=== PATIENT | female | born 1975 | race Caucasian/White ===

== ENCOUNTER 2023-07-05 09:33 | Outpatient (OUT) | payer BC, SELFPAY ==
--- NOTE | 2023-07-05 09:44 | MM_ITS ---
Patient Name: MOSES BACK MR#: [id number] : 1975 Exam Date: 07/05/2023 Ordering Doctor: DR Vikash Mena . RADIOLOGY REPORT PROCEDURE: MM TOMOSYNTHESIS SCREENING BI COMPARISON: MG MAMM SCREEN [place] W CAD, 05/10/2021. MG MAMM DIAGNOSTIC 3D [place] CAD, 06/24/2022. INDICATIONS: screening Calculator Name NCI Breast Cancer Risk Assessment Tool 5 Year Breast Cancer Risk 1.10% Lifetime Breast Cancer Risk 11.10% Personal Breast Cancer No Personal Ovarian Cancer No Treatments None Family Cancers Grandmother-maternal with breast cancer at age 63; Father with lung cancer at age 63; Father with prostate cancer at age 49; Grandfather-paternal with prostate cancer at age 55. LOCATION: [facility] BREAST COMPOSITION: The breasts are almost entirely fatty. FINDINGS: DIAGNOSTIC CATEGORY 2--BENIGN FINDING. NO CHANGE FROM COMPARISON. Scattered benign-appearing calcifications are present. Scattered benign-appearing lymph nodes are present. RIGHT BREAST: No significant suspicious finding. LEFT BREAST: No significant suspicious finding. RECOMMENDATIONS: ROUTINE MAMMOGRAM AND CLINICAL EVALUATION IN 12 MONTHS. PLEASE NOTE: A NORMAL MAMMOGRAM DOES NOT EXCLUDE THE POSSIBILITY OF BREAST CANCER. A CLINICALLY SUSPICIOUS PALPABLE LUMP SHOULD BE BIOPSIED. Dictated by: Angel Mcdermott MD on 07/05/2023 at 12:16 Approved by: Angel Mcdermott MD on 07/05/2023 at 12:18
== END 2023-07-05 09:34 | disposition home or self-care (01) ==
LOC: MAMMO 09:33
PROVIDERS: Visit Provider Obstetrics & Gynecology
DX: Z01.419 Encounter for gynecological examination (general) (routine) without abnormal findings (principal); Z12.31 Encounter for screening mammogram for malignant neoplasm of breast; Z80.3 Family history of malignant neoplasm of breast; Z80.1 Family history of malignant neoplasm of trachea, bronchus and lung; Z80.42 Family history of malignant neoplasm of prostate
CPT/HCPCS: 77063; 77067; 87624; G0145

== ENCOUNTER 2023-07-05 20:20 | Outpatient (REF) | payer BC, SELFPAY ==
[2023-07-10 13:08] LABS: Age Gdln ACOG Testing Note (.); HPV Aptima Negative (Negative); IGP, Aptima HPV, rfx 16/18,45 Note (.)
== END 2023-07-05 20:21 | disposition home or self-care (01) ==
LOC: LAB 20:20
PROVIDERS: Visit Provider Physician Assistant
DX: Z01.419 Encounter for gynecological examination (general) (routine) without abnormal findings (principal)
CPT/HCPCS: 87624; G0145

== ENCOUNTER 2024-03-29 08:59 | Outpatient (OUT) | payer BC, SELFPAY ==
--- NOTE | 2024-03-29 09:04 | ECG_ITS ---
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
== END 2024-03-29 09:00 | disposition home or self-care (01) ==
LOC: PST 08:59
PROVIDERS: Visit Provider Obstetrics & Gynecology
DX: R10.2 Pelvic and perineal pain (principal); Z90.710 Acquired absence of both cervix and uterus
CPT/HCPCS: 93005

== ENCOUNTER 2024-03-29 10:01 | Outpatient (OUT) | payer BC, SELFPAY ==
[2024-03-29 11:27] LABS: Lactate Dehydrogenase 134 U/L (81-234)
[2024-03-30 08:14] LABS: AFP, Serum, Tumor Marker 2.8 ng/mL (0.0-6.4); CEA <0.6 ng/mL (0.0-4.7); Cancer Antigen (CA) 125 4.8 U/mL (0.0-38.1); HCG Tumor Marker <1 mIU/mL (.)
== END 2024-03-29 10:02 | disposition home or self-care (01) ==
LOC: LAB 10:03
PROVIDERS: PCP Student in an Organized Health Care Education/Training Program; Visit Provider Obstetrics & Gynecology
DX: R10.2 Pelvic and perineal pain (principal); Z90.710 Acquired absence of both cervix and uterus; N83.299 Other ovarian cyst, unspecified side
CPT/HCPCS: 36415; 82105; 82378; 83615; 84702; 86304; 93005

== ENCOUNTER 2024-04-12 07:22 | Day surgery (SDC) | payer BC, SELFPAY ==
[2024-03-29 09:18] VITALS: BP 124/79; PULSE 87; TEMP 36.3; O2SAT 100; BMI 32.4
[2024-04-12] VITALS (10 sets, daily range): BP systolic 109–124; BP diastolic 71–80; PULSE 63–88; TEMP 36.1–36.4; O2SAT 100; BMI 40.7
--- OUTSIDE RECORDS SUMMARY | 2024-04-12 07:25 | XMS_ITS | CCD ---
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 Unavailable [phone] Michell Campbell Unavailable DO Gabriel Anderson Primary Care Provider [phone] DO Gabriel Anderson Attending Provider [phone] TRINA ., DR HERRMANN Admitting Unavailable TRINA ., DR HERRMANN Attending Unavailable TRINA ., DR HERRMANN Consulting Unavailable TRINA ., DR HERRMANN Admitting Unavailable TRINA ., DR HERRMANN Attending Unavailable REQUEST, DR NONE LISTED Primary Care Unavaila ble TRINA ., DR HERRMANN Admitting Unavailable TRINA ., DR HERRMANN Attending Unavailable REQUEST, NONE LISTED Primary Care Unavaila ble TRINA ., DR HERRMANN Consulting Unavailable AGUBOSIM, MILO Consulting Unavailable MARIA G CROWLEY Consulting Unavailable TRINA ., DR HERRMANN Admitting Unavailable TRINA ., DR HERRMANN Attending Unavailable TRINA ., DR HERRMANN Consulting Unavailable REQUEST, DR NONE LISTED Primary Care Unavaila ble TRINA ., DR HERRMANN Admitting Unavailable TRINA ., DR HERRMANN Attending Unavailable REQUEST, DR NONE LISTED Primary Care Unavaila ble TRINA ., DR HERRMANN Consulting Unavailable Randall Mcfarlane Consulting Unavailable TRINA ., DR HERRMANN Admitting Unavailable TRINA ., DR HERRMANN Attending Unavailable REQUEST, DR NONE LISTED Primary Care Unavaila ble TRINA ., DR HERRMANN Consulting Unavailable AGUBOSIM, MILO Consulting Unavailable ALEJANDRINA BLEVINS Consulting Unavailable DENITA VILLALOBOS Consulting Unavailable TRINA ., DR HERRMANN Admitting Unavailable TRINA ., DR HERRMANN Attending Unavailable REQUEST, DR NONE LISTED Primary Care Unavaila ble TRINA ., DR HERRMANN Consulting Unavailable TRINA ., DR HERRMANN Admitting Unavailable TRINA ., DR HERRMANN Attending Unavailable REQUEST, DR NONE LISTED Primary Care Unavaila mayito Anderson, DO Juarez Primary Care Provider [phone] Justin, DO Juarez Attending Provider [phone] Justin, Gabriel Attending Unavailable Justin, Gabriel Primary Care Unavailable Branmilocki, Gabriel Admitting Unavailable BRANMILOCKI, GABRIEL A Attending Unavailable JUSTIN, GABRIEL A Primary Care Unavailable BRANHUNG, GABRIEL A Admitting Unavailable BRANMILOCKI, GABRIEL A Primary Care Unavailable Johnathan French Admitting Unavailable Johnathan French Attending Unavailable Chris Hernandez MD Primary Care Provider Vikash MENA Referring Unavailable Av HERNANDEZ Attending Unavailable CHRIS HERNANDEZ Primary Care Physician [phone] KATIA DAVIDSON Attending Unavailable VIKASH MENA Attending Unavailable VIKASH MENA Attending Unavailable Allergies Allergy Classification Reported Allergen(s) Allergy Type Date of Onset Reaction(s) Facility (20 sources) dairy allergy Propensity to adverse reactions 4 [facility] (20 sources) Acetaminophen / oxyCODONE; Translations: [acetaminophen-ox ycodone] Drug Allergy [facility] [place] (1 source) Lactose Drug Allergy [facility] (8 sources) Acetaminophen Drug Allergy 4 [facility] (8 sources) oxyCODONE Drug Allergy 4 [facility] (1 source) Acetaminophen / oxyCODONE; Translations: [Percocet] Drug Allergy [facility] Rep[facility] (5 sources) Acetaminophen / oxyCODONE Drug Allergy 3 GI intolerance [facility] (1 source) Acetaminophen / oxyCODONE; Translations: [acetaminophen-ox ycodone] Drug Allergy [facility] Repository Medications Current Medications Medication Drug Class(es) Dates Sig (Normalized) Sig (Original) naproxen 500 mg oral tablet (6 sources) Nonsteroidal Anti-inflammatory Drug Start: 11-01-2022 take 1 tablet by mouth every twelve hours at mealtime as needed Naproxen 500 MG 1 tablet with food or milk as needed Orally every 12 hrs for 30 days Oct, Active 24 hr phentermine 15 mg / topiramate 92 mg extended release oral capsule (20 sources) Sympathomimetic Amine Anorectic Start: 08-22-2023 End: 03-25-2024 take 1 capsule by mouth once daily Phentermine-Topi ramate 15-92 mg capsule, ER multiphase 24 hr Active 1 CAP PO Daily March 25, 2024 11:46am Start: 01-22-2021 take 1 capsule by mo ut every twenty-four hours Qsymia 15-92 MG 1 capsule Orally Once a day for 30 day(s) Jan, Active Start: 01-22-2021 take 1 capsule by mo uth every twenty-four hours Start: 01-22-2021 take 1 capsule by mo uth every twenty-four hours Start: 01-22-2021 take 1 capsule by mo uth every twenty-four hours Qsymia 11.25-69 MG 1 capsule Orally Once a day for 14 days Jan, Active Start: 08-18-2020 Phentermine-To piramate (Qsymia) 15-92 MG capsule sustained-release 24 hr 08/18/2020 Active Start: 05-20-2020 End: 08-22-2023 take 1 capsule by mouth once daily Phentermine-Topiramate (Qsymia) 7.5-46 mg capsule, ER multiphase 24 hr Discontinued 1 CAP PO Daily May 15, 2023 1:54pm June 14, 2023 10:17am Vitamin D 37627 U (17 sources) take 1 tablet by mamta th once daily Vitamin D 63294 U 1 tablet Orally daily Active {24 (ethinyl estradiol 0.02 MG / norethindrone acetate 1 MG Chewable Tablet) / 4 (ferrous fumarate 75 MG Oral Tablet) } Pack [Nora 24 Fe Chewable 28 Day] (17 sources) take 1 tablet by mamta th every twenty-four hours Nora 24 Fe 1-20 MG-MCG(24) 1 tablet Orally Once a day Active take 1 tablet by mouth every twe y-four hours Completed/Discontinued Medications Medication Drug Class(es) Dates Sig (Normalized) Sig (Original) cholecalciferol 0.125 mg oral tablet (5 sources) Vitamin D Start: 05-20-2020 End: 08-22-2023 take 1 tablet by mouth once daily Cholecalciferol (Vitamin D3) (Vitamin D3) 125 mcg (5,000 unit) Tablet Discontinued 125 MCG PO Daily May 20, 2020 12:00am August 22, 2023 7:06am Norethindrone-E.Estra diol-Iron (5 sources) Estrogen Start: 05-20-2020 End: 08-22-2023 take 1 tablet by mouth once daily Norethindrone-E.Estr adiol-Iron (Lo Loestrin Fe) 1 mg-10 mcg (24)/10 mcg (2) Tablet Discontinued 1 TAB PO Daily May 20, 2020 12:00am August 22, 2023 7:06am Start: 05-20-2020 End: 08-22-2023 take 1 tablet by mouth once daily Norethindrone-E.Estradiol-Iron (Lo Loest rin Fe) 1 mg-10 mcg (24)/10 mcg (2) Tablet Discontinued 1 TAB PO Daily May 20, 2020 1:00am August 22, 2023 8:06am Start: 05-20-2020 take 1 tablet by mamta th once daily Norethindrone-E.Estradiol-Iron (Lo Loest rin Fe) 1 mg-10 mcg (24)/10 mcg (2) Tablet Active 1 TAB PO Daily May 20, 2020 1:00am methylPREDNISolone acetate 40 mg/ml injectable suspension (4 sources) Corticosteroid Start: 01-20-2023 DEPO-Medrol Jan, 1 mL pantoprazole 40 mg delayed release oral tablet (5 sources) Proton Pump Inhibitor Start: 05-20-2020 End: 08-22-2023 take 1 tablet by mouth once daily Pantoprazole 40 mg Tablet,Delayed Release (Dr/Ec) Discontinued 40 MG PO Daily May 20, 2020 12:00am August 22, 2023 7:06am traZODone hydrochloride 100 mg oral tablet (20 sources) Serotonin Reuptake Inhibitor Start: 08-22-2023 End: 03-25-2024 take 1 tablet by mouth once daily at bedtime as needed Trazodone 100 mg tablet Discontinued 100 MG PO Daily at bedtime as needed for insomnia 90 August 22, 2023 7:29am November 21, 2023 8:01am Start: 05-10-2021 take 1 tablet by mamta th every twenty-four hours traZODone HCl 50 MG 1 tablet at bedtime as needed Orally Once a day for 30 day(s) Apr, Active take 1 tablet by mamta th every twenty-four hours traZODone HCl 100 MG 1 tablet at bedtime as needed Orally Once a day for 30 day(s) Not-Taking Problems Active Problems Problem Classification Problem Date Documented Date Episodic/Chronic Abdominal pain (6 sources) Pelvic and perineal pain; Translations: [Pain in female pelvis] Onset: 09-15-2021 02-14-2024 Episodic Anxiety disorders (1 source) Anxiety 02-26-2024 Chronic Diabetes mellitus without complication (1 source) Impaired fasting glucose Episodic Disorders of lipid metabolism (20 sources) Hypercholesterolemia; Translations: [Pure hypercholesterolemia, unspecified] Chronic Headache; including migraine (1 source) Migraine 02-26-2024 Chronic Immunizations and screening for infectious disease (1 source) Contact with and (suspected) exposure to other viral communicable diseases Episodic Menstrual disorders (5 sources) Excessive and frequent menstruation with regular cycle; Translations: [Dysmenorrhea, unspecified] Onset: 09-10-2021 Chronic Nonmalignant breast conditions (4 sources) Unspecified lump in the left breast, upper outer quadrant; Translations: [UNS LUMP IN LT BREAST UPR OUTR QUAD] Onset: 06-24-2022 Episodic Nutritional deficiencies (20 sources) Vitamin D deficiency; Translations: [Vitamin D deficiency, unspecified] Onset: 01-22-2021 Resolved: 11-24-2021 Chronic Other connective tissue disease (3 sources) Trochanteric bursitis, right hip Episodic Other female genital disorders (1 source) Camila; Translations: [MITTELSCHMERZ] Onset: 09-15-2021 Chronic Other female genital disorders (1 source) Unspecified dyspareunia; Translations: [UNSPECIFIED DYSPAREUNIA] Onset: 09-15-2021 Chronic Other nervous system disorders (1 source) Chronic pain; Translations: [Other chronic pain] Onset: 03-26-2024 Chronic Other nutritional; endocrine; and metabolic disorders (20 sources) Obesity; Translations: [Other obesity due to excess calories] Chronic Other nutritional; endocrine; and metabolic disorders (20 sources) Other obesity due to excess calories; Translations: [Obesity, unspecified] Onset: 01-22-2021 Resolved: 11-24-2021 Chronic Other nutritional; endocrine; and metabolic disorders (3 sources) Body mass index (BMI) 36.0-36.9, adult Onset: 01-22-2021 Resolved: 07-19-2021 Chronic Other nutritional; endocrine; and metabolic disorders (1 source) Obesity, unspecified Onset: 01-22-2021 Resolved: 01-22-2021 Chronic Other nutritional; endocrine; and metabolic disorders (7 sources) Obese class II; Translations: [Body mass index (BMI) 36.0-36.9, adult] Chronic Other nutritional; endocrine; and metabolic disorders (14 sources) Body mass index 30+ - obesity; Translations: [Body mass index (BMI) 35.0-35.9, adult] 03-26-2024 Chronic Other nutritional; endocrine; and metabolic disorders (4 sources) Body mass index (BMI) 35.0-35.9, adult Onset: 04-02-2021 Resolved: 09-29-2021 Chronic Other nutritional; endocrine; and metabolic disorders (2 sources) Body mass index (BMI) 34.0-34.9, adult Onset: 10-27-2021 Resolved: 11-24-2021 Chronic Other nutritional; endocrine; and metabolic disorders (2 sources) Body mass index (BMI) 33.0-33.9, adult Chronic Other nutritional; endocrine; and metabolic disorders (10 sources) Obese class I; Translations: [Body mass index (BMI) 33.0-33.9, adult] Chronic Other nutritional; endocrine; and metabolic disorders (1 source) Body mass index (BMI) 32.0-32.9, adult Chronic Other nutritional; endocrine; and metabolic disorders (2 sources) Body mass index (BMI) 31.0-31.9, adult Chronic Other nutritional; endocrine; and metabolic disorders (5 sources) Hypocalcemia; Translations: [Hypocalcemia] 08-21-2023 Chronic Other nutritional; endocrine; and metabolic disorders (1 source) Body mass index (BMI) 30.0-30.9, adult Chronic Other nutritional; endocrine; and metabolic disorders (5 sources) Hypocalcemia; Translations: [Hypocalcemia] Onset: 12-11-2023 Chronic Other nutritional; endocrine; and metabolic disorders (5 sources) Obesity caused by energy imbalance; Translations: [Other obesity due to excess calories] 08-21-2023 Chronic Other screening for suspected conditions (not mental disorders or infectious disease) (17 sources) Encounter for screening for other metabolic disorders; Translations: [Encounter for screening for cardiovascular disorders] Onset: 11-24-2021 Resolved: 11-24-2021 Episodic Residual codes; unclassified (20 sources) Insomnia; Translations: [Insomnia, unspecified] 08-22-2023 Episodic Residual codes; unclassified (6 sources) Insomnia, unspecified; Translations: [Insomnia, unspecified] Onset: 05-10-2021 Resolved: 07-19-2021 Episodic Unclassified (1 source) CONTACT W/AND (SUSP) EXPOS COVID-19; Translations: [CONTACT W/AND (SUSP) EXPOS COVID-19] Onset: 09-10-2021 Unclassified (1 source) Patient encounter status 03-26-2024 Past or Other Problems Problem Classification Problem Date Documented Da te Episodic/Chronic Benign neoplasm of uterus (1 source) Leiomyoma of uterus, unspecified; Translations: [LEIOMYOMA OF UTERUS UNSPECIFIED] Onset: 2 Episodic Contraceptive and procreative management (4 sources) Encounter for sterilization; Translations: [ENCOUNTER FOR STERILIZATION] Onset: 2 Episodic Esophageal disorders (20 sources) Gastroesophageal reflux disease; Translations: [Gastro-esophageal reflux disease without esophagitis] Onset: 1 Resolved: 4 Chronic Inflammatory diseases of female pelvic organs (1 source) Inflammatory disease of cervix uteri; Translations: [INFLAMMATORY DISEASE CERVIX UTERI] Onset: 2 Episodic Other female genital disorders (1 source) Other specified conditions associated with female genital organs and menstrual cycle; Translations: [OTH SPEC COND FE GEN ORG MENST CYCL] Onset: 2 Episodic Other gastrointestinal disorders (1 source) Other constipation; Translations: [OTHER CONSTIPATION] Onset: 2 Episodic Viral infection (1 source) COVID-19 Results Test Name Value Interpretation Reference Range Facility ALL LDHon 03-29-2024 LDH [Catalytic activity/Vol] 134 U/L 81 - 234 U/L [facility] Ambulatory Visit Summaryon 0 03-26-2024 Ambulatory Visit Summary Ambulatory Visit Summary MOSES ABRAHAM :1975 Visit Date:03/26/2024 Ambulatory Visit Instructions Your Care Team Attending Physician - MACKENZIE MORGAN, Av Guardado Primary Care Physician - DEMETRIO MORGAN, CHRIS Referring Physician - Vikash MENA DO This Is Your Medications List Contact prescribing physician if questions or concerns phentermine-topiramat e (Qsymia 15 mg-92 mg oral capsule, extended release) Procedures Performed Bilateral complete salpingectomy, VH - Vaginal hysterectomy. Discharge Vitals Heart Rate (Peripheral) 72 Respiratory Rate 16 Blood Pressure 118/78 Height 154.9 cm Height 61 in Weight 78 kg Weight 171.96 lb BMI 32.51 Medications What How Much When Instructions Unchanged phentermine-topiramat e (Qsymia 15 mg-92 mg oral capsule, extended release) 1 Capsules By Mouth Once a day (in the morning) Contact prescribing physician if questions or concerns Allergies acetaminophen-oxycodo ne (vomiting) Problems Ongoing - Any problem that you are currently receiving treatment for. Anxiety BMI 32.0-32.9,adult Hypercholesterolemia Insomnia Migraines Obesity due to excess calories Historical - Any problem that you are no longer receiving treatment for. Gastroesophageal reflux disease Patient Survey You may receive a survey via text or e-mail asking about your office visit. Please share your experience with us by completing your survey. We appreciate your feedback and thank you for choosing us for your care. Normal [facility] US PELVISon 03-25-2024 US PELVIS EXAM: Pelvic Ultrasound, Transabdominal. REASON FOR EXAM: Pelvic pain, endometriosis, right lower quadrant pain. COMPARISON: None TECHNIQUE: Grayscale and color Doppler ultrasound of the pelvis performed . Transabdominal images were obtained. FINDINGS: The bladder is normal in configuration. Uterus/Endometrium: Status post hysterectomy. Ovaries: Normal in size with normal vascularity by Doppler US. Ovaries appear symmetric in size with several follicles in the bilateral ovaries. The largest follicle is in the right ovary and measures up to 3.1 cm. Peritoneum: No free fluid visualized. Measurements: Right Ovary: 4.7 x 2.9 x 3.4 cm Volume 24.4 mL Left Ovary: 4.4 x 1.9 x 2.4 cm Volume: 16.2 mL IMPRESSION: 1. Prior hysterectomy. 2. Incidental ovarian follicles. The largest follicle in the right ovary is minimally complex, 3.1 cm in diameter. *This report is generated using voice recognition reporting (StyleSeek). On occasion [employer] erroneously drops words from the report or replaces the spoken word with similar sounding words. Please call with any questions/concerns regarding this report.* Dictated and transcribed 03/25/2024/tm This report has been electronically signed and approved by the interpreting radiologist. Normal Not Available Comment on above: Order Comment: US PE LVIS-TRANSVAG IF INDICATED No LMP recorded. Patient has had a hysterectomy. RECURRENT VAGINITIS (HTRX)on 02-15-2024 ATOPOBIUM VAGINAE 0 [facility] ATOPOBIUM VAGINAE Not detected [facility] BVAB 2,3 (BACTERIAL VAGINOSIS ASSOCIATED BACTERIA 2, 3); MOBILUNCUS SPP 0 [facility] BVAB 2,3 (BACTERIAL VAGINOSIS ASSOCIATED BACTERIA 2, 3); MOBILUNCUS SPP Not detected [facility] KIKO ALBICANS, PARAPSILOSIS, TROPICALIS 0 [facility] KIKO ALBICANS, PARAPSILOSIS, TROPICALIS Not detected [facility] KIKO GLABRATA 0 [facility] KIKO GLABRATA Not detected [facility] KIKO KRUSEI 0 [facility] KIKO KRUSEI Not detected [facility] CHLAMYDIA TRACHOMATIS 0 [facility] CHLAMYDIA TRACHOMATIS Not detected [facility] GARDNERELLA VAGINALIS 0 [facility] GARDNERELLA VAGINALIS Not detected [facility] MEGASPHAERA (TYPES 1, 2) 0 [facility] MEGASPHAERA (TYPES 1, 2) Not detected [facility] MYCOPLASMA GENITALIUM 0 [facility] MYCOPLASMA GENITALIUM Not detected [facility] NEISSERIA GONORRHOEAE 0 [facility] NEISSERIA GONORRHOEAE Not detected [facility] TRICHOMONAS VAGINALIS 0 [facility] TRICHOMONAS VAGINALIS Not detected [facility] Urinalysis macro (dipstick) panel (U)on 02-14-2024 Bilirubin, UA Negative Negative - 4(70) +++ mg/dL [facility] Blood, UA Negative Negative - 50 Hollis/mcL [facility] Clarity, UA Clear [facility] Color, UA Yellow [facility] Glucose, UA Negative Negative - 1999(110) ++++ mg/dL [facility] Interpretation and review of laboratory results Normal [facility] Ketones, UA Negative Negative - 160(16) ++++ mg/dL [facility] Leukocytes, UA Negative Negative - 500+++ Pallavi/mcL [facility] Nitrite, UA Negative Negative - Positive [facility] pH, UA 6 5 - 9 [facility] Protein, UA Negative Negative - 1999(20) ++++ mg/dL [facility] Spec Grav, UA 1.015 1 - 1.03 [facility] Urobilinogen, UA 0.2 0.2 - 12 mg/dL [facility] ED Clinical Summaryon 2023 ED Clinical Summary [facility] Emergency Department [address] [place] [address] ED Clinical Summary PERSON INFORMATION Name: MOSES ABRAHAM Age: 48 Years Sex: FEMALE : 1975 MRN: Acct#: Visit Reason: Neck pain; Facial injury; Syncope/Near syncope; SYNCOPAL EPISODE, FALL, FACIAL INJURY Arrival: 12/29/2023 05:38:37 Discharge: 12/29/2023 06:23:00 LOS: 000 00:45 Check In: 12/29/2023 05:38:37 Checkout:12/29/2023 06:23:00 Address: [address] [place] [address] PCP: GABIREL ANDERSON PROVIDER INFORMATION Provider Role Assigned Unassigned Johnathan French MD ED Provider 12/29/2023 05:39:34 Bianka Peña RN ED Nurse 12/29/2023 05:56:05 VITALS INFORMATION Vital Sign Triage Latest Temperature Tympanic Temperature Temporal Artery Pulse Rate 80 bpm 80 bpm O2 Sat 100 % 100 % Respiratory Rate 16 br/min 16 br/min Blood Pressure /71 mmHg /71 mmHg MEDICAL INFORMATION Medications Given: Medication Dose Route tetanus/diphth/pertus s (Tdap) adult/adol 0.5 mL Intramuscular bacitracin topical 500 unit(s) Topical Allergy Information: Percocet PHYSICIAN DOCUMENTATION DISCHARGE INFORMATION: Discharge Disposition: Home Discharge Location: Home PATIENT EDUCATION INFORMATION Instructions: Facial Laceration, Tzaf-im-Eram Follow-Up: With: Address: When: GABRIEL ANDERSON [address] [place] [address] Within 3 to 5 days DIAGNOSIS: 1:Laceration of lower lip Patient Understands: Yes - Patient/family/caregi chris verbalizes understanding of instructions given Comment: Normal [facility] ED Patient Summaryon 024 ED Patient Summary [facility] - Emergency Department [address] [place] [id number] PATIENT DISCHARGE INSTRUCTIONS Patient Information Name: MOSES ABRAHAM Age: 48 Years Date of : 1975 Reason For Visit: Neck pain; Facial injury; Syncope/Near syncope; SYNCOPAL EPISODE, FALL, FACIAL INJURY Arrival Time: 12/29/2023 05:38:37 Primary Care Physician: GABRIEL ANDERSON Attending Physician: Johnathan French MD Comment: Visit Diagnosis: Diagnoses This Visit Facial injury ([id number]) Laceration of lower lip (S01.511A) Neck pain ([id number]) Syncope/Near syncope ([id number]) The Pharmacy at [facility] is open Monday through Monday from 9A to 6P and Monday and Monday from 9A to 5P Prescription Information: If you have been given a prescription for narcotics, seek immediate medical attention if you have any difficulty breathing or any sudden status changes such as confusion and sleepiness. If you or anyone you know is experiencing suicidal thoughts, mental health, alcohol and/or drug addiction problems; contact the [facility] 10/10 Crisis Hotline -Text 6OAMM fd 008406. If you received any narcotics, sedation, or any other medication that causes drowsiness for the next 24 hours, unless otherwise directed: ? Do not drive a car. ? Do not operate machinery such as power tools, lawn mowers, drills, sewing machines, or stoves ? Avoid alcoholic beverages and drugs for allergies, nerves, or sleep ? Do not make important personal or business decisions or sign any legal documents With: Address: When: GABRIEL ANDERSON [facility] [place] [id number] Within 3 to 5 days Medication Information: The exam and treatment you received today in the [facility] Emergency Department were for an urgent problem and are not intended as complete care. It is important for you to follow up with a doctor, nurse practitioner, or physician?s assistant director of security for ongoing care. If your symptoms become worse or you do not improve as expected and you are unable to reach your usual health care provider, you should return to the Emergency Department, we are available 24 hours a day. For those patients who have received Radiology results, the interpretation of your X-ray as given to you by our Emergency Department physician is only a preliminary report. The Radiologist will review your films and if there is a change in the diagnosis you will be notified by phone. Please make sure you have provided a working phone number so we can reach you if necessary. In the event that you had a lab culture while you were a patient in the Emergency Department, you will be notified by phone if there is a need to change your antibiotic. Please make sure you have provided a working phone number so we can reach you if necessary. [facility] Emergency Department has provided you with a complete list of medications post discharge. Please inform your team primary care physician/provider of your visit and for further instruction on these medications. Any specific questions regarding your chronic medications and dosages should be discussed with your primary care physician(s) and/or pharmacist. Additional medications on your home medication list not specifically addressed. Please contact the ordering physician if you have questions about these medications. ethinyl estradiol-norethindro ne (Lo Loestrin Fe 1 mg-10 mcg oral tablet) 1 tab(s) Oral (given by mouth) every day. phentermine-topiramat e (Qsymia 7.5 mg-46 mg oral capsule, extended release) 1 cap(s) Oral (given by mouth) once a day (in the morning). Visit Information Allergies: Substance Reaction Symptoms Type Comments Percocet Drug Vital Signs: Vitals and Measurements this Visit (last charted value for your 12/29/2023 visit) Vital Signs This Visit Temperature Oral: 36.5 DegC Peripheral Pulse Rate: 80 bpm Respiratory Rate: 16 br/min Systolic Blood Pressure: 118 mmHg Diastolic Blood Pressure: 71 mmHg SpO2: 100 % Oxygen Therapy: Room air Measurements This Visit Height/Length Measured: 154.94 cm Weight Measured: 74.84 kg Weight Dosin.840 kg Body Mass Index: 31.18 kg/m2 Problems List: Problem Onset Comments Anxiety Depression Excessive thirst Fatigue Headache Insomnia Obesity Patient Education Facial Laceration Keep the wound clean and dry. Suture removal in 5 days. Return to the emergency department for any worsening symptoms. A facial laceration is a cut on the face. You may need to see a doctor for treatment. Treatment may help the wound heal and prevent scars. What are the causes? ? A car crash. ? An injury when playing sports. ? An attack by a person or animal. ? A fall. What are the signs or symptoms? ? A cut on the face. ? Bleeding. ? Pain. ? Swelling. ? Bruises (more content not included)... Normal [facility] Alanine aminotransferase [En zymatic activity/volume] in Serum or PlasmaOrdered By: Gabriel Anderson on 12-11-2023 ALT [Catalytic activity/Vol] 10 U/L Normal 7-52 [facility] Comment on above: Performed By: #### C MP, TSH3 wRFLX, [id number], CBC, LIPID #### [facility] [address] [place] [address] [place] Albumin [Mass/volume] in Ser um or Plasma by Bromocresol green (BCG) dye binding methoOrdered By: Gabriel Anderson on 12-11-2023 Albumin BCG dye [Mass/Vol] 4.1 g/dL 3.5-5.7 [facility] Alkaline phosphatase [Enzyma tic activity/volume] in Serum or PlasmaOrdered By: Gbariel Anderson on 12-11-2023 ALP [Catalytic activity/Vol] 71 U/L Normal 34-104 [facility] Comment on above: Performed By: #### C MP, TSH3 wRFLX, [id number], CBC, LIPID #### [facility] [address] [place] [id number] [place] Aspartate aminotransferase [ Enzymatic activity/volume] in Serum or PlasmaOrdered By: Garbiel Anderson on 12-11-2023 AST [Catalytic activity/Vol] 11 U/L Low 13-39 [facility] Comment on above: Performed By: #### C MP, TSH3 wRFLX, [id number], CBC, LIPID #### [address] Automated basophil %Ordered By: Gabriel Anderson on 12-11-2023 Basophils/100 WBC (Bld) 0.4 % Normal . [facility] Comment on above: Performed By: #### C MP, TSH3 wRFLX, [id number], CBC, LIPID #### [address] Automated basophil countOrde red By: Gabriel Anderson on 12-11-2023 Basophils (Bld) [#/Vol] 0.0 10*3/uL Normal 0.0-0.2 [facility] Comment on above: Result Comment: PERF ORMED BY: [place] [address] PATHOLOGIST GAMEPLAY ENGINEER SOL REILLY M.D. Performed By: #### C MP, TSH3 wRFLX, [id number], CBC, LIPID #### [address] Automated blood monocyte cou ntOrdered By: Gabriel Anderson on 12-11-2023 Monocytes (Bld) [#/Vol] 0.4 10*3/uL Normal 0.0-0.8 [facility] Comment on above: Performed By: #### C MP, TSH3 wRFLX, [id number], CBC, LIPID #### [address] Automated eosinophil %Ordere d By: Gabriel Anderson on 12-11-2023 Eosinophils/100 WBC (Bld) 1.5 % Normal . [facility] Comment on above: Performed By: #### C MP, TSH3 wRFLX, [id number], CBC, LIPID #### [address] Automated eosinophil countOr dered By: Gabriel Anderson on 12-11-2023 Eosinophils (Bld) [#/Vol] 0.1 10*3/uL Normal 0.0-0.45 [facility] Comment on above: Performed By: #### C MP, TSH3 wRFLX, [id number], CBC, LIPID #### [facility] [address] Automated monocyte %Ordered By: Gabriel Anderson on 12-11-2023 Monocytes/100 WBC (Bld) 5.8 % Normal . [facility] Comment on above: Performed By: #### C MP, TSH3 wRFLX, [id number], CBC, LIPID #### [facility] [address] Automated neutrophil %Ordere d By: Gabriel Anderson on 12-11-2023 Neutrophils/100 WBC (Bld) 67.5 % Normal . [facility] Comment on above: Performed By: #### C MP, TSH3 wRFLX, [id number], CBC, LIPID #### [facility] [address] Bilirubin.total [Mass/volume ] in Serum or PlasmaOrdered By: Gabriel Anderson on 12-11-2023 Bilirubin [Mass/Vol] 0.4 mg/dL Normal 0.3-1.0 [facility] Comment on above: Performed By: #### C MP, TSH3 wRFLX, [id number], CBC, LIPID #### [facility] [address] Calcium [Mass/volume] in Ser um or PlasmaOrdered By: Gabriel Anderson on 12-11-2023 Calcium [Mass/Vol] 8.7 mg/dL Normal 8.6-10.3 [facility] Comment on above: Performed By: #### C MP, TSH3 wRFLX, [id number], CBC, LIPID #### [facility] [address] Carbon dioxide, total [Moles /volume] in Serum or PlasmaOrdered By: Gabriel Anderson on 12-11-2023 CO2 [Moles/Vol] 25.6 mmol/L Normal 21.0-31.0 [facility] Comment on above: Performed By: #### C MP, TSH3 wRFLX, [id number], CBC, LIPID #### [facility] [address] [place] [address] [place] Chloride [Moles/volume] in S torrey or PlasmaOrdered By: Gabriel Anderson on 12-11-2023 Chloride [Moles/Vol] 108 mmol/L High 98-107 [facility] Comment on above: Performed By: #### C MP, TSH3 wRFLX, [id number], CBC, LIPID #### [facility] [address] [place] [id number] [facility] Cholesterol [Mass/volume] in Serum or PlasmaOrdered By: Gabriel Anderson on 12-11-2023 Cholesterol [Mass/Vol] 189 mg/dL Normal 140-200 [facility] Comment on above: Chol less than 200 m g/dl low riskChol 201-239 mg/dl borderline riskChol 240 mg/dl and greater high risk Result Comment: Chol less than 200 mg/dl low risk Chol 201-239 mg/dl borderline risk Chol 240 mg/dl and greater high risk Performed By: #### C MP, TSH3 wRFLX, [id number], CBC, LIPID #### [facility] [address] [place] [id number] [facility] Cholesterol in LDL Calc [Mas s/Vol]Ordered By: Gabriel Anderson on 12-11-2023 Cholesterol in LDL [Mass/Vol] 97 mg/dL 0-100 [facility] Comment on above: LDL ATP III CLASSIFI CATIONLDL less than 100 mg/dL OptimalLDL 100-129 mg/dL Near or above optimalLDL 130-159 mg/dL Borderline highLDL 160-189 mg/dL HighLDL greater than 189 mg/dL Very high Cholesterol in VLDL Calc [Ma ss/Vol]Ordered By: Gabriel Anderson on 12-11-2023 Cholesterol in VLDL [Mass/Vol] 22 mg/dL [facility] Complete Blood Count Auto Di ffon 12-11-2023 Mean Corpuscular HGB Conc 34.1 g/dL Normal 32.0-35.0 [facility] Comment on above: Performed By: #### C MP, TSH3 wRFLX, [id number], CBC, LIPID #### [address] NRBC% 0.3 /100{WBC} Normal 0-0.5 [facility] Comment on above: Performed By: #### C MP, TSH3 wRFLX, [id number], CBC, LIPID #### [address] Comprehensive Metabolic Pane sariah 12-11-2023 Albumin [Mass/Vol] 4.1 g/dL Normal 3.5-5.7 [facility] Comment on above: Performed By: #### C MP, TSH3 wRFLX, [id number], CBC, LIPID #### [address] GFR/1.73 sq M.predicted MDRD (S/P/Bld) [Vol rate/Area] mL/min/{1.73_m2} Normal [facility] Comment on above: Performed By: #### C MP, TSH3 wRFLX, [id number], CBC, LIPID #### [address] Creatinine [Mass/volume] in Serum or PlasmaOrdered By: Gabriel Anderson on 12-11-2023 Creatinine [Mass/Vol] 0.85 mg/dL Normal 0.60-1.20 [facility] Comment on above: Performed By: #### C MP, TSH3 wRFLX, [id number], CBC, LIPID #### [address] Erythrocyte distribution wid th [Ratio] by Automated countOrdered By: Gabriel Anderson on 12-11-2023 Erythrocyte distribution width (RBC) [Ratio] 14.1 % Normal 11.9-15.3 [facility] Comment on above: Performed By: #### C MP, TSH3 wRFLX, [id number], CBC, LIPID #### [facility] [address] Erythrocytes [#/volume] in B lood by Automated countOrdered By: Gabriel Anderson on 12-11-2023 RBC (Bld) [#/Vol] 4.45 10*6/uL Normal 3.60-5.00 [facility] Comment on above: Performed By: #### C MP, TSH3 wRFLX, [id number], CBC, LIPID #### [facility] [address] [place] [address] [place] Glucose [Mass/volume] in Ser um or PlasmaOrdered By: Gabriel Anderson on 12-11-2023 Glucose [Mass/Vol] 74 mg/dL Normal 70-100 [facility] Comment on above: ADA recommended refe rence rangeRandom Glucose Reference Range is dependent on time and content of last meal. Glucose of more than 200 mg/dL in a nonstressed, ambulatory subject supports the diagnosis of Diabetes Mellitus. Result Comment: [place] om Glucose Reference Range is dependent on time and content of last meal. Glucose of more than 200 mg/dL in a nonstressed, ambulatory subject supports the diagnosis of Diabetes Mellitus. ADA recommended reference range Performed By: #### C MP, TSH3 wRFLX, [id number], CBC, LIPID #### [facility] [address] Hematocrit [Volume Fraction] of Blood by Automated countOrdered By: Gabriel Anderson on 12-11-2023 Hematocrit (Bld) [Volume fraction] 40.1 % Normal 34.0-46.4 [facility] Comment on above: Performed By: #### C MP, TSH3 wRFLX, [id number], CBC, LIPID #### [facility] [address] [place] [address] [place] Hemoglobin [Mass/volume] in BloodOrdered By: Gabriel Anderson on 12-11-2023 Hemoglobin (Bld) [Mass/Vol] 13.7 g/dL Normal 11.8-15.4 [facility] Comment on above: Performed By: #### C MP, TSH3 wRFLX, [id number], CBC, LIPID #### [facility] [address] Leukocytes [#/volume] correc tarsha for nucleated erythrocytes in Blood by Automated counOrdered By: Gabriel Anderson on 12-11-2023 WBC corrected for nucl RBC Auto (Bld) [#/Vol] 7.1 10*3/uL 3.8-11.6 [facility] Leukocytes [#/volume] in Blo od by Automated countOrdered By: Gabriel Anderson on 12-11-2023 WBC (Bld) [#/Vol] 7.1 10*3/uL Normal 3.8-11.6 [facility] Comment on above: Performed By: #### C MP, TSH3 wRFLX, [id number], CBC, LIPID #### [facility] [address] [place] [id number] [facility] Lipid Panelon 12-11-2023 LDL Cholesterol,Calculated 97 mg/dL Normal 0-100 [facility] Comment on above: Result Comment: LDL ATP III CLASSIFICATION LDL less than 100 mg/dL Optimal LDL 100-129 mg/dL Near or above optimal LDL 130-159 mg/dL Borderline high LDL 160-189 mg/dL High LDL greater than 189 mg/dL Very high Performed By: #### C MP, TSH3 wRFLX, [id number], CBC, LIPID #### [facility] [address] Triglyceride w/Reflex 112 mg/dL Normal 0-149 [facility] Comment on above: Result Comment: TRIG ATP III CLASSIFICATION TRIG less than 150 mg/dL Normal TRIG 150-199 mg/dL Borderline high TRIG 200-500 mg/dL High TRIG greater than 500 mg/dL Very high Standard traceable to the Center for Disease Conrtrol and Prevention (CDC) test method. Performed By: #### C MP, TSH3 wRFLX, [id number], CBC, LIPID #### [facility] [address] [place] [address] [facility] VLDL CHOLESTEROL 22 mg/dL Normal [facility] Comment on above: Performed By: #### C MP, TSH3 wRFLX, [id number], CBC, LIPID #### [address] Lymphocytes [#/volume] in Bl ood by Automated countOrdered By: Gabriel Anderson on 12-11-2023 Lymphocytes (Bld) [#/Vol] 1.8 10*3/uL Normal 1.00-4.8 [facility] Comment on above: Performed By: #### C MP, TSH3 wRFLX, [id number], CBC, LIPID #### [address] Lymphocytes/100 leukocytes i n Blood by Automated countOrdered By: Gabriel Anderson on 12-11-2023 Lymphocytes/100 WBC (Bld) 24.8 % Normal . [facility] Comment on above: Performed By: #### C MP, TSH3 wRFLX, [id number], CBC, LIPID #### [address] MCH [Entitic mass] by Automa tarsha countOrdered By: Gabriel Anderson on 12-11-2023 MCH (RBC) [Entitic mass] 30.7 pg Normal 24.7-34.3 [facility] Comment on above: Performed By: #### C MP, TSH3 wRFLX, [id number], CBC, LIPID #### [address] MCHC Auto (RBC) [Mass/Vol]Or dered By: Gabriel Anderson on 12-11-2023 MCHC (RBC) [Mass/Vol] 34.1 g/dL 32.0-35.0 [facility] MCV [Entitic volume] by Auto mated countOrdered By: Gabriel Anderson on 12-11-2023 MCV (RBC) [Entitic vol] 90.1 fL Normal 80-[address] [facility] Comment on above: Performed By: #### C MP, TSH3 wRFLX, [id number], CBC, LIPID #### [address] Neutrophils [#/volume] in Bl ood by Automated countOrdered By: Gabriel Anderson on 12-11-2023 Neutrophils (Bld) [#/Vol] 4.8 10*3/uL Normal 1.8-7.7 [facility] Comment on above: Performed By: #### C MP, TSH3 wRFLX, [id number], CBC, LIPID #### [facility] [address] No Panel InformationOrdered By: Gabriel Anderson on 12-11-2023 Estimated GFR (CKD-EPI) > 60.0 mL/Min [facility] Creatinine Clearance (Chem N/A [facility] Nucleated erythrocytes [Pres ence] in Blood by Automated countOrdered By: Gabriel Anderson on 12-11-2023 Nucleated RBC Auto Ql (Bld) 0.3 /100{WBC} 0-0.5 [facility] Platelet mean volume [Entiti c volume] in Blood by Automated countOrdered By: Gabriel Anderson on 12-11-2023 Platelet mean volume (Bld) [Entitic vol] 9.1 fL Normal 6.3-10.7 [facility] Comment on above: Performed By: #### C MP, TSH3 wRFLX, [id number], CBC, LIPID #### [facility] [address] [place] [address] [place] Platelets [#/volume] in Bloo d by Automated countOrdered By: Gabriel Anderson on 12-11-2023 Platelets (Bld) [#/Vol] 194 10*3/uL Normal 150-450 [facility] Comment on above: Performed By: #### C MP, TSH3 wRFLX, [id number], CBC, LIPID #### [facility] [address] [place] [address] [place] Potassium [Moles/volume] in Serum or PlasmaOrdered By: Gabriel Anderson on 12-11-2023 Potassium [Moles/Vol] 4.1 mmol/L Normal 3.5-5.1 [facility] Comment on above: Performed By: #### C MP, TSH3 wRFLX, [id number], CBC, LIPID #### [facility] [address] Protein [Mass/volume] in Ser um or PlasmaOrdered By: Gabriel Anderson on 12-11-2023 Protein [Mass/Vol] 6.1 g/dL Low 6.4-8.9 [facility] Comment on above: Performed By: #### C MP, TSH3 wRFLX, [id number], CBC, LIPID #### [facility] [address] Serum globulin measurement b y calculation (mass/volume)Ordered By: Gabriel Anderson on 12-11-2023 Globulin (S) [Mass/Vol] 2.0 g/dL Normal [facility] Comment on above: Performed By: #### C MP, TSH3 wRFLX, [id number], CBC, LIPID #### [facility] [address] [place] [address] Serum or plasma albumin/glob ulin mass ratioOrdered By: Gabriel Anderson on 12-11-2023 Albumin/Globulin [Mass ratio] 2.1 {ratio} Normal [facility] Comment on above: Performed By: #### C MP, TSH3 wRFLX, [id number], CBC, LIPID #### [address] Serum or plasma anion gap de terminationOrdered By: Gabriel Anderson on 12-11-2023 Anion gap [Moles/Vol] 9.5 mmol/L Normal 6.0-15.0 [facility] Comment on above: Performed By: #### C MP, TSH3 wRFLX, [id number], CBC, LIPID #### [facility] [address] [place] [address] Serum or plasma high density lipoprotein (HDL) cholesterol measurementOrdered By: Gabriel Anderson on 12-11-2023 Cholesterol in HDL [Mass/Vol] 70 mg/dL Normal 23- [facility] Comment on above: HDL CHOL ATP-III CLA SSIFICATION Cardiovascular RiskHDL > or equal to 60 mg/dL LOWHDL < 40 mg/dL HIGH Result Comment: HDL CHOL ATP-III CLASSIFICATION Cardiovascular Risk HDL > or equal to 60 mg/dL LOW HDL < 40 mg/dL HIGH Performed By: #### C MP, TSH3 wRFLX, [id number], CBC, LIPID #### [facility] [address] Serum or plasma total choles terol/high density lipoprotein (HDL) cholesterol mass ratOrdered By: Gabriel Anderson on 12-11-2023 Cholesterol.total/Dulce sterol in HDL [Mass ratio] 2.7 {ratio} Normal <5.0 [facility] Comment on above: Performed By: #### C MP, TSH3 wRFLX, [id number], CBC, LIPID #### [address] Sodium [Moles/volume] in Ser um or PlasmaOrdered By: Gabriel Anderson on 12-11-2023 Sodium [Moles/Vol] 139 mmol/L Normal 136-145 [facility] Comment on above: Performed By: #### C MP, TSH3 wRFLX, [id number], CBC, LIPID #### [facility] [address] [place] [address] Thyroid Stim Hormone w/Rflxo n 12-11-2023 Thyroid Stim Hormone w/Rflx 3.12 u[iU]/mL Normal 0.45-5.33 [facility] Comment on above: Performed By: #### C MP, TSH3 wRFLX, [id number], CBC, LIPID #### [facility] [address] [place] [address] [place] Thyrotropin [Units/volume] i n Serum or PlasmaOrdered By: Gabriel Anderson on 12-11-2023 TSH Qn 3.12 m[IU]/L 0.45-5.33 [facility] Triglyceride [Mass/volume] i n Serum or PlasmaOrdered By: Gabriel Anderson on 12-11-2023 Triglyceride [Mass/Vol] 112 mg/dL 0-[address] [facility] Comment on above: TRIG ATP III CLASSIF ICATIONTRIG less than 150 mg/dL NormalTRIG 150-199 mg/dL Borderline highTRIG 200-500 mg/dL High TRIG greater than 500 mg/dL Very highStandard traceable to the Center for Disease Conrtrol and Prevention (CDC) test method. Urea nitrogen [Mass/volume] in Serum or PlasmaOrdered By: Gabriel Anderson on 12-11-2023 Urea nitrogen [Mass/Vol] 12 mg/dL Normal 7-25 [facility] Comment on above: Performed By: #### C MP, TSH3 wRFLX, [id number], CBC, LIPID #### [facility] [address] [place] [id number] [facility] Vitamin D 25 Hydroxy Totalon 12-11-2023 Vitamin D 25 Hydroxy Total 26.7 ng/mL Low 30-100 [facility] Comment on above: Result Comment: RAGHU MIN D STATUS 25(OH)VITAMIN D RANGE (ng/mL) Deficient <20 Insufficient 20 to <30 Sufficient 30 to 100 Reference: Paulette Tsang, Doug RAO, et al. Evaluation,treatment, and prevention of vitamin D deficiency; an Endocrine Society clinical practice guideline. JCEM. 2010; 96(7):1911-. PERFORMED BY: [place] [address] PATHOLOGIST GAMEPLAY ENGINEER SOL REILLY M.D. Performed By: #### C MP, TSH3 wRFLX, [id number], CBC, LIPID #### [facility] [address] [place], [place] [id number] [facility] Vitamin D+Metabolites [Mass/ volume] in Serum or PlasmaOrdered By: Gabriel Anderson on 12-11-2023 Vitamin D+Metabolites [Mass/Vol] 26.7 ng/mL Low 30-100 [facility] Comment on above: VITAMIN D STATUS 25( [place])VITAMIN D RANGE (ng/mL) Deficient <20 Insufficient 20 to <30Sufficient 30 to 100Reference: Paulette Tsang, Doug RAO, et al. Evaluation,treatment, and prevention of vitamin D deficiency; an Endocrine Society clinical practice guideline. JCEM. 2010; 96(7):1911-30. Cytology Cervical or vaginal smear or scraping studyon 07-05-2023 [facility] Coding Summaryon 01-24-2023 Coding Summary HTMLBase 64 NvfdyafeKDe0kTq+PGhlY WQ+NO0UBORmQ57geLIvfS 1jN9PWJJoJLpawDYZZDOn LDxZkyyAsXY2bdJOxSLCi IC8+UY7iOFMaQgrpjXPzc 2J5lKE6D00jul5oLMcqkI G3VOJyFxBhermbv3xikSy 6IDcuNmluOyBt OBSakJ54GPT0aV79Uq86f UTnhKHry0zzaAk9KcFoGP GsNYY5mSqdIEkye9ZjMOZ aO00zmVCkt7C2 MGAbjNjfxDXnAzLfeOB2l Q2nRFhzregcm0rjpomwYs s4to44cRVqo2E1vWR5W3M sztG1AUUxwGMb CniklBOEnW3rpkrrs5vgf xlzNmRuLIRiTUi7ACx4XY ZjpCrlNrYxMM01JIN3GKY glnEuV5MbEDDu sGvgCeA7r7R5Ns6XI3TUT ageV3EYWLQQLYsbnCP+PC 60cv67N6LwIbblVxu5JFC gPHI2tXU7sW4r DEBvSImaq2U9oCU5W5Hbk jXxcu7gs2qvTSCvMSviG5 8udPQyj0E4MZWbtGQ4AGJ crShqMiHzfT56 Oyc+TZXbbNcez0FzNnjvi 9mml9hqtQd6MyvbCSThhb EqiPlxVSM9g3YwAt5sXOY ojVY7sSV3yT1w WtEgUfA8VCyyY821UdXxj ZPeLmtfM91gX9NpuEZ+PH YsPdp9GELjzEvuRK9bI8R hZGRpbmctbGVm zEcjEK3bEBSnejmpJMPwq E6dTXIgW2q7AzLhAzC1TG snW1EwINZossmcXg67xT3 kPyCoDhP6BJxn O0DmleR9DTZrnJMqPRqlI ZI1N34hq2J3XMUrEVAgHV L6wQB8fC9lmIcqztageSW mdDsgdmVydGlj GShvXWfjE780FUFzsPpxP kNvZGluZyBEYXRlOiAgMT EvMDcvMjAyMzwvdGQ+PHR lDRL1zUjqYLHp rUCwGOtoEp0twKlmnVnwS G4iQPOfdpsxMJAlmA9qNO MxtFTghIugOW5yWOMapdn pq214WjHkIZP1 DWInwGRkB5XgaL1zSoHcL LMsFYApY0KxgPKiANdfB0 32MVguCeZ5JUBqmjUiM8P sLWFsaWduOiB0 b6Z9He5Bj8EsqjtcD9Til JOzAlSpEwrvBCx6W7QqZy wvdHI+YQ56KZYhAY25IYm 0YQQ0bKznSOrg LROkI6BqwI3gVsJdFWUtM GRkOyc+PHRhYmxlIHdpZH RoPScxMDAlJyBzdHlsZT0 yAq8wYDMgSTTp vBfbdFBgXhAno4ewHPCcY KabDI1erHehG5IklCB4OK Iot8k8Co90M22mU4AsvFF +DPEiaKM4nSX0 pG2tTiAdMcD8JSpqN367T rYwiQQuLkfil2dth8hmtS v1XyJ8KBIabrGlyHovODO 0p4GjUf02K34m IHdpZHRoPSIxNSUiIHZhb Ocbct3loU2hOi9+PGNvbC Z0kZI2tD4iExAbJyT2WMa vJ791FyHwpQHd Qxnkl2krv6agdSg6CrChW HErvjVzxOdeJMS5g1ZrDa 96D6VktAyja2CcTba0ld2 3dMQqt7G1wXH0 M0VvFHXtxjkabZOywLjdS J2aBWCnosagORCtjD4hBN DeU2k8XoTuKjY0SXblL9S zgiA6YIGaeFPj ZNUavYRWmY3hxkpdh0pka denOdMzTBVtLFw8XAy1DC BwtHypKpSdIPK0OmN4DXH 5jWDffX1gbCyh ldoosK0kBiy+ORC9jSNnd ALLAB9iQoajtZB+PHRkIH W7dHebBCzaTREedI7kBLX hD1t1DfZmWoU9 GUkpC1NumyM0UZZyqJGdS QEptGOCfL0eomric2bdao xrSnEtRYTaWUb5ZWp6COV saWduOiBsZWZ0 LeG0SRM9hGPmwN9qbTyop gjzgI1lRmr+QmlydGggRG V3JCp7W8KfTdj9MABzmXv jPA3qaBLuOYvy Tk1cmNwosUtqXZ8hLYNgr uykw915BhFaz1uwUYOpkR DhHByvHDM7V18wi7N8EGN zPAWkKRZ8sUD0 aS9iiZsovbyohDWpkPdld xKvcRrfTGmxSPiaK293HG MnhEbeByWgSPo8R4HiPky 2NBWaeHboTR9h tBTuNObpEs7hyZxwpMrlM W6uIJZenackv582QeHwh7 oqMBCysBZnLNpqCZL3A38 bh2M1VQGlXUUc ZBH0oER6yM3jjUjsvdsch GVmdDsgdmVydGljYWwtYW klE145PJJtuGdpYmTeqRb 8J0GaNfn0XLKq nVoaTB4ueXCuPVvoKn2je UsuzUsiYD1rMSHeeeeqe0 57VeTdu4poHBUhhZTgHWv wNXR1K77ha0C1 UWTuLAZcXVM0dKY8pZ0ni GlnbjogbGVmdDsgdmVydG rkLMbhCMxgH741GEJxtAf nPlBhdGllbnQg IOeoKMj1X5FuKsoqhDR+P P17PNQrEN05sLMmsKXtu4 adlOu5BmTxCZDwZJU9oKc zECahr6RxUHWv W87smIZzf3O3JFKcrRazn CIvWlYnuTL0gN0oGXurda nux9fdxqhwMlnet9wkjs4 4fP88T85uSEbf ZHRoPSIzMCUiIHZhbGlnb v1pcC1iWa0+JHSzqUA3lZ Q4qE5rGKHqYbY1KQmbX48 9InRvcCIvPjxj t7lfk4gsmQd4TrV4VRExe tYezBifXJD7e6RvCx26L3 9sIHdpZHRoPSIyMCUiIHZ evJlzuw8llJ2y Ii8+MSCasKN9kTM3xZ3nI cGoKeD3WUfqG036DpWyyS XoQvdpM45kR1RvaLX+PHR aOrb8IRZoxSuu PI3cpNThBOlrWk5tYGA8M lOpOpUoVYdqV5EtMZUrjl htfpxhqQA9FODrCKZlsX4 1Ne5vlUucEBGw oKMWnO0pfzror8vuxetlG jIvTGJnCVr6BSf3DXZbxA tzRnUzIGI4UaG9DXM7oNN ysL9mcYalxmmm fL9zB9PwWZHfgdwxJy09v W0vSmGqGtR2QZudBpt+S0 VOTkVEWSwgSkFNSUUgREF VVIBYODT7R2Vc Ftx2VNUoiEltNT5vxVXhV YbpSa0kkKjthEksGN5vDA YaubocWGNibZ3wTTJwtEA ujRjuIT5hZDIn zxemd070YvTtMRN9EZEdw PJoE3UwwU2aXcQcQFErFR CpG3HrbQBxMZfrR411CQd zBqO4ZEKyfaCs O3MjDLUuxHrkUzH7b1O1V b7iOk2tWf3tAFp3YK34LM 78lIZpw6B6tHM2D1AfBKU pbmctcmlnaHQ6 LYQvOKUrnW90xQBbLRdaG j8gl4Q5i017PBNhPTBxlM 78Em2xsErtHLQhpPIMgF9 kokjiv8ztctav DmOwOMRfVTb5UBc5QREqc IwpTwLwHZC2KmF8QNP0eV ZoxM6orHcsnedaqJ8rUfe +NDggWWVhcnM8 P3InZqe2ZTEntZloVD6ro UMkNYmyWb9rfPuqeYqmQZ 5rIBApjqfrDJSsaG3yOGJ qzYAhsTkkKS5a PWPkborxg691OsYhGIZ7C BSkwYSwK5MfpE1wCzAuQK EzJGMvD3ZsaSXkWGxrA82 7CShsIlT8NZAs haTaN6FmIEQjzRijCxF5d 6Y7Bj4YXR3IGEM3X1LbGj h0BKHmbPfhZS3nfPGsYNi tAr0iyMlloIwt MZ2wDXGcfyqvFZXvlC7dK HMhwOMqwKgyIZ9tESCsqh sic397FbTpFRX2SANgyIH cC7BagN1aQkKa PQNcFUHpL6WbqTXcYMdvY 310TYciGfX3KGRoktEhI0 LpYIHhcCiyUtT7v1I7Fm4 PUDwvdGQ+PC90 qd69O2DgWgjwVzg6PAYkU HD8cMY1nB1vKDZsZSznl6 D3vCV7X4FiqmYxzk7ew5g eLRJaOIudJ46s gHXlr0B7RRIamWP9LCNpq AelOuVxrZ03Mfe+PGNvbG msg6NbMpmwh2xnh7fstXc 9IjMwJSIgdmFs zBcwUDE1v1ChZw49R81aY HdpZHRoPSIzMCUiIHZhbG alar4veC1gAm4+PGNvbCB 0tLM8tO9eQxPg CfK0HNpeJ392AxZqmEJvY lxqv0bdt9akxOj1XnOrXQ KyyoQsiXkuGZH9n2AgSm7 9P8RrtTzpg8Ix Oce5iu15cHLcs9W9uIQ1F 3BhZGRpbmctbGVmdDogMC 9fKYFnbszjQVRdsH1lEZG gV4y8TpCaUuE3 ZFtgA1WhjnG9SQDeoZVmY SQdmYQXfY0yjhofz7wxrz taTyKhFEQoVZu3MTv7HEZ saWduOiBsZWZ0 ZiP4ERL1zGKvxJ7veBchh vusjE2aHma+FDq6s2ntdF GcSU0eyRJ7MX94RO66cUC vq1P2rXM7F4Ys OSTkriedvjagzCI0AQHyF SIzaN15Sq8ymCkaMk4eWG RfUVP9CCJviAFvD7BzwJ6 yOiAjMDAwMDAw W5OqqUFkGAaaV838CJktE eA0PDMnosGuS8GhFMBydU huSrO4n1J4Ic4KAV74HC2 1RT87cRCzv6K3 mVN5D6WeBNDmpqatrfkav LA1WPEbOOFteL40Zn4byA arEz1oYDSaMVQ1IQPkxUI sZ6IpkF1wYtOo IIWgTVLrB4KecSHqXLniO 796JJqtJiA1PJOjlfPoH9 CeCZCtiTfnTlM0m6L8Ia1 KRv58AG79TW11 jFYdn0U1uAK1A8PbUUCrr jbcdeqjvPJ5XJBlZLGkeU 58Om2zmAsuYz8eSRRkNBJ 6ZHMaeUHiI4Tl hR5bKmQaOAZoAKDcD9Pyh ISgBNxlB879TGsuOeB6WX YxyzXiC6FgTZYdzTrrByI 3v0E0Sa7DWMhl snb2K6KmJlnfgVW+PC90Y OAbEI50uOOknNDtx1hcuA c5MyGbOJIdYGY9fQzpGSr rd1GdRJRkP99s bGF (more content not included)... [facility] .Auto Diff 1on 01-19-2023 Auto Mohave % 5 % Normal 12 [facility] Comment on above: Performed By: #### 1 2465366, 2623979650, 995863120, 4702119228, 2723440, 2290007275, 5242912 #### [facility] (DEFAULT) [address] [place] [address] 02792 Baso Abs# 0.1 x10 Normal 0.0-0.2 [facility] Comment on above: Performed By: #### 1 8624349, 3257611505, 314505899, 9138284001, 2467107, 1806360449, 0667861 #### [facility] (DEFAULT) [address] [place] [address] 44488 Basophils/100 WBC (Bld) 0.7 % Normal 0.2-2.0 [facility] Comment on above: Performed By: #### 1 6382908, 5428527565, 847248854, 7302117074, 8637650, 0745729838, 7410254 #### [facility] (DEFAULT) [address] [place] [address] 58555 Eos Abs# 0.1 x10 Normal 0.0-0.4 [facility] Comment on above: Performed By: #### 1 4718137, 0136252211, 715479826, 6893284804, 0166750, 5960897558, 3020749 #### [facility] (DEFAULT) [address] [place] [address] 82382 Eosinophils/100 WBC (Bld) 1.1 % Normal 0.9-4.0 [facility] Comment on above: Performed By: #### 1 4550291, 4377875048, 154388926, 8928684968, 0038513, 8602552265, 5757551 #### [facility] (DEFAULT) [address] [place] [address] Lymph Abs# 1.6 x10 Normal 1.3-2.9 [facility] Comment on above: Performed By: #### 1 5688698, 6921262563, 861023589, 9267150528, 8321483, 7936546892, 0233064 #### [facility] (DEFAULT) [address] [place] [address] Lymphocytes/100 WBC (Bld) 20 % Normal 14-48 [facility] Comment on above: Performed By: #### 1 3631666, 3519823600, 173663085, 4548051365, 2630353, 7510245861, 8545675 #### [facility] (DEFAULT) [address] [place] [address] Mohave Abs# 0.4 x10 Normal 0.0-0.8 [facility] Comment on above: Performed By: #### 1 2821945, 2248641305, 436901486, 6080601677, 6263721, 2525335817, 5149757 #### [facility] (DEFAULT) [address] [place] [address] Neut Abs# 6.0 x10 Normal 1.5-9.2 [facility] Comment on above: Performed By: #### 1 9471397, 9793653229, 813081500, 5536669606, 1440569, 4915648756, 9034498 #### [facility] (DEFAULT) [address] [place] [address] Neutrophils/100 WBC (Bld) 74 % Normal 44-88 [facility] Comment on above: Performed By: #### 1 6961124, 2620750626, 671210518, 5355968289, 7129880, 7311928450, 0900143 #### [facility] (DEFAULT) [address] [place] [address] CBC w/ Auto Diffon 3 Erythrocyte distribution width (RBC) [Ratio] 14.1 % Normal 11.5-15.0 [facility] Comment on above: Performed By: #### 1 3626039, 6923951229, 012827025, 4072084562, 7243405, 2558134454, 4003564 #### [facility] (DEFAULT) [address] [place] [address] Hematocrit (Bld) [Volume fraction] 41.1 % High 33.7-40.4 [facility] Comment on above: Performed By: #### 1 5239409, 8224663866, 032598866, 1522409656, 1539505, 2875032660, 5741279 #### [facility] (DEFAULT) [address] [place] [address] Hemoglobin (Bld) [Mass/Vol] 13.6 g/dL Normal 11.3-15.9 [facility] Comment on above: Performed By: #### 1 6639664, 2670891322, 824095064, 5069253097, 0849286, 6168489023, 7006168 #### [facility] (DEFAULT) [address] [place] [address] Man Diff? Auto Invalid Interpretation Code [facility] Comment on above: Performed By: #### 1 1320320, 6183086484, 833110667, 8663829496, 7323466, 4335981586, 6466112 #### [facility] (DEFAULT) [address] [place] [address] MCH (RBC) [Entitic mass] 30 pg Normal 24-34 [facility] Comment on above: Performed By: #### 1 3360585, 3180918368, 826099845, 0976456790, 5274716, 5795222952, 5232838 #### [facility] (DEFAULT) [address] [place] [address] MCHC (RBC) [Mass/Vol] 33 g/dL Normal 26-37 [facility] Comment on above: Performed By: #### 1 1179369, 1300768866, 785437850, 4292567309, 6586890, 2346408965, 3864724 #### [facility] (DEFAULT) [address] [place] [address] 53604 MCV (RBC) [Entitic vol] 90 fL Normal 81-100 [facility] Comment on above: Performed By: #### 1 4966078, 9249263166, 882116044, 9607750511, 4780224, 8604944408, 0585398 #### [facility] (DEFAULT) [address] [place] [address] Platelet 210 x10 Normal 138-427 [facility] Comment on above: Performed By: #### 1 4765763, 2832182147, 667290270, 3952103104, 0946864, 5352480874, 7388341 #### [facility] (DEFAULT) [address] [place] [address] Platelet mean volume (Bld) [Entitic vol] 8.5 fL Normal 6.3-10.2 [facility] Comment on above: Performed By: #### 1 8058146, 1993518248, 787180602, 4674551195, 9924990, 2366398649, 0346022 #### [facility] (DEFAULT) [address] [place] [address] RBC 4.54 x10 Normal 3.70-5.30 [facility] Comment on above: Performed By: #### 1 9172736, 0688646421, 656547693, 1563068453, 8174840, 0968291808, 8145051 #### [facility] (DEFAULT) [address] [place] [address] WBC 8.1 x10 Normal 3.5-10.5 [facility] Comment on above: Performed By: #### 1 4789813, 2390269618, 426491431, 9013029152, 3968793, 3099126309, 0025801 #### [facility] (DEFAULT) [address] [place] [address] CMP Standardon 01-19-2023 eGFR Non AA >60 Invalid Interpretation Code [facility] Comment on above: Performed By: #### 1 8154781, 2305380982, 701067753, 3762103893, 3112844, 8479140879, 0019169 #### [facility] (DEFAULT) [address] [place] [address] eGFR AA >60 Invalid Interpretation Code [facility] Comment on above: Performed By: #### 1 3982439, 0954173355, 685093119, 7403458977, 3373694, 4028254467, 8873017 #### [facility] (DEFAULT) [address] [place] [address] Albumin [Mass/Vol] 4.1 g/dL Normal 3.5-5.0 [facility] Comment on above: Performed By: #### 1 7759558, 6929574172, 050259712, 8498702080, 8490278, 4787832871, 6148804 #### [facility] (DEFAULT) [address] [place] [address] Albumin/Globulin [Mass ratio] 1.5 {ratio} Normal 1.4-2.6 [facility] Comment on above: Performed By: #### 1 9718319, 3530258825, 889445668, 3183646000, 8989216, 9936690138, 4195520 #### [facility] (DEFAULT) [address] [place] [address] Alk Phos 72 IU/L Normal 32-91 [facility] Comment on above: Performed By: #### 1 3055693, 5509558342, 647517100, 2284476735, 5048963, 2769873223, 3337352 #### [facility] (DEFAULT) [address] [place] [address] ALT [Catalytic activity/Vol] 16.0 U/L Normal 14.0-54.0 [facility] Comment on above: Performed By: #### 1 1141747, 1977240860, 405763087, 0337296527, 4717569, 1587041742, 1946832 #### [facility] (DEFAULT) [address] [place] [address] 54786 Anion gap [Moles/Vol] 8.9 mmol/L Normal 5.0-19.0 [facility] Comment on above: Performed By: #### 1 5807848, 0175757852, 748545069, 5784847334, 7465778, 7079686287, 6296867 #### [facility] (DEFAULT) [address] [place] [address] 84433 AST [Catalytic activity/Vol] 14 U/L Low 15-41 [facility] Comment on above: Performed By: #### 1 9039517, 7159200503, 566274940, 6490568085, 6498705, 6628134971, 8493282 #### [facility] (DEFAULT) [address] [place] [address] 53551 Bili Total 0.4 mg/dL Normal 0.3-1.2 [facility] Comment on above: Performed By: #### 1 0920526, 6429386591, 559889909, 1836704453, 0685941, 9967467611, 1688653 #### [facility] (DEFAULT) [address] [place] [address] 67523 Calcium [Mass/Vol] 8.5 mg/dL Low 8.9-10.3 [facility] Comment on above: Performed By: #### 1 5155013, 4101184620, 667971274, 8373264396, 6730661, 8802911241, 0859961 #### [facility] (DEFAULT) [address] [place] [address] 61802 Chloride [Moles/Vol] 108 mmol/L Normal 101-111 [facility] Comment on above: Performed By: #### 1 3057836, 0854968633, 107595017, 3500574145, 0712725, 5753212828, 3822789 #### [facility] (DEFAULT) [address] [place] [address] 13720 CO2 [Moles/Vol] 24 mmol/L Normal 21-32 [facility] Comment on above: Performed By: #### 1 2078788, 7799619091, 487067408, 5896092602, 9282467, 0809043760, 1663533 #### [facility] (DEFAULT) [address] [place] [address] 71473 Creatinine [Mass/Vol] 0.81 mg/dL Normal 0.60-1.30 [facility] Comment on above: Performed By: #### 1 8272360, 6881513234, 745715201, 8737273179, 3055390, 5532773919, 5766341 #### [facility] (DEFAULT) [address] [place] [address] 84552 Globulin (S) [Mass/Vol] 2.6 g/dL Normal 1.5-4.3 [facility] Comment on above: Performed By: #### 1 5124787, 4266504988, 484162615, 5404888900, 1899424, 5006577721, 3010955 #### [facility] (DEFAULT) [address] [place] [address] 80109 Glucose [Mass/Vol] 82.0 mg/dL Normal 74.0-118.0 [facility] Comment on above: Performed By: #### 1 4279779, 3798648874, 826566434, 7852717398, 8524560, 3686066482, 6040780 #### [facility] (DEFAULT) [address] [place] [address] 44919 Osmolality 274 mOsm/L Invalid Interpretation Code [facility] Comment on above: Performed By: #### 1 8515107, 3846234327, 333449460, 4698196131, 8011244, 4763067298, 0259630 #### [facility] (DEFAULT) [address] [place] [address] 57837 Potassium [Moles/Vol] 3.9 mmol/L Normal 3.6-5.1 [facility] Comment on above: Performed By: #### 1 6237356, 2454075921, 538904480, 0691875395, 1019542, 4947309885, 5158217 #### [facility] (DEFAULT) [address] [place] [address] 47284 Protein [Mass/Vol] 6.7 g/dL Normal 6.5-8.1 [facility] Comment on above: Performed By: #### 1 2383816, 3843982614, 837771421, 9189427760, 2861107, 2022274807, 8503088 #### [facility] (DEFAULT) [address] [place] [address] Sodium [Moles/Vol] 137.0 mmol/L Normal 136.0-144.0 [facility] Comment on above: Performed By: #### 1 4204744, 8222044928, 474848407, 2004366889, 6935574, 8634406517, 3955475 #### [facility] (DEFAULT) [address] [place] [address] 06033 Urea nitrogen [Mass/Vol] 15 mg/dL Normal 8-26 [facility] Comment on above: Performed By: #### 1 6381396, 9763215902, 205961424, 0303989974, 7711730, 9053010637, 6512090 #### [facility] (DEFAULT) [address] [place], [place] [address] Urea nitrogen/Creatinine [Mass ratio] 18.5 mg/mg High 4.6-16.2 [facility] Comment on above: Performed By: #### 1 4131015, 6570847456, 553492776, 9291940954, 9422695, 7645302398, 4066817 #### [facility] (DEFAULT) [address] [place] [address] 76791 HgbA1c Standardon 01-19-2023 .Hb 14.3 Invalid Interpretation Code [facility] Comment on above: Performed By: #### 1 9413980, 8698034211, 194118218, 6900593290, 6336334, 4139747508, 0927190 #### [facility] (DEFAULT) [address] [place] [address] 93913 .Hgb A1c 0.46 g/dL Invalid Interpretation Code [facility] Comment on above: Performed By: #### 1 3241009, 5272682705, 116009214, 9673102210, 4945134, 6051015778, 8484148 #### [facility] (DEFAULT) [address] [place] [address] 18560 Glucose [Mass/Vol] 97 mg/dL Invalid Interpretation Code [facility] Comment on above: Performed By: #### 1 4037318, 9126670998, 189721403, 6772614523, 2639888, 4482868293, 4659913 #### [facility] (DEFAULT) [address] [place] [address] 88317 HbA1c (Bld) [Mass fraction] 5.0 % Normal 4.6-6.2 [facility] Comment on above: Performed By: #### 1 9868101, 4092543457, 133593687, 2680383679, 4495813, 7438249060, 9491523 #### [facility] (DEFAULT) [address] [place] [address] 21285 Lipid Panel Standardon 01-19 Cholesterol [Mass/Vol] 200.0 mg/dL Normal 66.0-200.0 [facility] Comment on above: Performed By: #### 1 0993588, 7669311851, 606559000, 6775927160, 4077456, 9878332395, 4732985 #### [facility] (DEFAULT) [address] [place] [address] 38163 Cholesterol in HDL [Mass/Vol] 74 mg/dL High 40-71 [facility] Comment on above: Performed By: #### 1 7194204, 6225520470, 349438455, 1276630477, 1706824, 6826604821, 1785039 #### [facility] (DEFAULT) [address] [place] [address] 55040 Cholesterol in LDL [Mass/Vol] 106 mg/dL High 1-100 [facility] Comment on above: Performed By: #### 1 9545225, 6740254103, 254431235, 4123921054, 4422235, 1932350029, 8886705 #### [facility] (DEFAULT) [address] [place] [address] 57915 Cholesterol.total/Dulce sterol in HDL [Mass ratio] 2.7 {ratio} Normal 0.0-4.5 [facility] Comment on above: Performed By: #### 1 7498303, 6068832278, 290931674, 6090280095, 5270098, 9398957661, 1165336 #### [facility] (DEFAULT) [address] [place] [address] 96003 Triglyceride [Mass/Vol] 99.0 mg/dL Normal 0.0-150.0 [facility] Comment on above: Performed By: #### 1 9896563, 1833827108, 954007744, 3839414590, 0109934, 8206180578, 4922917 #### [facility] (DEFAULT) [address] [place] [address] 29304 VLDL. 20 mg/dL Normal 5-40 [facility] Comment on above: Performed By: #### 1 7276266, 2348278501, 880820176, 2067187674, 5540422, 1525255557, 2055260 #### [facility] (DEFAULT) [address] [place] [address] 72643 Provider Orderson 01-19-2023 Provider Orders [id number] Normal [facility] TSH w/ Reflex to FT4on 01-19 TSH Qn 2.55 m[IU]/L Normal 0.45-5.33 [facility] Comment on above: Performed By: #### 1 7234072, 3310169867, 374248040, 2554332368, 5525693, 8039617855, 8510103 #### [facility] (DEFAULT) [address] [place] [address] 84183 Vit D25 OHon 01-19-2023 Vitamin D 25 OH 36 ng/mL Invalid Interpretation Code [facility] Comment on above: Performed By: #### 1 6459623, 4078357003, 713227207, 3651484069, 6231348, 4429941149, 4441192 #### [facility] (DEFAULT) [address] [place] [address] PAP ACOG PANEL 2: 30 to 65on 06-28-2022 . . Normal [facility] Comment on above: Result Comment: Perf ormed at: WB Performed By: #### 4 233230 #### [facility] [address] [address] [address] Jewels Zhou Age Gdln ACOG Testing 30-65 Normal [facility] Comment on above: Performed By: #### 4 470081 #### [facility] [address] [address] [address] Jewels Zhou DIAGNOSIS: Comment [facility] Comment on above: Result Comment: NEGA TIVE FOR INTRAEPITHELIAL LESION OR MALIGNANCY. CELLULAR CHANGES ASSOCIATED WITH INFLAMMATION ARE PRESENT. Performed at: WB Performed By: #### 4 201089 #### [facility] [address] [place] [address] Dr. Jewels Zhou HPV Aptima Negative Normal Negative [facility] Comment on above: Result Comment: This nucleic acid amplification test detects fourteen high-risk HPV types (16,18,31,33,35,39,45,51,52,56,58,59,66,68) without differentiation. Performed at: =G Performed By: #### 4 377293 #### [facility] [address] [place] [address] Dr. Jewels Zhou HPV Genotype Reflex Comment Normal [facility] Comment on above: Result Comment: Crit eria not met, HPV Genotype not performed. Performed at: WB Performed By: #### 4 926412 #### [facility] [address] [place] [address] Dr. Jewels Zhou Methodology: Comment [facility] Comment on above: Result Comment: This liquid based ThinPrep(R) pap test was screened with the use of an image guided system. Performed at: WB Performed By: #### 4 064595 #### [facility] [address] [place] [address] Dr. Jewels Zhou Note: Comment Normal [facility] Comment on above: Result Comment: The Pap smear is a screening test designed to aid in the detection of premalignant and malignant conditions of the uterine cervix. It is not a diagnostic procedure and should not be used as the sole means of detecting cervical cancer. Both false-positive and false-negative reports do occur. . Performed at: WB Performed By: #### 4 802584 #### [facility] [address] [address] [address] Jewels Zhou Performed by: Comment Normal [facility] Comment on above: Result Comment: Joshua Guerrero, File Machine Operator (ASCP) Performed at: WB Performed By: #### 4 266052 #### [facility] [address] [address] [address] Jewels Zhou Specimen adequacy: Comment Normal [facility] Comment on above: Result Comment: Sati sfactory for evaluation. Endocervical and/or squamous metaplastic cells (endocervical component) are present. Performed at: WB Performed By: #### 4 188330 #### [facility] [address] [address] [address] Jewels Zhou MG MAMM DIAGNOSTIC 3D MAYNOR CA Don 06-24-2022 MG MAMM DIAGNOSTIC 3D MAYNOR CAD Patient: MOSES ABRAHAM Exam Date: 06/24/2022 : 1975 Gender:F Ordering : DR VIKASH MENA . Admission #: [id number] Family : Order #: [id number] CLICK HERE TO VIEW EXAM RADIOLOGY REPORT PROCEDURE: MAMMOGRAM DIAGNOSTIC 3D BILATERAL CAD, 06/24/2022, 13:42 ULTRASOUND BREAST LEFT LIMITED, 06/24/2022, 14:39 COMPARISON: MG MAMM SCREEN MAYNOR W CAD, 05/10/2021. INDICATIONS: Lump in upper outer quadrant of left breast Calculator Name NCI Breast Cancer Risk Assessment Tool 5 Year Breast Cancer Risk 1.10% Lifetime Breast Cancer Risk 11.30% Personal Breast Cancer No Personal Ovarian Cancer No Treatments None Family Cancers Grandmother-maternal with breast cancer at age 63; Father with lung cancer at age 63; Father with prostate cancer at age 49; Grandfather-paternal with prostate cancer at age 55. LOCATION: [facility] BREAST COMPOSITION: Almost entirely fatty. FINDINGS: DIAGNOSTIC CATEGORY 2--BENIGN FINDING: RIGHT BREAST: No significant suspicious finding. Stable small lymph node within the lower-inner quadrant. No significant change has occurred. LEFT BREAST: Skin surface marker localizes the palpable lump to the anterior upper-outer quadrant. No underlying mammographic abnormality. Ultrasound evaluation demonstrates normal appearing fibroglandular tissue. RECOMMENDATIONS: ROUTINE MAMMOGRAM AND CLINICAL EVALUATION IN 12 MONTHS. PLEASE NOTE: A NORMAL MAMMOGRAM DOES NOT EXCLUDE THE POSSIBILITY OF BREAST CANCER. A CLINICALLY SUSPICIOUS PALPABLE LUMP SHOULD BE BIOPSIED. Dictated by: Randall Mcfarlane M.D. on 06/24/2022 at 14:50 Approved by: Randall Mcfarlane M.D. on 06/24/2022 at 14:52 Normal [facility] US BREAST LEFT LIMITEDon US BREAST LEFT LIMITED Patient: MOSES ABRAHAM Exam Date: 06/24/2022 : 1975 Gender:F Ordering : DR VIKASH MENA . Admission #: [id number] Family : Order #: [id number] CLICK HERE TO VIEW EXAM RADIOLOGY REPORT PROCEDURE: MAMMOGRAM DIAGNOSTIC 3D BILATERAL CAD, 06/24/2022, 13:42 ULTRASOUND BREAST LEFT LIMITED, 06/24/2022, 14:39 COMPARISON: MG MAMM SCREEN MAYNOR W CAD, 05/10/2021. INDICATIONS: Lump in upper outer quadrant of left breast Calculator Name NCI Breast Cancer Risk Assessment Tool 5 Year Breast Cancer Risk 1.10% Lifetime Breast Cancer Risk 11.30% Personal Breast Cancer No Personal Ovarian Cancer No Treatments None Family Cancers Grandmother-maternal with breast cancer at age 63; Father with lung cancer at age 63; Father with prostate cancer at age 49; Grandfather-paternal with prostate cancer at age 55. LOCATION: [facility] BREAST COMPOSITION: Almost entirely fatty. FINDINGS: DIAGNOSTIC CATEGORY 2--BENIGN FINDING: RIGHT BREAST: No significant suspicious finding. Stable small lymph node within the lower-inner quadrant. No significant change has occurred. LEFT BREAST: Skin surface marker localizes the palpable lump to the anterior upper-outer quadrant. No underlying mammographic abnormality. Ultrasound evaluation demonstrates normal appearing fibroglandular tissue. RECOMMENDATIONS: ROUTINE MAMMOGRAM AND CLINICAL EVALUATION IN 12 MONTHS. PLEASE NOTE: A NORMAL MAMMOGRAM DOES NOT EXCLUDE THE POSSIBILITY OF BREAST CANCER. A CLINICALLY SUSPICIOUS PALPABLE LUMP SHOULD BE BIOPSIED. Dictated by: Randall Mcfarlane M.D. on 06/24/2022 at 14:50 Approved by: Randall Mcfarlane M.D. on 06/24/2022 at 14:52 Normal [facility] Basophils Auto (Bld) [#/Vol] Ordered By: Gabriel Anderson on 12-21-2021 Basophils (Bld) [#/Vol] 0.0 10*3/uL 0.0-0.2 [facility] Basophils/100 WBC Auto (Bld) Ordered By: Gabriel Anderson on 12-21-2021 Basophils/100 WBC (Bld) 0.6 % . F [facility] Blood hemoglobin measurement (mass/volume)Ordered By: Gabriel Anderson on 12-21-2021 Hemoglobin (Bld) [Mass/Vol] 13.8 g/dL 11.8-15.4 [facility] Blood leukocytes automated c ount (number/volume)Ordered By: Gabriel Anderson on 12-21-2021 WBC (Bld) [#/Vol] 5.0 10*3/uL 4.5-11.0 [facility] Body fluid albumin measureme nt (mass/volume)Ordered By: Gabriel Anderson on 12-21-2021 Albumin (Body fld) [Mass/Vol] 4.0 g/dL 3.2-5.5 [facility] COVID Quick Testingon 2021 Result Positive [employer] Other Cholesterol [Mass/volume] in Serum or PlasmaOrdered By: Gabriel Anderson on 12-21-2021 Cholesterol [Mass/Vol] 197 mg/dL 140-200 [facility] Comment on above: Chol less than 200 m g/dl low riskChol 201-239 mg/dl borderline riskChol 240 mg/dl and greater high risk Cholesterol in LDL Calc [Mas s/Vol]Ordered By: Gabriel Anderson on 12-21-2021 Cholesterol in LDL [Mass/Vol] 111 mg/dL 0-100 [facility] Comment on above: LDL ATP III CLASSIFI CATIONLDL less than 100 mg/dL OptimalLDL 100-129 mg/dL Near or above optimalLDL 130-159 mg/dL Borderline highLDL 160-189 mg/dL HighLDL greater than 189 mg/dL Very high Cholesterol in VLDL Calc [Ma ss/Vol]Ordered By: Gabriel Anderson on 12-21-2021 Cholesterol in VLDL [Mass/Vol] 17 mg/dL [facility] Creatinine and Glomerular fi ltration rate.predicted panel (S/P/Bld)Ordered By: Gabriel Anderson on 12-21-2021 Creatinine [Mass/Vol] 0.98 mg/dL 0.44-1.03 [facility] Eosinophils Auto (Bld) [#/Vo l]Ordered By: Gabriel Anderson on 12-21-2021 Eosinophils (Bld) [#/Vol] 0.0 10*3/uL 0.0-0.45 [facility] Eosinophils/100 WBC Auto (Bl d)Ordered By: Gabriel Anderson on 12-21-2021 Eosinophils/100 WBC (Bld) 0.1 % . [facility] Erythrocyte distribution wid th Auto (RBC) [Ratio]Ordered By: Gabriel Anderson on 12-21-2021 Erythrocyte distribution width (RBC) [Ratio] 13.9 % 11.9-15.3 [facility] Estimated glomerular filtrat ion rate (GFR) non- AmericanOrdered By: Gabriel Anderson on 12-21-2021 GFR/1.73 sq M.predicted among non-blacks MDRD (S/P/Bld) [Vol rate/Area] > 60 mL/Min [facility] Globulin Calc (S) [Mass/Vol] Ordered By: Gabriel Anderson on 12-21-2021 Globulin (S) [Mass/Vol] 2.3 g/dL [facility] Hematocrit Auto (Bld) [Volum e fraction]Ordered By: Gabriel Anderson on 12-21-2021 Hematocrit (Bld) [Volume fraction] 41.2 % 34.0-46.4 [facility] - Hematology and Cell countsOrdered By: Gabriel Anderson on 12-21-2021 Nucleated RBC/100 WBC (Bld) [Ratio] 0.1 % 0-0.5 [facility] Lymphocytes Auto (Bld) [#/Vo l]Ordered By: Gabriel Andersno on 12-21-2021 Lymphocytes (Bld) [#/Vol] 0.6 10*3/uL 1.00-4.8 [facility] Lymphocytes/100 WBC Auto (Bl d)Ordered By: Gabriel Anderson on 12-21-2021 Lymphocytes/100 WBC (Bld) 11.7 % . [facility] MCH Auto (RBC) [Entitic mass ]Ordered By: Gabriel Anderson on 12-21-2021 MCH (RBC) [Entitic mass] 29.5 pg 24.7-34.3 [facility] MCHC Auto (RBC) [Mass/Vol]Or dered By: Gabriel Anderson on 12-21-2021 MCHC (RBC) [Mass/Vol] 33.5 g/dL 32.0-35.0 [facility] MCV Auto (RBC) [Entitic vol] Ordered By: Gabriel Anderson on 12-21-2021 MCV (RBC) [Entitic vol] 88.1 fL 80-[address] [facility] Monocytes Auto (Bld) [#/Vol] Ordered By: Gabriel Anderson on 12-21-2021 Monocytes (Bld) [#/Vol] 0.7 10*3/uL 0.0-0.8 [facility] Monocytes/100 WBC Auto (Bld) Ordered By: Gabriel Anderson on 12-21-2021 Monocytes/100 WBC (Bld) 13.7 % . [facility] Neutrophils Auto (Bld) [#/Vo l]Ordered By: Gabriel Anderson on 12-21-2021 Neutrophils (Bld) [#/Vol] 3.7 10*3/uL 1.8-7.7 [facility] Neutrophils/100 WBC Auto (Bl d)Ordered By: Gabriel Anderson on 12-21-2021 Neutrophils/100 WBC (Bld) 73.9 % . [facility] No Panel InformationOrdered By: Gabriel Anderson on 12-21-2021 25-Hydroxy Vitamin D Total 46.0 ng/mL 30-100 [facility] Comment on above: VITAMIN D STATUS 25( [place])VITAMIN D RANGE (ng/mL) Deficient <20 Insufficient 20 to <30Sufficient 30 to 100Reference: Shabana MF,Paulette NC, Doug RAO, et al. Evaluation,treatment, and prevention of vitamin D deficiency; an Endocrine Society clinical practice guideline. JCEM. 2010; 96(7):1911-30. Estimated GFR () > 60 mL/Min [facility] Comment on above: GFR estimated refere nce range: According to KDOQI guidelines, <60 ml/min/1.73m2 is sufficient to diagnose a patient with chronic kidney disease. Pharmacy Creatinine Clearance (Chem N/A [facility] Platelet mean volume Auto (B ld) [Entitic vol]Ordered By: Gabriel Anderson on 12-21-2021 Platelet mean volume (Bld) [Entitic vol] 9.4 fL 6.3-10.7 [facility] Platelets Auto (Bld) [#/Vol] Ordered By: Gabriel Anderson on 12-21-2021 Platelets (Bld) [#/Vol] 167 10*3/uL 150-450 [facility] Protein [Mass/volume] in Ser um or PlasmaOrdered By: Gabriel Anderson on 12-21-2021 Protein [Mass/Vol] 6.3 g/dL 6.1-7.9 [facility] RBC Auto (Bld) [#/Vol]Ordere d By: Gabriel Anderson on 12-21-2021 RBC (Bld) [#/Vol] 4.68 10*6/uL 3.60-5.00 [facility] Serum or plasma alanine diana otransferase measurement without P-5'-P (enzymatic activiOrdered By: Gabriel Anderson on 12-21-2021 ALT No additional P-5'-P [Catalytic activity/Vol] 14 U/L 10-60 [facility] Serum or plasma albumin/glob ulin mass ratioOrdered By: Gabriel Anderson on 12-21-2021 Albumin/Globulin [Mass ratio] 1.7 {ratio} [facility] Serum or plasma alkaline rolanda sphatase measurement (enzymatic activity/volume)Ordered By: Gabriel Anderosn on 12-21-2021 ALP [Catalytic activity/Vol] 80 U/L 32-92 [facility] Serum or plasma anion gap de terminationOrdered By: Gabriel Anderson on 12-21-2021 Anion gap [Moles/Vol] 14.3 mmol/L 6.0-15.0 [facility] Serum or plasma aspartate am inotransferase measurement (enzymatic activity/volume)Ordered By: Gabriel Anderson on 12-21-2021 AST [Catalytic activity/Vol] 15 U/L 10-42 [facility] Serum or plasma calcium sharron urement (mass/volume)Ordered By: Gabriel Anderson on 12-21-2021 Calcium [Mass/Vol] 8.9 mg/dL 8.2-10.2 [facility] Serum or plasma chloride kim surement (moles/volume)Ordered By: Gabriel Anderson on 12-21-2021 Chloride [Moles/Vol] 105 mmol/L 95-114 [facility] Serum or plasma glucose sharron urement (mass/volume)Ordered By: Gabriel Anderson on 12-21-2021 Glucose [Mass/Vol] 96 mg/dL 70-100 [facility] Comment on above: ADA recommended refe rence rangeRandom Glucose Reference Range is dependent on time and content of last meal. Glucose of more than 200 mg/dL in a nonstressed, ambulatory subject supports the diagnosis of Diabetes Mellitus. Serum or plasma high density lipoprotein (HDL) cholesterol measurementOrdered By: Gabriel Anderson on 12-21-2021 Cholesterol in HDL [Mass/Vol] 68 mg/dL 35-85 [facility] Comment on above: HDL CHOL ATP-III CLA SSIFICATION Cardiovascular RiskHDL > or equal to 60 mg/dL LOWHDL < 40 mg/dL HIGH Serum or plasma potassium me asurement (moles/volume)Ordered By: Gabriel Anderson on 12-21-2021 Potassium [Moles/Vol] 3.8 mmol/L 3.5-5.1 [facility] Serum or plasma sodium measu rement (moles/volume)Ordered By: Gabriel Anderson on 12-21-2021 Sodium [Moles/Vol] 136 mmol/L 136-146 [facility] Serum or plasma total biliru bin measurement (mass/volume)Ordered By: Gabriel Anderson on 12-21-2021 Bilirubin [Mass/Vol] 0.5 mg/dL 0.3-1.2 [facility] Serum or plasma total carbon dioxide measurement (moles/volume)Ordered By: Gabriel Anderson on 12-21-2021 CO2 [Moles/Vol] 20.5 mmol/L 22.0-30.0 [facility] Serum or plasma total choles terol/high density lipoprotein (HDL) cholesterol mass ratOrdered By: Gabriel Anderson on 12-21-2021 Cholesterol.total/Dulce sterol in HDL [Mass ratio] 2.9 {ratio} <5.0 [facility] Serum or plasma urea nitroge n measurement (mass/volume)Ordered By: Gabriel Anderson on 12-21-2021 Urea nitrogen [Mass/Vol] 7 mg/dL 9- [facility] TSH DL <= 0.005 mIU/L QnOrde red By: Gabriel Anderson on 12-21-2021 TSH Qn 1.37 m[IU]/L 0.45-5.33 [facility] Triglyceride [Mass/volume] i n Serum or PlasmaOrdered By: Gabriel Anderson on 12-21-2021 Triglyceride [Mass/Vol] 88 mg/dL 35-[address] [facility] Comment on above: TRIG ATP III CLASSIF ICATIONTRIG less than 150 mg/dL NormalTRIG 150-199 mg/dL Borderline highTRIG 200-500 mg/dL High TRIG greater than 500 mg/dL Very highStandard traceable to the Center for Disease Conrtrol and Prevention (CDC) test method. CT Chest w/o Contraston CT Chest w/o Contrast CLINICAL HISTORY: Follow-up lung nodules. COMPARISON: 07/19/2021 TECHNIQUE: Multiple contiguous axial images of the chest were obtained without enhancement. Multiplanar reformatted images were acquired at the CT console. MIP images were acquired. All CT scans at this facility use dose modulation, iterative reconstruction, and/or weight based dosing when appropriate to reduce radiation dose to as low as reasonably achievable. FINDINGS: Right lun. 2 mm Calcified granuloma right upper lobe, axial image 31, unchanged. 2. 8 mm right middle lobe nodule, axial image 57, unchanged. 3. 7.5 mm nodule posterior medial left lower lobe, image 75, unchanged. Left lun. In the left upper lobe anteriorly 5.5 mm nodule, axial image 22, unchanged. 2. In the left upper lobe anteriorly 3 mm nodule, axial image 18, unchanged. No evidence of aortic aneurysm. There is no mediastinal or hilar lymphadenopathy. No pericardial or pleural effusions. The heart is not enlarged. No acute infiltrates. Major tracheal and bronchial branches appear patent. The visualized portions of the upper abdomen are unremarkable. No pneumoperitoneum.Bone s are intact. IMPRESSION: Stable lung nodules. Largest nodule measures 8 mm. Recommend follow-up according to Fleischner guidelines. Recommend follow-up CT scan in 18-24 months Report reported and signed by Tri Guerrero on 11/23/2021 1103 Normal [facility] Tobacco [employer] Hand BUNon 09-11-2021 Urea nitrogen [Mass/Vol] 7.0 mg/dL Normal 7.0-18.0 [facility] Comment on above: Performed By: #### B YANN ACOSTA #### [facility] [address] [place] [address] Dr. Jewels Zhou CBC AUTO DIFFon 09-11-2021 BASO # 0.0 103/ul Normal 0.0-0.1 [facility] Comment on above: Performed By: #### C BC #### [facility] [address] [place] [address] Dr. Jewels Zhou Basophils/100 WBC (Bld) 0.2 % Normal 0.2-2.0 [facility] Comment on above: Performed By: #### C BC #### [facility] [address] [place] [address] Dr. Jewels Zhou EO # 0.0 103/ul Normal 0.0-0.7 [facility] Comment on above: Performed By: #### C BC #### [facility] [address] [place] [address] Dr. Jewels Zhou Eosinophils/100 WBC (Bld) 0.4 % Critically low 0.9-7.0 [facility] Comment on above: Performed By: #### C BC #### [facility] [address] [place] [address] Dr. Jewels Zhou Erythrocyte distribution width (RBC) [Ratio] 13.8 % Normal 11.0-15.0 [facility] Comment on above: Performed By: #### C BC #### [facility] [address] [place] [address] Dr. Jewels Zhou Hematocrit (Bld) [Volume fraction] 35.0 % Critically low 36.0-48.0 [facility] Comment on above: Performed By: #### C BC #### [facility] [address] [place] [address] Dr. Jewels Zhou Hemoglobin (Bld) [Mass/Vol] 11.7 g/dL Critically low 12.0-16.0 [facility] Comment on above: Performed By: #### C BC #### [facility] [address] [place] [address] Dr. Jewels Zhou IG # 0.03 10e3/ul Normal 0.00-0.03 [facility] Comment on above: Performed By: #### C BC #### [facility] [address] [place] [address] Dr. Jewels Zhou IG % 0.3 % Normal 0.0-0.5 [facility] Comment on above: Performed By: #### C BC #### [facility] [address] [place] [address] Dr. Jewels Zhou LYMPH # 2.0 103/ul Normal 1.2-3.8 [facility] Comment on above: Performed By: #### C BC #### [facility] [address] [place] [address] Dr. Jewels Zhou Lymphocytes/100 WBC (Bld) 17.4 % Critically low 20.5-60.0 [facility] Comment on above: Performed By: #### C BC #### [facility] [address] [place] [address] Dr. Jewels Zhou MANUAL DIFF REQ NO Normal [facility] Comment on above: Performed By: #### C BC #### [facility] [address] [place] [address] Dr. Jewels Zhou MCH (RBC) [Entitic mass] 30.1 pg Normal 26.7-34.0 [facility] Comment on above: Performed By: #### C BC #### [facility] [address] [place] [address] Dr. Jewels Zhou MCHC (RBC) [Mass/Vol] 33.4 g/dL Normal 29.9-35.2 [facility] Comment on above: Performed By: #### C BC #### [facility] [address] [place] [address] Dr. Jewels Zhou MCV (RBC) [Entitic vol] 90.0 fL Normal 81.0-99.0 [facility] Comment on above: Performed By: #### C BC #### [facility] [address] [place] [address] Dr. Jewels Zhou MONO # 0.9 103/ul Critically high 0.3-0.8 [facility] Comment on above: Performed By: #### C BC #### [facility] [address] [place] [address] Dr. Jewels Zhou Monocytes/100 WBC (Bld) 7.7 % Normal 1.7-12.0 [facility] Comment on above: Performed By: #### C BC #### [facility] [address] [place] [address] Dr. Jewels Zhou NEUT # 8.3 103/ul Critically high 1.4-6.5 [facility] Comment on above: Performed By: #### C BC #### [facility] [address] [place] [address] Dr. Jewels Zhou Neutrophils/100 WBC (Bld) 74.0 % Normal 43.0-75.0 [facility] Comment on above: Performed By: #### C BC #### [facility] [address] [place] [address] Dr. Jewels Zhou Platelet mean volume (Bld) [Entitic vol] 10.8 fL Normal 9.5-13.5 [facility] Comment on above: Performed By: #### C BC #### [facility] [address] [place] [address] Dr. Jewels Zhou PLT 218 103/ul Normal 150-450 [facility] Comment on above: Performed By: #### C BC #### [facility] [address] [place] [address] Dr. Jewels Zhou RBC 3.89 106/ul Critically low 4.20-5.40 [facility] Comment on above: Performed By: #### C BC #### [facility] [address] [place] [address] Dr. Jewels Zhou WBC 11.2 103/ul Critically high 4.0-11.0 [facility] Comment on above: Performed By: #### C BC #### [facility] [address] [place] [address] Dr. Jewels Zhou CREATININEon 09-11-2021 Creatinine [Mass/Vol] 0.82 mg/dL Normal 0.55-1.02 [facility] Comment on above: Performed By: #### B DAVE CREA #### [facility] [address] [place] [address] Dr. Jewels Zhou EGFR-AF CITIZEN [place] >60 Normal >=60 [facility] Comment on above: Performed By: #### B DAVE CREA #### [facility] [address] [place] [address] Dr. Jewels Zhou EGFR-NON AF CITIZEN OF [place] >60 Normal >=60 [facility] Comment on above: Performed By: #### B DAVE, CREA #### [facility] [address] [place] [address] Dr. Jewels Zhou CBC AUTO DIFFon 09-10-2021 BASO # 0.0 103/ul Normal 0.0-0.1 [facility] Comment on above: Performed By: #### C BC ####[facility] [address] [place] [address]Dr. Jewels Zhou Basophils/100 WBC (Bld) 0.6 % Normal 0.2-2.0 [facility] Comment on above: Performed By: #### C BC ####[facility] [address] [place] [address]Dr. Jewels Zhou EO # 0.1 103/ul Normal 0.0-0.7 [facility] Comment on above: Performed By: #### C BC ####[facility] [address] [place], [place] [address]Dr. Jewels Zhou Eosinophils/100 WBC (Bld) 1.8 % Normal 0.9-7.0 [facility] Comment on above: Performed By: #### C BC ####[facility] [address] [place], [place] [address]Dr. Jewels Zhou Erythrocyte distribution width (RBC) [Ratio] 13.9 % Normal 11.0-15.0 [facility] Comment on above: Performed By: #### C BC ####[facility] [address] [place], [place] [address]Dr. Jewels Zhou Hematocrit (Bld) [Volume fraction] 42.0 % Normal 36.0-48.0 [facility] Comment on above: Performed By: #### C BC ####[facility] [address] [place], [place] [address]Dr. Jewels Zhou Hemoglobin (Bld) [Mass/Vol] 13.8 g/dL Normal 12.0-16.0 [facility] Comment on above: Performed By: #### C BC ####[facility] [address] [place], [place] [address]Dr. Jewels Zhou IG # 0.01 10e3/ul Normal 0.00-0.03 [facility] Comment on above: Performed By: #### C BC ####[facility] [address] [place], [place] [address]Dr. Jewels Zhou IG % 0.1 % Normal 0.0-0.5 [facility] Comment on above: Performed By: #### C BC ####[facility] [address] [place], [place] [address]Dr. Jewels Zhou LYMPH # 2.1 103/ul Normal 1.2-3.8 [facility] Comment on above: Performed By: #### C BC ####[facility] [address] [place] [address]Dr. Cyndijennie Zhou Lymphocytes/100 WBC (Bld) 31.1 % Normal 20.5-60.0 [facility] Comment on above: Performed By: #### C BC ####[facility] [address] [place] [address]Dr. Jewels Zhou MANUAL DIFF REQ NO Normal [facility] Comment on above: Performed By: #### C BC ####[facility] [address] [place] [address]Dr. Cyndijennie Zhou MCH (RBC) [Entitic mass] 29.6 pg Normal 26.7-34.0 [facility] Comment on above: Performed By: #### C BC ####[facility] [address] [place], [place] [address]Dr. Cyndijennie Zhou MCHC (RBC) [Mass/Vol] 32.9 g/dL Normal 29.9-35.2 [facility] Comment on above: Performed By: #### C BC ####[facility] [address] [place], [place] [address]Dr. Jewels Zhou MCV (RBC) [Entitic vol] 89.9 fL Normal 81.0-99.0 [facility] Comment on above: Performed By: #### C BC ####[facility] [address] [place] [address]Dr. Jewels Zhou MONO # 0.5 103/ul Normal 0.3-0.8 [facility] Comment on above: Performed By: #### C BC ####[facility] [address] [place], [place] [address]Dr. Jewels Zhou Monocytes/100 WBC (Bld) 7.7 % Normal 1.7-12.0 [facility] Comment on above: Performed By: #### C BC ####[facility] [address] [place], [place] [address]Dr. Jewels Zhou NEUT # 3.9 103/ul Normal 1.4-6.5 [facility] Comment on above: Performed By: #### C BC ####[facility] [address] [place] [address]Dr. Jewels Zhou Neutrophils/100 WBC (Bld) 58.7 % Normal 43.0-75.0 [facility] Comment on above: Performed By: #### C BC ####[facility] [address] [place] [address]Dr. Jewels Zhou Platelet mean volume (Bld) [Entitic vol] 10.3 fL Normal 9.5-13.5 [facility] Comment on above: Performed By: #### C BC ####[facility] [address] [place] [address]Dr. Jewels Zhou PLT 234 103/ul Normal 150-450 [facility] Comment on above: Performed By: #### C BC ####[facility] [address] [place] [address]Dr. Jewels Zhou RBC 4.67 106/ul Normal 4.20-5.40 [facility] Comment on above: Performed By: #### C BC ####[facility] [address] [place] [address]Dr. Jewels Zhou WBC 6.7 103/ul Normal 4.0-11.0 [facility] Comment on above: Performed By: #### C BC ####[facility] [address] [place] [address]Dr. Jewels Zhou PREG QUANT HCGon 09-10-2021 HCG QUANT <1 Normal [facility] Comment on above: Performed By: #### P REGQNT ####[facility] [address] [place] [address]Dr. Jewels Zhou HCG RANGE SEE BELOW Normal [facility] Comment on above: Result Comment: 5-50 0-1 WEEK 40-300 1-2 WEEKS 100-1,000 2-3 WEEKS 500-6,000 3-4 WEEKS 5,000-200,000 1-2 MONTHS 10,000-100,000 2-3 MONTHS 3,000-50,000 2ND TRIMESTER 1,000-50,000 3RD TRIMESTER Performed By: #### P REGQNT ####[facility] [address] [place], [place] [address]WkDr. Jewels Zhou Covid-19 PCR ([facility])on 08-19 SARS-CoV-2 (COVID-19) RNA ALIX+probe Ql (Unsp spec) Not detected Normal NOT DETECTED [facility] Comment on above: Result Comment: This test is not yet approved or cleared by the [place] FDA. When there are no FDA-approved or cleared tests available, and other criteria are met, FDA can make tests available under an emergency access mechanism called an Emergency Use Authorization (EUA). The EUA for this test is supported by the Vice President Fixed Income of Health and Human Service's (HHS's) declaration that circumstances exist to justify the emergency use of in vitro diagnostics for the detection and/or diagnosis of the virus that causes COVID-19. This EUA will remain in effect (meaning this test can be used) for the duration of the COVID-19 declaration justifying emergency of IVDs, unless it is terminated or revoked by FDA (after which the test may no longer be used). When diagnostic testing is negative, the possibility of a false negative should be considered in the context of a patient's recent exposures and the presence of clinical signs and symptoms consistent with SARS-CoV-2. Performed By: #### C VDTBH #### [facility] [address] [place], [place] [address] Dr. Jewels Zhou TYPE AND SCREENon 09-07-2021 TYPE AND SCREEN Negative Normal [facility] Comment on above: Performed By: #### T NS ####[facility] [address] [place], [place] [address]Q[address]. Jew[address] Zhou CT Chest w/o Contraston 050 CT Chest w/o Contrast HISTORY: 7 mm righ t lower lobe pulmonary nodule seen on CT abdomen and pelvis performed on 05/26/2021. COMPARISON: CT abdomen and pelvis 05/26/2021 TECHNIQUE: Multiple axial images of the chest were obtained without enhancement. Multiplanar reformats were acquired at the CT console. All CT scans at this facility use dose modulation, iterative reconstruction, and/or weight based dosing when appropriate to reduce radiation dose to as low as reasonably achievable. FINDINGS: Visualized thyroid gland is within normal limits. No axillary or mediastinal lymphadenopathy. No hilar lymphadenopathy identified on this unenhanced CT of the chest. No thoracic aortic aneurysm. Heart size is within normal limits. No significant pericardial effusion. Esophagus is within normal limits. Solid 7 mm right lower lobe nodule is stable. There is a solid 8 mm right middle lobe nodule as seen on axial image 62 of 107. Solid 5 mm left upper lobe nodule as seen on axial image 30 of 107. Solid 3 mm left upper lobe nodule is seen on axial image 25 of 107. No consolidation, pleural effusion, or focal consolidation. Airways are patent. No bronchiectasis. Bones of the thorax are intact. There is free air under the diaphragm including along the anterior and inferior margin of the liver and along the anterior margin of the right kidney. IMPRESSION: Upper abdominal pneumoperitoneum is identified. Further evaluation via an emergency department is recommended unless this patient has had recent surgery. These findings were discussed with Dr. Hernandez by Dr. Hammonds at approximately 10:25 AM on 07/20/2021. Bilateral lung nodules as detailed measuring up to 8 mm. Follow-up CT of the chest without contrast in 3???6 months is recommended. Report reported and signed by Corona Hammonds on 07/20/2021 1030 Normal [facility] [employer] CBC AUTO DIFFon 07-16-2021 BASO # 0.0 103/ul Normal 0.0-0.1 [facility] Comment on above: Performed By: #### C BC #### [facility] [address] [place] [address] Dr. Jewels Zhou Basophils/100 WBC (Bld) 0.4 % Normal 0.2-2.0 [facility] Comment on above: Performed By: #### C BC #### [facility] [address] [place] [address] Dr. Jewels Zhou EO # 0.1 103/ul Normal 0.0-0.7 [facility] Comment on above: Performed By: #### C BC #### [facility] [address] [place] [address] Dr. Jewels Zhou Eosinophils/100 WBC (Bld) 1.6 % Normal 0.9-7.0 [facility] Comment on above: Performed By: #### C BC #### [facility] [address] [place] [address] Dr. Jewels Zhou Erythrocyte distribution width (RBC) [Ratio] 13.7 % Normal 11.0-15.0 [facility] Comment on above: Performed By: #### C BC #### [facility] [address] [place] [address] Dr. Jewels Zhou Hematocrit (Bld) [Volume fraction] 41.8 % Normal 36.0-48.0 [facility] Comment on above: Performed By: #### C BC #### [facility] [address] [place] [address] Dr. Jewels Zhou Hemoglobin (Bld) [Mass/Vol] 13.8 g/dL Normal 12.0-16.0 [facility] Comment on above: Performed By: #### C BC #### [facility] [address] [place] [address] Dr. Jweels Zhou IG # 0.01 10e3/ul Normal 0.00-0.03 [facility] Comment on above: Performed By: #### C BC #### [facility] [address] [place] [address] Dr. Jewels Zhou IG % 0.1 % Normal 0.0-0.5 [facility] Comment on above: Performed By: #### C BC #### [facility] [address] [place] [address] Dr. Jewels Zhou LYMPH # 2.1 103/ul Normal 1.2-3.8 [facility] Comment on above: Performed By: #### C BC #### [facility] [address] [place] [address] Dr. Jewels Zhou Lymphocytes/100 WBC (Bld) 30.5 % Normal 20.5-60.0 [facility] Comment on above: Performed By: #### C BC #### [facility] [address] [place] [address] Dr. Jewels Zhou MANUAL DIFF REQ NO Normal [facility] Comment on above: Performed By: #### C BC #### [facility] [address] [place] [address] Dr. Jewels Zhou MCH (RBC) [Entitic mass] 29.8 pg Normal 26.7-34.0 [facility] Comment on above: Performed By: #### C BC #### [facility] [address] [place] [address] Dr. Jewels Zhou MCHC (RBC) [Mass/Vol] 33.0 g/dL Normal 29.9-35.2 [facility] Comment on above: Performed By: #### C BC #### [facility] [address] [place] [address] Dr. Jewels Zhou MCV (RBC) [Entitic vol] 90.3 fL Normal 81.0-99.0 [facility] Comment on above: Performed By: #### C BC #### [facility] [address] [place] [address] Dr. Jewels Zhou MONO # 0.5 103/ul Normal 0.3-0.8 [facility] Comment on above: Performed By: #### C BC #### [facility] [address] [place] [address] Dr. Jewels Zhou Monocytes/100 WBC (Bld) 6.7 % Normal 1.7-12.0 [facility] Comment on above: Performed By: #### C BC #### [facility] [address] [place] [address] Dr. Jewels Zhou NEUT # 4.2 103/ul Normal 1.4-6.5 [facility] Comment on above: Performed By: #### C BC #### [facility] [address] [place] [address] Dr. Jewels Zhou Neutrophils/100 WBC (Bld) 60.7 % Normal 43.0-75.0 [facility] Comment on above: Performed By: #### C BC #### [facility] [address] [place] [address] Dr. Jewels Zhou Platelet mean volume (Bld) [Entitic vol] 10.2 fL Normal 9.5-13.5 [facility] Comment on above: Performed By: #### C BC #### [facility] [address] [place] [address] Dr. Jewels Zhou PLT 207 103/ul Normal 150-450 [facility] Comment on above: Performed By: #### C BC #### [facility] [address] [address] [address] Jewels Zhou RBC 4.63 106/ul Normal 4.20-5.40 [facility] Comment on above: Performed By: #### C BC #### [facility] [address] [place] [address] Dr. Jewels Zhou WBC 7.0 103/ul Normal 4.0-11.0 [facility] Comment on above: Performed By: #### C BC #### [facility] [address] [place] [address] Dr. Jewels Zhou PREG QUANT HCGon 07-16-2021 HCG QUANT <1 Normal [facility] Comment on above: Performed By: #### P REGQNT #### [facility] [address] [place] [address] Dr. Jewels Zhou HCG RANGE SEE BELOW Normal [facility] Comment on above: Result Comment: 5-50 0-1 WEEK 40-300 1-2 WEEKS 100-1,000 2-3 WEEKS 500-6,000 3-4 WEEKS 5,000-200,000 1-2 MONTHS 10,000-100,000 2-3 MONTHS 3,000-50,000 2ND TRIMESTER 1,000-50,000 3RD TRIMESTER Performed By: #### P REGQNT #### [facility] [address] [place] [address] Dr. Jewels Zhou [facility] SARS-CoV-2 (COVID-19) RNA ALIX+probe Ql (Unsp spec) Not detected Normal NOT DETECTED [facility] Comment on above: Result Comment: This test is not yet approved or cleared by the [place] FDA. When there are no FDA-approved or cleared tests available, and other criteria are met, FDA can make tests available under an emergency access mechanism called an Emergency Use Authorization (EUA). The EUA for this test is supported by the [place] of Health and Human Service's (HHS's) declaration that circumstances exist to justify the emergency use of in vitro diagnostics for the detection and/or diagnosis of the virus that causes COVID-19. This EUA will remain in effect (meaning this test can be used) for the duration of the COVID-19 declaration justifying emergency of IVDs, unless it is terminated or revoked by FDA (after which the test may no longer be used). When diagnostic testing is negative, the possibility of a false negative should be considered in the context of a patient's recent exposures and the presence of clinical signs and symptoms consistent with SARS-CoV-2. Performed By: #### C [facility] #### [facility] [address] [place] [address] Dr. Jewels Zhou XR Hip Complete Right*on XR Hip Complete Right* Refer to [facility] hospital lumbar spine radiographs dictation. Report reported and signed by Fernando Goyal on 06/04/2021 1203 Normal [facility] XR Spine Lumbar Complete w/F javy AND [place] 06-03-2021 XR Spine Lumbar Complete w/Flex AND Ext CLINICAL HISTORY: Right groin pain rating the lower back for one month. Right leg weakness and tingling. No recent injury. COMPARISON: CT 05/26/2021. RESULT: Lumbar spine: Counting Reference: L4-L5 is the level of the iliac crest. 5 lumbar type vertebral bodies Alignment anatomic. No significant change in alignment from flexion to extension. No acute fracture. Vertebral body heights maintained. Disc space narrowing at T12-L1 with anterior endplate osteophytes. Other disc spaces appear maintained with tiny endplate osteophytes. Facet degenerative changes lower lumbar spine. Sacrum appears intact. Pelvis/right hip: Bony pelvis is intact without acute fracture. No acute hip fracture. Hip joint spaces appear maintained. SI joints and pubic symphysis maintained. Soft tissues unremarkable. No other significant abnormality. IMPRESSION: No acute osseous findings in the lumbar spine, bony pelvis, or right hip. Degenerative changes lumbar spine. Report reported and signed by Fernando Goyal on 06/04/2021 1203 Normal [facility] [employer] US Pelvic Complete w/Transva ginalon 05-27-2021 US Pelvic Complete w/Transvaginal History: Right lower quadrant pain. Right hip pain. History of endometrial polyp removed one year ago. Technique: Sonography of the pelvis was performed by transvaginal and transabdominal technique. Images were obtained and stored in a permanent archive. Comparison: Ultrasound 07/28/2020. RESULT: Uterus: Orientation: Anteverted Size: 8.4 x 4.2 x 3.3 cm Myometrium: Homogeneous echotexture Endometrial echocomplex: 0.8 cm; Cervix: Nabothian cysts, otherwise unremarkable. Right ovary: Normal sonographic appearance Size: 2.2 x 2.0 x 0.8 cm Complex cyst: None Solid mass: None Doppler evaluation: Arterial and venous flow with normal spectral waveforms. Left ovary: Normal sonographic appearance Size: 2.4 x 2.0 x 1.1 cm Complex cyst: None Solid mass: None Doppler evaluation: Arterial and venous flow with normal spectral waveforms. Free fluid: Absent IMPRESSION: Unremarkable pelvic ultrasound. Report reported and signed by Fernando Goyal on 05/28/2021 1430 Normal [facility] CT Abdomen/Pelvis w/o Contra ston 05-26-2021 CT Abdomen/Pelvis w/o Contrast HISTORY: Right flank pain for 2???3 weeks. COMPARISON: None available TECHNIQUE: Multiple contiguous axial images were obtained of the abdomen and pelvis without contrast. Multiplanar reformats were obtained. All CT scans at this facility use dose modulation, iterative reconstruction, and/or weight based dosing when appropriate to reduce radiation dose to as low as reasonably achievable. FINDINGS: 7 mm medial right lower lobe nodule. Evaluation of the abdominal and pelvic viscera is suboptimal without intravenous contrast. The liver, gallbladder, spleen, stomach, pancreas, and adrenal glands appear within normal limits given the limitations of a noncontrast study. The unenhanced kidneys appear within normal limits. No urinary tract calculi or hydronephrosis.No evidence of contour deforming renal mass identified on this unenhanced examination. Urinary bladder is well-distended. The uterus is present. No retroperitoneal or mesenteric lymphadenopathy. Abdominal aorta is non-aneurysmal. No small bowel obstruction. No overt colonic mass or pericolonic inflammation. The appendix is within normal limits. No free air or free fluid. No acute osseous abnormality. IMPRESSION: No obstructing urinary tract calculi or hydronephrosis. 7 mm right lower lobe pulmonary nodule. Follow-up CT of the chest without contrast in 3 months is recommended. Report reported and signed by Corona Hammonds on 05/26/2021 1206 Normal [facility] Specialist Vital Signs Date Time Vital Sign Value Performing Clinician Facility 03-26-2024 13:39-0500 Blood Pressure Location [facility] [place] 03-26-2024 13:39-0500 Diastolic blood pressure 78 mm[Hg] [employer] [facility] 03-26-2024 13:39-0500 Heart rate 72 /min [facility] 03-26-2024 13:39-0500 Respiratory rate 16 /min [facility] 03-26-2024 13:39-0500 Systolic blood pressure 118 mm[Hg] [facility] 03-25-2024 11:20-0500 Body height 154.94 cm [facility] 03-25-2024 11:20-0500 Body mass index (BMI) [Ratio] 31.5 kg/m2 [facility] 03-25-2024 11:20-0500 Body weight 75.74 kg [facility] 03-25-2024 11:20-0500 Diastolic blood pressure 87 mm[Hg] [facility] 03-25-2024 11:20-0500 Heart rate 96 /min [facility] 03-25-2024 11:20-0500 Respiratory rate 18 /min [facility] 03-25-2024 11:20-0500 SaO2% (BldA) [Mass fraction] 99 % [facility] 03-25-2024 11:20-0500 Systolic blood pressure 128 mm[Hg] [facility] 03-25-2024 08:42-0500 Body mass index (BMI) [Ratio] 32.12 kg/m2 Vikash Trina DO Work Phone: [facility] 03-25-2024 08:42-0500 Body weight 77.11 kg Vikash Trina DO Work Phone: [facility] 03-25-2024 08:42-0500 Diastolic blood pressure 74 mm[Hg] Vikash Trina DO Work Phone: [facility] 03-25-2024 08:42-0500 Systolic blood pressure 122 mm[Hg] Vikash Trina DO Work Phone: [facility] 02-14-2024 14:14-0500 Body mass index (BMI) [Ratio] 31.55 kg/m2 Vikash Trina DO Work Phone: [facility] 02-14-2024 14:14-0500 Body weight 75.75 kg Vikash Trina DO Work Phone: [facility] 02-14-2024 14:14-0500 Diastolic blood pressure 72 mm[Hg] Vikash Trina DO Work Phone: [facility] 02-14-2024 14:14-0500 Systolic blood pressure 120 mm[Hg] Vikash Trina DO Work Phone: [facility] 11-21-2023 08:59-0400 Body height 154.94 cm [facility] 11-21-2023 08:59-0400 Body mass index (BMI) [Ratio] 30.6 kg/m2 [facility] 11-21-2023 08:59-0400 Body weight 73.48 kg [facility] 11-21-2023 08:59-0400 Diastolic blood pressure 71 mm[Hg] [facility] 11-21-2023 08:59-0400 Heart rate 86 /min [facility] 11-21-2023 08:59-0400 Respiratory rate 16 /min [facility] 11-21-2023 08:59-0400 SaO2% (BldA) [Mass fraction] 100 % [facility] 11-21-2023 08:59-0400 Systolic blood pressure 110 mm[Hg] [facility] 08-22-2023 08:05-0400 Body height 154.94 cm [facility] 08-22-2023 08:05-0400 Body mass index (BMI) [Ratio] 30.9 kg/m2 [facility] 08-22-2023 08:05-0400 Body weight 74.38 kg [facility] 08-22-2023 08:05-0400 Diastolic blood pressure 75 mm[Hg] [facility] 08-22-2023 08:05-0400 Heart rate 80 /min [facility] 08-22-2023 08:05-0400 Respiratory rate 16 /min [facility] 08-22-2023 08:05-0400 SaO2% (BldA) [Mass fraction] 99 % [facility] 08-22-2023 08:05-0400 Systolic blood pressure 109 mm[Hg] [facility] 03-28-2023 08:30-0500 Body height 154.94 cm Gabriel Anderson Other [facility] [employer] Other 03-28-2023 08:30-0500 Body mass index (BMI) [Ratio] 30.8 kg/m2 Gabriel Anderson Other [facility] [employer] Other 03-28-2023 08:30-0500 Body weight 73.94 kg Gabriel Boyermarthajoy Other [employer] Other 03-28-2023 08:30-0500 Diastolic blood pressure 78 mm[Hg] Gabriel Anderson Other [employer] [facility] [employer] Other 03-28-2023 08:30-0500 Respiratory rate 18 /min Gabriel Anderson Other [employer] [facility] [employer] Other 03-28-2023 08:30-0500 SaO2% (BldA) [Mass fraction] 99 % Gabriel Anderson Other [employer] Other 03-28-2023 08:30-0500 Systolic blood pressure 118 mm[Hg] Gabriel Anderson Other [employer] Other 01-20-2023 11:30-0400 Body height 154.94 cm Gabriel Anderson Other [employer] Other 01-20-2023 11:30-0400 Body mass index (BMI) [Ratio] 32.87 kg/m2 Gabriel Anderson Other [employer] Other 01-20-2023 11:30-0400 Body weight 78.93 kg Gabriel Anderson Other [employer] Other 01-20-2023 11:30-0400 Diastolic blood pressure 76 mm[Hg] Gabriel Anderson Other [employer] Other 01-20-2023 11:30-0400 Respiratory rate 20 /min Gabriel Anderson Other [employer] Other 01-20-2023 11:30-0400 SaO2% (BldA) [Mass fraction] 100 % Gabriel Anderson Other [employer] Other 01-20-2023 11:30-0400 Systolic blood pressure 114 mm[Hg] Gabriel Anderson Other [employer] Other 01-10-2023 08:00-0400 Body height 154.94 cm Gabriel Anderson Other [employer] Other 01-10-2023 08:00-0400 Body mass index (BMI) [Ratio] 31.74 kg/m2 Gabriel Anderson Other [employer] Other 01-10-2023 08:00-0400 Body weight 76.2 kg Gabriel Anderson Other [employer] Other 01-10-2023 08:00-0400 Diastolic blood pressure 65 mm[Hg] Gabriel Anderson Other [employer] Other 01-10-2023 08:00-0400 Respiratory rate 16 /min Gabriel Anderson Other [employer] Other 01-10-2023 08:00-0400 SaO2% (BldA) [Mass fraction] 100 % Gabriel Anderson Other [employer] Other 01-10-2023 08:00-0400 Systolic blood pressure 110 mm[Hg] Gabriel Anderson Other [employer] Other 11-01-2022 08:30-0400 Body height 154.94 cm Gabriel Anderson Other [employer] Other 11-01-2022 08:30-0400 Body mass index (BMI) [Ratio] 31.36 kg/m2 Gabriel Anderson Other [employer] Other 11-01-2022 08:30-0400 Body weight 75.3 kg Gabriel Anderson Other [employer] Other 11-01-2022 08:30-0400 Diastolic blood pressure 75 mm[Hg] Gabriel Anderson Other [employer] Other 11-01-2022 08:30-0400 Respiratory rate 18 /min Gabriel Anderson Other [employer] Other 11-01-2022 08:30-0400 SaO2% (BldA) [Mass fraction] 100 % Gabriel Anderson Other [employer] Other 11-01-2022 08:30-0400 Systolic blood pressure 119 mm[Hg] Gabriel Anderson Other [employer] Other 09-02-2022 08:00-0400 Body height 154.94 cm Gabriel Anderson Other [employer] Other 09-02-2022 08:00-0400 Body mass index (BMI) [Ratio] 32.68 kg/m2 Gabriel Anderson Other [employer] Other 09-02-2022 08:00-0400 Body weight 78.47 kg Gabriel Anderson Other [employer] Other 09-02-2022 08:00-0400 Diastolic blood pressure 84 mm[Hg] Gabriel Anderson Other [employer] Other 09-02-2022 08:00-0400 Respiratory rate 18 /min Gabriel Anderson Other [employer] Other 09-02-2022 08:00-0400 SaO2% (BldA) [Mass fraction] 99 % Gabriel Anderson Other [employer] Other 09-02-2022 08:00-0400 Systolic blood pressure 127 mm[Hg] Gabriel Anderson Other [employer] Other 03-02-2022 16:30-0500 Body height 154.94 cm Gabriel Anderson Other [employer] Other 03-02-2022 16:30-0500 Body mass index (BMI) [Ratio] 33.44 kg/m2 Gabriel Anderson Other [employer] Other 03-02-2022 16:30-0500 Body weight 80.29 kg Gabriel Anderson Other [employer] Other 03-02-2022 16:30-0500 Diastolic blood pressure 71 mm[Hg] Gabriel Anderson Other [employer] Other 03-02-2022 16:30-0500 SaO2% (BldA) [Mass fraction] 99 % Gabriel Anderson Other [employer] Other 03-02-2022 16:30-0500 Systolic blood pressure 120 mm[Hg] Gabriel Anderson Other [employer] Other 01-28-2022 12:30-0500 Body height 154.94 cm Gabriel Anderson Other [employer] Other 01-28-2022 12:30-0500 Body mass index (BMI) [Ratio] 33.63 kg/m2 Gabriel Anderson Other [employer] Other 01-28-2022 12:30-0500 Body weight 80.74 kg Gabriel Anderson Other [employer] Other 01-28-2022 12:30-0500 Diastolic blood pressure 68 mm[Hg] Gabriel Anderson Other [employer] Other 01-28-2022 12:30-0500 Respiratory rate 16 /min Gabriel Anderson Other [employer] Other 01-28-2022 12:30-0500 SaO2% (BldA) [Mass fraction] 100 % Gabriel Anderson Other [employer] Other 01-28-2022 12:30-0500 Systolic blood pressure 116 mm[Hg] Gabriel Anderson Other [employer] Other 12-21-2021 11:00-0400 Body height 154.94 cm Michell Maxmond Other [employer] Other 12-21-2021 11:00-0400 Body mass index (BMI) [Ratio] 34.01 kg/m2 Michell Shannan Other [employer] Other 12-21-2021 11:00-0400 Body temperature 98.6 [degF] Michell Shannan Other [employer] Other 12-21-2021 11:00-0400 Body weight 81.65 kg Michell Shannan Other [employer] Other 12-21-2021 11:00-0400 Respiratory rate 18 /min Michell Shannan Other [employer] Other 12-21-2021 11:00-0400 SaO2% (BldA) [Mass fraction] 98 % Michell Campbell Other [employer] Other 11-24-2021 14:30-0400 Body height 154.94 cm Gabriel Anderson Other [employer] Other 11-24-2021 14:30-0400 Body mass index (BMI) [Ratio] 34.38 kg/m2 Gabriel Anderson Other [employer] Other 11-24-2021 14:30-0400 Body weight 82.56 kg Gabriel Anderson Other [employer] Other 11-24-2021 14:30-0400 Diastolic blood pressure 78 mm[Hg] Gabriel Anderson Other [employer] Other 11-24-2021 14:30-0400 Respiratory rate 18 /min Gabriel Anderson Other [employer] Other 11-24-2021 14:30-0400 SaO2% (BldA) [Mass fraction] 99 % Gabriel Anderson Other [employer] Other 11-24-2021 14:30-0400 Systolic blood pressure 124 mm[Hg] Gabriel Boyermarthajoy Other [employer] Other 10-27-2021 17:00-0400 Body height 154.94 cm Gabriel Boyerbart Other [employer] Other 10-27-2021 17:00-0400 Body mass index (BMI) [Ratio] 34.57 kg/m2 Gabriel Anderson Other [employer] Other 10-27-2021 17:00-0400 Body weight 83.01 kg Gabriel Anderson Other [employer] Other 10-27-2021 17:00-0400 Diastolic blood pressure 65 mm[Hg] Gabriel Anderson Other [employer] Other 10-27-2021 17:00-0400 Respiratory rate 16 /min Gabriel Anderson Other [employer] Other 10-27-2021 17:00-0400 SaO2% (BldA) [Mass fraction] 100 % Gabriel Anderson Other [employer] Other 10-27-2021 17:00-0400 Systolic blood pressure 108 mm[Hg] Gabriel Anderson Other [employer] Other 09-29-2021 16:00-0400 Body height 154.94 cm Gabriel Anderson Other [employer] Other 09-29-2021 16:00-0400 Body mass index (BMI) [Ratio] 35.71 kg/m2 Gabriel Anderson Other [employer] Other 09-29-2021 16:00-0400 Body weight 85.73 kg Gabriel Anderson Other [employer] Other 09-29-2021 16:00-0400 Diastolic blood pressure 73 mm[Hg] Gabriel Anderson Other [employer] Other 09-29-2021 16:00-0400 Respiratory rate 18 /min Gabriel Anderson Other [employer] Other 09-29-2021 16:00-0400 SaO2% (BldA) [Mass fraction] 100 % Gabriel Anderson Other [employer] Other 09-29-2021 16:00-0400 Systolic blood pressure 111 mm[Hg] Gabriel Anderson Other [employer] Other 07-19-2021 17:00-0400 Body height 154.94 cm Gabriel Anderson Other [employer] Other 07-19-2021 17:00-0400 Body mass index (BMI) [Ratio] 36.27 kg/m2 Gabriel Anderson Other [employer] Other 07-19-2021 17:00-0400 Body weight 87.09 kg Gabriel Anderson Other [employer] Other 07-19-2021 17:00-0400 Diastolic blood pressure 78 mm[Hg] Gabriel Anderson Other [employer] Other 07-19-2021 17:00-0400 Respiratory rate 16 /min Gabriel Anderson Other [employer] Other 07-19-2021 17:00-0400 SaO2% (BldA) [Mass fraction] 100 % Gabriel Anderson Other [employer] Other 07-19-2021 17:00-0400 Systolic blood pressure 122 mm[Hg] Gabriel Anderson Other [employer] Other 06-14-2021 14:45-0400 Body height 154.94 cm Gabriel Anderson Other [employer] Other 06-14-2021 14:45-0400 Body mass index (BMI) [Ratio] 36.09 kg/m2 Gabriel Anderson Other [employer] Other 06-14-2021 14:45-0400 Body temperature 98 [degF] Gabriel Anderson Other [employer] Other 06-14-2021 14:45-0400 Body weight 86.64 kg Gabriel Anderson Other [employer] Other 06-14-2021 14:45-0400 Diastolic blood pressure 79 mm[Hg] Gabriel Anderson Other [employer] Other 06-14-2021 14:45-0400 Respiratory rate 18 /min Gabriel Anderson Other [employer] Other 06-14-2021 14:45-0400 SaO2% (BldA) [Mass fraction] 100 % Gabriel Anderson Other [employer] Other 06-14-2021 14:45-0400 Systolic blood pressure 122 mm[Hg] Gabriel Anderson Other [employer] Other 05-10-2021 10:00-0500 Body height 154.94 cm Gabriel Anderson Other [employer] Other 05-10-2021 10:00-0500 Body mass index (BMI) [Ratio] 35.71 kg/m2 Gabriel Anderson Other [employer] Other 05-10-2021 10:00-0500 Body weight 85.73 kg Gabriel Anderson Other [employer] Other 05-10-2021 10:00-0500 Diastolic blood pressure 84 mm[Hg] Gabriel Anderson Other [employer] Other 05-10-2021 10:00-0500 Respiratory rate 18 /min Gabriel Anderson Other [employer] Other 05-10-2021 10:00-0500 SaO2% (BldA) [Mass fraction] 100 % Gabriel Anderson Other [employer] Other 05-10-2021 10:00-0500 Systolic blood pressure 122 mm[Hg] Gabriel Anderson Other [facility] Other 04-02-2021 09:00-0500 Body height 154.94 cm Gabriel Anderson Other [employer] Other 04-02-2021 09:00-0500 Body mass index (BMI) [Ratio] 35.71 kg/m2 Gabriel Anderson Other [employer] Other 04-02-2021 09:00-0500 Body weight 85.73 kg Gabriel Anderson Other [employer] Other 04-02-2021 09:00-0500 Diastolic blood pressure 79 mm[Hg] Gabriel Anderson Other [employer] Other 04-02-2021 09:00-0500 Respiratory rate 16 /min Gabriel Anderson Other [employer] Other 04-02-2021 09:00-0500 SaO2% (BldA) [Mass fraction] 100 % Gabriel Anderson Other [employer] Other 04-02-2021 09:00-0500 Systolic blood pressure 119 mm[Hg] Gabriel Anderson Other [employer] Other 03-02-2021 09:00-0500 Body height 154.94 cm Gabriel Anderson Other [employer] Other 03-02-2021 09:00-0500 Body mass index (BMI) [Ratio] 36.09 kg/m2 Gabriel Anderson Other [employer] Other 03-02-2021 09:00-0500 Body weight 86.64 kg Gabriel Anderson Other [employer] Other 03-02-2021 09:00-0500 Diastolic blood pressure 85 mm[Hg] Gabriel Anderson Other [employer] Other 03-02-2021 09:00-0500 Respiratory rate 18 /min Gabriel Anderson Other [employer] Other 03-02-2021 09:00-0500 SaO2% (BldA) [Mass fraction] 99 % Gabriel Anderson Other [employer] Other 03-02-2021 09:00-0500 Systolic blood pressure 120 mm[Hg] Gabriel Anderson Other [facility] Other 01-22-2021 11:00-0400 Body height 154.94 cm Gabriel Anderson Other [employer] Other 01-22-2021 11:00-0400 Body mass index (BMI) [Ratio] 36.27 kg/m2 Gabriel Anderson Other [employer] Other 01-22-2021 11:00-0400 Body temperature 98.7 [degF] Gabriel Anderson Other [employer] Other 01-22-2021 11:00-0400 Body weight 87.09 kg Gabriel Anderson Other [employer] Other 01-22-2021 11:00-0400 Diastolic blood pressure 78 mm[Hg] Gabriel Anderson Other [employer] Other 01-22-2021 11:00-0400 Respiratory rate 18 /min Gabriel Anderson Other [employer] Other 01-22-2021 11:00-0400 SaO2% (BldA) [Mass fraction] 100 % Gabriel Anderson Other [employer] Other 01-22-2021 11:00-0400 Systolic blood pressure 121 mm[Hg] Gabriel Anderson Other [employer] Other Encounters Encounter Date Encounter Type Care Provider Facility Start: 03-29-2024 End: 03-29-2024 Clinisync Result Encounter Vikash Trina DO Work Phone: [facility] Unsolicited Start: 03-29-2024 End: 03-29-2024 Clinisync Result Encounter Vikash Trina DO Work Phone: [facility] Unsolicited Start: 03-26-2024 End: 03-26-2024 ambulatory Vikash R TRINA Facility:[facility] Start: 03-26-2024 End: 03-26-2024 Patient encounter procedure Av Geo HERNANDEZ [facility] [place] Start: 03-25-2024 End: 03-25-2024 ambulatory [facility] Work Phone: Start: 03-25-2024 End: 03-25-2024 Patient encounter procedure [facility] Work Phone: Start: 03-25-2024 End: 03-25-2024 Office outpatient visit 15 minutes Vikash Trina DO Work Phone: [facility] Comment on above: Pre-op evaluation; Pelvic pain in female; H/O: hysterectomy Start: 03-25-2024 End: 03-25-2024 Preprocedural examination done Vikash Trina DO Work Phone: [facility] Start: 03-25-2024 End: 03-25-2024 ambulatory VIKASH TRINA Not Available Start: 03-21-2024 ambulatory Vikash TRINA Facility:[facility] Start: 02-22-2024 ambulatory Vikash TRINA Facility:[facility] Start: 02-14-2024 End: 02-15-2024 External Result Encounter Vikash Trina DO Work Phone: [facility] Unsolicited Start: 02-14-2024 End: 02-15-2024 External Result Encounter Vikash Trina DO Work Phone: [facility] Unsolicited Start: 02-14-2024 End: 02-14-2024 Office outpatient visit 15 minutes Vikash Mena DO Work Phone: [facility] Comment on above: Pelvic pain in femal e; H/O: hysterectomy Start: 02-14-2024 End: 02-14-2024 ambulatory VIKASH MENA Not Available Start: 01-01-2024 Non-patient / Non-visit [facility] Work Phone: Start: 12-29-2023 End: 12-29-2023 Emergency department patient visit GABRIEL Rosalva JUSTIN Facility:[facility] Start: 12-11-2023 End: 12-11-2023 Patient encounter procedure DO Gabriel Anderson Work Phone: [facility] [place] Work Phone: Start: 12-11-2023 End: 12-11-2023 ambulatory DO Gabriel Anderson Work Phone: [facility] Work Phone: Start: 11-21-2023 End: 11-21-2023 ambulatory [facility] Work Phone: Start: 11-21-2023 End: 11-21-2023 Patient encounter procedure [facility] Work Phone: Start: 08-22-2023 End: 08-22-2023 ambulatory [facility] Work Phone: Start: 08-22-2023 End: 08-22-2023 Encounter for general adult medical examination without abnormal findings [facility] Start: 08-22-2023 End: 08-22-2023 Patient encounter procedure [facility] Work Phone: Start: 07-05-2023 End: 07-05-2023 ambulatory KATIA DAVIDSON Not Available Start: 03-28-2023 End: 03-28-2023 ambulatory Gabriel Anderson Other [facility] Other Start: 03-28-2023 Office outpatient vi sit 25 minutes Gabriel Anderson [facility] Start: 03-14-2023 End: 03-14-2023 ambulatory Gabriel Anderson Other [employer] Other Start: 03-14-2023 Telephone encounter Gabriel Ramesh i [facility] Start: 02-13-2023 End: 02-13-2023 ambulatory Gabriel Anderson Other [facility] Other Start: 02-13-2023 Telephone encounter Gabriel Ramesh i [facility] Start: 01-20-2023 (Procedure) Short Gabriel Anderson [facility] Start: 01-20-2023 End: 01-20-2023 ambulatory Gabriel Anderson Other [facility] Other Start: 01-19-2023 End: 01-19-2023 ambulatory GABRIEL Blackwell AZARUHNG Facility:[facility] Start: 01-10-2023 End: 01-10-2023 ambulatory Gabriel Anderson Other [employer] Other Start: 01-10-2023 Office outpatient vi sit 25 minutes Gabriel Anderson [facility] Start: 01-10-2023 Telephone encounter Gabriel Ramesh i [facility] Start: 01-03-2023 End: 01-03-2023 ambulatory Gabriel Anderson Other [facility] Other Start: 01-03-2023 Encounter by chiki lo Gabriel Anderson [facility] Start: 12-19-2022 End: 12-19-2022 ambulatory Gabriel Anderson Other [employer] Other Start: 12-19-2022 Telephone encounter Gabriel Ramesh i [facility] Start: 12-12-2022 End: 12-12-2022 ambulatory Gabriel Anderson Other [facility] Other Start: 12-12-2022 Telephone encounter Gabriel Ramesh i [facility] Start: 11-04-2022 End: 11-04-2022 ambulatory Gabriel Anderson Other [facility] Other Start: 11-04-2022 Encounter by chiki lo Gabriel Anderson [facility] Start: 11-01-2022 End: 11-01-2022 ambulatory Gabriel Anderson Other [facility] Other Start: 11-01-2022 Office outpatient vi sit 25 minutes Gabriel Anderson [facility] Start: 10-05-2022 End: 10-05-2022 ambulatory Gabriel Anderson Other [employer] Other Start: 10-05-2022 Telephone encounter Gabriel Ramesh i [facility] Start: 09-02-2022 End: 09-02-2022 ambulatory Gabriel Anderson Other [facility] Other Start: 09-02-2022 Office outpatient vi sit 15 minutes Gabriel Anderson [facility] Start: 06-30-2022 End: 06-30-2022 ambulatory Gabriel Anderson Other [employer] Other Start: 06-30-2022 Telephone encounter Gabriel Ramesh i [facility] Start: 06-24-2022 End: 06-25-[address] VIKASH MENA . Facility: Start: 06-21-2022 End: 06-21-[address] VIKASH MENA . Facility: Start: 05-26-2022 End: 05-26-2022 ambulatory Gabriel Callawayhung Other [employer] Other Start: 05-26-2022 Telephone encounter Gabriel Callawaytay joy [facility] Start: 03-30-2022 End: 03-30-2022 ambulatory Gabriel Callawayhung Other [facility] Other Start: 03-30-2022 Telephone encounter Gabriel Boyermartha joy [facility] Start: 03-02-2022 End: 03-02-2022 ambulatory Gabriel Justin Other [facility] Other Start: 03-02-2022 Office outpatient vi sit 15 minutes Gabriel Anderson [facility] Start: 01-28-2022 End: 01-28-2022 ambulatory Gabriel Callawaytayjoy Other [facility] Other Start: 01-28-2022 Office outpatient vi sit 25 minutes Gabrielbillie Anderson [facility] Start: 12-21-2021 Office outpatient vi sit 15 minutes Michell Campbell [facility] Start: 12-21-2021 End: 12-21-2021 ambulatory DO Gabriel Boyermarthajoy Work Phone: [employer] Other Start: 12-21-2021 End: 12-21-2021 Patient encounter procedure DO Gabriel Callawayhung Work Phone: [facility] [place] Start: 11-24-2021 End: 11-24-2021 ambulatory Gabriel Anderson Other [employer] Other Start: 11-24-2021 Office outpatient vi sit 25 minutes Gabriel Rameshi [facility] Start: 11-24-2021 Telephone encounter Gabriel Boyermartha joy [facility] Start: 10-27-2021 End: 10-27-2021 ambulatory Gabriel Boyerbart Other [employer] Other Start: 10-27-2021 Office outpatient vi sit 15 minutes Gabriel Justin [facility] Start: 09-29-2021 End: 09-29-2021 ambulatory Gabriel Justin Other [employer] Other Start: 09-29-2021 Office outpatient vi sit 15 minutes Gabriel Justin [facility] Start: 09-10-2021 Encounter for preprocedural laboratory examination DR VIKASH MENA . [facility] Start: 09-10-2021 End: 09-11-[address] VIKASH MENA . Facility:[facility] Start: 09-07-2021 End: 09-08-[address] VIKASH MENA . Facility:[facility] Start: 09-07-2021 End: 09-08-2021 Encounter for preprocedural laboratory examination DR VIKASH MENA . Facility:[facility] Start: 09-03-2021 Encounter for other preprocedural examination DR VIKASH MENA . [facility] Start: 09-02-2021 End: 09-03-[address] VIKASH MENA . Facility:[facility] Start: 09-02-2021 End: 09-03-2021 Encounter for other preprocedural examination DR VIKASH MENA . Facility:[facility] Start: 07-22-2021 End: 07-22-2021 ambulatory Gabriel Justin Other [facility] Other Start: 07-22-2021 Encounter by chiki Anderson [facility] Start: 07-19-2021 End: 07-19-2021 ambulatory Gabriel Justin Other [facility] Other Start: 07-19-2021 Office outpatient vi sit 15 minutes Gabriel Anderson [facility] Start: 07-16-2021 End: 07-16-[address] VIKASH MENA . Facility:[facility] Start: 07-13-2021 End: 07-14-[address] VIKASH MENA . Facility:[facility] Start: 07-05-2021 End: 07-06-[address] VIKASH MENA . Facility:[facility] Start: 06-14-2021 End: 06-14-2021 ambulatory Gabriel Anderson Other [facility] Other Start: 06-14-2021 Office outpatient vi sit 25 minutes Gabriel Anderson [facility] Start: 05-13-2021 End: 05-13-2021 ambulatory Gabriel Anderson Other [facility] Other Start: 05-13-2021 Encounter by chiki Anderson [facility] Start: 05-10-2021 End: 05-10-2021 ambulatory Gabriel Anderson Other [employer] Other Start: 05-10-2021 Office outpatient vi sit 25 minutes Gabriel Anderson [facility] Start: 04-09-2021 End: 04-09-2021 ambulatory Gabriel Anderson Other [employer] Other Start: 04-09-2021 Telephone encounter Gabriel Ramesh i [facility] Start: 04-02-2021 End: 04-02-2021 ambulatory Gabriel Anderson Other [employer] Other Start: 04-02-2021 Office outpatient vi sit 15 minutes Gabriel Anderson [facility] Start: 03-16-2021 End: 03-16-2021 ambulatory Gabriel Anderson Other [employer] Other Start: 03-16-2021 Telephone encounter Gabriel Ramesh i [facility] Start: 03-02-2021 End: 03-02-2021 ambulatory Gabriel Anderson Other [employer] Other Start: 03-02-2021 Office outpatient vi sit 15 minutes Gabriel Anderson [facility] Start: 01-22-2021 End: 01-22-2021 ambulatory Gabriel Anderson Other [employer] Other Start: 01-22-2021 Office outpatient vi sit 25 minutes Gabriel Anderson [facility] Start: 01-22-2021 Telephone encounter Gabriel Ramesh i [facility] Start: 01-11-2021 End: 01-11-2021 ambulatory Wilber Singh Jr. Other [employer] Other Start: 01-11-2021 Telephone encounter Wilber harris [facility] Procedures Date Procedure Procedure Detail Performing Clinician Start: 03-29-2024 ALL L[facility] Vikash Oates o DO Work Phone: Start: 02-14-2024 RECURRENT VAGINITIS (HTRX) Vikash Mena DO Work Phone: Start: 02-14-2024 Urnls dip stick/tabl et rgnt non-auto w/o micrscp Vikash Oateso DO Work Phone: Start: 07-05-2023 Mammography Vikash Oates o DO Work Phone: Start: 07-05-2023 Microscopic observat ion [Identifier] in Cervix by Cyto stain Vikash Mena DO Work Phone: Start: 07-05-2023 Cytp cerv/vag auto t hin layer prep mnl screen Vikash Mena DO Work Phone: Bilateral complete salpingectomy Av HERNANDEZ H/O: hysterectomy H/O: hysterectomy Vikash Mena DO Work Phone: H/O: hysterectomy H/O: hysterectomy Vikash Mena DO Work Phone: Vaginal hysterectomy Av HERNANDEZ Plan of Treatment Date Care Activity Detail Author Start: 07-04-2028 Screening for malign ant neoplasm of cervix [facility] Start: 07-08-2024 End: 07-08-2024 Patient encounter procedure 07/08/2024 10:00 AM EDT Office Visit [facility] [address] [place] [id number] Katia Davidson PA [address] [place] [address] [facility] Start: 07-04-2024 Screening for malign ant neoplasm of breast Mammogram [facility] Start: 03-25-2024 End: 03-25-2024 Patient encounter procedure 03/25/2024 8:50 AM EST Consult [facility] [address] [place] [id number] Vikash Mena, DO [address], [place] [id number] [facility] Start: 03-25-2024 End: 03-25-2024 Professional / ancillary services management 03/25/2024 8:00 AM EST Ancillary Procedure [facility] [address] [facility] [place] [phone] [facility] Start: 02-14-2024 End: 02-13-2025 SURESWAB(R) ADVANCED VAGINITIS PLUS, TMA SURESWAB(R) ADVANCED VAGINITIS PLUS, TMA Pathology and Cytology Routine Pelvic pain in female Expected: 02/14/2024 (Approximate), Expires: 02/13/2025 [facility] Work Phone: Comment on above: Expected: 02/14/2024 (Approximate), Expires: 02/13/2025 Start: 02-14-2024 End: 02-13-2025 US for US PELVIS-TRANSVAG IF INDICATED Imaging Routine Pelvic pain in female Expected: 02/14/2024 (Approximate), Expires: 02/13/2025 [facility] Comment on above: Expected: 02/14/2024 (Approximate), Expires: 02/13/2025 Start: 11-19-2023 Influenza vaccination Influenza Vacc ine (#1) [facility] Start: 1975 Screening for malign ant neoplasm of colon [facility] CHLAMYDIA TRACHOMATI S (GENITO/STI) CHLAMYDIA TRACHOMATIS (GENITO/STI) Lab Routine Pelvic pain in female Ordered: 02/14/2024 [facility] Comment on above: Ordered: 02/14/2024 Comprehensive metabo lic 2000 panel - Serum or Plasma [facility] Neisseria gonorrhoea e DNA [Presence] in Unspecified specimen by ALIX with probe detection Neisseria gonorrhea DNA probe, direct Lab Routine Pelvic pain in female Ordered: 02/14/2024 [facility] Comment on above: Ordered: 02/14/2024 [facility] Immunizations Immunization Date Immunization Notes Care Provider Fa seanty 07-08-2020 SARS-CoV-2 (COVID-19) mRNA BNT-162b2 vax Av HERNANDEZ [facility] [place] 07-07-2020 Pfizer Purple Cap SARS-CoV-2 Vaccination Vikash Mena DO Work Phone: [facility] 06-17-2020 SARS-CoV-2 (COVID-19) mRNA BNT-162b2 vax [facility] NEGATED: Highlighted row has not occurred!03-02-2022 influenza, seasonal, injectable Patient Objection Gabriel Anderson Other [employer] Other NEGATED: Highlighted row has not occurred!11-11-2022 influenza, seasonal, injectable Patient Objection Gabriel Anderson Other [employer] Other Payers Date Payer Category Payer [facility] er [id number] 1974 Unknown [id number] 2.16.840.1.455254.3.579.2. 593 1974 Unknown [id number] 2.16.840.1.721327.3.579.2. 593 1974 Unknown [id number] 2.16.840.1.694483.3.579.2. 593 1974 Unknown [id number] 2.16.840.1.218201.3.579.2. 593 1974 Unknown [id number] 2.16.840.1.474607.3.579.2. 593 1974 Unknown [id number] 2.16.840.1.561587.3.579.2. 593 1974 Unknown [id number] 2.16.840.1.704527.3.579.2. 593 1974 Unknown [id number] 2.16.840.1.445408.3.579.2. 593 1974 Unknown [id number] 2.16.840.1.257645.3.579.2. 718 1974 Unknown [id number] 2.16.840.1.900865.3.579.2. 718 1974 Unknown [id number] 2.16.840.1.829712.3.579.2. 727 1974 Unknown [id number] 2.16.840.1.537221.3.579.2. 9 1974 Unknown [id number] 2.16.840.1.368558.3.579.2. 9 1974 Unknown [id number] 2.16.840.1.322278.3.579.2. 9 1974 Unknown [id number] 2.16.840.1.091359.3.579.2. 9 1959 [facility] [id number] 2.16.840.1.537752.19 1959 Unknown [id number] [id number] Private Health Insurance [facility] [id number] Self-pay Self Pay [id number] Social History Date Type Detail Facility Sex Assigned At [employer] Other Start: 07-05-2023 End: 03-25-2024 [facility]igned At [facility] Start: 1975 Sex Assigned At Female F [facility] Start: 07-27-2016 End: 10-25-2022 Tobacco smoking status WIIS Never smoked tobacco (finding) [facility] Start: 10-25-2022 Tobacco use and exposure Smokeless tobacco non-user [facility] Start: 02-14-2024 End: 03-25-2024 Alcoholic beverage intake Ex-drinker (finding) [facility] Start: 02-14-2024 End: 03-25-2024 Alcoholic beverage intake [facility] Start: 10-24-2022 Alcohol Comment Caffeine intak e: 1-2 cups per day ice tea [facility] Start: 1975 Sex assigned at Not on file [facility] Tobacco smoking status Never [facility] [place] Start: 03-25-2024 Sex Female (finding) [facility] Functional Status Date Assessment Result Facility 03-26-2024 [facility] [place] Clinical Notes 01-22-2021 to 03-26-2024 Emily Sanon - 03/25/2024 8:50 AM Gisel JASKARAN Li - 02/14/2024 1:50 PM EST Note Date & Type Note Facility 03-26-2024 Note General Surgery Offi ce/Clinic Note Chief Complaint consultation for colonoscopy HPI Staff 48 year old female presents on consultation from Dr. Mena for RLQ pain with bowel movements. Reports several year history of stated complaint. Denies bowel changes or rectal pain. Denies nausea or vomiting. No unexplained weight loss. Never had colonoscopy in the past. No known family history of colon cancer. 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 Review of Systems PHQ Score Initial Depression Screen Score: 0 SCORE ROS - Provider Constitutional: no fever, no sweats, no weight loss. Eyes: no glasses, no blurred vision, no visual loss. ENMT: no dentures, no hoarseness, no swallowing difficulties, no hearing loss, no ear infection(s), no nose bleeds. Cardiovascular: normal blood pressure, no chest pain, regular heartbeat, no heart murmur. Respiratory: no shortness of breath, no cough, no asthma, no wheezing. Gastrointestinal: no nausea, no vomiting, no diarrhea, no constipation, no blood in stool, no change in bowel habits, yes abdominal pain, no hepatitis. Genitourinary: no kidney stones, no urine infection, no dysuria. Musculoskeletal: no pain, no weakness. Skin: no changing moles, no rash, no skin lumps. Neurologic: no seizures, no epilepsy, no headache. Psychiatric: no emotional or psychiatric problem. Heme/Lymph: no bleeding problems, no anemia, no blood clots, no transfusions. Allergy/Immunologic: no swollen lymph nodes/glands, no IV drug abuse. Other: Additional ROS info: Except as noted in the above Review of Systems and in the History of Present Illness, all other systems have been reviewed and are negative or noncontributory. Physical Exam Vitals & Measurements HR: 72(Peripheral) RR: 16 BP: 118/78 HT: 61 in HT: 154.9 cm WT: 78 kg WT: 171.96 lb BMI: 32.51 HEENT: normal conjunctiva, sclera clear, no scleral icterus, EOM intact, PERRLA, oral mucosa moist without lesions. Neck: trachea midline, no mass, symmetric, no thyromegaly or nodules, no adenopathy Respiratory: lungs CTA, respirations non labored. Cardiovascular: regular rate and rhythm, no murmur, no pedal edema or varicosities. Gastrointestinal: obese, soft, non distended, mild tenderness,RLQ, to deep palpation, no peritoneal signs; no masses, no palpable hernias, diastasis recti no, no hepatosplenomegaly; normal bs Lymphatic: no cervical adenopathy, no supraclavicular adenopathy. Musculoskeletal: normal gait, digits and nails without infection, nodes, cyanosis, clubbing. Skin: no rashes, no lesions, no ulcers, no subcutaneous nodules, induration. Psychiatric/Neuro: oriented to time, place, person, judgement normal, affect appropriate for age, insight intact, no focal deficits. Tests: , review of old records completed , Discussed surgical options, risks, and possible complications with patient. Assessment/Plan 1. Screening for malignant neoplasm of colon (Z12.11: Encounter for screening for malignant neoplasm of colon) plan colonoscopy under anesthesia, informed consent obtained. 2. Abdominal pain, chronic, right lower quadrant (R10.31: Right lower quadrant pain) see # 1 Other chronic pain (G89.29: Other chronic pain) Follow-up No qualifying data available Problem List/Past Medical History Ongoing Abdominal pain, chronic, right lower quadrant Anxiety BMI 32.0-32.9,adult Hypercholesterolemia Insomnia Migraines Obesity due to excess calories Screening for malignant neoplasm of colon Historical Gastroesophageal reflux disease Procedure/Surgical History Bilateral complete salpingectomy, [facility]H - Vaginal hysterectomy. Medications Qsymia 15 mg-92 mg oral capsule, extended release, 1 cap(s), Oral, qAM Allergies acetaminophen-oxycodone (vomiting) Social History Alcohol Current. Beer. 1-2 times per month., 03/21/2024 Substance Abuse Never., 03/21/2024 Tobacco Never (less than 100 in lifetime) Tobacco Use:. Never Smokeless Tobacco Use:., 03/26/2024 Family History Diabetes mellitus type 2: Father. Hypertension: Father. Primary malignant neoplasm of lung: Father. Primary malignant neoplasm of prostate: Father. Immunizations Vaccine Date Status SARS-CoV-2 (COVID-19) mRNA BNT-162b2 vax 07/08/2020 Recorded SARS-CoV-2 (COVID-19) mRNA BNT-162b2 vax 06/17/2020 Recorded [facility] Comment on above: Result Comment: Elec tronically Signed By: MACKENZIE MORGAN, Av Hansen\Date and Time Signed: 03/26/24 15:56 EST 03-25-2024 History of Present illness Narrative Reason for Appointment: Patient ID: Moses Abraham is a 48 y.o. female who presents for Pre-op Visit (Pt present today for pre operative visit. PT to be scheduled for a Dx Lap procedure.) Patient presents today for Pre Op appointment. Patient is scheduled to undergo Diagnostic Laparoscopy, possible KIMBERLEE, possible FOE, possible BSO on 04/12/[address] Mena at [facility]. MEDICATIONS Current Outpatient Medications Medication Instructions Phentermine-Topiramate (Qsymia) 15-92 MG capsule sustained-release 24 hr ALLERGIES Allergies Allergen Reactions Acetaminophen Other Reaction(s): vomiting Oxycodone Other Reaction(s): vomiting Oxycodone-Acetaminophen GI intolerance PROBLEMS Active Ambulatory Problems Diagnosis Date Noted No Active Ambulatory Problems Resolved Ambulatory Problems Diagnosis Date Noted No Resolved Ambulatory Problems Past Medical History: Diagnosis Date Anxiety Bursitis Chronic diarrhea H/O vaginal hysterectomy Menometrorrhagia Migraine headache (CMS/HCC) [place] Obesity (BMI 30-39.9) Other constipation Pain of ovary Postop check Thyroid disease (CMS/HCC) HISTORY PAST MEDICAL HISTORY SOCIAL HISTORY Past Medical History: Diagnosis Date Anxiety Bursitis Chronic diarrhea H/O vaginal hysterectomy Menometrorrhagia Migraine headache (CMS/HCC) [place] Obesity (BMI 30-39.9) Other constipation Pain of ovary Postop check Thyroid disease (CMS/HCC) Social History Tobacco Use Smoking status: Never Smokeless tobacco: Never Substance Use Topics Alcohol use: Not Currently Alcohol/week: 2.0 standard drinks of alcohol Types: 2 Cans of beer per week Comment: Caffeine intake: 1-2 cups per day ice tea Drug use: Never FAMILY HISTORY Family History Problem Relation Name Age of Onset Arthritis Mother Miroslava Martinez Cancer Father Miguelito Martinez Lung, prostate and skin Diabetes Father Miguelito Martinez Hypertension Father Miguelito Martinez Cancer Paternal Grandmother Diabetes Paternal Grandfather Cancer Paternal Grandfather Depression Son in counseling SURGICAL HISTORY Past Surgical History: Procedure Laterality Date HYSTERECTOMY 08/2021 OTHER SURGICAL HISTORY 11/12/2016 mammogram [place] REMOVAL OF FALLOPIAN TUBE Bilateral Bilateral salpingectomy REMOVE DRAINS/TUBES 06/2021 REVIEW OF SYSTEMS Review of Systems: Review of Systems Constitutional: Negative. HENT: Negative. Eyes: Negative. Respiratory: Negative. Cardiovascular: Negative. Gastrointestinal: Negative. Genitourinary: Positive for pelvic pain. Musculoskeletal: Negative. Skin: Negative. Neurological: Negative. All other systems reviewed and are negative. Hematological: Negative. Endocrine: Negative. Allergic/Immunologic: Negative. OBJECTIVE Objective: Physical Exam Constitutional: Appearance: Normal appearance. She is well-developed. Cardiovascular: Rate and Rhythm: Normal rate and regular rhythm. Pulmonary: Effort: Pulmonary effort is normal. Breath sounds: Normal breath sounds. Abdominal: General: Bowel sounds are normal. There is no distension. Palpations: Abdomen is soft. Tenderness: There is no abdominal tenderness. There is no guarding or rebound. Musculoskeletal: General: No swelling. Normal range of motion. Right lower leg: No edema. Left lower leg: No edema. Neurological: Mental Status: She is alert and oriented to person, place, and time. Skin: General: Skin is warm and dry. Psychiatric: Mood and Affect: Mood normal. Behavior: Behavior normal. Vitals and nursing note reviewed. Exam conducted with a irrigation pump installer present. Vitals: Estimated body mass index is 32.12 kg/m as calculated from the following: Height as of 23: 5' 1 . Weight as of this encounter: 170 lb. BP: 122/74 No LMP recorded. Patient has had a hysterectomy. ASSESSMENT & PLAN ICD-10-CM 1. Pre-op evaluation Z01.818 2. Pelvic pain in female R10.2 3. H/O: hysterectomy Z90.710 Pre Op: Patient is doing well but has complaints of pelvic pain. I have discussed conservative management vs. surgical management with the patient in detail and patient desires surgical management at this time. Patient will undergo Diagnostic Laparoscopy, possible KIMBERLEE, possible FOE, possible BSO on 04/12/2024. Surgical consents were signed, mmc was reviewed, and patient is to proceed to [facility] OR. Follow Up: Patient is to follow up between 1-2 weeks post operative to assess proper healing and recovery from procedure. Documented by Jenae Harrington LPN on behalf of: Vikash Mena DO documented in this encounter [facility] 02-14-2024 History of Present illness Narrative Reason for Appointment: Patient ID: Moses Abraham is a 48 y.o. female who presents for Pelvic Pain Patient presents today for Acute Visit. MEDICATIONS Current Outpatient Medications Medication Instructions Phentermine-Topiramate (Qsymia) 15-92 MG capsule sustained-release 24 hr traZODone (Desyrel) 100 MG tablet ALLERGIES Allergies Allergen Reactions Acetaminophen Other Reaction(s): vomiting Oxycodone Other Reaction(s): vomiting Oxycodone-Acetaminophen GI intolerance PROBLEMS Active Ambulatory Problems Diagnosis Date Noted No Active Ambulatory Problems Resolved Ambulatory Problems Diagnosis Date Noted No Resolved Ambulatory Problems Past Medical History: Diagnosis Date Anxiety Bursitis Chronic diarrhea H/O vaginal hysterectomy Menometrorrhagia Migraine headache (CMS/HCC) [place] Obesity (BMI 30-39.9) Other constipation Pain of ovary Postop check Thyroid disease (CMS/HCC) HISTORY PAST MEDICAL HISTORY SOCIAL HISTORY Past Medical History: Diagnosis Date Anxiety Bursitis Chronic diarrhea H/O vaginal hysterectomy Menometrorrhagia Migraine headache (CMS/HCC) [place] Obesity (BMI 30-39.9) Other constipation Pain of ovary Postop check Thyroid disease (CMS/HCC) Social History Tobacco Use Smoking status: Never Smokeless tobacco: Never Substance Use Topics Alcohol use: Not Currently Alcohol/week: 2.0 standard drinks of alcohol Types: 2 Cans of beer per week Comment: Caffeine intake: 1-2 cups per day ice tea Drug use: Never FAMILY HISTORY Family History Problem Relation Name Age of Onset Arthritis Mother Miroslava Martinez Cancer Father Miguelito Martinez Lung, prostate and skin Diabetes Father Miguelito Martinez Hypertension Father Miguelito Martinez Cancer Paternal Grandmother Diabetes Paternal Grandfather Cancer Paternal Grandfather Depression Son in counseling SURGICAL HISTORY Past Surgical History: Procedure Laterality Date HYSTERECTOMY 08/2021 OTHER SURGICAL HISTORY 11/12/2016 [place] REMOVAL OF FALLOPIAN TUBE Bilateral Bilateral salpingectomy REMOVE DRAINS/TUBES 06/2021 REVIEW OF SYSTEMS Review of Systems: Review of Systems Constitutional: Negative. HENT: Negative. Eyes: Negative. Respiratory: Negative. Cardiovascular: Negative. Gastrointestinal: Negative. Genitourinary: Positive for pelvic pain. Musculoskeletal: Negative. Skin: Negative. Neurological: Negative. All other systems reviewed and are negative. Hematological: Negative. Endocrine: Negative. Allergic/Immunologic: Negative. OBJECTIVE Objective: Physical Exam Constitutional: Appearance: Normal appearance. She is well-developed. Genitourinary: Vulva normal. Vaginal cuff intact. Cervix is absent. Uterus is absent. Cardiovascular: Rate and Rhythm: Normal rate and regular rhythm. Abdominal: General: Bowel sounds are normal. There is no distension. Palpations: Abdomen is soft. Tenderness: There is no abdominal tenderness. There is no guarding or rebound. Musculoskeletal: General: No swelling. Normal range of motion. Right lower leg: No edema. Left lower leg: No edema. Neurological: Mental Status: She is alert and oriented to person, place, and time. Skin: General: Skin is warm and dry. Psychiatric: Mood and Affect: Mood normal. Behavior: Behavior normal. Vitals and nursing note reviewed. Exam conducted with a irrigation pump installer present. Vitals: Estimated body mass index is 31.55 kg/m as calculated from the following: Height as of 23: 5' 1 . Weight as of this encounter: 167 lb. BP: 120/72 No LMP recorded. Patient has had a hysterectomy. ASSESSMENT & PLAN ICD-10-CM 1. Pelvic pain in female R10.2 POCT urinalysis dipstick manually resulted SURESWAB(R) ADVANCED VAGINITIS PLUS, TMA Neisseria gonorrhea DNA probe, direct CHLAMYDIA TRACHOMATIS (GENITO/STI) US PELVIS-TRANSVAG IF INDICATED SURESWAB(R) ADVANCED VAGINITIS PLUS, TMA 2. H/O: hysterectomy Z90.710 Pt has pelvic pain radiating to back - pt states painful having bowel movement as well. Pt given ultrasound and ua obtained. Cultures obtained as well. Discussed referral for colonoscopy. Also discussed doing dx lap with possible ovary removal and kimberlee and foe. Pt advised to take colace twice a day, metamucil every third day. Pt being referred to dr hernandez- for colonoscopy. Discussed possible referral to GI if dx lap colonoscopy and colace does not help with pain and bowel habits. Documented by Amy Li LPN on behalf of: Vikash Mena DO documented in this encounter [facility] 12-29-2023 Note Education Materials Dermatology Facial Laceration Keep the wound clean and dry. Suture removal in 5 days. Return to the emergency department for any worsening symptoms. A facial laceration is a cut on the face. You may need to see a doctor for treatment. Treatment may help the wound heal and prevent scars. What are the causes? ? A car crash. ? An injury when playing sports. ? An attack by a person or animal. ? A fall. What are the signs or symptoms? ? A cut on the face. ? Bleeding. ? Pain. ? Swelling. ? Bruises. How is this treated? ? Your wound will be cleaned. This will help prevent infection. ? Your wound may be closed. Your doctor will use stitches, skin glue, or skin tape strips to do this. ? You may also be given medicines, such as: ? Medicines for pain. ? Medicines to prevent or treat infection (antibiotics). This might be pills or an ointment. ? A tetanus shot. Follow these instructions at home: Follow your doctor's instructions. Ask your doctor if you have problems or questions. Caring for your wound depends on how it was closed. If you have a bandage: ? Wash your hands with soap and water for at least 20 seconds before and after you change your bandage. If you cannot use soap and water, use hand supervisor shuttle preparation. ? Change your bandage. If stitches were used: ? Keep the wound clean and dry. ? If you were given a bandage, change it at least one time a day, or as told by your doctor. Also change the bandage if it gets wet or dirty. ? Wash the wound with soap and water two times a day, or as told by your doctor. Rinse off the soap with water. Use a clean towel to pat the wound dry. ? After cleaning, put a thin layer of antibiotic ointment on the wound as told by your doctor. This helps prevent infection and keeps the bandage from sticking to the wound. ? You may shower after the first 24 hours. Do not soak the wound until the stitches are taken out. ? Go back to have your stitches taken out as told by your doctor. ? Do not wear makeup around the wound until your doctor says it is okay. If skin glue was used: ? You may only wet your wound in the shower or bath very briefly. ? After you shower or take a bath, use a clean towel to gently pat the wound dry. ? Do not soak or scrub the wound. ? Do not swim. ? Do not do anything that makes you sweat a lot until the skin glue has fallen off on its own. ? Do not put medicines, creams, ointment, or makeup on your wound while the skin glue is in place. This may loosen the glue before your wound is healed. ? Do not put tape over the skin glue if you have a bandage. This may pull off the skin glue. ? Do not spend a long time in the sun or use a tanning lamp while the skin glue is on the wound. ? Do not pick at the skin glue. The skin glue usually stays in place for 5?10 days. Then, it falls off the skin. If skin tape strips were used: ? Keep the wound clean and dry. ? Do not let the skin tape strips get wet. ? Take care to keep the wound and skin tape strips dry when you take a bath. If the wound gets wet, pat it dry with a clean towel right away. ? Skin tape strips fall off on their own over time. You may trim the strips as the wound heals. Do not take off skin tape strips that are still stuck to the wound. General instructions ? Check your wound area every day for signs of infection. Check for: ? More redness, swelling, or pain. ? Fluid or blood. ? Warmth. ? Pus or a bad smell. ? Take vhnw-vgw-dabxolf and prescription medicines only as told by your doctor. ? If you were prescribed an antibiotic medicine, use it as told by your doctor. Do not stop using it even if you start to feel better. ? After the cut has healed, put sunscreen on the area to prevent scars. It can take a year or two for redness and scars to fade. Contact a doctor if: ? You have a fever. ? You have any of these signs of infection in or around your wound: ? More redness, swelling, or pain. ? Fluid or blood. ? Warmth. ? Pus or a bad smell. Get help right away if: ? You have a red streak going away from your wound. Summary ? A cut on the face may need to be closed with stitches, skin glue, or skin tape strips. ? Follow your doctor's instructions for wound care. ? Check your wound area every day for signs of infection, such as more redness, swelling, or pain. This information is not intended to replace advice given to you by your health care provider. Make sure you discuss any questions you have with your health care provider. Document Revised: 06/03/2020 Document Reviewed: 06/03/2020 [employer] Patient Education ? 2023 [employer]. [facility] 03-28-2023 Evaluation note Encounter Date Diagnosis Assessment Notes Mar, Other obesity due to excess calories (ICD-10 - E66.09) Patient is doing well on the higher dose of Qsymia. She had gained weight when we backed off on the dose, but she's lost significant weight since we went back up. We did discuss the risk of seizure if she were to stop the Qsymia abruptly, so she will avoid doing so. Notify me immediately of any SEs. She is s/p hysterectomy. Mar, BMI 30.0-30.9,adult (ICD-10 - Z68.30) See above. Mar, Hypocalcemia (ICD-10 - E83.51) Patient has started supplementing Ca+ as recommended. Mar, Vitamin D deficiency (ICD-10 - E55.9) Labs reviewed. Controlled. Continue current care. [facility] Other 12-26-2023 Evaluation note* Encounter Date Diagnosis Assessment Notes Treatment Notes Treatment Clinical Notes Feb, Other obesity due to excess calories (ICD-10 - E66.09) [facility] Other 11-27-2023 Evaluation note* Encounter Date Diagnosis Assessment Notes Treatment Notes Treatment Clinical Notes Jan, Other obesity due to excess calories (ICD-10 - E66.09) [facility] Other 11-03-2023 Evaluation note* Encounter Date Diagnosis Assessment Notes Treatment Notes Treatment Clinical Notes Jan, Trochanteric bursitis of right hip (ICD-10 - M70.61) Patient has opted fo r steroid injection in the office today. She tolerates this well. Further recommendations pending her progress. [facility] Other 10-24-2023 Evaluation note* Encounter Date Diagnosis Assessment Notes Treatment Notes Treatment Clinical Notes Dec, Hypercholesterolemia (ICD-10 - E78.00) Dec, Impaired fasting glu cose (ICD-10 - R73.01) Dec, Vitamin D deficiency (ICD-10 - E55.9) Dec, Screening for metabo lic disorder (ICD-10 - Z13.228) Dec, Screening for cardiovascular condition (ICD-10 - Z13.6) [facility] Other 10-24-2023 Evaluation note* Encounter Date Diagnosis Assessment Notes Treatment Notes Treatment Clinical Notes Dec, Other obesity due to excess calories (ICD-10 - E66.09) Patient had been on the higher dose of Qsymia for quite some time with excellent results. She's gained weight since we backed off on the dose, so I will move her back to the high dose. We did discuss the risk of seizure if she were to stop the Qsymia abruptly, so she will avoid doing so. Notify me immediately of any SEs. She is s/p hysterectomy. Dec, BMI 31.0-31.9,adult (ICD-10 - Z68.31) See above. Dec, Trochanteric bursitis of right hip (ICD-10 - M70.61) Patient did not tolerate Naproxen (upset stomach). Continue to ice the area. I will track down her x-ray results -- assuming no significant findings on x-rays, will consider steroid injection for bursitis. [facility] Other 10-24-2023 Evaluation note* Encounter Date Diagnosis Assessment Notes Treatment Notes Treatment Clinical Notes Dec, Other obesity due to excess calories (ICD-10 - E66.09) [facility] Other 10-02-2023 Evaluation note* Encounter Date Diagnosis Assessment Notes Treatment Notes Treatment Clinical Notes Dec, Other obesity due to excess calories (ICD-10 - E66.09) [facility] Other 09-25-2023 Evaluation note* Encounter Date Diagnosis Assessment Notes Treatment Notes Treatment Clinical Notes Nov, Other obesity due to excess calories (ICD-10 - E66.09) [facility] Other 08-15-2023 Evaluation note* Encounter Date Diagnosis Assessment Notes Treatment Notes Treatment Clinical Notes Oct, Other obesity due to excess calories (ICD-10 - E66.09) Patient has been on the higher dose of Qsymia for quite some time with excellent results. She lost an additional 7 lbs over the past two months. She is interested in starting to wean off of Qsymia, so we will start that process now. We did discuss the risk of seizure if she were to stop the Qsymia abruptly, so she will avoid doing so. Notify me immediately of any SEs. Oct, BMI 31.0-31.9,adult (ICD-10 - Z68.31) See above. Oct, Trochanteric bursitis of right hip (ICD-10 - M70.61) Will trial her on Naproxen. Ice the area as well. If no improvement, will consider steroid injection. [facility] Other 06-16-2023 Evaluation note* Encounter Date Diagnosis Assessment Notes Treatment Notes Treatment Clinical Notes Aug, Other obesity due to excess calories (ICD-10 - E66.09) Patient had been on the lower maintenance dose of Qsymia with Dr. Singh for over a year without weight loss. She has now been on the higher dose for quite some time with reasonable results initially. She did stall for a period of time but has now lost an additional 3 lbs over the past month. Continue current care for now. We did discuss the risk of seizure if she were to stop the Qsymia abruptly, so she will avoid doing so. Notify me immediately of any SEs. Aug, BMI 32.0-32.9,adult (ICD-10 - Z68.32) [facility] Other 04-13-2023 Evaluation note* Encounter Date Diagnosis Assessment Notes Treatment Notes Treatment Clinical Notes Jun, Other obesity due to excess calories (ICD-10 - E66.09) [facility] Other 03-09-2023 Evaluation note* Encounter Date Diagnosis Assessment Notes Treatment Notes Treatment Clinical Notes May, Other obesity due to excess calories (ICD-10 - E66.09) [facility] Other 01-11-2023 Evaluation note* Encounter Date Diagnosis Assessment Notes Treatment Notes Treatment Clinical Notes Mar, Other obesity due to excess calories (ICD-10 - E66.09) [facility] Other 12-14-2022 Evaluation note* Encounter Date Diagnosis Assessment Notes Treatment Notes Treatment Clinical Notes Feb, Other obesity due to excess calories (ICD-10 - E66.09) Patient had been on the lower maintenance dose of Qsymia with Dr. Singh for over a year without weight loss. She has now been on the higher dose for quite some time with reasonable results. We did discuss the risk of seizure if she were to stop the medication abruptly, so she will avoid doing so. Notify me immediately of any SEs. Because she has slowly and consistenly been losing weight on the medication without difficulties, I've agreed to have her f/u in 2-3 months for her next visit but call for refills in between. Feb, BMI 33.0-33.9,adult (ICD-10 - Z68.33) See above. [facility] Other 11-11-2022 Evaluation note* Encounter Date Diagnosis Assessment Notes Treatment Notes Treatment Clinical Notes Jan, Other obesity due to excess calories (ICD-10 - E66.09) Patient had been on the lower maintenance dose of Qsymia with Dr. Singh for over a year without weight loss. She has now been on the higher dose for quite some time with reasonable results. We did discuss the risk of seizure if she were to stop the medication abruptly, so she will avoid doing so. Notify me immediately of any SEs. I will continue to see her every 4 weeks while she is on the Qsymia. Jan, Vitamin D deficiency (ICD-10 - E55.9) Labs reviewed. Controlled. Continue current care. Jan, BMI 33.0-33.9,adult (ICD-10 - Z68.33) See above. Jan, Hypercholesterolemia (ICD-10 - E78.00) Labs reviewed. Her lipids have improved with her weight loss and she is low ASCVD risk, so we will continue to monitor. [facility] Other 10-04-2022 Evaluation note* Encounter Date Diagnosis Assessment Notes Treatment Notes Treatment Clinical Notes Dec, Contact with and (suspected) exposure to other viral communicable diseases (ICD-10 - Z20.828) Dec, COVID-19 (ICD-10 - U07.1) Discharge Instructions for COVID-19 (Suspected or Confirmed ) material was printed Drink plenty fluids, get plenty of rest. Take Tylenol or Motrin for aches pains or fevers. You must quarantine for 5 days after the onset of your symptoms of COVID. Follow-up with your family physician if no improvement in 2 to 3 days. [facility] Other 09-07-2022 Evaluation note* Encounter Date Diagnosis Assessment Notes Treatment Notes Treatment Clinical Notes Nov, Other obesity due to excess calories (ICD-10 - E66.09) [facility] Other 09-07-2022 Evaluation note* Encounter Date Diagnosis Assessment Notes Treatment Notes Treatment Clinical Notes Nov, Other obesity due to excess calories (ICD-10 - E66.09) Patient had been on the lower maintenance dose of Qsymia with Dr. Singh for over a year without weight loss. She has now been on the higher dose for several months with reasonable results. We did discuss the risk of seizure if she were to stop the medication abruptly, so she will avoid doing so. Notify me immediately of any SEs. She is aware that I will see her every 4 weeks while she is on the Qsymia. Nov, BMI 34.0-34.9,adult (ICD-10 - Z68.34) See above. Nov, Screening for metabolic disorder (ICD-10 - Z13.228) Nov, Screening for cardiovascular condition (ICD-10 - Z13.6) Nov, Screening for deficiency anemia (ICD-10 - Z13.0) Nov, Vitamin D deficiency (ICD-10 - E55.9) [facility] Other 08-10-2022 Evaluation note* Encounter Date Diagnosis Assessment Notes Treatment Notes Treatment Clinical Notes Oct, Other obesity due to excess calories (ICD-10 - E66.09) Patient had been on the lower maintenance dose of Qsymia with Dr. Singh for over a year without weight loss. She has now been on the higher dose for several months with reasonable results. We did discuss the risk of seizure if she were to stop the medication abruptly, so she will avoid doing so. Notify me immediately of any SEs. She is aware that I will see her every 4 weeks while she is on the Qsymia. Oct, BMI 34.0-34.9,adult (ICD-10 - Z68.34) See above. [facility] Other 07-13-2022 Evaluation note* Encounter Date Diagnosis Assessment Notes Treatment Notes Treatment Clinical Notes Sep, Other obesity due to excess calories (ICD-10 - E66.09) Patient had been on the lower maintenance dose of Qsymia with Dr. Singh for over a year without weight loss. She has now been on the higher dose for several months with reasonable results, though she has not lost weight over the past 4 weeks. In her defense, she just underwent hysterectomy and has been unable to exercise, so I will hold on stopping the medication for now. We did discuss the risk of seizure if she were to stop the medication abruptly, so she will avoid doing so. Notify me immediately of any SEs. She is aware that I will see her every 4 weeks while she is on the Qsymia. 13 Sep, 2021 BMI 35.0-35.9,adult (ICD-10 - Z68.35) See above. [facility] Other 06-24-2022 NoteOP Note OPERATION DATE: 09/12/2021 PROCEDURE: Laparoscopic assisted vaginal hysterectomy via vNOTES with colpopexy and cystoscopy. PREOPERATIVE DIAGNOSIS: Menorrhagia, dysmenorrhea, dyspareunia and pelvic pain. POSTOPERATIVE DIAGNOSIS: Menorrhagia, dysmenorrhea, dyspareunia and pelvic pain. ANESTHESIA: General. SURGEON: Vikash Mena D.O. VAT SKIMMER: RICHY Dougherty URINE OUTPUT: Yellow and clear. BLOOD LOSS: 100 mL. SPECIMEN: Uterus. PROCEDURE: Patient was brought back to the operating room where she was given general anesthesia. She was placed in the dorsolithotomy position, after being prepped and draped in a sterile fashion. A Mahmood catheter was placed. A weighted speculum was placed posterior in the vagina. The cervix was grasped anteriorly and posteriorly with two single tooth tenaculums and placed on traction. A solution of Marcaine, lidocaine and epinephrine and saline was liberally infiltrated into the cervical vaginal junction. The knife was then used to circumscribe the cervical vaginal junction and the posterior cul-de-sac was sharply entered without difficulty. A long weighted duck tail speculum was placed and the peritoneum was tacked to the vaginal epithelium. We then turned our attention to the uterosacral ligaments which were bilaterally cross clamped, transected and suture ligated and then were held with hemostats. Attention was then turned to the anterior compartment, where the cervical vaginal junction was similarly divided, and the bladder was then sharply and bluntly dissected off the cervix and the lower uterine segment, and the anterior cul-de- sac was sharply entered. The vaginal epithelium was tacked to the peritoneum. Lateral attachments of the uterus were secured with Ai clamps and suture ligated. The retractors were then removed and were placed by the path inner ring anteriorly followed by posteriorly. Once the ring was seated, the gel cap was placed and the laparoscopic ports were placed through this cap and the gas was allowed to insufflate the pelvis. A GynLap was placed posteriorly to facilitate mobilization of the bowel, control bleeding. This was later retrieved. The LigaSure device was used to secure the lateral attachments of the uterus on the left side, including the cardinal ligaments and the uterine vasculature. Once the utero-ovarian ligament was reached, we turned our attention to the right side where the LigaSure device was used to fully detach the uterus from the pelvic side wall. The ureters were seen visually; before, during and after the pedicles were created. The ureters were bilaterally in normal locations, peristalsing. Please note that the right and left ovary were already removed and were not visualized. Please note that the LigaSure was used on the patient's left side to fully detach the uterus from the pelvic side wall. The uterus was removed from the field. The GynLap was also removed from the field. The inner ring and gel port caps were removed and the vaginal retractors were replaced. Lateral figure of eight sutures were placed bilaterally, where bleeding occurred, behind the ring, and no further sutures were needed. The colpopexy was then carried out, passing a stitch posteriorly to the vaginal wall, capturing the left uterosacral ligament, going across the peritoneum posteriorly to the right and exiting out the vaginal wall posteriorly. The vaginal cuff was closed in a single running locked stitch using 0 Monocryl, and the uterosacral ligaments were cut. Once the vaginal cuff was fully closed, the uterosacral colpopexy stitch was then tied down tightly, elevating the vaginal cuff to the uterosacral ligaments in a satisfactory manner. The Mahmood catheter was removed and the patient was awakened and taken to recovery in excellent condition. Sponge, lap and instruments counts correct x2. [facility] Signed and Approved by: DR VIKASH MENA . 09/14/2021 22:14:00[facility]06-24-2022 NoteDISCHARGE SUMMARY DISCHARGE DATE: 09/11/2021 PRIMARY DIAGNOSES: 1. Menorrhagia. 2. Dysmenorrhea. 3. Dyspareunia. 4. Pelvic pain. 5. History of endometriosis. PROCEDURE: Vaginal assisted NOTES hysterectomy. HOSPITAL COURSE: As expected. Please see chart for full details. LABORATORY DATA: Please see chart. COMPLICATIONS: None. DISCHARGE CONDITION: Stable. CONSULTATION: Anesthesia. DISCHARGE INSTRUCTIONS: 1.Diet: Regular. 2.Medications: a.Percocet 5/325 one to two p.o. every 4-6 hours p.r.n. pain. b.Motrin 800 one p.o. every 8 hours p.r.n. pain. 3.Followup in one week. Restrictions: Pelvic rest for 6 weeks. No heavy lifting. May drive when pain free and no longer on narcotics. [facility] Signed and Approved by: DR VIKASH MENA . 09/14/2021 02:07:00[facility]06-01-2022 History general Narrative - Reported* Type Description Date Medical History Pleurisy Surgical History hysterectomy 08/2021 [facility] Other 05-02-2022 Evaluation note* Encounter Date Diagnosis Assessment Notes Treatment Notes Treatment Clinical Notes July, Other obesity due to excess calories (ICD-10 - E66.09) Patient had been on the lower maintenance dose of Qsymia with Dr. Singh for over a year without weight loss. She has now been on the higher dose for several months with reasonable results to start with, but she has again stalled over the past few months for reasons mentioned in the HPI. We did discuss the risk of seizure if she were to stop the medication abruptly, so she will avoid doing so. Stop the medication and notify me immediately of any SEs. She recently had salpingectomy and oophrectomy (endometriosis) and her is s/p vasectomy. She is aware that I will see her every 4 weeks while she is on the Qsymia. July, BMI 36.0-36.9,adult (ICD-10 - Z68.36) See above. July, Insomnia (ICD-10 - G47.00) After discussing risks (including the slight risk of serotonin syndrome in combination with qsymia), benefits, possible SEs, and alternative treatment options, patient opts to continue with Trazodone. She will stop the medication and notify me immediately of any SEs. Recheck in 4 weeks. [facility] Other 04-29-2022 NoteThe [place], [place] NAME: MOSES ABRAHAM DATE OF : MEDICAL REC#: [id number] GUYLINE OPERATOR: [address] [facility] TRANSADMIT DATE: 07/16/2021 06:02:00 RADIOLOGY INTERVENTIONAL PHYSICIAN DATE: 07/16/2021 23:00 DICTATING PHYSICIAN: VIKASH MENA DICTATION DATE: 07/16/2021 08:00 OPERATIVE NOTE OPERATION DATE: 07/16/2021 PROCEDURE: Bilateral laparoscopic salpingectomy PREOPERATIVE DIAGNOSIS: Desire permanent sterilization, pelvic pain, painful defecation. POSTOPERATIVE DIAGNOSIS: Desire permanent sterilization, pelvic pain, painful defecation. ANESTHESIA: General. SURGEON: Vikash Mena D.O. VAT SKIMMER: RICHY Quintero URINE OUTPUT: Yellow and clear. BLOOD LOSS: 5 mL. FINDINGS: Normal appearing ovaries, uterus and tubes. Normal appearing appendix. Evidence of endometriosis on the posterior cul-de-sac, also involving the posterior portion of the uterine serosa. PROCEDURE: The patient was taken back to the Operating Room where she was given general anesthesia without difficulty. She was then prepped and draped in the normal sterile fashion after being placed in a dorsal lithotomy position. A wet sponge stick was placed into the patient's vagina. Attention was then turned to the patient's abdomen, where a scalpel was used to make a small infraumbilical incision. The S retractors were then used to dissect the underlying layers until the fascia could be seen. The fascia was then grasped with Jeffrey clamps and tented up. A knife was then used to make a small incision to the fascia. The muscle was identified, at that time two sutures of #0 Vicryl on a GI needle was then used and placed through the fascia. The peritoneum was then identified and entered bluntly. The 10-4 Norah was then placed into the patient's abdomen. This was confirmed with direct visualization of the bowel, using the laparoscope. The patient's abdomen was then insufflated using approximately 4 liters of CO2 gas. Survey of the patient's abdomen demonstrated ovaries were normal in appearance as well as both tubes. A second and third lateral ports, which was 7-8 and 5mm in size, was then placed laterally after incision was made in the skin under direct visualization. The patient's tube on the patient's right side was identified. Instead of using Filshie clips the LigaSure apparatus was used to come across the mesosalpingx and this was done on the contralateral side. The tubes was removed in its entirety. Please note the endometriosis in posterior culdesac was noted. The lateral ports was then moved under direct visualization with excellent hemostasis. All instruments were removed from the patient's abdomen. The fascia was closed using the #0 Vicryl on GI needle. The skin was closed using 4-0 Vicryl subcuticularly. All instruments were removed from the patient's vagina as well. The patient was taken out of the dorsal lithotomy position and placed in the supine position and taken to recovery in stable condition. Sponge, lap and needle counts were correct x2. Electronically Authenticated and Edited by: Vikash Mena DO on 07/25/2021 12:32 PM EDT [facility] Signed and Approved by: DR VIKASH MENA . 07/25/2021 12:32:00[facility]03-28-2022 Evaluation note* Encounter Date Diagnosis Assessment Notes Treatment Notes Treatment Clinical Notes May, Other obesity due to excess calories (ICD-10 - E66.09) Patient had been on the lower maintenance dose of Qsymia with Dr. Singh for over a year without weight loss. She has now been on the higher dose for several months with reasonable results to start with, but she has now gained a small amount of weight, though she has stalled a little over the past couple months for reasons mentioned in the HPI. We did discuss the risk of seizure if she were to stop the medication abruptly, so she will avoid doing so. Stop the medication and notify me immediately of any SEs. She does take an oral contraceptive and her is s/p vasectomy, but I've still recommended she do regular tests as a precaution. She is aware that I will see her every 4 weeks while she is on the Qsymia. May, BMI 35.0-35.9,adult (ICD-10 - Z68.35) See above. May, Insomnia (ICD-10 - G47.00) After discussing risks (including the slight risk of serotonin syndrome in combination with qsymia), benefits, possible SEs, and alternative treatment options, patient opts to try a higher dose of Trazodone. She will stop the medication and notify me immediately of any SEs. Recheck in 4 weeks. [facility] Other 02-24-2022 Evaluation note* Encounter Date Diagnosis Assessment Notes Treatment Notes Treatment Clinical Notes Apr, Other obesity due to excess calories (ICD-10 - E66.09) [facility] Other 02-21-2022 Evaluation note* Encounter Date Diagnosis Assessment Notes Treatment Notes Treatment Clinical Notes Apr, Other obesity due to excess calories (ICD-10 - E66.09) Patient had been on the lower maintenance dose of Qsymia with Dr. Singh for over a year without weight loss. She has now been on the higher dose for three months with reasonable results thus far, though she has stalled a little over the past month for reasons mentioned in the HPI. We did discuss the risk of seizure if she were to stop the medication abruptly, so she will avoid doing so. Stop the medication and notify me immediately of any SEs. She does take an oral contraceptive and her is s/p vasectomy, but I've still recommended she do regular tests as a precaution. She is aware that I will see her every 4 weeks while she is on the Qsymia. Apr, BMI 35.0-35.9,adult (ICD-10 - Z68.35) See above. Apr, Insomnia (ICD-10 - G47.00) After discussing risks (including the slight risk of serotonin syndrome in combination with qsymia), benefits, possible SEs, and alternative treatment options, patient opts to restart Trazodone. She will stop the medication and notify me immediately of any SEs. Recheck in 4 weeks. [facility] Other 01-21-2022 Evaluation note* Encounter Date Diagnosis Assessment Notes Treatment Notes Treatment Clinical Notes Mar, Other obesity due to excess calories (ICD-10 - E66.09) [facility] Other 01-14-2022 Evaluation note* Encounter Date Diagnosis Assessment Notes Treatment Notes Treatment Clinical Notes Mar, Other obesity due to excess calories (ICD-10 - E66.09) Patient had been on the lower maintenance dose of Qsymia with Dr. Singh for over a year without weight loss. She has now been on the higher dose for a couple months with reasonable results thus far. We did discuss the risk of seizure if she were to stop the medication abruptly, so she will avoid doing so. Stop the medication and notify me immediately of any SEs. She does take an oral contraceptive and her is s/p vasectomy, but I've still recommended she do regular tests as a precaution. She is aware that I will see her every 4 weeks while she is on the Qsymia. Mar, BMI 35.0-35.9,adult (ICD-10 - Z68.35) See above. [facility] Other 12-14-2021 Evaluation note* Encounter Date Diagnosis Assessment Notes Treatment Notes Treatment Clinical Notes Feb, Other obesity due to excess calories (ICD-10 - E66.09) Patient had been on the lower maintenance dose of Qsymia with Dr. Singh for over a year without weight loss. She would like to continue with the higher dose, which I feel is reasonable. We did discuss the risk of seizure if she were to stop the medication abruptly, so she will avoid doing so. Stop the medication and notify me immediately of any SEs. She does take an oral contraceptive and her is s/p vasectomy, but I've still recommended she do regular tests as a precaution. She is aware that I will see her every 4 weeks while she is on the Qsymia. Feb, Body mass index [BMI] 36.0-36.9, adult (ICD-10 - Z68.36) See above. [facility] Other 11-05-2021 Evaluation note* Encounter Date Diagnosis Assessment Notes Treatment Notes Treatment Clinical Notes Jan, Obesity (BMI 35.0-39.9 without comorbidity) (ICD-10 - E66.9) [facility] Other Evaluation + Plan note No data available for this section [facility] Evaluation noteNort [place] Other evaluation noteNo InformationNomissouri rehabilitation center [place] Other evaluation noteNomissouri rehabilitation center [place] Other Evaluation noteNo assessment information available [facility] Work Phone: evaluation noteNort [place] Other evaluation note* Diagnosis Onset Date Resolution Status Hypocalcemia acute Other obesity due to excess calories acute Vitamin D deficiency acute Encounter for wellness examination noneactive [facility] Work Phone: evaluation note* Diagnosis Onset Date Resolution Status Hypocalcemia acute Insomnia acute Other obesity due to excess calories acute Vitamin D deficiency acute Screening for colon cancer n oneactive Screening for breast cancer noneactive [facility] Work Phone: evaluation note* Diagnosis Pelvic pain in female Unspecified symptom associated with female genital organs H/O: hysterectomy Acquired absence of both cervix and uterus documented [facility] Diagnosis Pre-op evaluation Pelvic pain in female Unspecified symptom associated with female genital organs H/O: hysterectomy Acquired absence of both cervix and uterus documented in this encounter [facility] N[facility] - [facility]No[facility] [employer] Other History general Narrative - Reported* Type Description Date Medical History Pleurisy [place] Other History general Narrative - ReportedNomissouri rehabilitation center [place] Other History general Narrative - ReportedNomissouri rehabilitation center [place] Other Hospital Discharge instructions No data available for this section [facility] Progress note No data available for this section [facility] [place] Summary Purpose Family History No Family History Records Found Relationship Condition Age at Onset Recorded Date/T [place] father Malignant neoplasm Unknown Relationship Condition Age at Onset Recorded Date/T [place] father Malignant neoplasm Unknown family member Obesity Unknown father Unknown Diabetes mellitus Unknown Family history of lung cancer Unknown Malignant neoplasm Unknown grandparent Obesity Unknown Relationship Condition Age at Onset Recorded Date/T [place] father Malignant neoplasm Unknown aunt Obesity Unknown father Unknown Diabetes mellitus Unknown Family history of lung cancer Unknown Malignant neoplasm Unknown grandparent Obesity Unknown Advance Directives No Advanced Directives Records Found Advance Directive Response Recorded Date/ Time Advance Directives No August 06 0 3:05pm Advance Directive Response Recorded Date/ Time Advance Directives No August 06 0 2:05pm Chief Complaint and Reason for Visit Chief Complaint e66.09 z68.34 z13.22 8 z13.6 z13.0 Chief Complaint annual/3 month follo w up Reason for Visit Hypocalcemia Other obesity due to excess calories Vitamin D deficiency Encounter for wellness examination Chief Complaint 3 month follow up Reason for Visit Hypocalcemia Insomnia Other obesity due to excess calories Vitamin D deficiency Screening for colon cancer Screening for breast cancer Chief Complaint 3 month follow up E66.09;Z13.6 Reason for Visit Hypocalcemia Insomnia Other obesity due to excess calories Vitamin D deficiency Screening for colon cancer Screening for breast cancer Chief Complaint Admit Date Amb Documentation January 01, 2024 2 :08pm 3 month f/u March 25, 2024 11 :18am Additional Source Comments REASON FOR VISIT (unrecogniz ed section and content) Reason Comments Pre-op Visit Pt present today for pre operative visit. PT to be scheduled for a Dx Lap procedure. Reason Comments Pelvic Pain 3 month Follow up-qsymia, Wishes to continue. No issues or complaintsREFILL QSYMIAhip bursitis injection2 month f/u-qsymia, Complaints of low energy and fatigue since decreasing doseUpdate Demographics - Additional InfoUpdate Demographics - Personal Info2 month Follow up-Qsymia, Would like to discuss decreasing dose d/t hip pain1 month Follow up-weight checkAnnual, Qsymia f/u, Review of labs black poli , cough, chills, sore throat x 3 days1 month Follow up-qsymia, Due for refillNew Refill Request1 month Follow up-qsymia6 week follow up-qsymiaFCCC Pt does not wish our services 02/03/21 INFORMATION SOURCE (unrecogn ized section and content) DATE CREATED AUTHOR 11/23/2021 [facility] dical Specialist DATE CREATED AUTHOR AUTHOR'S ORGANIZ ATION 07/03/2022 [facility] DATE CREATED AUTHOR AUTHOR'S ORGANIZ ATION 12/13/2023 [facility] DATE CREATED AUTHOR AUTHOR'S ORGANIZ ATION 12/31/2023 [facility] DATE CREATED AUTHOR AUTHOR'S ORGANIZ ATION 03/28/2024 [facility] DATE CREATED AUTHOR AUTHOR'S ORGANIZ ATION 03/31/2024 [facility] dical Specialists EPIC Care Teams (unrecognized sec tion and content) Team Status: Active Member Role Status Dates Gabriel Anderson DO Primary Care Provider Active Team Status: Active Member Role Status Dates Gabriel Anderson DO Primary Care Provider Active Start: January 01, 2024 Isabel Woodruff LPN Attending Provider Active Star t: January 01, 2024 Team Status: Inactive Member Role Status Dates Gabriel Anderson DO Primary Care Prov ider, Attending Provider Active Start: March 25, 2024 End: March 25, 2024 Team Status: Inactive Member Role Status Dates Gabriel Anderson DO Primary Care Provider, Attendin g Provider Active Team Status: Inactive Member Role Status Dates Gabriel Anderson DO Primary Care Prov ider, Attending Provider Active Start: August 22, 2023 End: August 22, 2023 Team Status: Inactive Member Role Status Dates Gabriel Anderson DO Primary Care Prov ider, Attending Provider Active Start: November 21, 2023 End: November 21, 2023 Team Status: Inactive Member Role Status Dates Gabriel Anderson DO Primary Care Prov ider, Attending Provider Active Start: December 11, 2023 End: December 11, 2023 [employer] Relationship Specialty Start Date End Date Chris Hernandez MD [address] [place] [address] PCP - General Family Medicine 07/26/22 [employer] Relationship Specialty Start Date End Date Chris Hernandez MD [address] [place] [address] PCP - General Family Medicine 07/26/22 [employer] Relationship Specialty Start Date End Date Chris Hernandez MD [address] [place] [address] PCP - General Family Medicine 07/26/22 [employer] Conditioner Machine Relationship Specialty Start Date End Date Chris Hernandez MD [address] [place] [address] PCP - General Family Medicine 07/26/22 Goals (unrecognized section and content) Goals may be documented in a n alternate section FOR RECORDS PERTAINING TO PATIENTS WHO ARE OR HAVE BEEN ENROLLED IN A CHEMICAL DEPENDENCY/SUBSTANCEABUSE PROGRAM, SOME INFORMATION MAY BE OMITTED. This clinical summary was aggregated from multiple sources. Caution should be exercised in using it in the provision of clinical care. This summary normalizes information from multiple sources, and as a consequence, information in this document may materially change the coding, format and clinical context of patient data. In addition, data may be omitted in some cases. CLINICAL DECISIONS SHOULD BE BASED ON THE PRIMARY CLINICAL RECORDS. [facility] [employer] [facility]. provides no warranty or guarantee of the accuracy or completeness of information in this document.
[2024-04-12 07:37] LABS: Basophils Percent Auto 0.7 % (0.2-2.0); Eosinophils Absolute Auto 0.1 10^3/uL (0.0-0.7); Eosinophils Percent Auto 1.7 % (0.9-7.0); Hematocrit 39.3 % (36.0-48.0); Hemoglobin 13.1 g/dL (12.0-16.0); Immature Granulocytes Abs Auto 0.01 10^3/uL (0.00-0.03); Immature Granulocytes Pct Auto 0.2 % (0.0-0.5); Lymphocytes Absolute Auto 1.8 10^3/uL (1.2-3.8); Lymphocytes Percent Auto 30.6 % (20.5-60.0); Mean Corpuscular HGB Conc 33.3 g/dL (29.9-35.2); Mean Corpuscular Hemoglobin 30.3 pg (26.7-34.0); Mean Platelet Volume 10.2 fL (9.5-13.5); Monocytes Absolute Auto 0.4 10^3/uL (0.3-0.8); Neutrophils Absolute Auto 3.4 10^3/uL (1.4-6.5); Neutrophils Percent Auto 59.8 % (43.0-75.0); Platelet Count 198 10^3/uL (150-450); Red Blood Count 4.32 10^6/uL (4.20-5.40); Red Cell Distribution Width 13.5 % (11.0-15.0); White Blood Count 5.8 10^3/uL (4.0-11.0)
--- NOTE | 2024-04-12 07:45 | PC.NURSE ---
States she passed out in December; went to ER; testing revealed nothing
[2024-04-12] MEDS: LACTATED RINGER'S SOLUTION 1,000 ML 50 ML IV ×2 (07:55→10:32)
--- NOTE | 2024-04-12 11:02 | PM.ONB ---
Brief Operative Note Date of procedure: 04/12/24 Pre-op diagnosis general: pelvic pain, ho brca disease, pelvic adhesions Post-op diagnosis: same as pre-op Procedure: NAME OF PROCEDURE: [diagnostic laparoscopy with bilateral oopherectomy, lysis of pelvic adhesions] PROCEDURE: The patient was taken back to the Operating Room where she was placed in dorsal lithotomy position after given general anesthesia. The patient was prepped and draped in normal sterile fashion. A sponge stick was placed into the patient's vagina. Attention was turned to the patient's abdomen, where a small umbilical incision was made. The fascia was tented using Jeffrey clamps and the fascia was entered sharply. Confirmation of intraabdominal placement of the 10 mm port was confirmed under direct visualization using a laparoscope. The patient's abdomen was then insufflated using CO2 gas with approximately 4 liters. A second port was placed left laterally, this was done under direct visualization with a 5 mm port. Survey of the patient's abdomen demonstrated normal liver and gallbladder. Survey of the patient's pelvic anatomy demonstrated absent tubes and uterus, lt ovary with 3cm ovarian cyst, rt ovary normal in appearance, the ligasure and monopolar scissors was used to take down bowel adhesions from the vagainal cuff, the ligasure was used to remove both ovaries by transected and ligating the infundibular pelvic ligament, excellent hemostasis. No endometrial implants could be noted, no evidence of any pelvic disease was seen, normal appearing pelvic cavity. All instruments were removed from the patient's abdomen. The patient's abdomen was deinsufflated of CO2 gas. The patient tolerated the procedure well. Sponge stick was removed from the patient's vagina. The patient's infraumbilical fascia was closed using #0 Vicryl on a GI needle. The patient's skin was closed laterally and infraumbilically using 4-0 Vicryl. The patient tolerated the procedure well. Sponge, lap and needle counts were correct x 2. The patient was taken to Recovery Room in stable condition. Anesthesia: GIULIA Surgeon: Vikash Mena Recreation Instructor: Justina Payton Estimated blood loss (mL): 5 Pathology: other (both ovaries) Condition: stable Disposition: PACU Urinary Catheter Management Urinary Catheter Management Urethral: Cath placed during this visit: no
[2024-04-12] MEDS: ACETAMINOPHEN 500 MG TABLET 1000 MG PO (12:31)
--- NOTE | 2024-04-12 13:06 | PC.NURSE ---
1306- patient voids moderate amount of clear yellow urine without difficulty.
== END 2024-04-12 13:10 | disposition home or self-care (01) ==
PROVIDERS: Visit Provider Obstetrics & Gynecology
PROC: (CPT 840; principal; 2024-04-12 08:50)
DX: R10.2 Pelvic and perineal pain (principal); N73.6 Female pelvic peritoneal adhesions (postinfective); Z90.710 Acquired absence of both cervix and uterus; Z15.01 Genetic susceptibility to malignant neoplasm of breast; N83.202 Unspecified ovarian cyst, left side
CPT/HCPCS: 58661; 36415; 85025; 88305; J1100; J1885; J2250; J2405; J2704; J3010

== ENCOUNTER 2024-05-07 12:46 | Outpatient (OUT) | payer BC, SELFPAY ==
--- OUTSIDE RECORDS SUMMARY | 2024-05-07 13:06 | XMS_ITS | CCD ---
Author Organization [facility] Care Team Providers Care Principal Consultant Name Role Phone Justin Gabriel Unavailable Wilber Singh Jr. Unavailable Michell Campbell Unavailable DO Gabriel Anderson Primary Care Provider DO Gabriel Anderson Attending Provider [phone] ., [address] HERRMANN Admitting Unavailable TRINA [...] DR NONE LISTED Primary Care Unavaila ble DO Gabriel Anderson Primary Care Provider [phone] DO Gabriel Anderson Attending Provider GABRIEL ANDERSON Attending Unavailable JUSTIN, GABRIEL A Primary Care Unavailable BRANHUNG, GABRIEL A Admitting Unavailable BRANHUNG, GABRIEL A Primary Care Unavailable Johnathan French Admitting Unavailable Johnathan French Attending Unavailable Chris Hernandez MD Primary Care Provider [phone] Vikash MENA Referring Unavailable Av HERNANDEZ Attending Unavailable CHRIS HERNANDEZ Primary Care Physician Vikash Mena DO Attending Provider [phone] Vikash Mena Admitting Unavailable Vikash Mena Attending Unavailable Gabriel Anderson Admitting Unavailable Justin, Gabriel Primary Care Unavailable Justin, Gabriel Attending Unavailable KATIA DAVIDSON Attending Unavailable KATIA DAVIDSON Attending Unavailable VIKASH MENA Attending Unavailable VIKASH MENA Attending Unavailable Allergies Allergy Classification Reported Allergen(s) Allergy Type Date of Onset Reaction(s) Facility (20 sources) dairy allergy Propensity to adverse reactions 4 cough [facility] (20 sources) Acetaminophen / oxyCODONE; Translations: [acetaminophen-ox ycodone] Drug Allergy vomiting [facility] [place] (1 source) Lactose Drug Allergy [facility] Repository (13 sources) Acetaminophen Drug Allergy 4 vomiting [facility] (13 sources) oxyCODONE Drug Allergy 4 vomiting [facility] (1 source) Acetaminophen / oxyCODONE; Translations: [Percocet] Drug Allergy [facility] Repository (9 sources) Acetaminophen / oxyCODONE Drug Allergy 3 GI intolerance [facility] (1 source) Acetaminophen / oxyCODONE; Translations: [acetaminophen-ox ycodone] Drug Allergy [facility] Repository Medications Current Medications Medication Drug Class(es) Dates Sig (Normalized) Sig (Original) naproxen 500 mg oral tablet (6 sources) Nonsteroidal Anti-inflammatory Drug Start: 11-01-2022 take 1 tablet by mouth every twelve hours at mealtime as needed Naproxen 500 MG 1 tablet with food or milk as needed Orally every 12 hrs for 30 days Oct, Active Vitamin D 53938 U (17 sources) take 1 tablet by mouth once daily Vitamin D 69881 U 1 tablet Orally daily Active {24 (ethinyl estradiol 0.02 MG / norethindrone acetate 1 MG Chewable Tablet) / 4 (ferrous fumarate 75 MG Oral Tablet) } Pack [Nora 24 Fe Chewable Day] (17 sources) take 1 tablet by mamta th every twenty-four hours Nora 24 Fe 1-20 MG-MCG(24) 1 tablet Orally Once a day Active take 1 tablet by mouth every twe nty-four hours Completed/Discontinued Medications Medication Drug Class(es) Dates Sig (Normalized) Sig (Original) cholecalciferol 0.125 mg oral tablet (6 sources) Vitamin D Start: 05-20-2020 End: 08-22-2023 take 1 tablet by mouth once daily Cholecalciferol (Vitamin D3) (Vitamin D3) 125 mcg (5,000 unit) Tablet Discontinued 125 MCG PO Daily May 20, 2020 12:00am August 22, 2023 7:06am Norethindrone-E.Estra diol-Iron (6 sources) Estrogen Start: 05-20-2020 End: 08-22-2023 take [...] pantoprazole 40 mg delayed release oral tablet (6 sources) Proton Pump Inhibitor Start: 05-20-2020 End: 08-22-2023 take 1 tablet by mouth once daily Pantoprazole 40 mg Tablet,Delayed Release (Dr/Ec) Discontinued 40 MG PO Daily May 20, 2020 12:00am August 22, 2023 7:06am 24 hr phentermine 15 mg / topiramate 92 mg extended release oral capsule (20 sources) Sympathomimetic Amine Anorectic Start: 08-22-2023 End: 03-25-2024 take 1 capsule by mouth once daily Phentermine-Topi ramate 15-92 mg capsule, ER multiphase 24 hr Discontinued 1 CAP PO Daily November 21, 2023 8:19am December 19, 2023 7:46am Start: 01-22-2021 take 1 capsule by [facility] every twenty-four hours Qsymia 15-92 MG 1 capsule Orally Once a day for 30 day(s) Jan, Active Start: 01-22-2021 take 1 capsule by [facility] every twenty-four hours Start: 01-22-2021 take 1 capsule by [facility] every twenty-four hours Start: 01-22-2021 take 1 capsule by [facility] every twenty-four hours Qsymia 11.25-69 MG 1 capsule Orally Once a day for 14 days Jan, Active Start: 08-18-2020 Phentermine-To piramate (Qsymia) 15-92 MG capsule sustained-release 24 hr 08/18/2020 Active Start: 05-20-2020 End: 08-22-2023 take 1 capsule by mouth once daily Phentermine-Topiramate (Qsymia) 7.5-46 mg capsule, ER multiphase 24 hr Discontinued 1 CAP PO Daily May 15, 2023 1:54pm June 14, 2023 10:17am traZODone hydrochloride 100 mg oral tablet (20 [...] Problem Date Documented Date Episodic/Chronic Abdominal pain (7 sources) Pelvic and perineal pain; Translations: [Pain in female pelvis] Onset: 09-15-2021 02-14-2024 Episodic Anxiety disorders (1 source) Anxiety 02-26-2024 Chronic Diabetes mellitus without complication (1 source) Impaired fasting glucose Episodic Disorders of lipid metabolism (20 sources) Hypercholesterolemia; Translations: [Pure hypercholesterolemia, unspecified] Chronic Esophageal disorders (20 sources) Gastroesophageal reflux disease; Translations: [Gastro-esophageal reflux disease without esophagitis] Onset: 01-22-2021 Resolved: 02-26-2024 Chronic Headache; including migraine (1 source) Migraine 02-26-2024 Chronic Immunizations and screening for infectious disease (1 source) Contact with and (suspected) exposure to other viral communicable diseases Episodic Malaise and fatigue (1 source) Other fatigue; Translations: [Other malaise and fatigue] 03-25-2024 Episodic Menstrual disorders (5 sources) Excessive and frequent menstruation with regular cycle; Translations: [Dysmenorrhea, unspecified] Onset: 09-10-2021 Chronic Nonmalignant breast conditions (4 sources) Unspecified lump in the left breast, upper outer quadrant; Translations: [UNS LUMP IN LT BREAST UPR OUTR QUAD] Onset: 06-24-2022 Episodic Nutritional deficiencies (20 sources) Vitamin D deficiency; Translations: [Vitamin D deficiency, unspecified] Onset: 01-22-2021 Resolved: 11-24-2021 Chronic Other aftercare (2 sources) Surgical follow-up; Translations: [Encounter for follow-up examination after completed treatment for conditions other than malignant neoplasm] 04-22-2024 Episodic Other connective tissue disease (3 sources) Trochanteric bursitis, right hip Episodic Other female genital disorders (1 source) [place]; Translations: [MITTELSCHMERZ] Onset: 09-15-2021 Chronic Other female [...] Chronic Other nutritional; endocrine; and metabolic disorders (6 sources) Hypocalcemia; Translations: [Hypocalcemia] 08-21-2023 Chronic Other nutritional; endocrine; and metabolic disorders (1 source) Body mass index (BMI) 30.0-30.9, adult Chronic Other nutritional; endocrine; and metabolic disorders (5 sources) Hypocalcemia; Translations: [Hypocalcemia] Onset: 12-11-2023 Chronic Other nutritional; endocrine; and metabolic disorders (6 sources) Obesity caused by energy imbalance; Translations: [Other obesity due to excess calories] 08-21-2023 Chronic Residual codes; unclassified (20 sources) Insomnia; Translations: [...] unspecified; Translations: [LEIOMYOMA OF UTERUS UNSPECIFIED] Onset: 09-15-2021 Episodic Contraceptive and procreative management (4 sources) Encounter for sterilization; Translations: [ENCOUNTER FOR STERILIZATION] Onset: 07-16-2021 Episodic Inflammatory diseases of female pelvic organs (1 source) Inflammatory disease of cervix uteri; Translations: [INFLAMMATORY DISEASE CERVIX UTERI] Onset: 09-15-2021 Episodic Other female genital disorders (1 source) Other specified conditions associated with female genital organs and menstrual cycle; Translations: [OTH SPEC COND FE GEN ORG MENST CYCL] Onset: 09-15-2021 Episodic Other gastrointestinal disorders (1 source) Other constipation; Translations: [OTHER CONSTIPATION] Onset: 09-15-2021 Episodic Other screening for suspected conditions (not mental disorders or infectious disease) (19 sources) Encounter for screening for other metabolic disorders; Translations: [Encounter for screening for cardiovascular disorders] Onset: 11-24-2021 Resolved: 11-24-2021 Episodic Viral infection (1 source) COVID-19 Results Test Name Value Interpretation Reference Range Facility ALL CBC WITH AUTO DIFFon BASOPHILS ABSOLUTE AUTO 0 [facility] Basophils/100 WBC (Bld) 0.7 % 0.2 - 2.0 % [facility] Eosinophils/100 WBC (Bld) 1.7 % 0.9 - 7.0 % [facility] Erythrocyte distribution width (RBC) [Ratio] 13.5 % 11.0 - 15.0 % [facility] Hematocrit (Bld) [Volume fraction] 39.3 % 36.0 - 48.0 % [facility] Hemoglobin (Bld) [Mass/Vol] 13.1 g/dL 12.0 - 16.0 g/dL [facility] IMMATURE GRANULOCYTES ABS AUTO 0.01 [facility] Immature granulocytes/100 WBC (Bld) 0.2 % 0.0 - 0.5 % [facility] LYMPHOCYTES ABSOLUTE AUTO 1.8 [facility] Lymphocytes/100 WBC (Bld) 30.6 % 20.5 - 60.0 % [facility] MCH (RBC) [Entitic mass] 30.3 pg 26.7 - 34.0 pg [facility] MCHC (RBC) [Mass/Vol] 33.3 g/dL 29.9 - 35.2 g/dL [facility] MCV (RBC) [Entitic vol] 91 fL 81.0 - 99.0 fL [facility] MONOCYTES ABSOLUTE AUTO 0.4 [facility] Monocytes/100 WBC (Bld) 7 % 1.7 - 12.0 % [facility] NEUTROPHILS ABSOLUTE AUTO 3.4 [facility] Neutrophils/100 WBC (Bld) 59.8 % 43.0 - 75.0 % [facility] Platelet mean volume (Bld) [Entitic vol] 10.2 fL 9.5 - 13.5 fL [facility] TBH EO # 0.1 [facility] TB PLT 198 [facility] RBC 4.32 [facility] WBC 5.8 [facility] 04-12-2024 L - -------- Specimen: [id number] Received: 04/15/24 Status: PARKER Osorio Num: [id number] Spec Type: Surgical Subm Dr: Vikash Mena Tissues: A Ovary W/ or W/O Fallopian Tube, Non-Neoplastic (LT OVARY) B Ovary W/ or W/O Fallopian Tube, Non-Neoplastic (RT OVARY) Procedures: FILEMON/Leah, Roxanna/Moise L4/2 -------- Age/ Patient Sex Location Account Attending Physician -------- Moses Abraham 48/F LABELL [id number] Vikash Mena -------- SPEC NUM: [id number] RECD: 04/15/24 STATUS: PARKER OSORIO NUM: [id number] SUKHDEEP: 04/12/240 [facility] [address]: Vikash Mena ENTERED: 04/15/24-[address] [facility] [address]: Tracy,Lab SPEC TYPE: Surgical DEPT: ATILIO SHEA ENTERED BY: [id number] RECV BY: [id number] ORDERED: HE/4, Gross/Micro L4/2 ORDERED: HE/4, Gross/Micro L4/2 Pathological Diagnosis A. Left ovary, oophorectomy: Ovarian follicular cysts. B. Right ovary, oophorectomy: Ovarian follicular cysts. Clinical Information Diagnostic laparoscopic, lysis of adhesions, bilateral oophorectomy Gross Description Part A is received in formalin labeled with the patients name, date of , and left ovary is a 5.5 g, intact cystic ovary, 3 x 2.4 x 1.7 cm. The capsular surface is castro-pink to mcbride-purple, ranging from smooth and glistening to bosselated. Serial sections reveal peripheral, smooth lined cystic structures, 1.8 cm in greatest dimension, filled with a mcbride-pink, watery material. The remaining ovarian parenchyma is castro-pink to yellow with focal simple cysts. No papillations or excrescences are identified. Entry Level Rec[employer]iter sections are submitted in A1?A2. (2, ss, [id number] A) Part B is received in formalin labeled with the patients name, date of , and right ovary is a 2.5 g ovary, 2.2 x 2 x 1 cm. The capsular surface is castro-pink to yellow and bosselated. Serial sections reveal peripheral smooth lined cystic cavities, 0.6 cm in greatest dimension, filled with a mcbride-pink, watery material. The remaining ovarian -------- Specimen: [id number] Received: 04/15/24 Status: PARKER Osorio Num: [id number] Spec Type: Surgical Subm Dr: Vikash Mena Tissues: A Ovary W/ or W/O Fallopian Tube, Non-Neoplastic (LT OVARY) B Ovary W/ or W/O Fallopian Tube, Non-Neoplastic (RT OVARY) Procedures: HE/Leah, Gross/Micro L4/2 -------- Patient: Moses Abraham [id number] (Continued) -------- Specimen: [id number] Received: 04/15/24 (Continued) Gross Description (Continued) Signed (signature on file) Abbey Alvarez MD 04/16/24 1650 -------- Specimen: [id number] Received: 04/15/24 Status: PARKER Osorio Num: [id number] Spec Type: Surgical Subm Dr: Vikash Mena Tissues: A Ovary W/ or W/O Fallopian Tube, Non-Neoplastic (LT OVARY) B Ovary W/ or W/O Fallopian Tube, Non-Neoplastic (RT OVARY) Procedures: HE/4, Gross/Micro L4/2 -------- Patient: Moses Abraham [id number] (Continued) -------- Specimen: [id number] Received: 04/15/24 (Continued) Gross Description (Continued) parenchyma is castro-pink to yellow with focal simple cysts. No papillations or excrescences are identified. [employer] Level Rec[employer]iter sections are submitted in B1?B2. (2, , BS25- B) CPT Codes [id number] -------- -------- Specimen: [id number] Received: 04/15/24 Status: PARKER Osorio Num: [id number] Spec Type: Surgical Subm Dr: Vikash Mena Tissues: A Ovary W/ or W/O Fallopian Tube, Non-Neoplastic (LT OVARY) B Ovary W/ or W/O Fallopian Tube, Non-Neoplastic (RT OVARY) Procedures: HE/4, Gross/Micro L4/2 -------- Patient: Moses Abraham [id number] (Continued) -------- Signed (signature on file) Abbey Alvarez MD 04/16/24 1650 Normal [facility] ALL LDHon 03-29-2024 LDH [Catalytic activity/Vol] 134 U/L 81 - 234 U/L [facility] Healthcare Ambulatory Visit Summaryon 0 03-26-2024 Ambulatory Visit [...] for choosing us for your care. Normal [facility] US PELVISon 03-25-2024 US PELVIS EXAM: [...] report is generated using voice recognition reporting (4momse). On occasion PowerScribe erroneously drops words from the report or [...] RECURRENT VAGINITIS (HTRX)on 02-15-2024 ATOPOBIUM VAGINAE 0 [facility] ATOPOBIUM VAGINAE Not detected [facility] BVAB 2,3 (BACTERIAL VAGINOSIS ASSOCIATED BACTERIA 2, 3); MOBILUNCUS SPP 0 [facility] BVAB 2,3 (BACTERIAL VAGINOSIS ASSOCIATED BACTERIA 2, 3); MOBILUNCUS SPP Not detected [facility] KIKO ALBICANS, PARAPSILOSIS, TROPICALIS 0 [facility] KIKO ALBICANS, PARAPSILOSIS, TROPICALIS Not detected [facility] KIKO GLABRATA 0 [facility] KIKO GLABRATA Not [facility] KRUSEI 0 [facility] KIKO KRUSEI Not detected [facility] CHLAMYDIA TRACHOMATIS 0 [facility] CHLAMYDIA TRACHOMATIS Not detected N [facility] GARDNERELLA VAGINALIS 0 [facility] GARDNERELLA VAGINALIS Not detected N [facility] MEGASPHAERA (TYPES 1, 2) 0 [facility] MEGASPHAERA (TYPES 1, 2) Not detected [facility] MYCOPLASMA GENITALIUM 0 [facility] S [facility] MYCOPLASMA GENITALIUM Not detected N [facility] NEISSERIA GONORRHOEAE 0 [facility] NEISSERIA GONORRHOEAE Not detected N [facility] TRICHOMONAS VAGINALIS 0 NOM S [facility] TRICHOMONAS VAGINALIS Not detected N [facility] Healthcare Urinalysis macro (dipstick) panel (U)on 02-14-2024 Bilirubin, UA Negative Negative - 4(70) +++ mg/dL [facility] Blood, UA Negative Negative - 50 Hollis/mcL [facility] Clarity, UA Clear [facility] Color, UA Yellow [facility] Glucose, UA Negative Negative - 1999(110) ++++ mg/dL [facility] Interpretation and review of laboratory results Normal [facility] Ketones, UA Negative Negative - 160(16) ++++ mg/dL [facility] Leukocytes, UA Negative Negative - 500+++ Pallavi/mcL [facility] Nitrite, UA Negative Negative - Positive [facility] pH, UA 6 5 - 9 [facility] Protein, UA Negative Negative - 1999(20) ++++ mg/dL [facility] Spec Grav, UA 1.015 1 - 1.03 [facility] Urobilinogen, UA 0.2 0.2 - 12 mg/dL [facility] ED Clinical Summaryon 2023 ED Clinical Summary [facility] Emergency Department [address] [place] [id number] ED Clinical Summary PERSON INFORMATION Name: MOSES ABRAHAM Age: 48 Years Sex: FEMALE : 1975 MRN: Acct#: Visit Reason: Neck pain; Facial injury; Syncope/Near syncope; SYNCOPAL EPISODE, FALL, FACIAL INJURY Arrival: 12/29/2023 05:38:37 Discharge: 12/29/2023 06:23:00 LOS: 000 00:45 Check In: 12/29/2023 05:38:37 Checkout:12/29/2023 06:23:00 Address: [address] [place] [id number] PCP: GABRIEL ANDERSON PROVIDER INFORMATION Provider Role Assigned Unassigned Johnathan French MD ED Provider 12/29/2023 05:39:34 Bianak Peña MANIFOLD BUILDER Nurse 12/29/2023 05:56:05 VITALS INFORMATION Vital Sign [...] Home PATIENT EDUCATION INFORMATION Instructions: Facial Laceration, [id number] Follow-Up: With: Address: When: GABRIEL ANDERSON [address] [place] [id number] Within 3 to 5 days DIAGNOSIS: 1:Laceration of lower lip Patient Understands: Yes - Patient/family/caregi chris verbalizes understanding of instructions given Comment: Normal [facility] ED Patient Summaryon 024 ED Patient Summary [facility] - Emergency Department [address] [place] [id number] PATIENT DISCHARGE INSTRUCTIONS Patient Information Name: MOSES ABRAHAM Age: 48 Years Date of : 1975 Reason For Visit: Neck pain; Facial injury; Syncope/Near syncope; SYNCOPAL EPISODE, FALL, FACIAL INJURY Arrival Time: 12/29/2023 05:38:37 Primary Care Physician: GABRIEL ANDERSON Attending Physician: Johnathan French MD Comment: Visit Diagnosis: Diagnoses This Visit Facial injury ([id number]) Laceration of lower lip (S01.511A) Neck pain ([id number]) Syncope/Near syncope ([id number]) The Pharmacy at [facility] is open Monday through Monday from 9A [...] alcohol and/or drug addiction problems; contact the [facility] 10/10 Crisis Hotline -text 4hope to [phone]. If you received any narcotics, sedation, or [...] legal documents With: Address: When: GABRIEL ANDERSON [address] [place], [place] [id number] Within 3 to 5 days Medication Information: The exam and treatment you received today in the [facility] Emergency Department were for an urgent problem and are not intended as complete care. It is important for you to follow up with a doctor, nurse practitioner, or physician?s administrative library assistant for ongoing care. If your symptoms become [...] so we can reach you if necessary. [facility] Emergency Department has provided you with a complete list of medications post discharge. Please inform your glass cylinder flanger/provider of your visit and for further instruction [...] ? Bruises (more content not included)... Normal [facility] Alanine aminotransferase [En zymatic activity/volume] in Serum or PlasmaOrdered By: Gabriel Anderson on 12-11-2023 ALT [Catalytic activity/Vol] 10 U/L Normal 7-52 [facility] Comment on above: Performed By: #### C MP, TSH3 wRFLX, [id number], CBC, LIPID #### [facility] [address] [place] [address] [place] Albumin [Mass/volume] in Ser um or Plasma by Bromocresol green (BCG) dye binding methoOrdered By: Gabriel Anderson on 12-11-2023 Albumin BCG dye [Mass/Vol] 4.1 g/dL 3.5-5.7 [facility] Alkaline phosphatase [Enzyma tic activity/volume] in Serum or PlasmaOrdered By: Gabriel Anderson on 12-11-2023 ALP [Catalytic activity/Vol] 71 U/L Normal 34-104 [facility] Comment on above: Performed By: #### C MP, TSH3 wRFLX, [id number], CBC, LIPID #### [facility] [address] [place] [address] [place] Aspartate aminotransferase [ Enzymatic activity/volume] in Serum or PlasmaOrdered By: Gabriel Anderson on 12-11-2023 AST [Catalytic activity/Vol] 11 U/L Low 13-39 [facility] Comment on above: Performed By: #### C MP, TSH3 wRFLX, [id number], CBC, LIPID #### [facility] [address] [place] [address] [place] Automated basophil %Ordered By: Gabriel Anderson on 12-11-2023 Basophils/100 WBC (Bld) 0.4 % Normal . [facility] Comment on above: Performed By: #### C MP, TSH3 wRFLX, [id number], CBC, LIPID #### [facility] [address] [place] [address] [place] Automated basophil countOrde red By: Gabriel Anderson on 12-11-2023 Basophils (Bld) [#/Vol] 0.0 10*3/uL Normal 0.0-0.2 [facility] Comment on above: Result Comment: PERF ORMED BY: [place] [address] PATHOLOGIST CERTIFIED REHABILITATION COUNSELOR SOL REILLY M.D. Performed By: #### C MP, TSH3 wRFLX, [id number], CBC, LIPID #### [address] Automated blood monocyte cou ntOrdered By: Gabriel Anderson on 12-11-2023 Monocytes (Bld) [#/Vol] 0.4 10*3/uL Normal 0.0-0.8 [facility] Comment on above: Performed By: #### C MP, TSH3 wRFLX, [id number], CBC, LIPID #### [address] Automated eosinophil %Ordere d By: Gabriel Anderson on 12-11-2023 Eosinophils/100 WBC (Bld) 1.5 % Normal . [facility] Comment on above: Performed By: #### C MP, TSH3 wRFLX, [id number], CBC, LIPID #### [address] Automated eosinophil countOr dered By: Gabriel Anderson on 12-11-2023 Eosinophils (Bld) [#/Vol] 0.1 10*3/uL Normal 0.0-0.45 [facility] Comment on above: Performed By: #### C MP, TSH3 wRFLX, [id number], CBC, LIPID #### [address] Automated monocyte %Ordered By: Gabriel Anderson on 12-11-2023 Monocytes/100 WBC (Bld) 5.8 % Normal . [facility] Comment on above: Performed By: #### C MP, TSH3 wRFLX, [id number], CBC, LIPID #### [address] [place] [address] [place] Automated neutrophil %Ordere d By: Gabriel Justin on 12-11-2023 Neutrophils/100 WBC (Bld) 67.5 % Normal . [facility] Comment on above: Performed By: #### C MP, TSH3 wRFLX, [id number], CBC, LIPID #### [facility] [address] Bilirubin.total [Mass/volume ] in Serum or PlasmaOrdered By: Gabriel Anderson on 12-11-2023 Bilirubin [Mass/Vol] 0.4 mg/dL Normal 0.3-1.0 [facility] Comment on above: Performed By: #### C MP, TSH3 wRFLX, [id number], CBC, LIPID #### [facility] [address] Calcium [Mass/volume] in Ser um or PlasmaOrdered By: Gabriel Anderson on 12-11-2023 Calcium [Mass/Vol] 8.7 mg/dL Normal 8.6-10.3 [facility] Comment on above: Performed By: #### C MP, TSH3 wRFLX, [id number], CBC, LIPID #### [facility] [address] Carbon dioxide, total [Moles /volume] in Serum or PlasmaOrdered By: Gabriel Anderson on 12-11-2023 CO2 [Moles/Vol] 25.6 mmol/L Normal 21.0-31.0 [facility] Comment on above: Performed By: #### C MP, TSH3 wRFLX, [id number], CBC, LIPID #### [facility] [address] [place] [address] [place] Chloride [Moles/volume] in S torrey or PlasmaOrdered By: Gabriel Anderson on 12-11-2023 Chloride [Moles/Vol] 108 mmol/L High 98-107 [facility] Comment on above: Performed By: #### C MP, TSH3 wRFLX, [id number], CBC, LIPID #### [facility] [address] [place] [address] [facility] Cholesterol [Mass/volume] in Serum or PlasmaOrdered By: Gabriel Anderson on 12-11-2023 Cholesterol [Mass/Vol] 189 mg/dL Normal 140-200 [facility] Comment on above: Chol less than 200 m g/dl low riskChol 201-239 mg/dl borderline riskChol 240 mg/dl and greater high risk Result Comment: Chol less than 200 mg/dl low risk Chol 201-239 mg/dl borderline risk Chol 240 mg/dl and greater high risk Performed By: #### C MP, TSH3 wRFLX, [id number], CBC, LIPID #### [facility] [address] [place] [address] [facility] Cholesterol in LDL Calc [Mas s/Vol]Ordered By: Gabriel Anderson on 12-11-2023 Cholesterol in LDL [Mass/Vol] 97 mg/dL 0-100 [facility] Comment on above: LDL ATP III CLASSIFI CATIONLDL less than 100 mg/dL OptimalLDL 100-129 mg/dL Near or above optimalLDL 130-159 mg/dL Borderline highLDL 160-189 mg/dL HighLDL greater than 189 mg/dL Very high Cholesterol in VLDL Calc [Ma ss/Vol]Ordered By: Gabriel Anderson on 12-11-2023 Cholesterol in VLDL [Mass/Vol] 22 mg/dL [facility] Complete Blood Count Auto Di ffon 12-11-2023 Mean Corpuscular HGB Conc 34.1 g/dL Normal 32.0-35.0 [facility] Comment on above: Performed By: #### C MP, TSH3 wRFLX, [id number], CBC, LIPID #### [facility] [address] [place] [address] [facility] NRBC% 0.3 /100{WBC} Normal 0-0.5 [facility] Comment on above: Performed By: #### C MP, TSH3 wRFLX, [id number], CBC, LIPID #### [facility] [address] [place] [address] [place] Comprehensive Metabolic Pane sariah 12-11-2023 Albumin [Mass/Vol] 4.1 g/dL Normal 3.5-5.7 [facility] Comment on above: Performed By: #### C MP, TSH3 wRFLX, [id number], CBC, LIPID #### [address] GFR/1.73 sq M.predicted MDRD (S/P/Bld) [Vol rate/Area] mL/min/{1.73_m2} Normal [facility] Comment on above: Performed By: #### C MP, TSH3 wRFLX, [id number], CBC, LIPID #### [address] Creatinine [Mass/volume] in Serum or PlasmaOrdered By: Gabriel Anderson on 12-11-2023 Creatinine [Mass/Vol] 0.85 mg/dL Normal 0.60-1.20 [facility] Comment on above: Performed By: #### C MP, TSH3 wRFLX, [id number], CBC, LIPID #### [address] Erythrocyte distribution wid th [Ratio] by Automated countOrdered By: Gabriel Anderson on 12-11-2023 Erythrocyte distribution width (RBC) [Ratio] 14.1 % Normal 11.9-15.3 [facility] Comment on above: Performed By: #### C MP, TSH3 wRFLX, [id number], CBC, LIPID #### [place] [address] [place] Erythrocytes [#/volume] in B lood by Automated countOrdered By: Gabriel Anderson on 12-11-2023 RBC (Bld) [#/Vol] 4.45 10*6/uL Normal 3.60-5.00 [facility] Comment on above: Performed By: #### C MP, TSH3 wRFLX, [id number], CBC, LIPID #### [place] [address] [place] Glucose [Mass/volume] in Ser um or PlasmaOrdered By: Gabriel Anderson on 12-11-2023 Glucose [Mass/Vol] 74 mg/dL Normal 70-100 [facility] Comment on above: ADA recommended refe rence rangeRandom Glucose Reference Range is dependent on time and content of last meal. Glucose of more than 200 mg/dL in a nonstressed, ambulatory subject supports the diagnosis of Diabetes Mellitus. Result Comment: [place] om Glucose Reference Range is dependent on time and content of last meal. Glucose of more than 200 mg/dL in a nonstressed, ambulatory subject supports the diagnosis of Diabetes Mellitus. ADA recommended reference range Performed By: #### C MP, TSH3 wRFLX, [id number], CBC, LIPID #### [facility] [address] Hematocrit [Volume Fraction] of Blood by Automated countOrdered By: Gabriel Anderson on 12-11-2023 Hematocrit (Bld) [Volume fraction] 40.1 % Normal 34.0-46.4 [facility] Comment on above: Performed By: #### C MP, TSH3 wRFLX, [id number], CBC, LIPID #### [facility] [address] [place] [address] [place] Hemoglobin [Mass/volume] in BloodOrdered By: Gabriel Anderson on 12-11-2023 Hemoglobin (Bld) [Mass/Vol] 13.7 g/dL Normal 11.8-15.4 [facility] Comment on above: Performed By: #### C MP, TSH3 wRFLX, [id number], CBC, LIPID #### [facility] [address] [place] [address] [place] Leukocytes [#/volume] correc tarsha for nucleated erythrocytes in Blood by Automated counOrdered By: Gabriel Anderson on 12-11-2023 WBC corrected for nucl RBC Auto (Bld) [#/Vol] 7.1 10*3/uL 3.8-11.6 [facility] Leukocytes [#/volume] in Blo od by Automated countOrdered By: Gabriel Anderson on 12-11-2023 WBC (Bld) [#/Vol] 7.1 10*3/uL Normal 3.8-11.6 [facility] Comment on above: Performed By: #### C MP, TSH3 wRFLX, [id number], CBC, LIPID #### [facility] [address] Lipid Panelon 12-11-2023 LDL Cholesterol,Calculated 97 mg/dL Normal 0-100 [facility] Comment on above: Result Comment: LDL ATP III CLASSIFICATION LDL less than 100 mg/dL Optimal LDL 100-129 mg/dL Near or above optimal LDL 130-159 mg/dL Borderline high LDL 160-189 mg/dL High LDL greater than 189 mg/dL Very high Performed By: #### C MP, TSH3 wRFLX, [id number], CBC, LIPID #### [address] Triglyceride w/Reflex 112 mg/dL Normal 0-149 [facility] Comment on above: Result Comment: TRIG ATP III CLASSIFICATION TRIG less than 150 mg/dL Normal TRIG 150-199 mg/dL Borderline high TRIG 200-500 mg/dL High TRIG greater than 500 mg/dL Very high Standard traceable to the Center for Disease Conrtrol and Prevention (CDC) test method. Performed By: #### C MP, TSH3 wRFLX, [id number], CBC, LIPID #### [address] VLDL CHOLESTEROL 22 mg/dL Normal [facility] Comment on above: Performed By: #### C MP, TSH3 wRFLX, [id number], CBC, LIPID #### [address] Lymphocytes [#/volume] in Bl ood by Automated countOrdered By: Gabriel Anderson on 12-11-2023 Lymphocytes (Bld) [#/Vol] 1.8 10*3/uL Normal 1.00-4.8 [facility] Comment on above: Performed By: #### C MP, TSH3 wRFLX, [id number], CBC, LIPID #### [place] [id number] [facility] Lymphocytes/100 leukocytes i n Blood by Automated countOrdered By: Gabriel Anderson on 12-11-2023 Lymphocytes/100 WBC (Bld) 24.8 % Normal . [facility] Comment on above: Performed By: #### C MP, TSH3 wRFLX, [id number], CBC, LIPID #### [facility] [address] MCH [Entitic mass] by Automa tarsha countOrdered By: Gabriel Anderson on 12-11-2023 MCH (RBC) [Entitic mass] 30.7 pg Normal 24.7-34.3 [facility] Comment on above: Performed By: #### C MP, TSH3 wRFLX, [id number], CBC, LIPID #### [facility] [address] [place] [address] MCHC Auto (RBC) [Mass/Vol]Or dered By: Gabriel Anderson on 12-11-2023 MCHC (RBC) [Mass/Vol] 34.1 g/dL 32.0-35.0 [facility] MCV [Entitic volume] by Auto mated countOrdered By: Gabriel Anderson on 12-11-2023 MCV (RBC) [Entitic vol] 90.1 fL Normal 80-100 [facility] Comment on above: Performed By: #### C MP, TSH3 wRFLX, [id number], CBC, LIPID #### [address] Neutrophils [#/volume] in Bl ood by Automated countOrdered By: Gabriel Anderson on 12-11-2023 Neutrophils (Bld) [#/Vol] 4.8 10*3/uL Normal 1.8-7.7 [facility] Comment on above: Performed By: #### C MP, TSH3 wRFLX, [id number], CBC, LIPID #### [facility] [address] [place] [address] No Panel InformationOrdered By: Gabriel Anderson on 12-11-2023 Estimated GFR (CKD-EPI) > 60.0 mL/Min [facility] Creatinine Clearance (Chem N/A [facility] Nucleated erythrocytes [Pres ence] in Blood by Automated countOrdered By: Gabriel Anderson on 12-11-2023 Nucleated RBC Auto Ql (Bld) 0.3 /100{WBC} 0-0.5 [facility] Platelet mean volume [Entiti c volume] in Blood by Automated countOrdered By: Gabriel Anderson on 12-11-2023 Platelet mean volume (Bld) [Entitic vol] 9.1 fL Normal 6.3-10.7 [facility] Comment on above: Performed By: #### C MP, TSH3 wRFLX, [id number], CBC, LIPID #### [facility] [address] [place] [address] [place] Platelets [#/volume] in Bloo d by Automated countOrdered By: Gabriel Anderson on 12-11-2023 Platelets (Bld) [#/Vol] 194 10*3/uL Normal 150-450 [facility] Comment on above: Performed By: #### C MP, TSH3 wRFLX, [id number], CBC, LIPID #### [facility] [address] [place] [address] [place] Potassium [Moles/volume] in Serum or PlasmaOrdered By: Gabriel Anderson on 12-11-2023 Potassium [Moles/Vol] 4.1 mmol/L Normal 3.5-5.1 [facility] Comment on above: Performed By: #### C MP, TSH3 wRFLX, [id number], CBC, LIPID #### [facility] [address] [place] [address] [place] Protein [Mass/volume] in Ser um or PlasmaOrdered By: Gabriel Anderson on 12-11-2023 Protein [Mass/Vol] 6.1 g/dL Low 6.4-8.9 [facility] Comment on above: Performed By: #### C MP, TSH3 wRFLX, [id number], CBC, LIPID #### [facility] [address] [place] [address] [place] Serum globulin measurement b y calculation (mass/volume)Ordered By: Gabriel Anderson on 12-11-2023 Globulin (S) [Mass/Vol] 2.0 g/dL Normal [facility] Comment on above: Performed By: #### C MP, TSH3 wRFLX, [id number], CBC, LIPID #### [facility] [address] Serum or plasma albumin/glob ulin mass ratioOrdered By: Gabriel Anderson on 12-11-2023 Albumin/Globulin [Mass ratio] 2.1 {ratio} Normal [facility] Comment on above: Performed By: #### C MP, TSH3 wRFLX, [id number], CBC, LIPID #### [facility] [address] [place] [address] Serum or plasma anion gap de terminationOrdered By: Gabriel Anderson on 12-11-2023 Anion gap [Moles/Vol] 9.5 mmol/L Normal 6.0-15.0 [facility] Comment on above: Performed By: #### C MP, TSH3 wRFLX, [id number], CBC, LIPID #### [facility] [address] [place] [address] Serum or plasma high density lipoprotein (HDL) cholesterol measurementOrdered By: Gabriel Anderson on 12-11-2023 Cholesterol in HDL [Mass/Vol] 70 mg/dL Normal [facility] Comment on above: HDL CHOL ATP-III CLA SSIFICATION Cardiovascular RiskHDL > or equal to 60 mg/dL LOWHDL < 40 mg/dL HIGH Result Comment: HDL CHOL ATP-III CLASSIFICATION Cardiovascular Risk HDL > or equal to 60 mg/dL LOW HDL < 40 mg/dL HIGH Performed By: #### C MP, TSH3 wRFLX, [id number], CBC, LIPID #### [facility] [address] Serum or plasma total choles terol/high density lipoprotein (HDL) cholesterol mass ratOrdered By: Gabriel Anderson on 12-11-2023 Cholesterol.total/Dulce sterol in HDL [Mass ratio] 2.7 {ratio} Normal <5.0 [facility] Comment on above: Performed By: #### C MP, TSH3 wRFLX, [id number], CBC, LIPID #### [facility] [address] [place] [address] [place] Sodium [Moles/volume] in Ser um or PlasmaOrdered By: Gabriel Anderson on 12-11-2023 Sodium [Moles/Vol] 139 mmol/L Normal 136-145 [facility] Comment on above: Performed By: #### C MP, TSH3 wRFLX, [id number], CBC, LIPID #### [facility] [address] Thyroid Stim Hormone w/Rflxo n 12-11-2023 Thyroid Stim Hormone w/Rflx 3.12 u[iU]/mL Normal 0.45-5.33 [facility] Comment on above: Performed By: #### C MP, TSH3 wRFLX, [id number], CBC, LIPID #### [facility] [address] Thyrotropin [Units/volume] i n Serum or PlasmaOrdered By: Gabriel Anderson on 12-11-2023 TSH Qn 3.12 m[IU]/L 0.45-5.33 [facility] Triglyceride [Mass/volume] i n Serum or PlasmaOrdered By: Gabriel Anderson on 12-11-2023 Triglyceride [Mass/Vol] 112 mg/dL 0-149 [facility] Comment on above: TRIG ATP III CLASSIF ICATIONTRIG less than 150 mg/dL NormalTRIG 150-199 mg/dL Borderline highTRIG 200-500 mg/dL High TRIG greater than 500 mg/dL Very highStandard traceable to the Center for Disease Conrtrol and Prevention (CDC) test method. Urea nitrogen [Mass/volume] in Serum or PlasmaOrdered By: Gabriel Anderson on 12-11-2023 Urea nitrogen [Mass/Vol] 12 mg/dL Normal 7-25 [facility] Comment on above: Performed By: #### C MP, TSH3 wRFLX, [id number], CBC, LIPID #### [facility] [address] Vitamin D 25 Hydroxy Totalon 09-23-2024 Vitamin D 25 Hydroxy Total 26.7 ng/mL Low 30-100 [facility] Comment on above: Result Comment: RAGHU MIN D STATUS 25(OH)VITAMIN D RANGE (ng/mL) Deficient <20 Insufficient 20 to <30 Sufficient 30 to 100 Reference: Paulette Tsang, Doug RAO, et al. Evaluation,treatment, and prevention of vitamin D deficiency; an Endocrine Society clinical practice guideline. JCEM. 2010; 96(7):1911-30. PERFORMED BY: [facility] [address] [place] [address] PATHOLOGIST CERTIFIED REHABILITATION COUNSELOR SOL REILLY M.D. Performed By: #### C MP, TSH3 wRFLX, [id number], CBC, LIPID #### [facility] [address] Vitamin D+Metabolites [Mass/ volume] in Serum or PlasmaOrdered By: Gabriel Anderson on 12-11-2023 Vitamin D+Metabolites [Mass/Vol] 26.7 ng/mL Low 30-100 [facility] Comment on above: VITAMIN D STATUS 25( [place])VITAMIN D RANGE (ng/mL) Deficient <20 Insufficient 20 to <30Sufficient 30 to 100Reference: Paulette Tsang, Doug RAO, et al. Evaluation,treatment, and prevention of vitamin D deficiency; an Endocrine Society clinical practice guideline. JCEM. 2010; 96(7):1911-. Cytology Cervical or vaginal smear or scraping studyon 07-05-2023 [facility] Coding Summaryon 01-24-2023 Coding Summary HTMLBase 64 IpkdgxmwDVc0mHm+PGhlY WQ+DL2SCGNkZ99qdYUlzD 1tH4KNKBsVGgulJEVJWQq SBoDsljWtAA8roKGzGLZg IC8+LS7qWGHqPaxjkCLrj 4N1nUY4N30hus3zNMkwgX L6IGTuNaIfzanku4lyfFg 6IDcuNmluOyBt EXFqhY85QFP4kM32Di82y BMxkOZbf5rhcUk8UhSuIP NbWCK3pMiaWFxoh3UbYWG zL18mwGUbb2Z9 RNGcsSxzcDEnWmTwlZE8b Q2sYItuzaome1yqtjnqJa n0zb91mLCmm3T7eKR2R1I ysrC9FZEvkCNn WvvjnOALsX6plmqde8xjn ihzQtRoTEDvHGf7AMk8LH QsoJuxAgQgHS97DSB2UBY ophPlY6AdWVHm cZqzGyL5j8I2Zk6GE5PZB ldnW2YWREOVZOookZJ+PC 52xo39K8PuObbfXps5YFS mWCK1tME8jT4p FZVtBErqi9J3zFL8J3Jcc mFicx4hl1obYEMlOSunV5 1smPTlm6I2WMBjaAO1THR rxVxrMtZakY49 Oyc+JRNhzLcxe2PaOpwas 5yfk5rvzKd4GdejDKWbge ZloEiiAOI2a9HvFu7kOAC keJL4nZW7vI5n HuTuIoU8PJuuD615UpMqp YKjTwmtO12cI5BfiMC+PH LwAbr9QZPckMyrPD7rV0E hZGRpbmctbGVm cLgzCD7uDDTegiraMOKth G2vOGFxC5m3RyCwDnZ9WZ wsG4YpDDDbdtcePs05gG3 rYiGcKuG0QHzz L5OwffP7JTMdxADyLUwmS ID6U21na5S4VZNtAULlAK N9eUI7nM6agGaiphxsuAD mdDsgdmVydGlj NOorXXmlF981IBUmcKgiP kNvZGluZyBEYXRlOiAgMT EvMDcvMjAyMzwvdGQ+PHR bOIC7qRmzYZPg oFQxXPyuRv9rnQoevAogD R6iWYLmnowhVUFsrY6fBP IiwGJohYvgWR3wMTQyhyu lc203EjBoCYX0 KPWlyBPrP8MlcE9mSkYlL LMiYTWjC0LibMWoDBgpO9 12MDvvZnH0MQMtwdBeH2P sLWFsaWduOiB0 q4A7Pg9Dz8VypfodU0Xnn JTgCsOlYkpyISl9J7BoDy wvdHI+IM99PPJdFH25QCz 7XWM4nSssVUjw RWHyI1EdmD1eYwJlIIKiN GRkOyc+PHRhYmxlIHdpZH RoPScxMDAlJyBzdHlsZT0 nWn3bUHGsKHXc vNomzPUgTmUje3rqHLAjL AmgPH8ejVhlL9PjjPL8CR Gii5o8Ju46Q28fI6GicBP +BKFroBH3iTL6 nI5oLfBdBrX9BJdjW346E aYdmEPwOreak7rrt3ejuQ j4DfE3TZRxtoYphQslBAP 6n6PxHo99Y12j IHdpZHRoPSIxNSUiIHZhb Omrsq4xvG2eYl5+PGNvbC M6yQI2kF1dUgUbEiW8UVq mL209MkHdaONn Hvslu1lon5vxfIq0PwZaI WOyvkZyoCvxRTY1l2VvJq 55C8KgoYjfg9NoQvj8tt2 2kUKyp1N1sSA3 Y0IrBFSqcykgeOPqyQzoM E4kJKRjfymcIZExqY7eQZ LoB6w9YgQgQfR7WAuyS8M iejS2JUFhlDDb TBNipTQRkB1bajowp2nvh cuvVwEjMZOeQDe2NCd3LJ PsmIfjMbJjCGP3VzM7WDI 8zEStcQ8rkQcp tfcvdP7vWus+MKR6nDFcr HZZQK5rMofkaZA+PHRkIH Q3gUmzDFhqAEThvV5pHZF qY4u2WnGsMpY7 KKjoB4InydX7PVNhbOKiG CQplMRTqQ2patjfs1mlvy hvOdGvBMBzMQz0BJx7AQJ saWduOiBsZWZ0 YfE9COV5yRCdoW9wzZkrt njmzZ4xYnp+QmlydGggRG V3PJb8B4InUua6SIRdtCj wSH1ekDDfXAei Js1abIzwxTkrYQ8fGCKrr qnja754YuUyf3fdMQCszT FnVIrpGAE4M89va7H9GPP yAGNaZRA0aRS1 vI3vcVkxcodqfNTlgKtpt jTbqPioIYrnDXqrB410XJ DmqHelKxJjRRe5O9UjUkq 1ANVltLzyRI4a tMMhPTcxEo0uqUiqlPdoN H4wGPXwuzlok984HpCie5 tmBYOmhBGgKAetWNC4T77 jh5Z8TRJkUSZz SWQ6iGY7cB6taXbhibhio GVmdDsgdmVydGljYWwtYW btA431PSRgwLatVsNtuHk 4U5FkZou1MPOc zKoxDD6iiUSyVKvgXx0bo AvnfSuzQF0nVIPlcquzx4 86FvRxd0dmQCMsiYMcBAe vEFW5Z45al5E2 DEFxFXGlCUR2dNI9hU7qr GlnbjogbGVmdDsgdmVydG ngHAybHTbbN960DBYanFl nPlBhdGllbnQg UGpkPHi0N1KmZohbbES+P U16RTSlKE53qWFfpHSjp6 hbqGh1XlKsOJVaNYY5gPp zHVvvt6FuBFFx C54gyQCub7N0UDDszJbgl HLlRfGpiLE3vB1vVIexzb yvx7xkrbhuFdgmt9aoti8 8tC43J34kKJph ZHRoPSIzMCUiIHZhbGlnb x3gvP6gIu6+TCJgeEY3vD K3jR3wHWHgNuC3RImmR30 9InRvcCIvPjxj p2flf5oxoEk5BbM1KTTqz wBrcRckHQT4g0HiUn86I2 9sIHdpZHRoPSIyMCUiIHZ rtOsqat1ubJ6t Ii8+BECabBT1yQO9gD2sK rYiUxZ7THayF010RhYvgM HwSxlnN69bM0JiuOJ+PHR qRkt3UWXagGqj UW0rvOYjEOetMg2mRJY2B iNfBrKgHFdwY8MpRCErbb yszyfguEZ3YNKxEQGlcX5 8Sk7shVxaQXDy nAHSuC9bwzmxa7dcoktgY iDoKGYgRGw5ERx0AQGjjP pdDtOyQZF9MmO3IXG4tWV prS9lvMaykyak zC0xE8KzEANjobkoJe70e W3nYjRnWrV3ZWtmJgr+S0 VOTkVEWSwgSkFNSUUgREF VNRYSXRV9Q1Vc Zdo4TXRtfOglBN2psBSuY EplSc6tcCgqmNezAG1mOV QmfhzyBVFibI3uIQNllSA qbOsiBB2vBIZj bhcwy498EbMjHUJ6RVXrp PQvG2QmhO1rAtAkSPWlXL BxM0VhoKVgAFrdJ557JCm rVzR2TUYchjPr B8KkBMFllUnqSpH6w9U9M s7yEf4zCj2bWDf0BY15CF 37dCKfs6V3eQG1G4NtODQ pbmctcmlnaHQ6 RLJeICPvkK78oOBfAWewW d4ih2Y3y223KFKsHTYruR 65Sw6ijDgcFNNqxYGPsC4 arzjmr3gobuzt ErDpILWvXHe1QMl7RNRmi PufBvCtKZZ6JuR5REW5yN IakP5ofKybgxjicJ9qMih +NDggWWVhcnM8 R5NcCjd0JGWkuEwcWW2dh OKaCOqhGk0iuIankFeyZQ 0wZUMgoucsCGKmvY3sZOE niVWpnChaZH8m TZJgvxgnb427FfVjPUS9X ORsuMDsO8VjpG3tKeIkDK AkDJMyJ9ShlUWuJIwyT90 1ZIrsNfW3DJHg qnNfE1QhWXBtqFvyNqQ4r 6F6Vv2YPZ5EULP1Z5OpUv w5FUXytOqtWU9riXMpHFz pFs3ejBwoxAxi YB4jCIIfrilrJOOfsL4yO RPrpLVqnKpjMY8mWAWohf egf232NqFzEWE2NLRxhWY fI8MgnK2uCgLx JOFfUORpX3FzmQHsDEexM 686MBcyTvS6WNFvfeIgV6 VaXJVkjHrrJwS1a2W6We1 PUDwvdGQ+PC90 op93B7UhFetoCwg2FFDvN CX0gNF7iL0iGXGjKGbkj6 A2oBQ9K6HsusGdrd8mw3g mPQZjCUhfR78v wRPho9N8KEJaaVY7ABFcb IhvLkIcfL91Zdi+PGNvbG lyf1CaGinem8ibe4pyvSh 9IjMwJSIgdmFs aTmwOXU4p4VnVd88D07fZ HdpZHRoPSIzMCUiIHZhbG dvng6thZ1pWg5+PGNvbCB 2bQL8uE8pWiPr VzK1DHwxK296YcBzsSIkT dflw8ecf8npgZx0IcUvXE HsfmMuiKenAFX6g5BjVm8 6I1MskJrdc7Fa Vat5uw85aIJsv3Q3zVL7B 3BhZGRpbmctbGVmdDogMC 8rTNOzehbuEEUlyX6cKTN kQ8d7ObHwTcO4 PJumZ2YgyuX2NQDwfISdT CTbwOBAyZ4goxrxs1zeao hrEnBbAGUzDDs9JSc9EFB saWduOiBsZWZ0 RgQ3BRK4eVLzfX0ejQxpz girbX9tAeb+CKp6l1ywjZ XpTW9yeAS5ZG95XD84hTG oi8E1bEF6F7Gz JKZsxvitglbudZG6NLYpR NMsdV34Me7bbFhtTi6aMM PhKJH0CKPtuSDlA5DuxV8 yOiAjMDAwMDAw X8IfuHZkUFenD077QMtiQ lH0RBRlqyOtA7BzNWWymC ruVgC2u4Y7Nr9YVU31VE9 6YP56aROby3B7 hRB9K6LxINSywyaovyfgg JN4NDEnXQHfuY22Tv5riU jhOw9nDYPlKKS9GNPxqKL oD3TscU6yWqMi GTKrQPIiZ2ZhrBHcJGedC 185MKkxTjA4KFFrpbNjG3 JqTTWqoDgaSuT0y6K3Nf2 IDu44FP04VI91 gBCcf2Z3rZL5W8PcSZWez nqsltbblUZ7HTVlUGWlxZ 24Ht1rxIujXz8cSVXfNKD 8YWPoxFCqH7Ld tE6kGiQdNCQvXFIbZ0Jlt IQcWUxrS542GDgxOfR9VR JyisCvL2TdVCEgyMvtVrE 9l9R8Wk4DASyq pkp2X0OqOgbpjPE+PC90Y ONiSL24yODsrFJaz3jrqH q3JoRvFPApZHR4oOuuWYz sk7WrLXQaM55n bGF (more content not included)... Normal [facility] .Auto Diff 01-19-2023 Auto [place] % 5 % Normal 03-31 [facility] Comment on above: Performed By: #### 1 [id number], [id number] #### [facility] (DEFAULT) [address] [place] [address] Baso Abs# 0.1 x10 Normal 0.0-0.2 [facility] Comment on above: Performed By: #### 1 [id number], [id number], [id number], [id number], [id number] #### [facility] (DEFAULT) [address] [place] [address] 19323 Basophils/100 WBC (Bld) 0.7 % Normal 0.2-2.0 [facility] Comment on above: Performed By: #### 1 [id number], 2419902286, 403286342, 1411456384, 2863312, 6939212962, 8955734 #### [facility] (DEFAULT) [address] [place] [address] 83242 Eos Abs# 0.1 x10 Normal 0.0-0.4 [facility] Comment on above: Performed By: #### 1 [id number], 6048284178, 062991446, 4419672902, 3189619, 2060693703, 2844490 #### [facility] (DEFAULT) [address] [place] [address] 25381 Eosinophils/100 WBC (Bld) 1.1 % Normal 0.9-4.0 [facility] Comment on above: Performed By: #### 1 2497851, 7630179450, 365473704, 8910216160, 2118288, 0330459768, 5772850 #### [facility] (DEFAULT) [address] [place] [address] 49567 Lymph Abs# 1.6 x10 Normal 1.3-2.9 [facility] Comment on above: Performed By: #### 1 5239369, 1711619515, 243557632, 3539214077, 7055558, 5758062482, 3185805 #### [facility] (DEFAULT) [address] [place] [address] 24684 Lymphocytes/100 WBC (Bld) 20 % Normal 14-48 [facility] Comment on above: Performed By: #### 1 0718147, 4491739993, 803391228, 4881687549, 5693227, 5120049961, 3365608 #### [facility] (DEFAULT) [address] [place] [address] Baraga Abs# 0.4 x10 Normal 0.0-0.8 [facility] Comment on above: Performed By: #### 1 5243484, 9431033234, 522911526, 8236492819, 8606094, 1451335114, 4027839 #### [facility] (DEFAULT) [address] [place] [address] Neut Abs# 6.0 x10 Normal 1.5-9.2 [facility] Comment on above: Performed By: #### 1 4348354, 3859919343, 905946101, 0658814834, 6626209, 1956923098, 8309039 #### [facility] (DEFAULT) [address] [place] [address] Neutrophils/100 WBC (Bld) 74 % Normal 44-88 [facility] Comment on above: Performed By: #### 1 4672731, 5664119505, 637376079, 3163191076, 6156314, 5398846430, 3531217 #### [facility] (DEFAULT) [address] [place] [address] CBC w/ Auto Diffon 3 Erythrocyte distribution width (RBC) [Ratio] 14.1 % Normal 11.5-15.0 [facility] Comment on above: Performed By: #### 1 [id number], 1366423838, 507346299, 2298394533, 2106968, 6355204527, 4244660 #### [facility] (DEFAULT) [address] [place] [address] Hematocrit (Bld) [Volume fraction] 41.1 % High 33.7-40.4 [facility] Comment on above: Performed By: #### 1 5605554, 4140696759, 610224500, 5549016783, 6453819, 7155033849, 7154824 #### [facility] (DEFAULT) [address] [place] [address] 55547 Hemoglobin (Bld) [Mass/Vol] 13.6 g/dL Normal 11.3-15.9 [facility] Comment on above: Performed By: #### 1 4913644, 7859311590, 848297840, 1629398423, 6015737, 2932139008, 8045829 #### [facility] (DEFAULT) [address] [place] [address] Man Diff? Auto Invalid Interpretation Code [facility] Comment on above: Performed By: #### 1 5126863, 9743073003, 329850842, 6308907337, 1441240, 6085866795, 0334102 #### [facility] (DEFAULT) [address] [place] [address] 45027 MCH (RBC) [Entitic mass] 30 pg Normal 24-34 [facility] Comment on above: Performed By: #### 1 1614251, 8384674596, 681439039, 8032386408, 2909784, 6326181558, 1281028 #### [facility] (DEFAULT) [address] [place] [address] 17081 MCHC (RBC) [Mass/Vol] 33 g/dL Normal 26-37 [facility] Comment on above: Performed By: #### 1 3512083, 2091220415, 796798795, 2035008746, 8904834, 6183894476, 4100685 #### [facility] (DEFAULT) [address] [place] [address] 64305 MCV (RBC) [Entitic vol] 90 fL Normal 81-100 [facility] Comment on above: Performed By: #### 1 3723457, 5149847929, 261875976, 5076848869, 8585747, 9022786384, 6489439 #### [facility] (DEFAULT) [address] [place] [address] 64174 Platelet 210 x10 Normal 138-427 [facility] Comment on above: Performed By: #### 1 1939225, 2526310372, 303922311, 4815208884, 3684069, 4653003306, 4992279 #### [facility] (DEFAULT) [address] [place] [address] Platelet mean volume (Bld) [Entitic vol] 8.5 fL Normal 6.3-10.2 [facility] Comment on above: Performed By: #### 1 7033622, 1880955252, 140066238, 7146090861, 8985109, 5369671876, 1589603 #### [facility] (DEFAULT) [address] [place] [address] RBC 4.54 x10 Normal 3.70-5.30 [facility] Comment on above: Performed By: #### 1 [id number], [id number], 049439104, 3007648951, 5321011, 1894236303, 6044171 #### [facility] (DEFAULT) [address] [place] [address] WBC 8.1 x10 Normal 3.5-10.5 [facility] Comment on above: Performed By: #### 1 [id number], [id number], 491500346, 3047614895, 5550666, 9532039161, 2241408 #### [facility] (DEFAULT) [address] [place] [address] CMP Standardon 01-19-2023 eGFR Non AA >60 Invalid Interpretation Code [facility] Comment on above: Performed By: #### 1 [id number], [id number], 594621824, 0467719801, 5872932, 7367549390, 3865385 #### [facility] (DEFAULT) [address] [place] [address] eGFR AA >60 Invalid Interpretation Code [facility] Comment on above: Performed By: #### 1 1952157, [id number], 883968135, 1731792062, 9534230, 9194339537, 6883296 #### [facility] (DEFAULT) [address] [place] [address] Albumin [Mass/Vol] 4.1 g/dL Normal 3.5-5.0 [facility] Comment on above: Performed By: #### 1 2208989, 8964723966, 761326736, 6810918904, 9733455, 9402634709, 7938725 #### [facility] (DEFAULT) [address] [place] [address] Albumin/Globulin [Mass ratio] 1.5 {ratio} Normal 1.4-2.6 [facility] Comment on above: Performed By: #### 1 8286678, 9471347034, 732313400, 4947716151, 2243416, 4799854675, 3177606 #### [facility] (DEFAULT) [address] [place] [address] Alk Phos 72 IU/L Normal 32-91 [facility] Comment on above: Performed By: #### 1 0853305, 5059352322, 484897046, 4624579877, 0193173, 9779163778, 8818866 #### [facility] (DEFAULT) [address] [place] [address] ALT [Catalytic activity/Vol] 16.0 U/L Normal 14.0-54.0 [facility] Comment on above: Performed By: #### 1 6031501, 6735504879, 296794630, 7361060899, 0911390, 5182373683, 1475771 #### [facility] (DEFAULT) [address] [place] [address] Anion gap [Moles/Vol] 8.9 mmol/L Normal 5.0-19.0 [facility] Comment on above: Performed By: #### 1 3748514, [id number], 286915031, 9870831759, 2973710, 4295402917, 0020941 #### [facility] (DEFAULT) [address] [place] [address] 42446 AST [Catalytic activity/Vol] 14 U/L Low 15-41 [facility] Comment on above: Performed By: #### 1 2471500, 7118583868, 064847218, 9541722223, 9822231, 3952470847, 1120639 #### [facility] (DEFAULT) [address] [place] [address] 10156 Bili Total 0.4 mg/dL Normal 0.3-1.2 [facility] Comment on above: Performed By: #### 1 1395220, 5634898851, 905246407, 4684281982, 5200914, 2801920550, 5284489 #### [facility] (DEFAULT) [address] [place] [address] 81345 Calcium [Mass/Vol] 8.5 mg/dL Low 8.9-10.3 [facility] Comment on above: Performed By: #### 1 7423961, 3916217434, 570989411, 6619495387, 2834818, 9927279531, 8141579 #### [facility] (DEFAULT) [address] [place] [address] 82704 Chloride [Moles/Vol] 108 mmol/L Normal 101-111 [facility] Comment on above: Performed By: #### 1 5711931, 9646394017, 210787269, 4491982676, 2417744, 7987187179, 2497164 #### [facility] (DEFAULT) [address] [place] [address] 52378 CO2 [Moles/Vol] 24 mmol/L Normal 21-32 [facility] Comment on above: Performed By: #### 1 6425059, 3271355316, 662222868, 4143171057, 7923531, 0183197024, 3036296 #### [facility] (DEFAULT) [address] [place] [address] 38550 Creatinine [Mass/Vol] 0.81 mg/dL Normal 0.60-1.30 [facility] Comment on above: Performed By: #### 1 3860549, 6017484611, 306260378, 2498710457, 3724813, 7812271671, 6357382 #### [facility] (DEFAULT) [address] [place] [address] 55494 Globulin (S) [Mass/Vol] 2.6 g/dL Normal 1.5-4.3 [facility] Comment on above: Performed By: #### 1 8129614, 4483957712, 565499702, 9855473988, 8068269, 2861197765, 5042452 #### [facility] (DEFAULT) [address] [place] [address] 62217 Glucose [Mass/Vol] 82.0 mg/dL Normal 74.0-118.0 [facility] Comment on above: Performed By: #### 1 5384968, 4193089973, 401579270, 3697963365, 5560870, 5965818596, 8281493 #### [facility] (DEFAULT) [address] [place] [address] 54974 Osmolality 274 mOsm/L Invalid Interpretation Code [facility] Comment on above: Performed By: #### 1 6502064, 2766216889, 353689422, 8966300080, 6886311, 4057912093, 8349156 #### [facility] (DEFAULT) [address] [place] [address] 58158 Potassium [Moles/Vol] 3.9 mmol/L Normal 3.6-5.1 [facility] Comment on above: Performed By: #### 1 9739527, 0620940532, 488149588, 1923732582, 1813482, 7760165516, 9807096 #### [facility] (DEFAULT) [address] [place] [address] 25305 Protein [Mass/Vol] 6.7 g/dL Normal 6.5-8.1 [facility] Comment on above: Performed By: #### 1 7146727, 3546082449, 379273938, 8388435522, 4680148, 5591635791, 8986293 #### [facility] (DEFAULT) [address] [place] [address] 21013 Sodium [Moles/Vol] 137.0 mmol/L Normal 136.0-144.0 [facility] Comment on above: Performed By: #### 1 9387139, 1358311640, 315227736, 3617660522, 4357429, 2617329174, 6763741 #### [facility] (DEFAULT) [address] [place] [address] Urea nitrogen [Mass/Vol] 15 mg/dL Normal 8-26 [facility] Comment on above: Performed By: #### 1 4140041, 5565863234, 005523695, 2426302240, 5554288, 9230056497, 2460529 #### [facility] (DEFAULT) [address] [place] [address] Urea nitrogen/Creatinine [Mass ratio] 18.5 mg/mg High 4.6-16.2 [facility] Comment on above: Performed By: #### 1 4336776, 0507426253, 152309216, 0358393081, 2757621, 9328894689, 9490738 #### [facility] (DEFAULT) [address] [place] [address] HgbA1c Standardon 01-19-2023 .Hb 14.3 Invalid Interpretation Code [facility] Comment on above: Performed By: #### 1 4372054, 2024492860, 307047625, 4968081052, 3381953, 3066668155, 2600222 #### [facility] (DEFAULT) [address] [place] [address] .Hgb A1c 0.46 g/dL Invalid Interpretation Code [facility] Comment on above: Performed By: #### 1 6202769, 4185645719, 687971910, 5589904974, 9764358, 2352353949, 7207189 #### [facility] (DEFAULT) [address] [place] [address] Glucose [Mass/Vol] 97 mg/dL Invalid Interpretation Code [facility] Comment on above: Performed By: #### 1 8835390, 3392303470, 198062337, 3231510629, 3495196, 7690683271, 0039881 #### [facility] (DEFAULT) [address] [place] [address] HbA1c (Bld) [Mass fraction] 5.0 % Normal 4.6-6.2 [facility] Comment on above: Performed By: #### 1 8878361, 3573272787, 710717066, 0402570308, 8060872, 5982454977, 0809955 #### [facility] (DEFAULT) [address] [place] [address] 49646 Lipid Panel Standardon 01-19 Cholesterol [Mass/Vol] 200.0 mg/dL Normal 66.0-200.0 [facility] Comment on above: Performed By: #### 1 2625021, 1431304131, 963888583, 6254440151, 6825024, 1567899008, 4599662 #### [facility] (DEFAULT) [address] [place] [address] 45895 Cholesterol in HDL [Mass/Vol] 74 mg/dL High 40-71 [facility] Comment on above: Performed By: #### 1 2799276, 4449286145, 817204217, 5436252567, 7798858, 9188077331, 1793812 #### [facility] (DEFAULT) [address] [place] [address] 05667 Cholesterol in LDL [Mass/Vol] 106 mg/dL High 1-100 [facility] Comment on above: Performed By: #### 1 0085971, 6359576216, 575852764, 6257303327, 5729204, 0267084503, 8818588 #### [facility] (DEFAULT) [address] [place] [address] 65481 Cholesterol.total/Dulce sterol in HDL [Mass ratio] 2.7 {ratio} Normal 0.0-4.5 [facility] Comment on above: Performed By: #### 1 7858341, 2906897037, 673701377, 1269969812, 2221977, 9473335547, 0669875 #### [facility] (DEFAULT) [address] [place] [address] 70883 Triglyceride [Mass/Vol] 99.0 mg/dL Normal 0.0-150.0 [facility] Comment on above: Performed By: #### 1 9907629, 4351435868, 231306309, 6956833526, 2532085, 0815936263, 3401613 #### [facility] (DEFAULT) [address] [place] [address] 59717 VLDL. 20 mg/dL Normal 5-40 [facility] Comment on above: Performed By: #### 1 0229703, 0763906338, 162331195, 2143785058, 5302644, 8747034284, 8703099 #### [facility] (DEFAULT) [address] [place] [address] Provider Orderson 01-19-2023 Provider Orders [id number] Normal [facility] TSH w/ Reflex to FT4on 01-19 TSH Qn 2.55 m[IU]/L Normal 0.45-5.33 [facility] Comment on above: Performed By: #### 1 6867800, 8910822314, 221163500, 4823239405, 3456966, 3056860495, 6225394 #### [facility] (DEFAULT) [address] [place] [address] 67251 Vit D25 OHon 01-19-2023 Vitamin D 25 OH 36 ng/mL Invalid Interpretation Code [facility] Comment on above: Performed By: #### 1 1698630, [id number], 762591118, 5843723328, 6080971, 3395400425, 2721801 #### [facility] (DEFAULT) [address] [place] [address] 16069 PAP ACOG PANEL 2: 30 to 65on 06-28-2022 . . Normal [facility] Comment on above: Result Comment: Perf ormed at: WB Performed By: #### 4 304315 #### [facility] [address] [place] [address] Dr. Jewels Zhou Age Gdln ACOG Testing 30-65 Normal [facility] Comment on above: Performed By: #### 4 755398 #### [facility] [address] [place] [address] Dr. Jewels Zhou DIAGNOSIS: Comment [facility] Comment on above: Result Comment: NEGA TIVE FOR INTRAEPITHELIAL LESION OR MALIGNANCY. CELLULAR CHANGES ASSOCIATED WITH INFLAMMATION ARE PRESENT. Performed at: WB Performed By: #### 4 [id number] #### [facility] [address] [place] [address] Dr. Jewels Zhou HPV Aptima Negative Normal Negative [facility] Comment on above: Result Comment: This nucleic acid amplification test detects fourteen high-risk HPV types (16,18,31,33,35,39,45,51,52,56,58,59,66,68) without differentiation. Performed at: =G Performed By: #### 4 572554 #### [facility] [address] [place] [address] Dr. Jewels Zhou HPV Genotype Reflex Comment Normal [facility] Comment on above: Result Comment: Crit eria not met, HPV Genotype not performed. Performed at: WB Performed By: #### 4 068606 #### [facility] [address] [place] [address] Dr. Jewels Zhou Methodology: Comment Normal [facility] Comment on above: Result Comment: This liquid based ThinPrep(R) pap test was screened with the use of an image guided system. Performed at: WB Performed By: #### 4 [id number] #### [facility] [address] [place] [address] Dr. Jewels Zhou Note: Comment Normal [facility] Comment on above: Result Comment: The Pap smear is a screening test designed to aid in the detection of premalignant and malignant conditions of the uterine cervix. It is not a diagnostic procedure and should not be used as the sole means of detecting cervical cancer. Both false-positive and false-negative reports do occur. . Performed at: WB Performed By: #### 4 012203 #### [facility] [address] [place] [address] Dr. Jewels Zhou Performed by: Comment Normal [facility] Comment on above: Result Comment: Joshua Guerrero, Reordering Clerk (ASCP) Performed at: WB Performed By: #### 4 874204 #### [facility] [address] [place] [address] Dr. Jewels Zhou Specimen adequacy: Comment Normal [facility] Comment on above: Result Comment: Sati sfactory for evaluation. Endocervical and/or squamous metaplastic cells (endocervical component) are present. Performed at: WB Performed By: #### 4 673127 #### [facility] [address] [address] [address] Jewels Zhou MG M[facility]M DIAGNOSTIC 3D MAYNOR CA Don 06-24-2022 MG [facility]M DIAGNOSTIC 3D MAYNOR CAD Patient: MOSES ABRAHAM Exam Date: 06/24/2022 : 1975 Gender:F Ordering : DR VIKASH MENA . Admission #: [id number] Family : Order #: [id number] CLICK HERE TO VIEW EXAM RADIOLOGY REPORT [...] prostate cancer at age 54. LOCATION: [facility] BREAST COMPOSITION: Almost entirely fatty. FINDINGS: DIAGNOSTIC [...] M.D. on 06/24/2022 at 14:52 Normal [facility] US BREAST LEFT LIMITEDon US BREAST LEFT LIMITED Patient: MOSES ABRAHAM Exam Date: 06/24/2022 : 1975 Gender:F Ordering : DR VIKASH MENA . Admission #: [id number] Family : Order #: [id number] CLICK HERE TO VIEW EXAM RADIOLOGY REPORT [...] prostate cancer at age 54. LOCATION: [facility] BREAST COMPOSITION: Almost entirely fatty. FINDINGS: DIAGNOSTIC [...] M.D. on 06/24/2022 at 14:52 Normal [facility] Basophils Auto (Bld) [#/Vol] Ordered By: Gabriel Anderson on 12-21-2021 Basophils (Bld) [#/Vol] 0.0 10*3/uL 0.0-0.2 [facility] Basophils/100 WBC Auto (Bld) Ordered By: Gabriel Anderson on 12-21-2021 Basophils/100 WBC (Bld) 0.6 % . F [facility] Blood hemoglobin measurement (mass/volume)Ordered By: Gabriel Anderson on 12-21-2021 Hemoglobin (Bld) [Mass/Vol] 13.8 g/dL 11.8-15.4 [facility] Blood leukocytes automated c ount (number/volume)Ordered By: Gabriel Anderson on 12-21-2021 WBC (Bld) [#/Vol] 5.0 10*3/uL 4.5-11.0 [facility] Body fluid albumin measureme nt (mass/volume)Ordered By: Gabriel Anderson on 12-21-2021 Albumin (Body fld) [Mass/Vol] 4.0 g/dL 3.2-5.5 [facility] COVID Quick Testingon 2021 Result Positive Datalink Other Cholesterol [Mass/volume] in Serum or PlasmaOrdered By: Gabriel Anderson on 12-21-2021 Cholesterol [Mass/Vol] 197 mg/dL 140-200 [facility] Comment on above: Chol less than 200 m g/dl low riskChol 201-239 mg/dl borderline riskChol 240 mg/dl and greater high risk Cholesterol in LDL Calc [Mas s/Vol]Ordered By: Gabriel Anderson on 12-21-2021 Cholesterol in LDL [Mass/Vol] 111 mg/dL 0-100 [facility] Comment on above: LDL ATP III CLASSIFI CATIONLDL less than 100 mg/dL OptimalLDL 100-129 mg/dL Near or above optimalLDL 130-159 mg/dL Borderline highLDL 160-189 mg/dL HighLDL greater than 189 mg/dL Very high Cholesterol in VLDL Calc [Ma ss/Vol]Ordered By: Gabriel Anderson on 12-21-2021 Cholesterol in VLDL [Mass/Vol] 17 mg/dL [facility] Creatinine and Glomerular fi ltration rate.predicted panel (S/P/Bld)Ordered By: Gabriel Anderson on 12-21-2021 Creatinine [Mass/Vol] 0.98 mg/dL 0.44-1.03 [facility] Eosinophils Auto (Bld) [#/Vo l]Ordered By: Gabriel Anderson on 12-21-2021 Eosinophils (Bld) [#/Vol] 0.0 10*3/uL 0.0-0.45 [facility] Eosinophils/100 WBC Auto (Bl d)Ordered By: Gabriel Anderson on 12-21-2021 Eosinophils/100 WBC (Bld) 0.1 % . [facility] Erythrocyte distribution wid th Auto (RBC) [Ratio]Ordered By: Gabriel Anderson on 12-21-2021 Erythrocyte distribution width (RBC) [Ratio] 13.9 % 11.9-15.3 [facility] Estimated glomerular filtrat ion rate (GFR) non- AmericanOrdered By: Gabriel Anderson on 12-21-2021 GFR/1.73 sq M.predicted among non-blacks MDRD (S/P/Bld) [Vol rate/Area] > 60 mL/Min [facility] Globulin Calc (S) [Mass/Vol] Ordered By: Gabriel Anderson on 12-21-2021 Globulin (S) [Mass/Vol] 2.3 g/dL F [facility] Hematocrit Auto (Bld) [Volum e fraction]Ordered By: Gabriel Anderson on 12-21-2021 Hematocrit (Bld) [Volume fraction] 41.2 % 34.0-46.4 [facility] Laboratory - Hematology and Cell countsOrdered By: Gabriel Anderson on 12-21-2021 Nucleated RBC/100 WBC (Bld) [Ratio] 0.1 % 0-0.5 [facility] Lymphocytes Auto (Bld) [#/Vo l]Ordered By: Gabriel Anderson on 12-21-2021 Lymphocytes (Bld) [#/Vol] 0.6 10*3/uL 1.00-4.8 [facility] Lymphocytes/100 WBC Auto (Bl d)Ordered By: Gabriel Anderson on 12-21-2021 Lymphocytes/100 WBC (Bld) 11.7 % . [facility] MCH Auto (RBC) [Entitic mass ]Ordered By: Gabriel Anderson on 12-21-2021 MCH (RBC) [Entitic mass] 29.5 pg 24.7-34.3 [facility] MCHC Auto (RBC) [Mass/Vol]Or dered By: Gabriel Anderson on 12-21-2021 MCHC (RBC) [Mass/Vol] 33.5 g/dL 32.0-35.0 [facility] MCV Auto (RBC) [Entitic vol] Ordered By: Gabriel Anderson on 12-21-2021 MCV (RBC) [Entitic vol] 88.1 fL 80-100 F [facility] Monocytes Auto (Bld) [#/Vol] Ordered By: Gabriel Anderson on 12-21-2021 Monocytes (Bld) [#/Vol] 0.7 10*3/uL 0.0-0.8 [facility] Monocytes/100 WBC Auto (Bld) Ordered By: Gabriel Anderson on 12-21-2021 Monocytes/100 WBC (Bld) 13.7 % . F [facility] Neutrophils Auto (Bld) [#/Vo l]Ordered By: Gabriel Anderson on 12-21-2021 Neutrophils (Bld) [#/Vol] 3.7 10*3/uL 1.8-7.7 [facility] Neutrophils/100 WBC Auto (Bl d)Ordered By: Gabriel Anderson on 12-21-2021 Neutrophils/100 WBC (Bld) 73.9 % . [facility] No Panel InformationOrdered By: Gabriel Anderson on 12-21-2021 25-Hydroxy Vitamin D Total 46.0 ng/mL 30-100 [facility] Comment on above: VITAMIN D STATUS 25( OH)VITAMIN D RANGE (ng/mL) Deficient <20 Insufficient 20 to <30Sufficient 30 to 100Reference: Shabana MF,Paulette NC, Doug RAO, et al. Evaluation,treatment, and prevention of vitamin D deficiency; an Endocrine Society clinical practice guideline. JCEM. 2010; 96(7):1911-30. Estimated GFR () > 60 mL/Min [facility] Comment on above: GFR estimated refere nce range: According to KDOQI guidelines, <60 ml/min/1.73m2 is sufficient to diagnose a patient with chronic kidney disease. Pharmacy Creatinine Clearance (Chem N/A [facility] Platelet mean volume Auto (B ld) [Entitic vol]Ordered By: Gabriel Anderson on 12-21-2021 Platelet mean volume (Bld) [Entitic vol] 9.4 fL 6.3-10.7 [facility] Platelets Auto (Bld) [#/Vol] Ordered By: Gabriel Anderson on 12-21-2021 Platelets (Bld) [#/Vol] 167 10*3/uL 150-450 [facility] Protein [Mass/volume] in Ser um or PlasmaOrdered By: Gabriel Anderson on 12-21-2021 Protein [Mass/Vol] 6.3 g/dL 6.1-7.9 [facility] RBC Auto (Bld) [#/Vol]Ordere d By: Gabriel Anderson on 12-21-2021 RBC (Bld) [#/Vol] 4.68 10*6/uL 3.60-5.00 [facility] Serum or plasma alanine diana otransferase measurement without P-5'-P (enzymatic activiOrdered By: Gabriel Anderson on 12-21-2021 ALT No additional P-5'-P [Catalytic activity/Vol] 14 U/L [facility] Serum or plasma albumin/glob ulin mass ratioOrdered By: Gabrile Anderson on 12-21-2021 Albumin/Globulin [Mass ratio] 1.7 {ratio} [facility] Serum or plasma alkaline rolanda sphatase measurement (enzymatic activity/volume)Ordered By: Gabriel Anderson on 12-21-2021 ALP [Catalytic activity/Vol] 80 U/L 32-92 [facility] Serum or plasma anion gap de terminationOrdered By: Gabriel Anderson on 12-21-2021 Anion gap [Moles/Vol] 14.3 mmol/L 6.0-15.0 [facility] Serum or plasma aspartate am inotransferase measurement (enzymatic activity/volume)Ordered By: Gabriel Anderson on 12-21-2021 AST [Catalytic activity/Vol] 15 U/L 1042 [facility] Serum or plasma calcium sharron urement (mass/volume)Ordered By: Gabriel Anderson on 12-21-2021 Calcium [Mass/Vol] 8.9 mg/dL 8.2-10.2 [facility] Serum or plasma chloride kim surement (moles/volume)Ordered By: Gabriel Anderson on 12-21-2021 Chloride [Moles/Vol] 105 mmol/L 95-114 [facility] Serum or plasma glucose sharron urement (mass/volume)Ordered By: Gabriel Anderson on 12-21-2021 Glucose [Mass/Vol] 96 mg/dL 70-100 [facility] Comment on above: ADA recommended refe rence rangeRandom Glucose Reference Range is dependent on time and content of last meal. Glucose of more than 200 mg/dL in a nonstressed, ambulatory subject supports the diagnosis of Diabetes Mellitus. Serum or plasma high density lipoprotein (HDL) cholesterol measurementOrdered By: Gabriel Anderson on 12-21-2021 Cholesterol in HDL [Mass/Vol] 68 mg/dL 35-85 [facility] Comment on above: HDL CHOL ATP-III CLA SSIFICATION Cardiovascular RiskHDL > or equal to 60 mg/dL LOWHDL < 40 mg/dL HIGH Serum or plasma potassium me asurement (moles/volume)Ordered By: Gabriel Anderson on 12-21-2021 Potassium [Moles/Vol] 3.8 mmol/L 3.5-5.1 [facility] Serum or plasma sodium measu rement (moles/volume)Ordered By: Gabriel Anderson on 12-21-2021 Sodium [Moles/Vol] 136 mmol/L 136-146 [facility] Serum or plasma total biliru bin measurement (mass/volume)Ordered By: Gabriel Anderson on 12-21-2021 Bilirubin [Mass/Vol] 0.5 mg/dL 0.3-1.2 [facility] Serum or plasma total carbon dioxide measurement (moles/volume)Ordered By: Gabriel Anderson on 12-21-2021 CO2 [Moles/Vol] 20.5 mmol/L 22.0-30.0 [facility] Serum or plasma total choles terol/high density lipoprotein (HDL) cholesterol mass ratOrdered By: Gabriel Anderson on 12-21-2021 Cholesterol.total/Dulce sterol in HDL [Mass ratio] 2.9 {ratio} <5.0 [facility] Serum or plasma urea nitroge n measurement (mass/volume)Ordered By: Gabriel Justin on 12-21-2021 Urea nitrogen [Mass/Vol] 7 mg/dL 9-23 [facility] TSH DL <= 0.005 mIU/L QnOrde red By: Gabriel Anderson on 12-21-2021 TSH Qn 1.37 m[IU]/L 0.45-5.33 [facility] Triglyceride [Mass/volume] i n Serum or PlasmaOrdered By: Gabriel Anderson on 12-21-2021 Triglyceride [Mass/Vol] 88 mg/dL 35-149 F [facility] Comment on above: TRIG ATP III CLASSIF ICATIONTRIG less than 150 mg/dL NormalTRIG 150-199 mg/dL Borderline highTRIG 200-500 mg/dL High TRIG greater than 500 mg/dL Very highStandard traceable to the Center for Disease Conrtrol and Prevention (CDC) test method. CT Chest w/o Contraston 09-0 CT Chest w/o Contrast CLINICAL HISTORY: Follow-up [...] by Tri Guerrero on 11/23/2021 1103 Normal [facility] [employer] Supervisor BUNon 09-11-2021 Urea nitrogen [Mass/Vol] 7.0 mg/dL Normal 7.0-18.0 [facility] Comment on above: Performed By: #### B UN, CREA #### [facility] [address] [place] [address] Dr. Jewels Zhou CBC AUTO DIFFon 09-11-2021 BASO # 0.0 103/ul Normal 0.0-0.1 [facility] Comment on above: Performed By: #### C BC #### [facility] [address] [place] [address] Dr. Jewels Zhou Basophils/100 WBC (Bld) 0.2 % Normal 0.2-2.0 [facility] [place] [facility] Comment on above: Performed By: #### C BC #### [facility] [address] [place] [address] Dr. Jewels Zhou EO # 0.0 103/ul Normal 0.0-0.7 [facility] Comment on above: Performed By: #### C BC #### [facility] [address] [place] [address] Dr. Jewels Zhou Eosinophils/100 WBC (Bld) 0.4 % Critically low 0.9-7.0 [facility] Comment on above: Performed By: #### C BC #### [facility] [address] [place] [address] Dr. Jewels Zhou Erythrocyte distribution width (RBC) [Ratio] 13.8 % Normal 11.0-15.0 [facility] Comment on above: Performed By: #### C BC #### [facility] [address] [place] [address] Dr. Jewels Zhou Hematocrit (Bld) [Volume fraction] 35.0 % Critically low 36.0-48.0 [facility] Comment on above: Performed By: #### C BC #### [facility] [address] [place] [address] Dr. Jewels Zhou Hemoglobin (Bld) [Mass/Vol] 11.7 g/dL Critically low 12.0-16.0 [facility] Comment on above: Performed By: #### C BC #### [facility] [address] [place] [address] Dr. Jewels Zhou IG # 0.03 10e3/ul Normal 0.00-0.03 [facility] Comment on above: Performed By: #### C BC #### [facility] [address] [place] [address] Dr. Jewels Zhou IG % 0.3 % Normal 0.0-0.5 [facility] Comment on above: Performed By: #### C BC #### [facility] [address] [place] [address] Dr. Jewels Zhou LYMPH # 2.0 103/ul Normal 1.2-3.8 [facility] Comment on above: Performed By: #### C BC #### [facility] [address] [place] [address] Dr. Jewels Zhou Lymphocytes/100 WBC (Bld) 17.4 % Critically low 20.5-60.0 [facility] Comment on above: Performed By: #### C BC #### [facility] [address] [place] [address] Dr. Jewels Zhou MANUAL DIFF REQ NO Normal [facility] Comment on above: Performed By: #### C BC #### [facility] [address] [place] [address] Dr. Jewels Zhou MCH (RBC) [Entitic mass] 30.1 pg Normal 26.7-34.0 [facility] Comment on above: Performed By: #### C BC #### [facility] [address] [place] [address] Dr. Jewels Zhou MCHC (RBC) [Mass/Vol] 33.4 g/dL Normal 29.9-35.2 [facility] Comment on above: Performed By: #### C BC #### [facility] [address] [address] [address] Jewels Zhou MCV (RBC) [Entitic vol] 90.0 fL Normal 81.0-99.0 [facility] [place] [facility] Comment on above: Performed By: #### C BC #### [facility] [address] [address] [address] Jewels Zhou MONO # 0.9 103/ul Critically high 0.3-0.8 [facility] Comment on above: Performed By: #### C BC #### [facility] [address] [place] [address] Dr. Jewels Zhou Monocytes/100 WBC (Bld) 7.7 % Normal 1.7-12.0 [facility] [place] [facility] Comment on above: Performed By: #### C BC #### [facility] [address] [place] [address] Dr. Jewels Zhou NEUT # 8.3 103/ul Critically high 1.4-6.5 [facility] Comment on above: Performed By: #### C BC #### [facility] [address] [place] [address] Dr. Jewels Zhou Neutrophils/100 WBC (Bld) 74.0 % Normal 43.0-75.0 [facility] Comment on above: Performed By: #### C BC #### [facility] [address] [place] [address] Dr. Jewels Zhou Platelet mean volume (Bld) [Entitic vol] 10.8 fL Normal 9.5-13.5 [facility] Comment on above: Performed By: #### C BC #### [facility] [address] [place] [address] Dr. Jewels Zhou PLT 218 103/ul Normal 150-450 [facility] Comment on above: Performed By: #### C BC #### [facility] [address] [place] [address] Dr. Jewels Zhou RBC 3.89 106/ul Critically low 4.20-5.40 [facility] Comment on above: Performed By: #### C BC #### [facility] [address] [address] [address] Jewels Zhou WBC 11.2 103/ul Critically high 4.0-11.0 [facility] Comment on above: Performed By: #### C BC #### [facility] [address] [address] [address] Jewels Zhou CREATININEon 09-11-2021 Creatinine [Mass/Vol] 0.82 mg/dL Normal 0.55-1.02 [facility] Comment on above: Performed By: #### B UN, CREA #### [facility] [address] [address] [address] Jewels Zhou EGFR-AF SURINAMESE >60 Normal >=60 [facility] Comment on above: Performed By: #### B UN, CREA #### [facility] [address] [place] [address] Dr. Jewels Zhou EGFR-NON AF SURINAMESE >60 Normal >=60 [facility] Comment on above: Performed By: #### B UN, CREA #### [facility] [address] [address] [address] Jewels Zhou CBC AUTO DIFFon 09-10-2021 BASO # 0.0 103/ul Normal 0.0-0.1 [facility] Comment on above: Performed By: #### C BC ####[facility] [address] [address]Dr. Jewels Zhou Basophils/100 WBC (Bld) 0.6 % Normal 0.2-2.0 [facility] [place] [facility] Comment on above: Performed By: #### C BC ####[facility] [address] [address]DrTino Zhou EO # 0.1 103/ul Normal 0.0-0.7 [facility] Comment on above: Performed By: #### C BC ####[facility] [address] [address]DrTino Zhou Eosinophils/100 WBC (Bld) 1.8 % Normal 0.9-7.0 [facility] Comment on above: Performed By: #### C BC ####[facility] [address] [address]Dr. Jewels Zhou Erythrocyte distribution width (RBC) [Ratio] 13.9 % Normal 11.0-15.0 [facility] Comment on above: Performed By: #### C BC ####[facility] [address] [place], [place] [address]Dr. Jewels Zhou Hematocrit (Bld) [Volume fraction] 42.0 % Normal 36.0-48.0 [facility] Comment on above: Performed By: #### C BC ####[facility] [address] [place], [place] [address]Dr. Jewels Zhou Hemoglobin (Bld) [Mass/Vol] 13.8 g/dL Normal 12.0-16.0 [facility] Comment on above: Performed By: #### C BC ####[facility] [address] [place], [place] [address]Dr. Jewels Zhou IG # 0.01 10e3/ul Normal 0.00-0.03 [facility] Comment on above: Performed By: #### C BC ####[facility] [address] [place], [place] [address]Dr. Jewels Zhou IG % 0.1 % Normal 0.0-0.5 [facility] Comment on above: Performed By: #### C BC ####[facility] [address] [place], [place] [address]Dr. Jewels Zhou LYMPH # 2.1 103/ul Normal 1.2-3.8 [facility] Comment on above: Performed By: #### C BC ####[facility] [address] [place], [place] [address]Dr. Jewels Zhou Lymphocytes/100 WBC (Bld) 31.1 % Normal 20.5-60.0 [facility] Comment on above: Performed By: #### C BC ####[facility] [address] [place], [place] [address]Dr. Jewels Zhou MANUAL DIFF REQ NO Normal [facility] Comment on above: Performed By: #### C BC ####[facility] [address] [address]Dr. Jewels Zhou MCH (RBC) [Entitic mass] 29.6 pg Normal 26.7-34.0 [facility] Comment on above: Performed By: #### C BC ####[facility] [address] [place], [place] [address]Dr. Jewels Zhou MCHC (RBC) [Mass/Vol] 32.9 g/dL Normal 29.9-35.2 [facility] Comment on above: Performed By: #### C BC ####[facility] [address] [place], [place] [address]Dr. Jewels Zhou MCV (RBC) [Entitic vol] 89.9 fL Normal 81.0-99.0 [facility] [place] [facility] Comment on above: Performed By: #### C BC ####[facility] [address] [place], [place] [address]Dr. Jewels Abelardo MONO # 0.5 103/ul Normal 0.3-0.8 [facility] Comment on above: Performed By: #### C BC ####[facility] [address] [place], [place] [address]Dr. Jewels Zhou Monocytes/100 WBC (Bld) 7.7 % Normal 1.7-12.0 [facility] [place] [facility] Comment on above: Performed By: #### C BC ####[facility] [address] [place], [place] [address]Dr. Jewels Zhou NEUT # 3.9 103/ul Normal 1.4-6.5 [facility] Comment on above: Performed By: #### C BC ####[facility] [address] [place], [place] [address]Dr. Jewels Abelardo Neutrophils/100 WBC (Bld) 58.7 % Normal 43.0-75.0 [facility] Comment on above: Performed By: #### C BC ####[facility] [address] [place], [place] [address]Dr. Jewels Zhou Platelet mean volume (Bld) [Entitic vol] 10.3 fL Normal 9.5-13.5 [facility] Comment on above: Performed By: #### C BC ####[facility] [address] [place], [place] [address]Ep. Jewels Zhou PLT 234 103/ul Normal 150-450 [facility] Comment on above: Performed By: #### C BC ####[facility] [address] [place], [place] [address]Jm. Jewels Zhou RBC 4.67 106/ul Normal 4.20-5.40 [facility] Comment on above: Performed By: #### C BC ####[facility] [address] [place], [place] [address]Zz. Jewels Zhou WBC 6.7 103/ul Normal 4.0-11.0 [facility] Comment on above: Performed By: #### C BC ####[facility] [address] [place], [place] [address]Nf. Jewels Zhou PREG QUANT HCGon 09-10-2021 HCG QUANT <1 Normal [facility] Comment on above: Performed By: #### P REGQNT ####[facility] [address] [place], [place] [address]Xn. Jewels Zhou HCG RANGE SEE BELOW Normal [facility] Comment on above: Result Comment: 5-50 0-1 WEEK 40-300 1-2 WEEKS 100-1,000 2-3 WEEKS 500-6,000 3-4 WEEKS 5,000-200,000 1-2 MONTHS 10,000-100,000 2-3 MONTHS 3,000-50,000 2ND TRIMESTER 1,000-50,000 3RD TRIMESTER Performed By: #### P REGQNT ####[facility] [address] [place], [place] [address]Hv. Jewels Zhou Covid-19 PCR (CVDTB)on 08-19 SARS-CoV-2 (COVID-19) RNA ALIX+probe Ql (Unsp spec) Not detected Normal NOT DETECTED [facility] Comment on above: Result Comment: This test is not yet approved or cleared by the [place] FDA. When there are no FDA-approved or cleared tests available, and other criteria are met, FDA can make tests available under an emergency access mechanism called an Emergency Use Authorization (EUA). The EUA for this test is supported by the Cardiac Monitor Technician of Health and Human Service's (HHS's) declaration [...] consistent with SARS-CoV-2. Performed By: #### [facility] #### [facility] [address] [place], [place] [address] Dr. Jewels Zhou TYPE AND SCREENon 09-07-2021 TYPE AND SCREEN Negative Normal [facility] Comment on above: Performed By: #### T NS ####[facility] [address] [place], [place] [address] CT Chest w/o Contraston 05-0 CT Chest w/o Contrast HISTORY: 7 mm [...] by Corona Hammonds on 07/20/2021 1030 Normal [facility] CBC AUTO DIFFon 07-16-2021 BASO # 0.0 103/ul Normal 0.0-0.1 [facility] Comment on above: Performed By: #### C BC #### [facility] [address] [address] [address] Jewels Zhou Basophils/100 WBC (Bld) 0.4 % Normal 0.2-2.0 [facility] [place] [facility] Comment on above: Performed By: #### C BC #### [facility] [address] [address] [address] Jewels Zhou EO # 0.1 103/ul Normal 0.0-0.7 [facility] Comment on above: Performed By: #### C BC #### [facility] [address] [address] [address] Jewels Zhou Eosinophils/100 WBC (Bld) 1.6 % Normal 0.9-7.0 [facility] Comment on above: Performed By: #### C BC #### [facility] [address] [address] [address] Jewels Zhou Erythrocyte distribution width (RBC) [Ratio] 13.7 % Normal 11.0-15.0 [facility] Comment on above: Performed By: #### C BC #### [facility] [address] [address] [address] Jewels Zhou Hematocrit (Bld) [Volume fraction] 41.8 % Normal 36.0-48.0 [facility] Comment on above: Performed By: #### C BC #### [facility] [address] [place] [address] Dr. Jewels Zhou Hemoglobin (Bld) [Mass/Vol] 13.8 g/dL Normal 12.0-16.0 [facility] Comment on above: Performed By: #### C BC #### [facility] [address] [place] [address] Dr. Jewels Zhou IG # 0.01 10e3/ul Normal 0.00-0.03 [facility] Comment on above: Performed By: #### C BC #### [facility] [address] [place] [address] Dr. Jewels Zhou IG % 0.1 % Normal 0.0-0.5 [facility] Comment on above: Performed By: #### C BC #### [facility] [address] [place] [address] Dr. Jewels Zhou LYMPH # 2.1 103/ul Normal 1.2-3.8 [facility] Comment on above: Performed By: #### C BC #### [facility] [address] [place] [address] Dr. Jewels Zhou Lymphocytes/100 WBC (Bld) 30.5 % Normal 20.5-60.0 [facility] Comment on above: Performed By: #### C BC #### [facility] [address] [place] [address] Dr. Jewels Zhou MANUAL DIFF REQ NO Normal [facility] Comment on above: Performed By: #### C BC #### [facility] [address] [place] [address] Dr. Jewels Zhou MCH (RBC) [Entitic mass] 29.8 pg Normal 26.7-34.0 [facility] Comment on above: Performed By: #### C BC #### [facility] [address] [place] [address] Dr. Jewels Zhou MCHC (RBC) [Mass/Vol] 33.0 g/dL Normal 29.9-35.2 [facility] Comment on above: Performed By: #### C BC #### [facility] [address] [place] [address] Dr. Jewels Zhou MCV (RBC) [Entitic vol] 90.3 fL Normal 81.0-99.0 [facility] [place] [facility] Comment on above: Performed By: #### C BC #### [facility] [address] [place] [address] Dr. Jewels Zhou MONO # 0.5 103/ul Normal 0.3-0.8 [facility] Comment on above: Performed By: #### C BC #### [facility] [address] [place] [address] Dr. Jewels Zhou Monocytes/100 WBC (Bld) 6.7 % Normal 1.7-12.0 [facility] [place] [facility] Comment on above: Performed By: #### C BC #### [facility] [address] [place] [address] Dr. Jewels Zhou NEUT # 4.2 103/ul Normal 1.4-6.5 [facility] Comment on above: Performed By: #### C BC #### [facility] [address] [place] [address] Dr. Jewels Zhou Neutrophils/100 WBC (Bld) 60.7 % Normal 43.0-75.0 [facility] Comment on above: Performed By: #### C BC #### [facility] [address] [place] [address] Dr. Jewels Zhou Platelet mean volume (Bld) [Entitic vol] 10.2 fL Normal 9.5-13.5 [facility] Comment on above: Performed By: #### C BC #### [facility] [address] [place] [address] Dr. Jewels Zhou PLT 207 103/ul Normal 150-450 [facility] Comment on above: Performed By: #### C BC #### [facility] [address] [place] [address] Dr. Jewels Zhou RBC 4.63 106/ul Normal 4.20-5.40 [facility] Comment on above: Performed By: #### C BC #### [facility] [address] [place] [address] Dr. Jewels Zhou WBC 7.0 103/ul Normal 4.0-11.0 [facility] Comment on above: Performed By: #### C BC #### [facility] [address] [address] [address] Jewels Zhou PREG QUANT HCGon 07-16-2021 HCG QUANT <1 Normal [facility] Comment on above: Performed By: #### P REGQNT #### [facility] [address] [address] [address] Jewels Zhou HCG RANGE SEE BELOW Normal [facility] Comment on above: Result Comment: 5-50 0-1 WEEK 40-300 1-2 WEEKS 100-1,000 2-3 WEEKS 500-6,000 3-4 WEEKS 5,000-200,000 1-2 MONTHS 10,000-100,000 2-3 MONTHS 3,000-50,000 2ND TRIMESTER 1,000-50,000 3RD TRIMESTER Performed By: #### P REGQNT #### [facility] [address] [place] [address] Dr. Jewels Zhou Covid-19 PCR (CVDTB)on 06-19 SARS-CoV-2 (COVID-19) RNA ALIX+probe Ql (Unsp spec) Not detected Normal NOT DETECTED [facility] Comment on above: Result Comment: This test is not yet approved or cleared by the [place] FDA. When there are no FDA-approved or cleared tests available, and other criteria are met, FDA can make tests available under an emergency access mechanism called an Emergency Use Authorization (EUA). The EUA for this test is supported by the [place] of Health and Human Service's (HHS's) declaration [...] SARS-CoV-2. Performed By: #### C VDTBH #### [facility] [address] [address] [address] Jewels Zhou XR Hip Complete Right*on XR Hip Complete Right* Refer to concurre nt lumbar spine radiographs dictation. Report reported and signed by Fernando Goyal on 06/04/2021 1203 Normal [facility] [employer] XR Spine Lumbar Complete w/F javy AND [place] 06-03-2021 XR Spine Lumbar Complete w/Flex AND [...] by Fernando Goyal on 06/04/2021 1203 Normal [facility] [employer] [place] Pelvic Complete w/Transva ginalon 05-27-2021 US [...] by Fernando Goyal on 05/28/2021 1430 Normal [facility] CT Abdomen/Pelvis w/o Contra candy 05-26-2021 CT Abdomen/Pelvis w/o Contrast HISTORY: Right [...] Hammonds on 05/26/2021 1206 Normal [facility] Vital Signs Date Time Vital Sign Value Performing Clinician Facility 04-22-2024 09:33-0500 Body mass index (BMI) [Ratio] 32.2 kg/m2 Katia PHILLIP Work Phone: [facility] 04-22-2024 09:33-0500 Body weight 77.29 kg Katia PHILLIP Work Phone: [facility] 04-22-2024 09:33-0500 Diastolic blood pressure 70 mm[Hg] Katia PHILLIP Work Phone: [facility] 04-22-2024 09:33-0500 Systolic blood pressure 114 mm[Hg] Katia PHILLIP Work Phone: [facility] 03-26-2024 13:39-0500 Blood Pressure Location Av REGALADOYumiko [facility] 03-26-2024 13:39-0500 Diastolic blood pressure 78 mm[Hg] Av SABINEL [facility] 03-26-2024 13:39-0500 Heart rate 72 /min Av NILL [facility] 03-26-2024 13:39-0500 Respiratory rate 16 /min Av SABINEL [facility] 03-26-2024 13:39-0500 Systolic blood pressure 118 mm[Hg] Av SABINEL [facility] 03-25-2024 11:20-0500 Body height 154.94 cm [facility] 03-25-2024 11:20-0500 Body mass index (BMI) [Ratio] 31.5 kg/m2 [facility] 03-25-2024 11:20-0500 Body weight 75.74 kg [facility] 03-25-2024 11:20-0500 Diastolic blood pressure 87 mm[Hg] [facility] 03-25-2024 11:20-0500 Heart rate 96 /min [facility] 03-25-2024 11:20-0500 Respiratory rate 18 /min [facility] 03-25-2024 11:20-0500 SaO2% (BldA) [Mass fraction] 99 % [facility] 03-25-2024 11:20-0500 Systolic blood pressure 128 mm[Hg] [facility] 03-25-2024 08:42-0500 Body mass index (BMI) [Ratio] 32.12 kg/m2 Vikash Trina DO Work Phone: [facility] 03-25-2024 08:42-0500 Body weight 77.11 kg Vikash Trina DO Work Phone: [facility] 03-25-2024 08:42-0500 Diastolic blood pressure 74 mm[Hg] Vikash Trina DO Work Phone: [facility] 03-25-2024 08:42-0500 Systolic blood pressure 122 mm[Hg] Vikash Trina DO Work Phone: [facility] 02-14-2024 14:14-0500 Body mass index (BMI) [Ratio] 31.55 kg/m2 Vikash Trina DO Work Phone: [facility] 02-14-2024 14:14-0500 Body weight 75.75 kg Vikash Trina DO Work Phone: [facility] 02-14-2024 14:14-0500 Diastolic blood pressure 72 mm[Hg] Vikash Trina DO Work Phone: [facility] 02-14-2024 14:14-0500 Systolic blood pressure 120 mm[Hg] Vikash Trina DO Work Phone: [facility] 11-21-2023 08:59-0400 Body height 154.94 cm [facility] 11-21-2023 08:59-0400 Body mass index (BMI) [Ratio] 30.6 kg/m2 [facility] 11-21-2023 08:59-0400 Body weight 73.48 kg [facility] 11-21-2023 08:59-0400 Diastolic blood pressure 71 mm[Hg] [facility] 11-21-2023 08:59-0400 Heart rate 86 /min [facility] 11-21-2023 08:59-0400 Respiratory rate 16 /min [facility] 11-21-2023 08:59-0400 SaO2% (BldA) [Mass fraction] 100 % [facility] 11-21-2023 08:59-0400 Systolic blood pressure 110 mm[Hg] [facility] 08-22-2023 08:05-0400 Body height 154.94 cm [facility] 08-22-2023 08:05-0400 Body mass index (BMI) [Ratio] 30.9 kg/m2 [facility] 08-22-2023 08:05-0400 Body weight 74.38 kg [facility] 08-22-2023 08:05-0400 Diastolic blood pressure 75 mm[Hg] [facility] 08-22-2023 08:05-0400 Heart rate 80 /min [facility] 08-22-2023 08:05-0400 Respiratory rate 16 /min [facility] 08-22-2023 08:05-0400 SaO2% (BldA) [Mass fraction] 99 % [facility] 08-22-2023 08:05-0400 Systolic blood pressure 109 mm[Hg] [facility] 03-28-2023 08:30-0500 Body height 154.94 cm Gabriel Callawayhung Other [facility] [employer] Other 03-28-2023 08:30-0500 Body mass index (BMI) [Ratio] 30.8 kg/m2 Gabriel Callawayhung Other [employer] [facility] [employer] Other 03-28-2023 08:30-0500 Body weight 73.94 kg Gabriel Callawayhung Other [employer] Other 03-28-2023 08:30-0500 Diastolic blood pressure 78 mm[Hg] Gabriel Boyerbart Other [employer] Other 03-28-2023 08:30-0500 Respiratory rate 18 /min Gabriel Boyerbart Other [employer] [facility] [employer] Other 03-28-2023 08:30-0500 SaO2% (BldA) [Mass fraction] 99 % Gabriel Anderson Other [employer] Other 03-28-2023 08:30-0500 Systolic blood pressure 118 mm[Hg] Gabriel Anderson Other [employer] Other 01-20-2023 11:30-0400 Body height 154.94 cm Gabriel Anderson Other [employer] Other 01-20-2023 11:30-0400 Body mass index (BMI) [Ratio] 32.87 kg/m2 Gabriel Anderson Other [employer] Other 01-20-2023 11:30-0400 Body weight 78.93 kg Gabriel Anderson Other [employer] Other 01-20-2023 11:30-0400 Diastolic blood pressure 76 mm[Hg] Gabrile Anderson Other [employer] Other 01-20-2023 11:30-0400 Respiratory rate 20 /min Gabriel Anderson Other [employer] Other 01-20-2023 11:30-0400 SaO2% (BldA) [Mass fraction] 100 % Gabriel Anderson Other [employer] Other 01-20-2023 11:30-0400 Systolic blood pressure 114 mm[Hg] Gabriel Anderson Other [employer] Other 01-10-2023 08:00-0400 Body height 154.94 cm Gabriel Anderson Other [employer] Other 01-10-2023 08:00-0400 Body mass index (BMI) [Ratio] 31.74 kg/m2 Gabriel Anderson Other [employer] Other 01-10-2023 08:00-0400 Body weight 76.2 kg Gabriel Anderson Other [employer] Other 01-10-2023 08:00-0400 Diastolic blood pressure 65 mm[Hg] Gabriel Anderson Other [employer] Other 01-10-2023 08:00-0400 Respiratory rate 16 /min Gabriel Anderson Other [employer] Other 01-10-2023 08:00-0400 SaO2% (BldA) [Mass fraction] 100 % Gabriel Anderson Other [employer] Other 01-10-2023 08:00-0400 Systolic blood pressure 110 mm[Hg] Gabriel Anderson Other [employer] Other 11-01-2022 08:30-0400 Body height 154.94 cm Gabriel Anderson Other [employer] Other 11-01-2022 08:30-0400 Body mass index (BMI) [Ratio] 31.36 kg/m2 Gabriel Anderson Other [employer] Other 11-01-2022 08:30-0400 Body weight 75.3 kg Gabriel Anderson Other [employer] Other 11-01-2022 08:30-0400 Diastolic blood pressure 75 mm[Hg] Gabriel Anderson Other [employer] Other 11-01-2022 08:30-0400 Respiratory rate 18 /min Gabriel Anderson Other [employer] Other 11-01-2022 08:30-0400 SaO2% (BldA) [Mass fraction] 100 % Gabriel Anderson Other [employer] Other 11-01-2022 08:30-0400 Systolic blood pressure 119 mm[Hg] Gabriel Anderson Other [employer] Other 09-02-2022 08:00-0400 Body height 154.94 cm Gabriel Anderson Other [employer] Other 09-02-2022 08:00-0400 Body mass index (BMI) [Ratio] 32.68 kg/m2 Gabriel Anderson Other [employer] Other 09-02-2022 08:00-0400 Body weight 78.47 kg Gabriel Anderson Other [employer] Other 09-02-2022 08:00-0400 Diastolic blood pressure 84 mm[Hg] Gabriel Anderson Other [employer] Other 09-02-2022 08:00-0400 Respiratory rate 18 /min Gabriel Anderson Other [employer] Other 09-02-2022 08:00-0400 SaO2% (BldA) [Mass fraction] 99 % Gabriel Anderson Other [employer] Other 09-02-2022 08:00-0400 Systolic blood pressure 127 mm[Hg] Gabriel Anderson Other [employer] Other 03-02-2022 16:30-0500 Body height 154.94 cm Gabriel Anderson Other [employer] Other 03-02-2022 16:30-0500 Body mass index (BMI) [Ratio] 33.44 kg/m2 Gabriel Anderson Other [employer] Other 03-02-2022 16:30-0500 Body weight 80.29 kg Gabriel Anderson Other [employer] Other 03-02-2022 16:30-0500 Diastolic blood pressure 71 mm[Hg] Gabriel Anderson Other [employer] Other 03-02-2022 16:30-0500 SaO2% (BldA) [Mass fraction] 99 % Gabriel Anderson Other [employer] Other 03-02-2022 16:30-0500 Systolic blood pressure 120 mm[Hg] Gabriel Anderson Other [employer] Other 01-28-2022 12:30-0500 Body height 154.94 cm Gabriel Anderson Other [employer] Other 01-28-2022 12:30-0500 Body mass index (BMI) [Ratio] 33.63 kg/m2 Gabriel Anderson Other [employer] Other 01-28-2022 12:30-0500 Body weight 80.74 kg Gabriel Anderson Other [employer] Other 01-28-2022 12:30-0500 Diastolic blood pressure 68 mm[Hg] Gabriel Anderson Other [employer] Other 01-28-2022 12:30-0500 Respiratory rate 16 /min Gabriel Anderson Other [employer] Other 01-28-2022 12:30-0500 SaO2% (BldA) [Mass fraction] 100 % Gabriel Anderson Other [employer] Other 01-28-2022 12:30-0500 Systolic blood pressure 116 mm[Hg] Gabriel Anderson Other [employer] Other 12-21-2021 11:00-0400 Body height 154.94 cm Michell Maxmond Other [employer] Other 12-21-2021 11:00-0400 Body mass index (BMI) [Ratio] 34.01 kg/m2 Michell Maxmond Other [employer] Other 12-21-2021 11:00-0400 Body temperature 98.6 [degF] Michell Maxmond Other [employer] Other 12-21-2021 11:00-0400 Body weight 81.65 kg Michell Maxmond Other [employer] Other 12-21-2021 11:00-0400 Respiratory rate 18 /min Michell Shannan Other [employer] Other 12-21-2021 11:00-0400 SaO2% (BldA) [Mass fraction] 98 % Michell Campbell Other [employer] Other 11-24-2021 14:30-0400 Body height 154.94 cm Gabriel Anderson Other [employer] Other 11-24-2021 14:30-0400 Body mass index (BMI) [Ratio] 34.38 kg/m2 Gabriel Anderson Other [employer] Other 11-24-2021 14:30-0400 Body weight 82.56 kg Gabriel Anderson Other [employer] Other 11-24-2021 14:30-0400 Diastolic blood pressure 78 mm[Hg] Gabriel Anderson Other [employer] Other 11-24-2021 14:30-0400 Respiratory rate 18 /min Gabriel Anderson Other [employer] Other 11-24-2021 14:30-0400 SaO2% (BldA) [Mass fraction] 99 % Gabriel Anderson Other [employer] Other 11-24-2021 14:30-0400 Systolic blood pressure 124 mm[Hg] Gabriel Anderson Other [employer] Other 10-27-2021 17:00-0400 Body height 154.94 cm Gabriel Anderson Other [employer] Other 10-27-2021 17:00-0400 Body mass index (BMI) [Ratio] 34.57 kg/m2 Gabriel Anderson Other [employer] Other 10-27-2021 17:00-0400 Body weight 83.01 kg Gabriel Anderson Other [employer] Other 10-27-2021 17:00-0400 Diastolic blood pressure 65 mm[Hg] Gabriel Anderson Other [employer] Other 10-27-2021 17:00-0400 Respiratory rate 16 /min Gabriel Anderson Other [employer] Other 10-27-2021 17:00-0400 SaO2% (BldA) [Mass fraction] 100 % Gabriel Anderson Other [employer] Other 10-27-2021 17:00-0400 Systolic blood pressure 108 mm[Hg] Gabriel Anderson Other [employer] Other 09-29-2021 16:00-0400 Body height 154.94 cm Gabriel Anderson Other [employer] Other 09-29-2021 16:00-0400 Body mass index (BMI) [Ratio] 35.71 kg/m2 Gabriel Anderson Other [employer] Other 09-29-2021 16:00-0400 Body weight 85.73 kg Gabriel Anderson Other [employer] Other 09-29-2021 16:00-0400 Diastolic blood pressure 73 mm[Hg] Gabriel Anderson Other [employer] Other 09-29-2021 16:00-0400 Respiratory rate 18 /min Gabriel Anderson Other [employer] Other 09-29-2021 16:00-0400 SaO2% (BldA) [Mass fraction] 100 % Gabriel Anderson Other [employer] Other 09-29-2021 16:00-0400 Systolic blood pressure 111 mm[Hg] Gabriel Anderson Other [employer] Other 07-19-2021 17:00-0400 Body height 154.94 cm Gabriel Anderson Other [employer] Other 07-19-2021 17:00-0400 Body mass index (BMI) [Ratio] 36.27 kg/m2 Gabriel Anderson Other [employer] Other 07-19-2021 17:00-0400 Body weight 87.09 kg Gabriel Anderson Other [employer] Other 07-19-2021 17:00-0400 Diastolic blood pressure 78 mm[Hg] Gabriel Anderson Other [employer] Other 07-19-2021 17:00-0400 Respiratory rate 16 /min Gabriel Anderson Other [employer] Other 07-19-2021 17:00-0400 SaO2% (BldA) [Mass fraction] 100 % Gabriel Anderson Other [employer] Other 07-19-2021 17:00-0400 Systolic blood pressure 122 mm[Hg] Gabriel Anderson Other [employer] Other 06-14-2021 14:45-0400 Body height 154.94 cm Gabriel Anderson Other [employer] Other 06-14-2021 14:45-0400 Body mass index (BMI) [Ratio] 36.09 kg/m2 Gabriel Anderson Other [employer] Other 06-14-2021 14:45-0400 Body temperature 98 [degF] Gabriel Anderson Other [employer] Other 06-14-2021 14:45-0400 Body weight 86.64 kg Gabriel Anderson Other [employer] Other 06-14-2021 14:45-0400 Diastolic blood pressure 79 mm[Hg] Gabriel Anderson Other [employer] Other 06-14-2021 14:45-0400 Respiratory rate 18 /min Gabriel Anderson Other [employer] Other 06-14-2021 14:45-0400 SaO2% (BldA) [Mass fraction] 100 % Gabriel Anderson Other [employer] Other 06-14-2021 14:45-0400 Systolic blood pressure 122 mm[Hg] Gabriel Anderson Other [employer] Other 05-10-2021 10:00-0500 Body height 154.94 cm Gabriel Anderson Other [employer] Other 05-10-2021 10:00-0500 Body mass index (BMI) [Ratio] 35.71 kg/m2 Gabriel Anderson Other [employer] Other 05-10-2021 10:00-0500 Body weight 85.73 kg Gabriel Anderson Other [employer] Other 05-10-2021 10:00-0500 Diastolic blood pressure 84 mm[Hg] Gabriel Anderson Other [employer] Other 05-10-2021 10:00-0500 Respiratory rate 18 /min Gabriel Anderson Other [employer] Other 05-10-2021 10:00-0500 SaO2% (BldA) [Mass fraction] 100 % Gabriel Anderson Other [employer] Other 05-10-2021 10:00-0500 Systolic blood pressure 122 mm[Hg] Gabriel Anderson Other [employer] Other 04-02-2021 09:00-0500 Body height 154.94 cm Gabriel Anderson Other [employer] Other 04-02-2021 09:00-0500 Body mass index (BMI) [Ratio] 35.71 kg/m2 Gabriel Anderson Other [employer] Other 04-02-2021 09:00-0500 Body weight 85.73 kg Gabriel Anderson Other [employer] Other 04-02-2021 09:00-0500 Diastolic blood pressure 79 mm[Hg] Gabriel Anderson Other [employer] Other 04-02-2021 09:00-0500 Respiratory rate 16 /min Gabriel Anderson Other [employer] Other 04-02-2021 09:00-0500 SaO2% (BldA) [Mass fraction] 100 % Gabriel Anderson Other [employer] Other 04-02-2021 09:00-0500 Systolic blood pressure 119 mm[Hg] Gabriel Anderson Other [employer] Other 03-02-2021 09:00-0500 Body height 154.94 cm Gabriel Anderson Other [employer] Other 03-02-2021 09:00-0500 Body mass index (BMI) [Ratio] 36.09 kg/m2 Gabriel Anderson Other [employer] Other 03-02-2021 09:00-0500 Body weight 86.64 kg Gabriel Anderson Other [employer] Other 03-02-2021 09:00-0500 Diastolic blood pressure 85 mm[Hg] Gabriel Anderson Other [employer] Other 03-02-2021 09:00-0500 Respiratory rate 18 /min Gabriel Anderson Other [employer] Other 03-02-2021 09:00-0500 SaO2% (BldA) [Mass fraction] 99 % Gabriel Anderson Other [employer] Other 03-02-2021 09:00-0500 Systolic blood pressure 120 mm[Hg] Gabriel Anderson Other [employer] Other 01-22-2021 11:00-0400 Body height 154.94 cm Gabriel Anderson Other [employer] Other 01-22-2021 11:00-0400 Body mass index (BMI) [Ratio] 36.27 kg/m2 Gabriel Anderson Other [employer] Other 01-22-2021 11:00-0400 Body temperature 98.7 [degF] Gabriel Anderson Other [employer] Other 01-22-2021 11:00-0400 Body weight 87.09 kg Gabriel Anderson Other [employer] Other 01-22-2021 11:00-0400 Diastolic blood pressure 78 mm[Hg] Gabriel Anderson Other [employer] Other 01-22-2021 11:00-0400 Respiratory rate 18 /min Gabriel Anderson Other [employer] Other 01-22-2021 11:00-0400 SaO2% (BldA) [Mass fraction] 100 % Gabriel Anderson Other [employer] Other 01-22-2021 11:00-0400 Systolic blood pressure 121 mm[Hg] Gabriel Anderson Other [employer] Other Encounters Encounter Date Encounter Type Care Provider Facility Start: 04-22-2024 End: 04-22-2024 Bamboo flowsheet Katia Davidson PA Work Phone: [facility] Start: 04-22-2024 End: 04-22-2024 Bamboo flowsheet Katia Fay PA Work Phone: [facility] Start: 04-22-2024 End: 04-22-2024 Postop follow up visit related to original px Katia Davidson PA Work Phone: [facility] Comment on above: Postop check Start: 04-22-2024 End: 04-22-2024 ambulatory KATIA DAVIDSON Not Available Start: 04-12-2024 End: 04-12-2024 Clinisync Result Encounter Vikash Trina DO Work Phone: [facility] Unsolicited Start: 04-12-2024 End: 04-12-2024 Clinisync Result Encounter Vikash Trina DO Work Phone: [facility] Unsolicited Start: 04-12-2024 End: 04-12-2024 ambulatory Vikash Trina [facility] Work Phone: Start: 04-12-2024 End: 04-12-2024 Departed Referred Vikash Trina DO Work Phone: [facility] [place] [facility] Start: 03-29-2024 End: 03-29-2024 Clinisync Result Encounter Vikash Trina DO Work Phone: [facility] Unsolicited Start: 03-29-2024 End: 03-29-2024 Clinisync Result Encounter Vikash Trina DO Work Phone: [facility] Unsolicited Start: 03-26-2024 End: 03-26-2024 ambulatory Vikash R TRINA Facility:[facility] Start: 03-26-2024 End: 03-26-2024 Patient encounter procedure Av HERNANDEZ [facility] [place] Start: 03-25-2024 End: 03-25-2024 ambulatory [facility] Work Phone: Start: 03-25-2024 End: 03-25-2024 Patient encounter procedure [facility] Work Phone: Start: 03-25-2024 End: 03-25-2024 Office outpatient visit 15 minutes Vikash Trina DO Work Phone: [facility] Comment on above: Pre-op evaluation; Pelvic pain in female; H/O: hysterectomy Start: 03-25-2024 End: 03-25-2024 Preprocedural examination done Vikash Trina DO Work Phone: [facility] Start: 03-25-2024 End: 03-25-2024 ambulatory VIKASH TRINA Not Available Start: 03-21-2024 ambulatory Vikash TRINA Facility:[facility] Start: 02-22-2024 ambulatory Vikash TRINA Facility:[facility] Start: 02-14-2024 End: 02-15-2024 External Result Encounter Vikash Trina DO Work Phone: [facility] Unsolicited Start: 02-14-2024 End: 02-15-2024 External Result Encounter Vikash Trina DO Work Phone: [facility] Unsolicited Start: 02-14-2024 End: 02-14-2024 Office outpatient visit 15 minutes Vikash Trina DO Work Phone: [facility] Comment on above: Pelvic pain in femal e; H/O: hysterectomy Start: 02-14-2024 End: 02-14-2024 ambulatory VIKASH TRINA Not Available Start: 01-01-2024 Non-patient / Non-visit [facility] Work Phone: Start: 12-29-2023 End: 12-29-2023 Emergency department patient visit GABRIEL ANDERSON Facility:[facility] Start: 12-11-2023 End: 12-11-2023 Patient encounter procedure DO Gabriel Anderson Work Phone: [facility] [place] Work Phone: Start: 12-11-2023 End: 12-11-2023 ambulatory DO Gabriel Anderson Work Phone: [facility] Work Phone: Start: 11-21-2023 End: 11-21-2023 ambulatory [facility] Work Phone: Start: 11-21-2023 End: 11-21-2023 Patient encounter procedure [facility] Work Phone: Start: 08-22-2023 End: 08-22-2023 ambulatory [facility] Work Phone: Start: 08-22-2023 End: 08-22-2023 Encounter for general adult medical examination without abnormal findings [facility] Start: 08-22-2023 End: 08-22-2023 Patient encounter procedure [facility] Work Phone: Start: 07-05-2023 End: 07-05-2023 ambulatory KATIA DAVIDSON Not Available Start: 03-28-2023 End: 03-28-2023 ambulatory Gabriel Anderson Other [employer] Other Start: 03-28-2023 Office outpatient vi sit 25 minutes Gabriel Anderson [facility] Start: 03-14-2023 End: 03-14-2023 ambulatory Gabriel Anderson Other [employer] Other Start: 03-14-2023 Telephone encounter Gabriel Ramesh i [facility] Start: 02-13-2023 End: 02-13-2023 ambulatory Gabriel Anderson Other [employer] Other Start: 02-13-2023 Telephone encounter Gabriel Ramesh i [facility] Start: 01-20-2023 (Procedure) Short Gabriel Anderson [facility] Start: 01-20-2023 End: 01-20-2023 ambulatory Gabriel Anderson Other [employer] Other Start: 01-19-2023 End: 01-19-2023 ambulatory GABRIEL ANDERSON Facility:[facility] Start: 01-10-2023 End: 01-10-2023 ambulatory Gabriel Anderson Other [employer] Other Start: 01-10-2023 Office outpatient vi sit 25 minutes Gabriel Anderson [facility] Start: 01-10-2023 Telephone encounter Gabriel Ramesh i [facility] Start: 01-03-2023 End: 01-03-2023 ambulatory Gabriel Anderson Other [employer] Other Start: 01-03-2023 Encounter by compute r link Gabriel Anderson [facility] Start: 12-19-2022 End: 12-19-2022 ambulatory Gabriel Anderson Other [employer] Other Start: 12-19-2022 Telephone encounter Gabriel Ramesh i [facility] Start: 12-12-2022 End: 12-12-2022 ambulatory Gabriel Anderson Other [employer] Other Start: 12-12-2022 Telephone encounter Gabriel Ramesh i [facility] Start: 11-04-2022 End: 11-04-2022 ambulatory Gabriel Anderson Other [employer] Other Start: 11-04-2022 Encounter by Seelio r link Gabriel Anderson [facility] Start: 11-01-2022 End: 11-01-2022 ambulatory Gabriel Anderson Other [employer] Other Start: 11-01-2022 Office outpatient vi sit 25 minutes Gabriel Anderson [facility] Start: 10-05-2022 End: 10-05-2022 ambulatory Gabriel Anderson Other [employer] Other Start: 10-05-2022 Telephone encounter Gabriel Ramesh i [facility] Start: 09-02-2022 End: 09-02-2022 ambulatory Gabriel Boyermarthajoy Other [employer] Other Start: 09-02-2022 Office outpatient vi sit 15 minutes Gabriel Callawaytayjoy [facility] Start: 06-30-2022 End: 06-30-2022 ambulatory Gabrielbillie Boyermarthajoy Other [employer] Other Start: 06-30-2022 Telephone encounter Gabriel Ramesh i [facility] Start: 06-24-2022 End: 06-25-[address] VIKASH MENA . Facility:[facility] Start: 06-21-2022 End: 06-21-[address] VIKASH MENA . Facility:[facility] Start: 05-26-2022 End: 05-26-2022 ambulatory Gabrielbillie Anderson Other [employer] Other Start: 05-26-2022 Telephone encounter Gabriel Ramesh i [facility] Start: 03-30-2022 End: 03-30-2022 ambulatory Gabriel Anderson Other [employer] Other Start: 03-30-2022 Telephone encounter Gabriel Ramesh i [facility] Start: 03-02-2022 End: 03-02-2022 ambulatory Gabriel Anderson Other [employer] Other Start: 03-02-2022 Office outpatient vi sit 15 minutes Gabriel Boyermarthajoy [facility] Start: 01-28-2022 End: 01-28-2022 ambulatory Gabriel Anderson Other [employer] Other Start: 01-28-2022 Office outpatient vi sit 25 minutes Gabriel Callawayhung [facility] Start: 12-21-2021 Office outpatient vi sit 15 minutes Michell Campbell [facility] Start: 12-21-2021 End: 12-21-2021 ambulatory DO Gabriel Anderson Work Phone: [employer] Other Start: 12-21-2021 End: 12-21-2021 Patient encounter procedure DO Gabriel Anderson Work Phone: [facility] [place] Start: 11-24-2021 End: 11-24-2021 ambulatory Gabriel Callawayhung Other [employer] Other Start: 11-24-2021 Office outpatient vi sit 25 minutes Gabriel Callawayhung [facility] Start: 11-24-2021 Telephone encounter Gabriel Ramesh i [facility] Start: 10-27-2021 End: 10-27-2021 ambulatory Gabriel Callawayhung Other [employer] Other Start: 10-27-2021 Office outpatient vi sit 15 minutes Gabriel Justin [facility] Start: 09-29-2021 End: 09-29-2021 ambulatory Gabriel Callawayhung Other [employer] Other Start: 09-29-2021 Office outpatient vi sit 15 minutes Gabriel Callawayhung [facility] Start: 09-10-2021 Encounter for preprocedural laboratory examination DR VIKASH MENA . [facility] Start: 09-10-2021 End: 09-11-[address] VIKASH MENA . Facility:[facility] Start: 09-07-2021 End: 09-08-[address] VIKASH MENA . Facility:[facility] Start: 09-07-2021 End: 09-08-2021 Encounter for preprocedural laboratory examination DR VIKASH MENA . Facility:[facility] Start: 09-03-2021 Encounter for other preprocedural examination DR VIKASH MENA . [facility] Start: 09-02-2021 End: 09-03-[address] VIKASH MENA . Facility:[facility] Start: 09-02-2021 End: 09-03-2021 Encounter for other preprocedural examination DR VIKASH MENA . Facility:[facility] Start: 07-22-2021 End: 07-22-2021 ambulatory Gabriel Anderson Other [employer] Other Start: 07-22-2021 Encounter by compute r link Gabriel Anderson [facility] Start: 07-19-2021 End: 07-19-2021 ambulatory Gabriel Anderson Other [employer] Other Start: 07-19-2021 Office outpatient vi sit 15 minutes Gabriel Anderson [facility] Start: 07-16-2021 End: 07-16-[address] VIKASH MENA . Facility:[facility] Start: 07-13-2021 End: 07-14-[address] VIKASH MENA . Facility:[facility] Start: 07-05-2021 End: 07-06-[address] VIKASH MENA . Facility:[facility] Start: 06-14-2021 End: 06-14-2021 ambulatory Gabriel Anderson Other [employer] Other Start: 06-14-2021 Office outpatient vi sit 25 minutes Gabriel Anderson [facility] Start: 05-13-2021 End: 05-13-2021 ambulatory Gabriel Anderson Other [employer] Other Start: 05-13-2021 Encounter by chiki lo Gabriel Anderson [facility] Start: 05-10-2021 End: 05-10-2021 ambulatory Gabriel Anderson Other [employer] Other Start: 05-10-2021 Office outpatient vi sit 25 minutes Gabriel Anderson [facility] Start: 04-09-2021 End: 04-09-2021 ambulatory Gabriel Anderson Other [employer] Other Start: 04-09-2021 Telephone encounter Gabriel Ramesh i [facility] Start: 04-02-2021 End: 04-02-2021 ambulatory Gabriel Anderson Other [employer] Other Start: 04-02-2021 Office outpatient vi sit 15 minutes Gabriel Anderson [facility] Start: 03-16-2021 End: 03-16-2021 ambulatory Gabriel Anderson Other [employer] Other Start: 03-16-2021 Telephone encounter Gabriel Ramesh i [facility] Start: 03-02-2021 End: 03-02-2021 ambulatory Gabriel Anderson Other [employer] Other Start: 03-02-2021 Office outpatient vi sit 15 minutes Gabriel Anderson [facility] Start: 01-22-2021 End: 01-22-2021 ambulatory Gabriel Anderson Other [employer] Other Start: 01-22-2021 Office outpatient vi sit 25 minutes Gabriel Anderson [facility] Start: 01-22-2021 Telephone encounter Gabriel Ramesh i [employer] Start: 01-11-2021 End: 01-11-2021 ambulatory Wilber Singh Jr. Other [employer] Other Start: 01-11-2021 Telephone encounter Wilber Joseph [facility] Procedures Date Procedure Procedure Detail Performing Clinician Start: 04-12-2024 ALL CBC WITH AUTO DIFF Vikash Trina DO Work Phone: Start: 03-29-2024 ALL LDH Vikash Fazi o DO Work Phone: Start: 02-14-2024 RECURRENT VAGINITIS (HTRX) Vikash Trina DO Work Phone: Start: 02-14-2024 Urnls dip stick/tabl et rgnt non-auto w/o micrscp Vikash Trina DO Work Phone: Start: 07-05-2023 Mammography Vikash Fazi o DO Work Phone: Start: 07-05-2023 Microscopic observat ion [Identifier] in Cervix by Cyto stain Vikash Trina DO Work Phone: Start: 07-05-2023 Cytp cerv/vag auto t hin layer prep mnl screen Vikash Trina DO Work Phone: Bilateral complete salpingectomy Av HERNANDEZ H/O: hysterectomy H/O: hysterectomy Vikash Trina DO Work Phone: H/O: hysterectomy H/O: hysterectomy Vikash Trina DO Work Phone: Vaginal hysterectomy Av HERNANDEZ Plan of Treatment Date Care Activity Detail Author Start: 07-04-2028 Screening for malign ant neoplasm of cervix [facility] Healthcare Start: 07-08-2024 End: 07-08-2024 Patient encounter procedure 07/08/2024 10:00 AM EDT Office Visit [facility] [address] [place] [id number] Katia Davidson PA [address] [place] [address] [facility] Start: 07-04-2024 Screening for malign ant neoplasm of breast Mammogram [facility] Start: 04-22-2024 End: 04-22-2024 Patient encounter procedure 04/22/2024 9:30 AM EST Office Visit [facility] [address] [place] [phone] Katia Davidson PA [address] [place] [address] Arrived [facility] Comment on above: Arrived Start: 03-25-2024 End: 03-25-2024 Patient encounter procedure 03/25/2024 8:50 AM EST Consult [facility] [address] [place] [phone] Vikash Mena, DO [address] [place] [address] [facility] Start: 03-25-2024 End: 03-25-2024 Professional / ancillary services management 03/25/2024 8:00 AM EST Ancillary Procedure [facility] [address] [place] [id number] [facility] Start: 02-14-2024 End: 02-13-2025 SURESWAB(R) ADVANCED VAGINITIS PLUS, TMA SURESWAB(R) ADVANCED VAGINITIS PLUS, TMA Pathology and Cytology Routine Pelvic pain in female Expected: 02/14/2024 (Approximate), Expires: 02/13/2025 [facility] Healthcare Work Phone: Comment on above: Expected: 02/14/2024 (Approximate), Expires: 02/13/2025 Start: 02-14-2024 End: 02-13-2025 US for US PELVIS-TRANSVAG IF INDICATED Imaging Routine Pelvic pain in female Expected: 02/14/2024 (Approximate), Expires: 02/13/2025 [facility] Comment on above: Expected: 02/14/2024 (Approximate), Expires: 02/13/2025 Start: 11-19-2023 Influenza vaccination Influenza Vacc ine (#1) [facility] Start: 1975 Screening for malign ant neoplasm of colon [facility] CHLAMYDIA TRACHOMATI S (GENITO/STI) CHLAMYDIA TRACHOMATIS (GENITO/STI) Lab Routine Pelvic pain in female Ordered: 02/14/2024 [facility] Comment on above: Ordered: 02/14/2024 Comprehensive metabo lic 2000 panel - Serum or Plasma [facility] Neisseria gonorrhoea e DNA [Presence] in Unspecified specimen by ALIX with probe detection Neisseria gonorrhea DNA probe, direct Lab Routine Pelvic pain in female Ordered: 02/14/2024 [facility] Comment on above: Ordered: 02/14/2024 [facility] Immunizations Immunization Date Immunization Notes Care Provider Fa cility 07-08-2020 SARS-CoV-2 (COVID-19) mRNA BNT-162b2 [employer] [facility] [place] 07-07-2020 Pfizer Purple Cap SARS-CoV-2 Vaccination Vikash Trina DO Work Phone: [facility] 06-17-2020 SARS-CoV-2 (COVID-19) mRNA BNT-162b2 [employer] [facility] [place] NEGATED: Highlighted row has not occurred!03-02-2022 influenza, seasonal, injectable Patient Objection Gabriel Anderson Other [employer] Other NEGATED: Highlighted row has not occurred!01-28-2022 influenza, seasonal, injectable Patient Objection Gabriel Anderson Other [employer] Other Payers Date Payer Category Payer [facility] [id number] 1974 Unknown [id number] 2.16.840.1.903891.3.579.2. 593 1974 Unknown [id number] 2.16.840.1.317613.3.579.2. 593 1974 Unknown [id number] 2.16.840.1.485096.3.579.2. 593 1974 Unknown [id number] 2.16.840.1.626467.3.579.2. 593 1974 Unknown [id number] 2.16.840.1.736977.3.579.2. 593 1974 Unknown [id number] 2.16.840.1.320194.3.579.2. 593 1974 Unknown [id number] 2.16.840.1.856515.3.579.2. 593 1974 Unknown [id number] 2.16.840.1.501005.3.579.2. 593 1974 Unknown [id number] 2.16.840.1.189795.3.579.2. 718 1974 Unknown [id number] 2.16.840.1.491776.3.579.2. 718 1974 Unknown [id number] 2.16.840.1.561871.3.579.2. 727 1974 Unknown [id number] 2.16.840.1.534877.3.579.2. 9 1974 Unknown [id number] 2.16.840.1.652875.3.579.2. 1258 1974 Unknown [id number] 2.16.840.1.154909.3.579.2. 1258 1974 Unknown [id number] 2.16.840.1.142325.3.579.2. 1258 1974 Unknown [id number] 2.16.840.1.749197.3.579.2. 9 1960 [facility] [id number] 2.16.840.1.060146.19 1959 Unknown [id number] 2.16.840.1.163571.19 Private Health Insurance [facility] [id number] Self-pay Self Pay [id number] Social History Date Type Detail Facility Sex Assigned At [employer] Other Start: 07-05-2023 End: 03-25-2024 Sex Assigned At [facility] Start: 1975 Sex Assigned At Female F [facility] Start: 07-27-2016 End: 10-25-2022 Tobacco smoking status AKIS Never smoked tobacco (finding) [facility] Start: 10-25-2022 Tobacco use and exposure Smokeless tobacco non-user [facility] Healthcare Start: 02-14-2024 End: 04-22-2024 Alcoholic beverage intake Ex-drinker (finding) [facility] Healthcare Start: 02-14-2024 End: 03-25-2024 Alcoholic beverage intake [facility] Healthcare Start: 10-24-2022 Alcohol Comment Caffeine intak e: 1-2 cups per day ice tea [facility] Healthcare Start: 1975 Sex assigned at Not on file [facility] Tobacco smoking status Never [facility] [place] Start: 03-25-2024 End: 04-16-2024 Sex Female (finding) [facility] Functional Status Date Assessment Result Facility 03-26-2024 [facility] [place] Clinical Notes 01-22-2021 to 04-22-2024 MARJAN Agrawal - 04/22/2024 9:30 AM EST Note Date & Type Note Facility 04-22-2024 History of Present illness Narrative Reason for Appointment: Patient ID: Moses Abraham is a 48 y.o. female who presents for Post-op Visit Patient presents today for 1 Week Post Op Follow Up appointment. MEDICATIONS Current Outpatient Medications Medication Instructions Phentermine-Topiramate [...] HYSTERECTOMY 08/2021 OTHER SURGICAL HISTORY 11/12/2016 mammogram AL REMOVAL OF FALLOPIAN TUBE Bilateral Bilateral salpingectomy REMOVE DRAINS/TUBES 06/2021 REVIEW OF SYSTEMS Review of Systems: Review of Systems OBJECTIVE Objective: OBGyn Exam Vitals: Estimated body mass index is 32.2 kg/m as calculated from the following: Height as of 01/19/23: 5' 1 . Weight as of this encounter: 170 lb 6.4 oz. BP: 114/70 No LMP recorded. Patient has had a hysterectomy. ASSESSMENT & PLAN ICD-10-CM 1. Postop check Z09 Post Op Follow Up: Patient presents today for a postop follow up after having a diagnostic lap with bilateral oophrectomy and lysis of adhesions at [facility] with Dr. Mena. Pathology results was reviewed with the patient in great detail and all restrictions have been lifted. Patient states preop pain has resolved and pt having bowel movements with out pain. Scheduled for annual in June. Will discuss menopausal symptoms then or if patient calls prior we can get her on necessary medications Follow Up: Patient is to return to the office for annual exam unless needed otherwise. Documented by MARJAN Agrawal on behalf of: MARJAN Agrawal documented in this encounter [facility] 03-26-2024 Note General Surgery Offi ce/Clinic Note [...] fiber and colace as recommended by her hr consultant; no change; no N/V; abd operations significant [...] SARS-CoV-2 (COVID-19) mRNA BNT-162b2 vax 06/17/2020 Recorded [facility] Comment on above: Result Comment: Elec tronically Signed By: MACKENZIE MORGAN, Av Hansen\Date and Time Signed: 03/26/24 15:56 EST 03-25-2024 Evaluation note Diagnosis Onset Date Resolution Other obesity due to excess calories acute March 25 11:18am RLQ abdominal pain noneactive Marua2024 11:18am Screening for colon cancer noneactive March 25 11:18am Fatigue noneactive March 25, 025 11:18am Screening for breast cancer noneactive March 25 11:18am [facility] Work Phone: 1(164) 299-874901-06-2025 History of Present illness Narrative* Emily Sanon - 03/25/2024 8:50 AM EST Reason for Appointment: Patient ID: Moses Abraham is a 48 y.o. female who presents for Pre-op Visit (Pt present today forpre operative visit. PT to be scheduled for a Dx Lap procedure.) Patient presents today for Pre Op appointment. Patient is scheduled to undergo Diagnostic Laparoscopy, possible KIMBERLEE, possible FOE, possible BSO on 04/12/[address] Mena at [facility]. MEDICATIONS Current Outpatient Medications Medication Instructions Phentermine-Topiramate [...] HYSTERECTOMY 08/2021 OTHER SURGICAL HISTORY 11/12/2016 mammogram AL REMOVAL OF FALLOPIAN TUBE Bilateral Bilateral salpingectomy [...] nursing note reviewed. Exam conducted with a accountant systems present. Vitals: Estimated body mass index is 32.12 kg/m as calculated from the following: Height as of 01/19/23: 5' 1 . Weight as of this [...] reviewed, and patient is to proceed to [facility] OR. Follow Up: Patient is to follow up between 1-2 weeks post operative to assess proper healing and recovery fromprocedure. Documented by Jenae Harrington LPN on behalf of: Vikash Mena DO documented in [facility] encounter[facility] [id number] History of Present illness Narrative* Amy Li LPN - 02/14/2024 1:50 PM EST Reason for Appointment: Patient ID: Moses Abraham [...] HYSTERECTOMY 08/2021 OTHER SURGICAL HISTORY 11/12/2016 mammogram AL REMOVAL OF FALLOPIAN TUBE Bilateral Bilateral salpingectomy [...] nursing note reviewed. Exam conducted with a accountant systems present. Vitals: Estimated body mass index is 31.55 kg/m as calculated from the following: Height as of 01/19/23: 5' 1 . Weight as of this [...] Pt advised to take colace twice a day,metamucil every third day. Pt being referred to dr hernandez- for colonoscopy. Discussed possible referral to GI if dx lap colonoscopy and colace does not help with pain and bowel habits. Documented by Amy Li LPN on behalf of: Vikash Mena DO documented in this encounterTwo [facility] Psychiatric [id number] NoteEducation Materials Dermatology Facial Laceration Keep the wound [...] cannot use soap and water, use hand animal pathology teacher. ? Change your bandage. If stitches were [...] told by your doctor. Rinse off the soapwith water. Use a clean towel to pat the wound dry. ? After cleaning, put a thin layer of antibiotic ointment on the wound as told by your doctor. Thishelps prevent infection and keeps the bandage from [...] take a bath. If the wound gets wet,pat it dry with a clean towel right [...] Pus or a bad smell. ? Take [id number] and prescription medicines only as told by [...] provider. Document Revised: 06/03/2020 Document Reviewed: 06/03/2020 [email or web address] Patient Education ? 2023 [facility] Evaluation note* Encounter Date Diagnosis Assessment Notes [...] E55.9) Labs reviewed. Controlled. Continue current care. [employer] Other 12-26-2023 Evaluation note* Encounter Date Diagnosis Assessment Notes Treatment Notes Treatment Clinical Notes Feb, Other obesity due to excess calories (ICD-10 - E66.09) [employer] Other 11-27-2023 Evaluation note* Encounter Date Diagnosis Assessment Notes Treatment Notes Treatment Clinical Notes Jan, Other obesity due to excess calories (ICD-10 - E66.09) [employer] Other 11-03-2023 Evaluation note* Encounter Date Diagnosis Assessment Notes Treatment Notes Treatment Clinical Notes Jan, Trochanteric bursitis of right hip (ICD-10 - M70.61) Patient has opted fo r steroid injection in the office today. She tolerates this well. Further recommendations pending her progress. [employer] Other 10-24-2023 Evaluation note* Encounter Date Diagnosis Assessment Notes Treatment Notes Treatment Clinical Notes Dec, Hypercholesterolemia (ICD-10 - E78.00) Dec, Impaired fasting glu cose (ICD-10 - R73.01) Dec, Vitamin D deficiency (ICD-10 - E55.9) Dec, Screening for metabo lic disorder (ICD-10 - Z13.228) Dec, Screening for cardiovascular condition (ICD-10 - Z13.6) [employer] Other 10-24-2023 Evaluation note* Encounter Date Diagnosis [...] x-rays, will consider steroid injection for bursitis. [employer] Other 10-24-2023 Evaluation note* Encounter Date Diagnosis Assessment Notes Treatment Notes Treatment Clinical Notes Dec, Other obesity due to excess calories (ICD-10 - E66.09) [employer] Other 10-02-2023 Evaluation note* Encounter Date Diagnosis Assessment Notes Treatment Notes Treatment Clinical Notes Dec, Other obesity due to excess calories (ICD-10 - E66.09) [employer] Other 09-25-2023 Evaluation note* Encounter Date Diagnosis Assessment Notes Treatment Notes Treatment Clinical Notes Nov, Other obesity due to excess calories (ICD-10 - E66.09) [employer] Other 08-15-2023 Evaluation note* Encounter Date Diagnosis [...] If no improvement, will consider steroid injection. [employer] Other 06-16-2023 Evaluation note* Encounter Date Diagnosis [...] SEs. Aug, BMI 32.0-32.9,adult (ICD-10 - Z68.32) [employer] Other 04-13-2023 Evaluation note* Encounter Date Diagnosis Assessment Notes Treatment Notes Treatment Clinical Notes Jun, Other obesity due to excess calories (ICD-10 - E66.09) [employer] Other 03-09-2023 Evaluation note* Encounter Date Diagnosis Assessment Notes Treatment Notes Treatment Clinical Notes May, Other obesity due to excess calories (ICD-10 - E66.09) [employer] Other 01-11-2023 Evaluation note* Encounter Date Diagnosis Assessment Notes Treatment Notes Treatment Clinical Notes Mar, Other obesity due to excess calories (ICD-10 - E66.09) [employer] Other 12-14-2022 Evaluation note* Encounter Date Diagnosis [...] BMI 33.0-33.9,adult (ICD-10 - Z68.33) See above. [employer] Other 11-11-2022 Evaluation note* Encounter Date Diagnosis [...] risk, so we will continue to monitor. [employer] Other 10-04-2022 Evaluation note* Encounter Date Diagnosis [...] no improvement in 2 to 3 days. [employer] Other 09-07-2022 Evaluation note* Encounter Date Diagnosis Assessment Notes Treatment Notes Treatment Clinical Notes Nov, Other obesity due to excess calories (ICD-10 - E66.09) [employer] Other 09-07-2022 Evaluation note* Encounter Date Diagnosis [...] Nov, Vitamin D deficiency (ICD-10 - E55.9) [employer] Other 08-10-2022 Evaluation note* Encounter Date Diagnosis [...] BMI 34.0-34.9,adult (ICD-10 - Z68.34) See above. [employer] Other 07-13-2022 Evaluation note* Encounter Date Diagnosis [...] weeks while she is on the Qsymia. Sep, BMI 35.0-35.9,adult (ICD-10 - Z68.35) See above. [employer] Other 06-24-2022 NoteOP Note OPERATION DATE: 09/12/2021 PROCEDURE: Laparoscopic assisted vaginal hysterectomy via vNOTES with colpopexy and cystoscopy. PREOPERATIVE DIAGNOSIS: Menorrhagia, dysmenorrhea, dyspareunia and pelvic pain. POSTOPERATIVE DIAGNOSIS: Menorrhagia, dysmenorrhea, dyspareunia and pelvic pain. ANESTHESIA: General. SURGEON: Vikash Mena D.O. NURSE LIAISON: RICHY Dougherty URINE OUTPUT: Yellow and clear. [...] Sponge, lap and instruments counts correct x2. [facility] Signed and Approved by: DR VIKASH MENA . 09/14/2021 22:14:00[facility]06-24-2022 NoteDISCHARGE SUMMARY DISCHARGE DATE: 09/11/2021 PRIMARY DIAGNOSES: [...] pain free and no longer on narcotics. [facility] Signed and Approved by: DR VIKASH MENA . 09/14/2021 02:07:00[facility]06-01-2022 History general Narrative - Reported* Type Description Date Medical History Pleurisy Surgical History hysterectomy 08/2021 [employer] Other 05-02-2022 Evaluation note* Encounter Date Diagnosis [...] of any SEs. Recheck in 4 weeks. [employer] Other 04-29-2022 NoteThe [place], [place] NAME: MOSES ABRAHAM DATE OF : MEDICAL REC#: [id number] SKILLED NURSING FACILITIES PROFESSIONAL: [address] [facility], TRANSADMIT DATE: 07/16/2021 06:02:00 METER ENGINEER DATE: 07/16/2021 23:00 DICTATING PHYSICIAN: VIKASH MENA DICTATION DATE: 07/16/2021 08:00 OPERATIVE NOTE OPERATION DATE: 07/16/2021 PROCEDURE: Bilateral laparoscopic salpingectomy PREOPERATIVE DIAGNOSIS: Desire permanent sterilization, pelvic pain, painful defecation. POSTOPERATIVE DIAGNOSIS: Desire permanent sterilization, pelvic pain, painful defecation. ANESTHESIA: General. SURGEON: Vikash Mena D.O. NURSE LIAISON: RICHY Quintero URINE OUTPUT: Yellow and clear. [...] Approved by: DR VIKASH MENA . 07/25/2021 12:32:00[facility]03-28-2022 Evaluation note* Encounter Date Diagnosis Assessment Notes [...] of any SEs. Recheck in 4 weeks. [employer] Other 02-24-2022 Evaluation note* Encounter Date Diagnosis Assessment Notes Treatment Notes Treatment Clinical Notes Apr, Other obesity due to excess calories (ICD-10 - E66.09) [employer] Other 02-21-2022 Evaluation note* Encounter Date Diagnosis [...] of any SEs. Recheck in 4 weeks. [employer] Other 01-21-2022 Evaluation note* Encounter Date Diagnosis Assessment Notes Treatment Notes Treatment Clinical Notes Mar, Other obesity due to excess calories (ICD-10 - E66.09) [employer] Other 01-14-2022 Evaluation note* Encounter Date Diagnosis [...] BMI 35.0-35.9,adult (ICD-10 - Z68.35) See above. [employer] Other 12-14-2021 Evaluation note* Encounter Date Diagnosis [...] 36.0-36.9, adult (ICD-10 - Z68.36) See above. [employer] Other 11-05-2021 Evaluation note* Encounter Date Diagnosis Assessment Notes Treatment Notes Treatment Clinical Notes Jan, Obesity (BMI 35.0-39.9 without comorbidity) (ICD-10 - E66.9) [employer] Other Evaluation + Plan note No data available for this section [facility] [place] Evaluywqtv noteNortSkillWiz Other Evaluation noteNo InformationNort Crovat Other Evaluation noteNoWhisper Other Evaluation noteNo assessment information available [facility] Work Phone: evalupokuu noteNoWhisper Other Evaluuctpx note* Diagnosis Onset Date Resolution Status Hypocalcemia acute Other obesity due to excess calories acute Vitamin D deficiency acute Encounter for wellness examination noneactive [facility] [place] Work Phone: Evaluation note* Diagnosis Onset Date Resolution Status Hypocalcemia acute Insomnia acute Other obesity due to excess calories acute Vitamin D deficiency acute Screening for colon cancer n oneactive Screening for breast cancer noneactive [facility] [place] Work Phone: Evaluation note* Diagnosis Pelvic pain in female Unspecified symptom associated with female genital organs H/O: hysterectomy Acquired absence of both cervix and uterus documented in this encounter [facility] HealthcareEvaluation note* Diagnosis Pre-op evaluation Pelvic pain in female Unspecified symptom associated with female genital organs H/O: hysterectomy Acquired absence of both cervix and uterus documented in this encounter [facility] HealthcareEvaluation note* Diagnosis Postop check Follow-up examination, following unspecified surgery documented in this encounter [facility] Narrative - [facility]ortedNoell[facility] Crovat Other History general Narrative - Reported* Type Description Date Medical History Pleurisy [place] Crovat Other [facility] general Narrative - ReportedNoellis fis[facility] cancer [facility] Crovat Other History general Narrative - ReportedNoellis fis[facility] Crovat Other Hospital Discharge instructions No data available for this section [facility] [place] Progress note No data available for this section [facility] [place] Summary Purpose Family History No Family History [...] month f/u March 25, 2024 11 :18am Chief Complaint Admit Date 3 month f/u March 25, 2024 11 :18am Unknown April 12, 2024 1 1:20am Reason for Visit Admit Date Other obesity due to excess calories Avila uary 2024 11:18am RLQ abdominal pain March 25, 2024 11 :18am Screening for colon cancer March 25, 2024 11:18am Fatigue March 25, 2024 11 :18am Screening for breast cancer March 25, 2024 11:18am Additional Source Comments REASON FOR VISIT (unrecogniz ed section and content) Reason Comments Post-op Visit Reason Comments Pre-op Visit Pt present today [...] section and content) DATE CREATED AUTHOR 11/23/2021 [facility] dical Specialist DATE CREATED AUTHOR AUTHOR'S ORGANIZ ATION 07/03/2022 [facility] DATE CREATED AUTHOR AUTHOR'S ORGANIZ ATION 12/31/2023 [facility] DATE CREATED AUTHOR AUTHOR'S ORGANIZ ATION 03/28/2024 [facility] DATE CREATED AUTHOR AUTHOR'S ORGANIZ ATION 04/17/2024 [facility] DATE CREATED AUTHOR AUTHOR'S ORGANIZ ATION 04/23/2024 [facility] dical Specialists EPIC Care Teams (unrecognized sec [...] December 11, 2023 End: December 11, 2023 Principal Consultant Relationship Specialty Start Date End Date Chris Hernandez MD [address] [place] [address] PCP - General Family Medicine 07/26/22 Principal Consultant Relationship Specialty Start Date End Date Chris Hernandez MD [address] [place] [address] PCP - General Family Medicine 07/26/22 Principal Consultant Relationship Specialty Start Date End Date Chris Hernandez MD [address] [place] [address] PCP - General Family Medicine 07/26/22 Principal Consultant Relationship Specialty Start Date End Date Chris Hernandez MD [address] [place] [address] PCP - General Family Medicine 07/26/22 Team Status: Inactive Member Role Status Dates Vikash Mena DO Attending Provider Active Start : April 12, 2024 End: April 12, 2024 Principal Consultant Relationship Specialty Start Date End Date Chris Hernandez MD [address] [place] [address] PCP - General Family Medicine 07/26/22 Principal Consultant Relationship Specialty Start Date End Date Chris Hernandez MD [address] [place] [address] PCP - General Family Medicine 07/26/22 Goals [...] BE BASED ON THE PRIMARY CLINICAL RECORDS. [facility]. provides no warranty or guarantee of the accuracy or completeness of information in this document.
== END 2024-05-07 12:47 | disposition home or self-care (01) ==
LOC: PST 12:46
PROVIDERS: Visit Provider Surgery
DX: Z01.818 Encounter for other preprocedural examination (principal); Z12.11 Encounter for screening for malignant neoplasm of colon

== ENCOUNTER 2024-05-15 06:27 | Day surgery (SDC) | payer BC, SELFPAY ==
--- NOTE | 2024-05-15 | OP_ITS ---
OPERATION DATE: 05/15/2024 PREOPERATIVE DIAGNOSIS: Chronic right lower quadrant pain, colorectal screening. POSTOPERATIVE DIAGNOSIS: Sigmoid diverticulosis, redundant colon. PROCEDURE: Colonoscopy to cecum. SURGEON: Av Mendez M.D. ANESTHESIA: Monitored anesthesia care. ESTIMATED BLOOD LOSS: Zero. INDICATIONS AND CONSENT: Patient is a 48-year-old female with a long history of chronic right lower quadrant pain with bowel movements, presents now for colorectal screening. Indications, risks, benefits, alternatives of proceeding with colonoscopy were explained extensively to the patient, including the risks of bleeding, colon perforation or anesthetic complications. All of her questions were answered. Informed consent was obtained. PROCEDURE: Patient brought to the operating room, placed in the left lateral decubitus position. Monitored anesthesia care was provided. Rectal exam was performed which showed no masses or blood. The scope was inserted into the anal canal. Under direct visualization was advanced. With the aid of abdominal compression, it was advanced to the cecum where cecal markings were clearly identified. There was noted to be a good prep. Upon withdrawal of the scope, mucosal surfaces were carefully examined. There were no mass lesions or polyps. No inflammatory changes or ulcerations. There was moderate sigmoid diverticulosis without inflammatory changes or scarring. There was redundancy of the colon with a tortuous colon. The scope was retroflexed in the anal canal. There was no significant hemorrhoidal disease. There were some prominent rectal veins. No evidence of bleeding. The scope was then withdrawn. Patient tolerated procedure well, was sent to recovery room in good condition. Follow up screening colonoscopy should be in 10 years. CC: Vikash Mena D.O. and patient?s family physician MONIQUE
--- OUTSIDE RECORDS SUMMARY | 2024-05-15 06:31 | XMS_ITS | CCD ---
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 Unavailable Michell Campbell Unavailable DO Gabriel Anderson Primary Care Provider [phone] DO Gabriel Anderson Attending Provider [phone] HERRMANN Admitting Unavailable TRINA [...] ble DO Gabriel Anderson Primary Care Provider [phone] DO Gabriel Anderson Attending Provider GABRIEL ANDERSON Attending Unavailable JUSTIN, GABRIEL A Primary Care Unavailable BRANHUNG, GABRIEL A Admitting Unavailable BRANHUNG, GABRIEL A Primary Care Unavailable Johnathan French Admitting Unavailable Johnathan French Attending Unavailable Chris Hernandze MD Primary Care Provider Vikash MENA Referring Unavailable Av HERNANDEZ Attending Unavailable CHRIS HERNANDEZ Primary Care Physician Vikash Mena DO Attending Provider [phone] Vikash Mena Admitting Unavailable Vikash Mena Attending Unavailable Gabriel Anderson Admitting Unavailable Justin, Gabriel Primary Care Unavailable Justin, Gabriel Attending Unavailable KATIA DAVIDSON Attending Unavailable KATIA DAVIDSON Attending Unavailable VIKASH MENA Attending Unavailable VIKASH MENA Attending Unavailable Allergies Allergy Classification Reported Allergen(s) Allergy Type Date of Onset Reaction(s) Facility (20 sources) dairy allergy Propensity to adverse reactions 4 cough [facility] (20 sources) Acetaminophen / oxyCODONE; Translations: [acetaminophen-ox ycodone] Drug Allergy vomiting [facility] [place] (1 source) Lactose Drug Allergy [facility] Repository (13 sources) Acetaminophen Drug Allergy 4 vomiting [facility] (13 sources) oxyCODONE Drug Allergy 4 vomiting [facility] (1 source) Acetaminophen / oxyCODONE; Translations: [Percocet] Drug Allergy [facility] Repository (9 sources) Acetaminophen / oxyCODONE Drug Allergy 3 GI intolerance [facility] (1 source) Acetaminophen / oxyCODONE; Translations: [acetaminophen-ox ycodone] Drug Allergy [facility] Repository Medications Current Medications Medication Drug Class(es) Dates Sig (Normalized) Sig (Original) naproxen 500 mg oral tablet (6 sources) Nonsteroidal Anti-inflammatory Drug Start: 11-01-2022 take 1 tablet by mouth every twelve hours at mealtime as needed Naproxen 500 MG 1 tablet with food or milk as needed Orally every 12 hrs for 30 days Oct, Active Vitamin D 22736 U (17 sources) take 1 tablet by mouth once daily Vitamin D 56527 U 1 tablet Orally daily Active {24 [...] 7:46am Start: 01-22-2021 take [address] [facility] every twenty-four hours Qsymia 15-92 MG 1 capsule Orally Once a day for 30 day(s) Jan, Active Start: 01-22-2021 take [address] [facility] every twenty-four hours Start: 01-22-2021 take [address] [facility] every twenty-four hours Start: 01-22-2021 take [address] [facility] every twenty-four hours Qsymia 11.25-69 MG 1 [...] AUTO DIFFon BASOPHILS ABSOLUTE AUTO 0 [facility] Basophils/100 WBC (Bld) 0.7 % 0.2 - 2.0 % [facility] Eosinophils/100 WBC (Bld) 1.7 % 0.9 - 7.0 % [facility] Erythrocyte distribution width (RBC) [Ratio] 13.5 % 11.0 - 15.0 % [facility] Hematocrit (Bld) [Volume fraction] 39.3 % 36.0 - 48.0 % [facility] Hemoglobin (Bld) [Mass/Vol] 13.1 g/dL 12.0 - 16.0 g/dL [facility] IMMATURE GRANULOCYTES ABS AUTO 0.01 [facility] Immature granulocytes/100 WBC (Bld) 0.2 % 0.0 - 0.5 % [facility] LYMPHOCYTES ABSOLUTE AUTO 1.8 [facility] Lymphocytes/100 WBC (Bld) 30.6 % 20.5 - 60.0 % [facility] MCH (RBC) [Entitic mass] 30.3 pg 26.7 - 34.0 pg [facility] MCHC (RBC) [Mass/Vol] 33.3 g/dL 29.9 - 35.2 g/dL [facility] MCV (RBC) [Entitic vol] 91 fL 81.0 - 99.0 fL [facility] MONOCYTES ABSOLUTE AUTO 0.4 [facility] Monocytes/100 WBC (Bld) 7 % 1.7 - 12.0 % [facility] NEUTROPHILS ABSOLUTE AUTO 3.4 [facility] Neutrophils/100 WBC (Bld) 59.8 % 43.0 - 75.0 % [facility] Platelet mean volume (Bld) [Entitic vol] 10.2 fL 9.5 - 13.5 fL [facility] TBH EO # 0.1 [facility] TB PLT 198 [facility] RBC 4.32 [facility] WBC 5.8 [facility] 04-12-2024 L - -------- Specimen: [id number] Received: 04/15/24 Status: PARKER Osorio Num: [id number] Spec Type: Surgical Subm Dr: Vikash Mena Tissues: A Ovary W/ or W/O Fallopian Tube, Non-Neoplastic (LT OVARY) B Ovary W/ or W/O Fallopian Tube, Non-Neoplastic (RT OVARY) Procedures: FILEMON/Leah, Roxanna/Moise L4/2 -------- Age/ Patient Sex Location Account Attending Physician -------- Moses Abraham 48/F [place] [id number] Vikash Mena -------- SPEC NUM: [id number] RECD: 04/15/24 STATUS: PARKER OSORIO NUM: [id number] SUKHDEEP: 04/12/[address] [facility] [address]: Vikash Mena ENTERED: 04/15/24-[address] [facility] [address]: Tracy,Lab SPEC TYPE: Surgical DEPT: ATILIO SHEA ENTERED BY: [id number] RECV BY: [id number] ORDERED: HE/4, Gross/Micro L4/2 ORDERED: HE/4, Gross/Micro [...] cysts. No papillations or excrescences are identified. Tax Investigator sections are submitted in A1?A2. (2, ss, [...] [id number] Received: 04/15/24 Status: PARKER Osorio Num: [id number] Spec Type: Surgical Subm Dr: Vikash Mena Tissues: A Ovary W/ or W/O Fallopian Tube, Non-Neoplastic (LT OVARY) B Ovary W/ or W/O Fallopian Tube, Non-Neoplastic (RT OVARY) Procedures: HE/Leah, Gross/Micro L4/2 -------- Patient: Moses Abraham [id number] (Continued) -------- Specimen: [id number] Received: 04/15/24 (Continued) Gross Description (Continued) Signed (signature on file) Abbey Alvarez MD 04/16/24 1650 -------- Specimen: [id number] Received: 04/15/24 Status: PARKER Osorio Num: [id number] Spec Type: Surgical Subm Dr: Vikash Mena Tissues: A Ovary W/ or W/O Fallopian Tube, Non-Neoplastic (LT OVARY) B Ovary W/ or W/O Fallopian Tube, Non-Neoplastic (RT OVARY) Procedures: HE/4, Gross/Micro L4/2 -------- Patient: Moses Abraham [id number] (Continued) -------- Specimen: [id number] Received: 04/15/24 (Continued) Gross Description (Continued) parenchyma is castro-pink to yellow with focal simple cysts. No papillations or excrescences are identified. Tax Investigator sections are submitted in B1?B2. (2, , BS25- B) CPT Codes 51929l0 -------- -------- Specimen: [id number] Received: 04/15/24 Status: PARKER Osorio Num: [id number] Spec Type: Surgical Subm Dr: Vikash Mena Tissues: A Ovary W/ or W/O Fallopian Tube, Non-Neoplastic (LT OVARY) B Ovary W/ or W/O Fallopian Tube, Non-Neoplastic (RT OVARY) Procedures: HE/4, Gross/Micro L4/2 -------- Patient: Moses Abraham [id number] (Continued) -------- Signed (signature on file) Abbey Alvarez MD 04/16/24 1650 Normal [facility] ALL LDHon 03-29-2024 LDH [Catalytic activity/Vol] 134 U/L 81 - 234 U/L [facility] Healthcare Ambulatory Visit Summaryon 0 [...] for choosing us for your care. Normal [facility] US PELVISon 03-25-2024 US PELVIS EXAM: [...] report is generated using voice recognition reporting (Transonic Combustione). On occasion PowerScribe erroneously drops words from [...] RECURRENT VAGINITIS (HTRX)on 02-15-2024 ATOPOBIUM VAGINAE 0 [facility] ATOPOBIUM VAGINAE Not detected [facility] BVAB 2,3 (BACTERIAL VAGINOSIS ASSOCIATED BACTERIA 2, 3); MOBILUNCUS SPP 0 [facility] BVAB 2,3 (BACTERIAL VAGINOSIS ASSOCIATED BACTERIA 2, 3); MOBILUNCUS SPP Not detected [facility] KIKO ALBICANS, PARAPSILOSIS, TROPICALIS 0 [facility] KIKO ALBICANS, PARAPSILOSIS, TROPICALIS Not detected [facility] KIKO GLABRATA 0 [facility] KIKO GLABRATA Not [facility] KRUSEI 0 [facility] KIKO KRUSEI Not [facility] CHLAMYDIA TRACHOMATIS 0 [facility] CHLAMYDIA TRACHOMATIS Not detected [facility] GARDNERELLA VAGINALIS 0 [facility] GARDNERELLA VAGINALIS Not detected [facility] MEGASPHAERA (TYPES 1, 2) 0 [facility] MEGASPHAERA (TYPES 1, 2) Not detected [facility] MYCOPLASMA GENITALIUM 0 [facility] S [facility] MYCOPLASMA GENITALIUM Not detected [facility] NEISSERIA GONORRHOEAE 0 [facility] NEISSERIA GONORRHOEAE Not detected [facility] TRICHOMONAS VAGINALIS 0 NOM S [facility] TRICHOMONAS VAGINALIS Not detected [facility] Healthcare Urinalysis macro (dipstick) panel (U)on 02-14-2024 Bilirubin, UA Negative Negative - 4(70) +++ mg/dL [facility] Blood, UA Negative Negative - 50 Hollis/mcL [facility] Clarity, UA Clear [facility] Color, UA Yellow [facility] Glucose, UA Negative Negative - 1999(110) ++++ mg/dL [facility] Interpretation and review of laboratory results Normal [facility] Ketones, UA Negative Negative - 160(16) ++++ mg/dL [facility] Leukocytes, UA Negative Negative - 500+++ Pallavi/mcL [facility] Nitrite, UA Negative Negative - Positive [facility] pH, UA 6 5 - 9 [facility] Protein, UA Negative Negative - 1999(20) ++++ mg/dL [facility] Spec Grav, UA 1.015 1 - 1.03 [facility] Urobilinogen, UA 0.2 0.2 - 12 mg/dL [facility] ED Clinical Summaryon 2023 ED Clinical Summary [facility] Emergency Department [address] [place] [address] ED Clinical Summary PERSON INFORMATION Name: MOSES ABRAHAM Age: 48 Years Sex: FEMALE : 1975 MRN: Acct#: Visit Reason: Neck pain; Facial injury; Syncope/Near syncope; SYNCOPAL EPISODE, FALL, FACIAL INJURY Arrival: 12/29/2023 05:38:37 Discharge: 12/29/2023 06:23:00 LOS: 000 00:45 Check In: 12/29/2023 05:38:37 Checkout:12/29/2023 06:23:00 Address: [address] [place] [place] [address] PCP: GABRIEL ANDERSON PROVIDER INFORMATION Provider Role Assigned Unassigned Johnathan French MD ED Provider 12/29/2023 05:39:34 Bianka Peña DIRECTOR OF CONVENTION SERVICES Nurse 12/29/2023 05:56:05 VITALS INFORMATION Vital Sign [...] Home PATIENT EDUCATION INFORMATION Instructions: Facial Laceration, [id number] Follow-Up: With: Address: When: GABRIEL ANDERSON [address] [place] [address] Within 3 to 5 days DIAGNOSIS: 1:Laceration of lower lip Patient Understands: Yes - Patient/family/caregi chris verbalizes understanding of instructions given Comment: Normal [facility] ED Patient Summaryon 024 ED Patient Summary [facility] - Emergency Department [address] [place] [address] PATIENT DISCHARGE INSTRUCTIONS Patient Information Name: MOSES ABRAHAM Age: 48 Years Date of : 1975 Reason For Visit: Neck pain; Facial injury; Syncope/Near syncope; SYNCOPAL EPISODE, FALL, FACIAL INJURY Arrival Time: 12/29/2023 05:38:37 Primary Care Physician: GABRIEL ANDERSON Attending Physician: Johnathan French MD Comment: Visit Diagnosis: Diagnoses This Visit Facial injury (1406936877) Laceration of lower lip (S01.511A) Neck pain ([id number]) Syncope/Near syncope ([id number]) The Pharmacy at [facility] is open Monday through Monday from [...] alcohol and/or drug addiction problems; contact the [facility] 10/10 Crisis Hotline -text 4hope to 741741. [...] legal documents With: Address: When: GABRIEL ANDERSON [address] [place], [place] [id number] Within 3 to 5 days Medication Information: The exam and treatment you received today in the [facility] Emergency Department were for an urgent problem and are not intended as complete care. It is important for you to follow up with a doctor, nurse practitioner, or physician?s preschool teacher's assistant for ongoing care. If your symptoms [...] so we can reach you if necessary. [facility] Emergency Department has provided you with a complete list of medications post discharge. Please inform your professional development instructor/provider of your visit and for further instruction [...] ? Bruises (more content not included)... Normal [facility] Alanine aminotransferase [En zymatic activity/volume] in Serum or PlasmaOrdered By: Gabriel Anderson on 12-11-2023 ALT [Catalytic activity/Vol] 10 U/L Normal 7-52 [facility] Comment on above: Performed By: #### C MP, TSH3 wRFLX, [id number], CBC, LIPID #### [facility] [address] [place] [address] [place] Albumin [Mass/volume] in Ser um or Plasma by Bromocresol green (BCG) dye binding methoOrdered By: Gabriel Anderson on 12-11-2023 Albumin BCG dye [Mass/Vol] 4.1 g/dL 3.5-5.7 [facility] Alkaline phosphatase [Enzyma tic activity/volume] in Serum or PlasmaOrdered By: Gabriel Anderson on 12-11-2023 ALP [Catalytic activity/Vol] 71 U/L Normal 34-104 [facility] Comment on above: Performed By: #### C MP, TSH3 wRFLX, [id number], CBC, LIPID #### [facility] [address] [place] [address] [place] Aspartate aminotransferase [ Enzymatic activity/volume] in Serum or PlasmaOrdered By: Gabriel Anderson on 12-11-2023 AST [Catalytic activity/Vol] 11 U/L Low 13-39 [facility] Comment on above: Performed By: #### C MP, TSH3 wRFLX, [id number], CBC, LIPID #### [facility] [address] [place] [address] [place] Automated basophil %Ordered By: Gabriel Anderson on 12-11-2023 Basophils/100 WBC (Bld) 0.4 % Normal . [facility] Comment on above: Performed By: #### C MP, TSH3 wRFLX, [id number], CBC, LIPID #### [facility] [address] [place] [address] [place] Automated basophil countOrde red By: Gabriel Anderson on 12-11-2023 Basophils (Bld) [#/Vol] 0.0 10*3/uL Normal 0.0-0.2 [facility] Comment on above: Result Comment: PERF ORMED BY: [place] [address] PATHOLOGIST STRIKE ON MACHINE OPERATOR SOL REILLY M.D. Performed By: #### C MP, TSH3 wRFLX, [id number], CBC, LIPID #### [address] Automated blood monocyte cou ntOrdered By: Gabriel Anderson on 12-11-2023 Monocytes (Bld) [#/Vol] 0.4 10*3/uL Normal 0.0-0.8 [facility] Comment on above: Performed By: #### C MP, TSH3 wRFLX, [id number], CBC, LIPID #### [address] Automated eosinophil %Ordere d By: Gabriel Anderson on 12-11-2023 Eosinophils/100 WBC (Bld) 1.5 % Normal . [facility] Comment on above: Performed By: #### C MP, TSH3 wRFLX, [id number], CBC, LIPID #### [address] Automated eosinophil countOr dered By: Gabriel Anderson on 12-11-2023 Eosinophils (Bld) [#/Vol] 0.1 10*3/uL Normal 0.0-0.45 [facility] Comment on above: Performed By: #### C MP, TSH3 wRFLX, [id number], CBC, LIPID #### [address] Automated monocyte %Ordered By: Gabriel Anderson on 12-11-2023 Monocytes/100 WBC (Bld) 5.8 % Normal . [facility] Comment on above: Performed By: #### C MP, TSH3 wRFLX, [id number], CBC, LIPID #### [address] [place] [address] [place] Automated neutrophil %Ordere d By: Gabriel Justin on 12-11-2023 Neutrophils/100 WBC (Bld) 67.5 % Normal . [facility] Comment on above: Performed By: #### C MP, TSH3 wRFLX, [id number], CBC, LIPID #### [facility] [address] Bilirubin.total [Mass/volume ] in Serum or PlasmaOrdered By: Gabriel Anderson on 12-11-2023 Bilirubin [Mass/Vol] 0.4 mg/dL Normal 0.3-1.0 [facility] Comment on above: Performed By: #### C MP, TSH3 wRFLX, [id number], CBC, LIPID #### [facility] [address] Calcium [Mass/volume] in Ser um or PlasmaOrdered By: Gabriel Anderson on 12-11-2023 Calcium [Mass/Vol] 8.7 mg/dL Normal 8.6-10.3 [facility] Comment on above: Performed By: #### C MP, TSH3 wRFLX, [id number], CBC, LIPID #### [facility] [address] Carbon dioxide, total [Moles /volume] in Serum or PlasmaOrdered By: Gabriel Anderson on 12-11-2023 CO2 [Moles/Vol] 25.6 mmol/L Normal 21.0-31.0 [facility] Comment on above: Performed By: #### C MP, TSH3 wRFLX, [id number], CBC, LIPID #### [facility] [address] [place] [address] [place] Chloride [Moles/volume] in S torrey or PlasmaOrdered By: Gabriel nAderson on 12-11-2023 Chloride [Moles/Vol] 108 mmol/L High 98-107 [facility] Comment on above: Performed By: #### C MP, TSH3 wRFLX, [id number], CBC, LIPID #### [facility] [address] [place] [address] [facility] Cholesterol [Mass/volume] in Serum or PlasmaOrdered By: Gabriel Anderson on 12-11-2023 Cholesterol [Mass/Vol] 189 mg/dL Normal 140-200 [facility] Comment on above: Chol less than 200 m g/dl low riskChol 201-239 mg/dl borderline riskChol 240 mg/dl and greater high risk Result Comment: Chol less than 200 mg/dl low risk Chol 201-239 mg/dl borderline risk Chol 240 mg/dl and greater high risk Performed By: #### C MP, TSH3 wRFLX, [id number], CBC, LIPID #### [facility] [address] [place] [address] [facility] Cholesterol in LDL Calc [Mas s/Vol]Ordered By: Gabriel Anderson on 12-11-2023 Cholesterol in LDL [Mass/Vol] 97 mg/dL 0-100 [facility] Comment on above: LDL ATP III CLASSIFI CATIONLDL less than 100 mg/dL OptimalLDL 100-129 mg/dL Near or above optimalLDL 130-159 mg/dL Borderline highLDL 160-189 mg/dL HighLDL greater than 189 mg/dL Very high Cholesterol in VLDL Calc [Ma ss/Vol]Ordered By: Gabriel Anderson on 12-11-2023 Cholesterol in VLDL [Mass/Vol] 22 mg/dL [facility] Complete Blood Count Auto Di ffon 12-11-2023 Mean Corpuscular HGB Conc 34.1 g/dL Normal 32.0-35.0 [facility] Comment on above: Performed By: #### C MP, TSH3 wRFLX, [id number], CBC, LIPID #### [facility] [address] [place] [address] [facility] NRBC% 0.3 /100{WBC} Normal 0-0.5 [facility] Comment on above: Performed By: #### C MP, TSH3 wRFLX, [id number], CBC, LIPID #### [facility] [address] [place] [address] [place] Comprehensive Metabolic Pane sariah 12-11-2023 Albumin [Mass/Vol] 4.1 g/dL Normal 3.5-5.7 [facility] Comment on above: Performed By: #### C MP, TSH3 wRFLX, [id number], CBC, LIPID #### [address] GFR/1.73 sq M.predicted MDRD (S/P/Bld) [Vol rate/Area] mL/min/{1.73_m2} Normal [facility] Comment on above: Performed By: #### C MP, TSH3 wRFLX, [id number], CBC, LIPID #### [address] Creatinine [Mass/volume] in Serum or PlasmaOrdered By: Gabriel Anderson on 12-11-2023 Creatinine [Mass/Vol] 0.85 mg/dL Normal 0.60-1.20 [facility] Comment on above: Performed By: #### C MP, TSH3 wRFLX, [id number], CBC, LIPID #### [address] Erythrocyte distribution wid th [Ratio] by Automated countOrdered By: Gabriel Anderson on 12-11-2023 Erythrocyte distribution width (RBC) [Ratio] 14.1 % Normal 11.9-15.3 [facility] Comment on above: Performed By: #### C MP, TSH3 wRFLX, [id number], CBC, LIPID #### [place] [address] [place] Erythrocytes [#/volume] in B lood by Automated countOrdered By: Gabriel Anderson on 12-11-2023 RBC (Bld) [#/Vol] 4.45 10*6/uL Normal 3.60-5.00 [facility] Comment on above: Performed By: #### C MP, TSH3 wRFLX, [id number], CBC, LIPID #### [place] [address] [place] Glucose [Mass/volume] in Ser um or PlasmaOrdered By: Gabriel Anderson on 12-11-2023 Glucose [Mass/Vol] 74 mg/dL Normal 70-100 [facility] Comment on above: ADA recommended refe rence rangeRandom Glucose Reference Range is dependent on time and content of last meal. Glucose of more than 200 mg/dL in a nonstressed, ambulatory subject supports the diagnosis of Diabetes Mellitus. Result Comment: [place] Glucose Reference Range is dependent on time and content of last meal. Glucose of more than 200 mg/dL in a nonstressed, ambulatory subject supports the diagnosis of Diabetes Mellitus. ADA recommended reference range Performed By: #### C MP, TSH3 wRFLX, [id number], CBC, LIPID #### [facility] [address] Hematocrit [Volume Fraction] of Blood by Automated countOrdered By: Gabriel Anderson on 12-11-2023 Hematocrit (Bld) [Volume fraction] 40.1 % Normal 34.0-46.4 [facility] Comment on above: Performed By: #### C MP, TSH3 wRFLX, [id number], CBC, LIPID #### [facility] [address] [place] [address] [place] Hemoglobin [Mass/volume] in BloodOrdered By: Gabriel Anderson on 12-11-2023 Hemoglobin (Bld) [Mass/Vol] 13.7 g/dL Normal 11.8-15.4 [facility] Comment on above: Performed By: #### C MP, TSH3 wRFLX, [id number], CBC, LIPID #### [facility] [address] [place] [address] [place] Leukocytes [#/volume] correc tarsha for nucleated erythrocytes in Blood by Automated counOrdered By: Gabriel Anderson on 12-11-2023 WBC corrected for nucl RBC Auto (Bld) [#/Vol] 7.1 10*3/uL 3.8-11.6 [facility] Leukocytes [#/volume] in Blo od by Automated countOrdered By: Gabriel Anderson on 12-11-2023 WBC (Bld) [#/Vol] 7.1 10*3/uL Normal 3.8-11.6 [facility] Comment on above: Performed By: #### C MP, TSH3 wRFLX, [id number], CBC, LIPID #### [facility] [address] Lipid Panelon 12-11-2023 LDL Cholesterol,Calculated 97 mg/dL Normal 0-100 [facility] Comment on above: Result Comment: LDL ATP III CLASSIFICATION LDL less than 100 mg/dL Optimal LDL 100-129 mg/dL Near or above optimal LDL 130-159 mg/dL Borderline high LDL 160-189 mg/dL High LDL greater than 189 mg/dL Very high Performed By: #### C MP, TSH3 wRFLX, [id number], CBC, LIPID #### [address] Triglyceride w/Reflex 112 mg/dL Normal 0-149 [facility] Comment on above: Result Comment: TRIG ATP III CLASSIFICATION TRIG less than 150 mg/dL Normal TRIG 150-199 mg/dL Borderline high TRIG 200-500 mg/dL High TRIG greater than 500 mg/dL Very high Standard traceable to the Center for Disease Conrtrol and Prevention (CDC) test method. Performed By: #### C MP, TSH3 wRFLX, [id number], CBC, LIPID #### [address] VLDL CHOLESTEROL 22 mg/dL Normal [facility] Comment on above: Performed By: #### C MP, TSH3 wRFLX, [id number], CBC, LIPID #### [address] Lymphocytes [#/volume] in Bl ood by Automated countOrdered By: Gabriel Anderson on 12-11-2023 Lymphocytes (Bld) [#/Vol] 1.8 10*3/uL Normal 1.00-4.8 [facility] Comment on above: Performed By: #### C MP, TSH3 wRFLX, [id number], CBC, LIPID #### [place] [id number] [facility] Lymphocytes/100 leukocytes i n Blood by Automated countOrdered By: Gabriel Anderson on 12-11-2023 Lymphocytes/100 WBC (Bld) 24.8 % Normal . [facility] Comment on above: Performed By: #### C MP, TSH3 wRFLX, [id number], CBC, LIPID #### [facility] [address] MCH [Entitic mass] by Automa tarsha countOrdered By: Gabriel Anderson on 12-11-2023 MCH (RBC) [Entitic mass] 30.7 pg Normal 24.7-34.3 [facility] Comment on above: Performed By: #### C MP, TSH3 wRFLX, [id number], CBC, LIPID #### [facility] [address] [place] [address] MCHC Auto (RBC) [Mass/Vol]Or dered By: Gabriel Anderson on 12-11-2023 MCHC (RBC) [Mass/Vol] 34.1 g/dL 32.0-35.0 [facility] MCV [Entitic volume] by Auto mated countOrdered By: Gabriel Anderson on 12-11-2023 MCV (RBC) [Entitic vol] 90.1 fL Normal 80-100 [facility] Comment on above: Performed By: #### C MP, TSH3 wRFLX, [id number], CBC, LIPID #### [address] Neutrophils [#/volume] in Bl ood by Automated countOrdered By: Gabriel Anderson on 12-11-2023 Neutrophils (Bld) [#/Vol] 4.8 10*3/uL Normal 1.8-7.7 [facility] Comment on above: Performed By: #### C MP, TSH3 wRFLX, [id number], CBC, LIPID #### [facility] [address] [place] [address] No Panel InformationOrdered By: Gabriel Anderson on 12-11-2023 Estimated GFR (CKD-EPI) > 60.0 mL/Min [facility] Creatinine Clearance (Chem N/A [facility] Nucleated erythrocytes [Pres ence] in Blood by Automated countOrdered By: Gabriel Anderson on 12-11-2023 Nucleated RBC Auto Ql (Bld) 0.3 /100{WBC} 0-0.5 [facility] Platelet mean volume [Entiti c volume] in Blood by Automated countOrdered By: Gabriel Anderson on 12-11-2023 Platelet mean volume (Bld) [Entitic vol] 9.1 fL Normal 6.3-10.7 [facility] Comment on above: Performed By: #### C MP, TSH3 wRFLX, [id number], CBC, LIPID #### [facility] [address] [place] [address] [place] Platelets [#/volume] in Bloo d by Automated countOrdered By: Gabriel Anderson on 12-11-2023 Platelets (Bld) [#/Vol] 194 10*3/uL Normal 150-450 [facility] Comment on above: Performed By: #### C MP, TSH3 wRFLX, [id number], CBC, LIPID #### [facility] [address] [place] [address] [place] Potassium [Moles/volume] in Serum or PlasmaOrdered By: Gabriel Anderson on 12-11-2023 Potassium [Moles/Vol] 4.1 mmol/L Normal 3.5-5.1 [facility] Comment on above: Performed By: #### C MP, TSH3 wRFLX, [id number], CBC, LIPID #### [facility] [address] [place] [address] [place] Protein [Mass/volume] in Ser um or PlasmaOrdered By: Gabriel Anderson on 12-11-2023 Protein [Mass/Vol] 6.1 g/dL Low 6.4-8.9 [facility] Comment on above: Performed By: #### C MP, TSH3 wRFLX, [id number], CBC, LIPID #### [facility] [address] [place] [address] [place] Serum globulin measurement b y calculation (mass/volume)Ordered By: Gabriel Anderson on 12-11-2023 Globulin (S) [Mass/Vol] 2.0 g/dL Normal [facility] Comment on above: Performed By: #### C MP, TSH3 wRFLX, [id number], CBC, LIPID #### [facility] [address] Serum or plasma albumin/glob ulin mass ratioOrdered By: Gabriel Anderson on 12-11-2023 Albumin/Globulin [Mass ratio] 2.1 {ratio} Normal [facility] Comment on above: Performed By: #### C MP, TSH3 wRFLX, [id number], CBC, LIPID #### [facility] [address] [place] [address] Serum or plasma anion gap de terminationOrdered By: Gabriel Anderson on 12-11-2023 Anion gap [Moles/Vol] 9.5 mmol/L Normal 6.0-15.0 [facility] Comment on above: Performed By: #### C MP, TSH3 wRFLX, [id number], CBC, LIPID #### [facility] [address] [place] [address] Serum or plasma high density lipoprotein (HDL) cholesterol measurementOrdered By: Gabriel Anderson on 12-11-2023 Cholesterol in HDL [Mass/Vol] 70 mg/dL Normal [facility] Comment on above: HDL CHOL ATP-III CLA SSIFICATION Cardiovascular RiskHDL > or equal to 60 mg/dL LOWHDL < 40 mg/dL HIGH Result Comment: HDL CHOL ATP-III CLASSIFICATION Cardiovascular Risk HDL > or equal to 60 mg/dL LOW HDL < 40 mg/dL HIGH Performed By: #### C MP, TSH3 wRFLX, [id number], CBC, LIPID #### [facility] [address] Serum or plasma total choles terol/high density lipoprotein (HDL) cholesterol mass ratOrdered By: Gabriel Anderson on 12-11-2023 Cholesterol.total/Dulce sterol in HDL [Mass ratio] 2.7 {ratio} Normal <5.0 [facility] Comment on above: Performed By: #### C MP, TSH3 wRFLX, [id number], CBC, LIPID #### [facility] [address] [place] [address] [place] Sodium [Moles/volume] in Ser um or PlasmaOrdered By: Gabriel Anderson on 12-11-2023 Sodium [Moles/Vol] 139 mmol/L Normal 136-145 [facility] Comment on above: Performed By: #### C MP, TSH3 wRFLX, [id number], CBC, LIPID #### [facility] [address] Thyroid Stim Hormone w/Rflxo n 12-11-2023 Thyroid Stim Hormone w/Rflx 3.12 u[iU]/mL Normal 0.45-5.33 [facility] Comment on above: Performed By: #### C MP, TSH3 wRFLX, [id number], CBC, LIPID #### [facility] [address] Thyrotropin [Units/volume] i n Serum or PlasmaOrdered By: Gabriel Anderson on 12-11-2023 TSH Qn 3.12 m[IU]/L 0.45-5.33 [facility] Triglyceride [Mass/volume] i n Serum or PlasmaOrdered By: Gabriel Anderson on 12-11-2023 Triglyceride [Mass/Vol] 112 mg/dL 0-149 [facility] Comment on above: TRIG ATP III CLASSIF ICATIONTRIG less than 150 mg/dL NormalTRIG 150-199 mg/dL Borderline highTRIG 200-500 mg/dL High TRIG greater than 500 mg/dL Very highStandard traceable to the Center for Disease Conrtrol and Prevention (CDC) test method. Urea nitrogen [Mass/volume] in Serum or PlasmaOrdered By: Gabriel Anderson on 12-11-2023 Urea nitrogen [Mass/Vol] 12 mg/dL Normal 7-25 [facility] Comment on above: Performed By: #### C MP, TSH3 wRFLX, [id number], CBC, LIPID #### [facility] [address] Vitamin D 25 Hydroxy Totalon 09-23-2024 Vitamin D 25 Hydroxy Total 26.7 ng/mL Low 30-100 [facility] Comment on above: Result Comment: RAGHU MIN D STATUS 25(OH)VITAMIN D RANGE (ng/mL) Deficient <20 Insufficient 20 to <30 Sufficient 30 to 100 Reference: Paulette Tsang, Doug RAO, et al. Evaluation,treatment, and prevention of vitamin D deficiency; an Endocrine Society clinical practice guideline. JCEM. 2010; 96(7):1911-30. PERFORMED BY: [facility] [address] [place] [address] PATHOLOGIST STRIKE ON MACHINE OPERATOR SOL REILLY M.D. Performed By: #### C MP, TSH3 wRFLX, [id number], CBC, LIPID #### [facility] [address] Vitamin D+Metabolites [Mass/ volume] in Serum or PlasmaOrdered By: Gabriel Anderson on 12-11-2023 Vitamin D+Metabolites [Mass/Vol] 26.7 ng/mL Low 30-100 [facility] Comment on above: VITAMIN D STATUS 25( OH)VITAMIN D RANGE (ng/mL) Deficient <20 Insufficient 20 to <30Sufficient 30 to 100Reference: Paulette Tsang, Doug RAO, et al. Evaluation,treatment, and prevention of vitamin D deficiency; an Endocrine Society clinical practice guideline. JCEM. 2010; 96(7):1911-. Cytology Cervical or vaginal smear or scraping studyon 07-05-2023 [facility] Coding Summaryon 01-24-2023 Coding Summary HTMLBase 64 WerdmhldEMy7aNd+PGhlY WQ+TA4WGCEgZ81zdCBqdW 4xT6IASKaSCdxgSBXHGLv BGePgyvQfZK4uyJQtSQYi IC8+PR9nOVKaMirddMImb 0H5aGT6P76mde9gMIuipU G5ARFxShEpjkdnw8ynkZm 6IDcuNmluOyBt OUIaaC45GCN2aC68Mb86f QOnsGPpk1jbsFg3XeVuPV UsPZX4gSmdKBgjb6WgVMW tO09icKQff9M7 GDFgoIdjrYZmGrKsdIN4u Q3iOOacgyilg6grtdnsHd h6lt08gMPzg1X0kHX9R6M fxiK8VUCcrDUr KuxtqSRUjE8snqatj1psh orfAyJgATLjRZq1LKm1OV AmrZbsNeWmJW82SHT7QHL ixgMiD7ZyLORk ySojCtV7z8I4Hq5UH4SSA qciQ2HEJXLYZHzooTE+PC 43hx14H7BzPxcxGty9THF hLJW3xAL5vW8z UNQmGGxxg4E4cBM6M4Smt hQole9qm4yuATQwHTdzP9 8xnWGbt0U8ITGxyEH6REF gbTsgEaTkbV71 Oyc+VIBezRgox8CjZwpkp 3jmg7joaSo8XuxjZRGwxv AwtDfvEKQ3v9KzMf6eHUY brPN9lNZ8bA1q MgExXxQ2JFvuV286JuUls TBvZaexO32kI8WsyDX+PH GdRzc5MWZcyHghXC9uL1Y hZGRpbmctbGVm yHwrBM4tGYSuvnytRNAro I4mSUAwY1z1JwJqHbI1FI rwW7VgYIRthfliGc71vH4 pRiFiCyR8AGqs A9JnybC4ESIkjNRlOWnbV CL2R21gw5D0JSHyNVPxPM E1xKL9kU8mqOlfakxdfKW mdDsgdmVydGlj LTnlUPlfS536XFOnsMorD kNvZGluZyBEYXRlOiAgMT EvMDcvMjAyMzwvdGQ+PHR rJNQ9nUzlZIXu sWHcGKvzIu6frVbozLyjY S7tJGNiqupaTWHbaB3aPA LxsSRgvXkcEH6jMWMmpvd yz451DeWzAHT5 SDNwcDVhQ3GxsX5tKwEaV CHcSOHnE1KapPWpKUdfY7 95DQycNqS9TPPeobCoH9N sLWFsaWduOiB0 a8H5Oc5Vr1PwhfpoU1Qid USdTuUuMojkYCk6X3NoAi wvdHI+EP85ASAjIA18RSu 4CMA4eHcmAQzi MCWeC1KhbO8kBgFvZBCzA GRkOyc+PHRhYmxlIHdpZH RoPScxMDAlJyBzdHlsZT0 lKr0wMLUmRUIy mVpmgFQvJrIbp3mnYJNcK WinQN4cmUjgN2KyaXI5CL Mzl4c8Iv46D66uD1WyyKU +UZHxhJE2wFX6 dW0rQtQzYkO1HYzyH606W fSxiXZhDlkhx4vxi3frjL h3PyT4MXIpzzRrkGguAUM 6u2BdMe29S27n IHdpZHRoPSIxNSUiIHZhb Sobfs5heJ6jLn1+PGNvbC N5sCV4vI1pSbAqRoC3SJn vO336TrLilVWs Knqdl1vrk6xghLy7UuNsS EZeawIhiAmzKUH8l2XmEe 81X8ElyKpsk7SpQcq8rx2 7tJJeg7Y0mNL7 B0SyMLZnkthcvABxsGmgY L0fSBWrdteeDFDqxE9qGZ FnW5n9VuOqGbF6JIdqW0S jxfG8JMMasXRz ERMflSLHeR4iuouoq0frl uujTgGsJLAwUNn9HGu0ZD GxzSgoIfIuNUX9FwH9YTZ 6pFRxiI7cuUkd wvbcoI5pEpf+ZKH1cQYmk QQRUH3tQwaogRS+PHRkIH E8eRnsLIuyRPXtzA5wYJX nE8p8TkGbXtK2 LEupB0YybzA6HDDdcDObA KBpwGIPlU5sntmwa7jbfl rfUdSqCEFqZJt5DMf9PTS saWduOiBsZWZ0 AjS1BAA1mKGpdO8rbYice jsykA9hDyu+QmlydGggRG E6BPu8D8TsEpl7ZEHsmOb vAY4zhVYrMQza Hg0lqJlkgPskQG7wFIQnw ovip785OeFav2neRNQdqW FiWMhgIKT5O85gv4C9KRF dGDNwIBL9lJX1 cO3tuPmpalpofQOleUnwa vUaoMxiMGmyGMxsB096FE DrrRqhAnQzSWg3L3FoBsb 7UJNtqRhkXN1m vOMpBFoaCy8muUkfzTskH O9dCOYzshfwo577MfAks0 uoZUWoeZMyOKaaLKD8M94 xr2S8MJNzJINe HVF2aZC5bY0pnPvzddifg GVmdDsgdmVydGljYWwtYW vaC299SYHyaSouTwQmdOi 3E2CoPni5QQPv dApuRN8hvNBwMIluEx6zc ZkepPqxLZ4mOLBfanuht3 16VtNtn2vdZXWaqNLyEXu jLZF1H28kv2O0 TRTpSORnDXR7bDI8cE8dj GlnbjogbGVmdDsgdmVydG grZXsxYMjbC745UWNtoOr nPlBhdGllbnQg OCdrEGg3Z8IqBpifbSQ+P U65FIKaST48fRDysXYrs6 hluOl2XcDiFAQwUTI2rTu jTEdhj5OcXGLx U88ynKAyv0O7NKNhrYrmr CYsDgPocLZ4uB4wKSwldc dxk0kzophnMegzh7swoo2 9dE46K98sQJor ZHRoPSIzMCUiIHZhbGlnb n4olQ0dTv1+OAUuaPP5wZ F6eP8fQWIlNsP8UItgR68 9InRvcCIvPjxj u0wie4nicRa8QfR8NBMbd vRvaBpfGLI4g9BwTy43P2 9sIHdpZHRoPSIyMCUiIHZ sxRkmqh7skN3h Ii8+JYZgiHP0zXC1qI5dS sLaMpO6MEhoP787KrOrkJ EfZwrjK94cV2AdtHS+PHR sHcc2KHErrAay ZF2ogPVeVAylWi0jNUW0C cAnRjFnLUplU0AcEEVxxr ejlludpQF3QYCwUZKtaK7 1Wj6jxUzvGXYg rJSIgX8zdtsez1xpmmzqI lTrYWBfOLi6TDh7VOFlxY qrXwPvGEN8HfN5QWL2qQZ bzW1avLdsefoi zE2xB1VpYEQfzyhkIr53p U7zTrCeDkU5YAvqTaz+S0 VOTkVEWSwgSkFNSUUgREF KBBOJXYI8E0Xh Ooz0TYBpwFvfFA2waRQtN JapNb0obQbrlSacDR6vEU AxpqzoGJRzkU5yGKOpeRH alUqjVM8tNGPv bungp756ZfYqAAY3SUEpv RQmC6PynT5oHeSkESOhFZ EyC4JczGZvHIuiQ933GCt aOyW3QWKpawIx T0IxDMJpxKapZoN6a4C5M w5xDi1sQu5eSGk2ZU35ZQ 17ySAna4E3fEX9R8QwPGN pbmctcmlnaHQ6 ATZfCKBjiM51mAGfQChsQ i8qh0F2u534XUNnLKUmwI 10Po0orPihCWFrtZXYbJ0 vfttfo1eahizd NjEgRCGiIUg6JVu9NOFhb FcuMuPaZSJ6FfI9MLM5sN QugW8fhDfzacxovF1rXgd +NDggWWVhcnM8 R7OqUpx9XJTrjVnrLY5lj NNkLXisVp7ifEqvdMicIV 1gZBYyrkdoRMLbdE2yNBT naXDpgLltNX1f JAAjioqoi879JtMkIVG1H IDruKFnZ5XdrM4hQpSkEB DrABBfV3OuwTGdYAaoY29 2ZTfyRlO2NXUb qiDjX6DcFMHdsEixLlL0z 0S0Qi5QGZ2QCWI0Y5LoBi a3YARliUxaRQ4wiFCzAKw rZd9beTnyhMep YS0eBJTpajkrRKOgwL8bC ELpnNOozIkkSL0gSZXndu pwq600QyCcSGL5CLJrcID zC4PvmM9qDkJn XREzURPoC7PicVOhLWnuI 157DEjtShB4WUFdcqVpE7 EhGQCxaAmtCcA9h5G0Cb3 PUDwvdGQ+PC90 gy01F5NoBgpyPop9TXGaM SI6iNW1hN3gSCEjLKijz9 T8wDI7Q6CtteGnen2en4k vEQCaJSkpX95a oESxb3Q6ISMbbZC4RANdn PrxQdMagH93Iwb+PGNvbG zyy7BuJvliy3oqx2exmWi 9IjMwJSIgdmFs wUmrVMT4u3FqZf60L78kP HdpZHRoPSIzMCUiIHZhbG mtps9zbA4hAp5+PGNvbCB 7oXG5nN5kTkBs KbQ0MVeuA730TjQceVAwO xkit8mao0yztZk6RwDaLQ KiytSrxGeaLKG1a0LhBh8 8L4KkyOvpd1Jq Hzl3qa51mMMyb8R3hDT4M 3BhZGRpbmctbGVmdDogMC 3bSJDgpmefHOChyM3qHSH jE8e5AlJoGiV1 ACaqH1IcqtJ9XLYjhYFoE ZDrbDSHsM2encfmn8ovue guUwXsJWRuCMh7UXf3HVF saWduOiBsZWZ0 NuX8MCU5kKBezP3uuZbgo aosmG0nPxf+SSo4q2zwxO OyKE7jtRM9ZX69AK27cSY is9E6hPV6X1Gi CPCqajirgwbooJY4GIYcS BIqzS02Co3kkFsjFx3gML VmCZU1EMQtgYIoA3IuiC3 yOiAjMDAwMDAw K8BurZEkPMxfG371EWnaI pJ5SHMnfqUeN1RaNZSueI gvEqM7p2L3Fn6QFX91YS3 4CB66pAEff2D1 tED6M0MsURYzcpoejgvvr FJ9KHPdTXZdeW76Ko7xuU owHk4eHWCuXQC2AEQmoJC cR0CdiE3oTxPr VEZsZVQvR6KirARdXHdrP 153YTdhZwV6EVHvfyPzY1 XtDODeeVltCuA5q7W9Xz5 OEa18HW90ZT71 vAJqq7P5dGF4A3XvWLHnu kacqfxblDS6PXHwFABxhT 52Dt1ssZlcSf6hANIhSNU 9MAGhrOMeN5Em xP9nEiAkZZCuOXGlJ9Xjz ZPpHTzvJ942DKwvKcS4KW AcbgKrI9VhBAMqtOwnIcY 8g1G3Jx6HOSey raj9E4QuPlflrTA+PC90Y PPiFG50iXQsjILea8ptyN y5RiGqECPhQLE9lIpxYCo ea0SvMPPqX47i bGF (more content not included)... Normal [facility] .Auto Diff 01-19-2023 Auto Greer % 5 % Normal 03-31 [facility] Comment on above: Performed By: #### 1 [id number], [id number], 210501226, [id number], 1300921, [id number], 0468924 #### [facility] (DEFAULT) [address] [place] [address] 21829 Baso Abs# 0.1 x10 Normal 0.0-0.2 [facility] Comment on above: Performed By: #### 1 [id number], [id number], [id number], 3130738302, 4003734, 8043395048, 1950614 #### [facility] (DEFAULT) [address] [place] [address] 55874 Basophils/100 WBC (Bld) 0.7 % Normal 0.2-2.0 [facility] Comment on above: Performed By: #### 1 2042289, [id number], 516047112, 6548364102, 4214566, 4090935944, 0563149 #### [facility] (DEFAULT) [address] [place] [address] 93953 Eos Abs# 0.1 x10 Normal 0.0-0.4 [facility] Comment on above: Performed By: #### 1 [id number], [id number], 740243268, 7729663655, 5946952, 2145339557, 1733029 #### [facility] (DEFAULT) [address] [place] [address] 66965 Eosinophils/100 WBC (Bld) 1.1 % Normal 0.9-4.0 [facility] Comment on above: Performed By: #### 1 9884640, [id number], 635618108, 6825007653, 2868822, 6062671577, 3074727 #### [facility] (DEFAULT) [address] [place] [address] 72377 Lymph Abs# 1.6 x10 Normal 1.3-2.9 [facility] Comment on above: Performed By: #### 1 5330221, [id number], 564387198, 6727761170, 6574947, 1158067256, 3310975 #### [facility] (DEFAULT) [address] [place] [address] 23535 Lymphocytes/100 WBC (Bld) 20 % Normal 14-48 [facility] Comment on above: Performed By: #### 1 6443518, [id number], 759725017, 7320165094, 1435695, 0910477418, 8082987 #### [facility] (DEFAULT) [address] [place] [address] Greer Abs# 0.4 x10 Normal 0.0-0.8 [facility] Comment on above: Performed By: #### 1 [id number], [id number], 823189707, 5832116779, 0376396, 0065129558, 6769177 #### [facility] (DEFAULT) [address] [place] [address] Neut Abs# 6.0 x10 Normal 1.5-9.2 [facility] Comment on above: Performed By: #### 1 7424200, [id number], 825205321, 6925414709, 2651189, 1559690794, 9926760 #### [facility] (DEFAULT) [address] [place] [address] Neutrophils/100 WBC (Bld) 74 % Normal 44-88 [facility] Comment on above: Performed By: #### 1 9294016, [id number], 880308686, 7177964217, 3729025, 8803873402, 8796888 #### [facility] (DEFAULT) [address] [place] [address] CBC w/ Auto Diffon 3 Erythrocyte distribution width (RBC) [Ratio] 14.1 % Normal 11.5-15.0 [facility] Comment on above: Performed By: #### 1 [id number], [id number], 923373536, 2663176008, 7272880, 6638765528, 0244361 #### [facility] (DEFAULT) [address] [place] [address] Hematocrit (Bld) [Volume fraction] 41.1 % High 33.7-40.4 [facility] Comment on above: Performed By: #### 1 9604719, [id number], 360958343, 8049638635, 8623896, 6842129540, 5187002 #### [facility] (DEFAULT) [address] [place] [address] 38785 Hemoglobin (Bld) [Mass/Vol] 13.6 g/dL Normal 11.3-15.9 [facility] Comment on above: Performed By: #### 1 1096150, [id number], 876970756, 2090079104, 0324057, 8655819083, 2211627 #### [facility] (DEFAULT) [address] [place] [address] Man Diff? Auto Invalid Interpretation Code [facility] Comment on above: Performed By: #### 1 5874979, 6200092653, 961414521, 9759679828, 8443845, 9099028921, 1833103 #### [facility] (DEFAULT) [address] [place] [address] 59981 MCH (RBC) [Entitic mass] 30 pg Normal 24-34 [facility] Comment on above: Performed By: #### 1 4252581, 3965009155, 348489915, 3112864183, 1205242, 1937384362, 0852438 #### [facility] (DEFAULT) [address] [place] [address] 51086 MCHC (RBC) [Mass/Vol] 33 g/dL Normal 26-37 [facility] Comment on above: Performed By: #### 1 9769597, 9717916314, 635515529, 2970480306, 6547283, 2940636360, 6920375 #### [facility] (DEFAULT) [address] [place] [address] 68707 MCV (RBC) [Entitic vol] 90 fL Normal 81-100 [facility] Comment on above: Performed By: #### 1 9482227, [id number], 456966762, 1146724010, 8466830, 0569015099, 0147154 #### [facility] (DEFAULT) [address] [place] [address] 99539 Platelet 210 x10 Normal 138-427 [facility] Comment on above: Performed By: #### 1 2400131, 0529837589, 877443380, 6428822835, 5596633, 9935146810, 9171368 #### [facility] (DEFAULT) [address] [place] [address] Platelet mean volume (Bld) [Entitic vol] 8.5 fL Normal 6.3-10.2 [facility] Comment on above: Performed By: #### 1 3786759, 6849029973, 920608981, 9098291762, 8402858, 0112112615, 5585063 #### [facility] (DEFAULT) [address] [place] [address] RBC 4.54 x10 Normal 3.70-5.30 [facility] Comment on above: Performed By: #### 1 0982712, 7912824838, 384191098, 7841062491, 4867388, 0412965316, 6337583 #### [facility] (DEFAULT) [address] [place] [address] WBC 8.1 x10 Normal 3.5-10.5 [facility] Comment on above: Performed By: #### 1 4734091, 1437459828, 512301670, 1734014444, 6304626, 6756722142, 5988422 #### [facility] (DEFAULT) [address] [place] [address] CMP Standardon 01-19-2023 eGFR Non AA >60 Invalid Interpretation Code [facility] Comment on above: Performed By: #### 1 [id number], [id number], 383054019, 7120104174, 7036260, 5954247470, 7680056 #### [facility] (DEFAULT) [address] [place] [address] eGFR AA >60 Invalid Interpretation Code [facility] Comment on above: Performed By: #### 1 6638146, [id number], 200772447, 3603704132, 3809165, 5731379399, 6497070 #### [facility] (DEFAULT) [address] [place] [address] Albumin [Mass/Vol] 4.1 g/dL Normal 3.5-5.0 [facility] Comment on above: Performed By: #### 1 [id number], [id number], 135097307, 4751757793, 5202285, 7403865970, 7944520 #### [facility] (DEFAULT) [address] [place] [address] Albumin/Globulin [Mass ratio] 1.5 {ratio} Normal 1.4-2.6 [facility] Comment on above: Performed By: #### 1 [id number], 7654802448, 303573147, 5038538857, 2747889, 6687517784, 5570290 #### [facility] (DEFAULT) [address] [place] [address] Alk Phos 72 IU/L Normal 32-91 [facility] Comment on above: Performed By: #### 1 6191568, 5195230020, 449793080, 7584251254, 6289973, 7699570202, 0353323 #### [facility] (DEFAULT) [address] [place] [address] ALT [Catalytic activity/Vol] 16.0 U/L Normal 14.0-54.0 [facility] Comment on above: Performed By: #### 1 [id number], 4145797101, 484747894, 2018825021, 8337045, 7491329730, 4002876 #### [facility] (DEFAULT) [address] [place] [address] Anion gap [Moles/Vol] 8.9 mmol/L Normal 5.0-19.0 [facility] Comment on above: Performed By: #### 1 7693489, 8210421450, 475951410, 7824928322, 3444332, 9267285596, 0247460 #### [facility] (DEFAULT) [address] [place] [address]31 AST [Catalytic activity/Vol] 14 U/L Low 15-41 [facility] Comment on above: Performed By: #### 1 8255604, 9606264591, 171771648, 5535284056, 5749079, 2068595599, 4827987 #### [facility] (DEFAULT) [address] [place] [address]10 Bili Total 0.4 mg/dL Normal 0.3-1.2 [facility] Comment on above: Performed By: #### 1 7559398, 9531767857, 019807232, 1664459069, 4766944, 6828897698, 7295736 #### [facility] (DEFAULT) [address] [place] [address] 86990 Calcium [Mass/Vol] 8.5 mg/dL Low 8.9-10.3 [facility] Comment on above: Performed By: #### 1 [id number], 2432874658, 825283626, 7062307634, 7646378, 5145094835, 5461641 #### [facility] (DEFAULT) [address] [place] [address] 17149 Chloride [Moles/Vol] 108 mmol/L Normal 101-111 [facility] Comment on above: Performed By: #### 1 2683247, 1908231645, 254697613, 4700241070, 6142449, 4141361753, 2103153 #### [facility] (DEFAULT) [address] [place] [address] 64023 CO2 [Moles/Vol] 24 mmol/L Normal 21-32 [facility] Comment on above: Performed By: #### 1 8954931, 3452118532, 131599089, 4617219088, 2808514, 5080898939, 2102966 #### [facility] (DEFAULT) [address] [place] [address]809 Creatinine [Mass/Vol] 0.81 mg/dL Normal 0.60-1.30 [facility] Comment on above: Performed By: #### 1 0756617, 0758423549, 254168537, 6199329404, 9272366, 7542264134, 3997358 #### [facility] (DEFAULT) [address] [place] [address] 21117 Globulin (S) [Mass/Vol] 2.6 g/dL Normal 1.5-4.3 [facility] Comment on above: Performed By: #### 1 6135864, 9336058520, 623049273, 7059887352, 8109222, 9916109064, 9713076 #### [facility] (DEFAULT) [address] [place] [address]08 Glucose [Mass/Vol] 82.0 mg/dL Normal 74.0-118.0 [facility] Comment on above: Performed By: #### 1 8875155, 1675024153, 396859452, 7158249940, 1631512, 1232517422, 0734778 #### [facility] (DEFAULT) [address] [place] [address] 23455 Osmolality 274 mOsm/L Invalid Interpretation Code [facility] Comment on above: Performed By: #### 1 2213236, 0357624834, 162047629, 0510817547, 2152892, 0233236041, 6989783 #### [facility] (DEFAULT) [address] [place] [address] 01645 Potassium [Moles/Vol] 3.9 mmol/L Normal 3.6-5.1 [facility] Comment on above: Performed By: #### 1 7786787, 1787872398, 856939628, 8448943686, 8324824, 5763314300, 3481286 #### [facility] (DEFAULT) [address] [place] [address] 52529 Protein [Mass/Vol] 6.7 g/dL Normal 6.5-8.1 [facility] Comment on above: Performed By: #### 1 4654579, 1548525590, 829259437, 8065774554, 2292118, 7373990764, 4590423 #### [facility] (DEFAULT) [address] [place] [address]2660 Sodium [Moles/Vol] 137.0 mmol/L Normal 136.0-144.0 [facility] Comment on above: Performed By: #### 1 5037192, 4471189062, 623418558, 2420265780, 6407158, 3473819994, 6785669 #### [facility] (DEFAULT) [address] [place] [address] Urea nitrogen [Mass/Vol] 15 mg/dL Normal 8-26 [facility] Comment on above: Performed By: #### 1 2347736, 8502984591, 152647176, 6808113406, 7980817, 7934419837, 2942950 #### [facility] [facility] (DEFAULT) [address] [place] [address] Urea nitrogen/Creatinine [Mass ratio] 18.5 mg/mg High 4.6-16.2 [facility] Comment on above: Performed By: #### 1 [id number], [id number], [id number], [id number], [id number], [id number], [id number] #### [facility] (DEFAULT) [address] [place] [address] HgbA1c Standardon 01-19-2023 .Hb 14.3 Invalid Interpretation Code [facility] Comment on above: Performed By: #### 1 [id number], [id number], [id number], [id number], [id number], [id number], [id number] #### [facility] (DEFAULT) [address] [place] [address] .Hgb A1c 0.46 g/dL Invalid Interpretation Code [facility] Comment on above: Performed By: #### 1 [id number], [id number], [id number], [id number], [id number], [id number], [id number] #### [facility] (DEFAULT) [address] [place] [address] Glucose [Mass/Vol] 97 mg/dL Invalid Interpretation Code [facility] Comment on above: Performed By: #### 1 [id number], [id number], [id number], [id number], [id number], [id number], [id number] #### [facility] (DEFAULT) [address] [place] [address] HbA1c (Bld) [Mass fraction] 5.0 % Normal 4.6-6.2 [facility] Comment on above: Performed By: #### 1 [id number], [id number], [id number], [id number], 5727402, [id number], [id number] #### [facility] (DEFAULT) [address] [place] [address] Lipid Panel Standardon 01-19 Cholesterol [Mass/Vol] 200.0 mg/dL Normal 66.0-200.0 [facility] Comment on above: Performed By: #### 1 [id number], [id number], [id number], [id number], 0235484, [id number], [id number] #### [facility] (DEFAULT) [address] [place] [address] Cholesterol in HDL [Mass/Vol] 74 mg/dL High 40-71 [facility] Comment on above: Performed By: #### 1 [id number], [id number], [id number], [id number], 1835179, [id number], [id number] #### [facility] (DEFAULT) [address] [place] [address] Cholesterol in LDL [Mass/Vol] 106 mg/dL High 1-100 [facility] Comment on above: Performed By: #### 1 [id number], [id number], [id number], [id number], 5408437, [id number], 5408357 #### [facility] (DEFAULT) [address] [place] [address] Cholesterol.total/Dulce sterol in HDL [Mass ratio] 2.7 {ratio} Normal 0.0-4.5 [facility] Comment on above: Performed By: #### 1 [id number], [id number], [id number], [id number], 9009982, [id number], 7266715 #### [facility] (DEFAULT) [address] [place] [address] Triglyceride [Mass/Vol] 99.0 mg/dL Normal 0.0-150.0 [facility] Comment on above: Performed By: #### 1 [id number], [id number], [id number], [id number], 3746783, [id number], 0716132 #### [facility] (DEFAULT) [address] [place] [address]60 VLDL. 20 mg/dL Normal 5-40 [facility] Comment on above: Performed By: #### 1 [id number], [id number], [id number], [id number], 9266609, [id number], 7622402 #### [facility] (DEFAULT) [address] [place] [address] Provider Orderson 01-19-2023 Provider Orders [id number] .[id number] Normal [facility] TSH w/ Reflex to FT4on 01-19 TSH Qn 2.55 m[IU]/L Normal 0.45-5.33 [facility] Comment on above: Performed By: #### 1 [id number], [id number], [id number], [id number], 7456034, [id number], 0631032 #### [facility] (DEFAULT) [address] [place] [address]20 Vit D25 OHon 01-19-2023 Vitamin D 25 OH 36 ng/mL Invalid Interpretation Code [facility] Comment on above: Performed By: #### 1 [id number], [id number], [id number], [id number], 1762535, [id number], 8243467 #### [facility] (DEFAULT) [address] [place] [address] PAP ACOG PANEL 2: 30 to 65on 06-28-2022 . . Normal [facility] Comment on above: Result Comment: Perf ormed at: WB Performed By: #### 4 [id number] #### [facility] [address] [place] [address] Dr. Jewels Zhou Age Gdln ACOG Testing 30-65 Normal [facility] Comment on above: Performed By: #### 4 [id number] #### [facility] [address] [place] [address] Dr. Jewels Zhuo DIAGNOSIS: Comment [facility] Comment on above: Result Comment: NEGA TIVE FOR INTRAEPITHELIAL LESION OR MALIGNANCY. CELLULAR CHANGES ASSOCIATED WITH INFLAMMATION ARE PRESENT. Performed at: WB Performed By: #### 4 [id number] #### [facility] [address] [place] [address] Dr. Jewels Zhou HPV Aptima Negative Normal Negative [facility] Comment on above: Result Comment: This nucleic acid amplification test detects fourteen high-risk HPV types (16,18,31,33,35,39,45,51,52,56,58,59,66,68) without differentiation. Performed at: =G Performed By: #### 4 [id number] #### [facility] [address] [place] [address] Dr. Jewels Zhou HPV Genotype Reflex Comment Normal [facility] Comment on above: Result Comment: Crit eria not met, HPV Genotype not performed. Performed at: WB Performed By: #### 4 [id number] #### [facility] [address] [place] [address] Dr. Jewels Zhou Methodology: Comment Normal [facility] Comment on above: Result Comment: This liquid based ThinPrep(R) pap test was screened with the use of an image guided system. Performed at: WB Performed By: #### 4 [id number] #### [facility] [address] [place] [address] Dr. Jewels Zhou Note: Comment Normal [facility] Comment on above: Result Comment: The Pap smear is a screening test designed to aid in the detection of premalignant and malignant conditions of the uterine cervix. It is not a diagnostic procedure and should not be used as the sole means of detecting cervical cancer. Both false-positive and false-negative reports do occur. . Performed at: WB Performed By: #### 4 [id number] #### [facility] [address] [place] [address] Dr. Jewels Zhou Performed by: Comment Normal [facility] Comment on above: Result Comment: Joshua Guerrero, Gynaecological Oncologist (ASCP) Performed at: WB Performed By: #### 4 [id number] #### [facility] [address] [place] [address] Dr. Jewels Zhou Specimen adequacy: Comment Normal [facility] Comment on above: Result Comment: Sati sfactory for evaluation. Endocervical and/or squamous metaplastic cells (endocervical component) are present. Performed at: WB Performed By: #### 4 [id number] #### [facility] [address] [address] [address] Jewels Zhou [facility] 3D [facility] CA Don 06-24-2022 [facility] 3D [facility] CAD Patient: MOSES ABRAHAM Exam Date: 06/24/2022 : 1975 Gender:F Ordering : DR VIKASH MENA . Admission #: [id number] Family : Order #: [id number] CLICK HERE TO VIEW EXAM RADIOLOGY REPORT [...] prostate cancer at age 54. LOCATION: [facility] BREAST COMPOSITION: Almost entirely fatty. FINDINGS: DIAGNOSTIC [...] M.D. on 06/24/2022 at 14:52 Normal [facility] US BREAST LEFT LIMITEDon US BREAST LEFT LIMITED Patient: MOSES ABRAHAM Exam Date: 06/24/2022 : 1975 Gender:F Ordering : DR VIKASH MENA . Admission #: [id number] Family : Order #: [id number] CLICK HERE TO VIEW EXAM RADIOLOGY REPORT [...] prostate cancer at age 54. LOCATION: [facility] BREAST COMPOSITION: Almost entirely fatty. FINDINGS: DIAGNOSTIC [...] M.D. on 06/24/2022 at 14:52 Normal [facility] Basophils Auto (Bld) [#/Vol] Ordered By: Gabriel Anderson on 12-21-2021 Basophils (Bld) [#/Vol] 0.0 10*3/uL 0.0-0.2 [facility] Basophils/100 WBC Auto (Bld) Ordered By: Gabriel Anderson on 12-21-2021 Basophils/100 WBC (Bld) 0.6 % . F [facility] Blood hemoglobin measurement (mass/volume)Ordered By: Gabriel Anderson on 12-21-2021 Hemoglobin (Bld) [Mass/Vol] 13.8 g/dL 11.8-15.4 [facility] Blood leukocytes automated c ount (number/volume)Ordered By: Gabriel Anderson on 12-21-2021 WBC (Bld) [#/Vol] 5.0 10*3/uL 4.5-11.0 [facility] Body fluid albumin measureme nt (mass/volume)Ordered By: Garbiel Anderson on 12-21-2021 Albumin (Body fld) [Mass/Vol] 4.0 g/dL 3.2-5.5 [facility] COVID Quick Testingon 2021 Result Positive [employer] Other Cholesterol [Mass/volume] in Serum or PlasmaOrdered By: Gabriel Anderson on 12-21-2021 Cholesterol [Mass/Vol] 197 mg/dL 140-200 [facility] Comment on above: Chol less than 200 m g/dl low riskChol 201-239 mg/dl borderline riskChol 240 mg/dl and greater high risk Cholesterol in LDL Calc [Mas s/Vol]Ordered By: Gabriel Anderson on 12-21-2021 Cholesterol in LDL [Mass/Vol] 111 mg/dL 0-100 [facility] Comment on above: LDL ATP III CLASSIFI CATIONLDL less than 100 mg/dL OptimalLDL 100-129 mg/dL Near or above optimalLDL 130-159 mg/dL Borderline highLDL 160-189 mg/dL HighLDL greater than 189 mg/dL Very high Cholesterol in VLDL Calc [Ma ss/Vol]Ordered By: Gabriel Anderson on 12-21-2021 Cholesterol in VLDL [Mass/Vol] 17 mg/dL [facility] Creatinine and Glomerular fi ltration rate.predicted panel (S/P/Bld)Ordered By: Gabriel Anderson on 12-21-2021 Creatinine [Mass/Vol] 0.98 mg/dL 0.44-1.03 [facility] Eosinophils Auto (Bld) [#/Vo l]Ordered By: Gabriel Anderson on 12-21-2021 Eosinophils (Bld) [#/Vol] 0.0 10*3/uL 0.0-0.45 [facility] Eosinophils/100 WBC Auto (Bl d)Ordered By: Gabriel Anderson on 12-21-2021 Eosinophils/100 WBC (Bld) 0.1 % . [facility] Erythrocyte distribution wid th Auto (RBC) [Ratio]Ordered By: Gabriel Anderson on 12-21-2021 Erythrocyte distribution width (RBC) [Ratio] 13.9 % 11.9-15.3 [facility] Estimated glomerular filtrat ion rate (GFR) non- AmericanOrdered By: Gabriel Anderson on 12-21-2021 GFR/1.73 sq M.predicted among non-blacks MDRD (S/P/Bld) [Vol rate/Area] > 60 mL/Min [facility] Globulin Calc (S) [Mass/Vol] Ordered By: Gabriel Anderson on 12-21-2021 Globulin (S) [Mass/Vol] 2.3 g/dL F [facility] Hematocrit Auto (Bld) [Volum e fraction]Ordered By: Gabriel Anderson on 12-21-2021 Hematocrit (Bld) [Volume fraction] 41.2 % 34.0-46.4 [facility] Laboratory - Hematology and Cell countsOrdered By: Gabriel Anderson on 12-21-2021 Nucleated RBC/100 WBC (Bld) [Ratio] 0.1 % 0-0.5 [facility] Lymphocytes Auto (Bld) [#/Vo l]Ordered By: Gabriel Anderson on 12-21-2021 Lymphocytes (Bld) [#/Vol] 0.6 10*3/uL 1.00-4.8 [facility] Lymphocytes/100 WBC Auto (Bl d)Ordered By: Gabriel Anderson on 12-21-2021 Lymphocytes/100 WBC (Bld) 11.7 % . [facility] MCH Auto (RBC) [Entitic mass ]Ordered By: Gabriel Anderson on 12-21-2021 MCH (RBC) [Entitic mass] 29.5 pg 24.7-34.3 [facility] MCHC Auto (RBC) [Mass/Vol]Or dered By: Gabriel Anderson on 12-21-2021 MCHC (RBC) [Mass/Vol] 33.5 g/dL 32.0-35.0 [facility] MCV Auto (RBC) [Entitic vol] Ordered By: Gabriel Anderson on 12-21-2021 MCV (RBC) [Entitic vol] 88.1 fL 80-100 [facility] Monocytes Auto (Bld) [#/Vol] Ordered By: Gabriel Anderson on 12-21-2021 Monocytes (Bld) [#/Vol] 0.7 10*3/uL 0.0-0.8 [facility] Monocytes/100 WBC Auto (Bld) Ordered By: Gabriel Anderson on 12-21-2021 Monocytes/100 WBC (Bld) 13.7 % . [facility] Neutrophils Auto (Bld) [#/Vo l]Ordered By: Gabriel Anderson on 12-21-2021 Neutrophils (Bld) [#/Vol] 3.7 10*3/uL 1.8-7.7 [facility] Neutrophils/100 WBC Auto (Bl d)Ordered By: Gabriel Anderson on 12-21-2021 Neutrophils/100 WBC (Bld) 73.9 % . [facility] No Panel InformationOrdered By: Gabriel Anderson on 12-21-2021 25-Hydroxy Vitamin D Total 46.0 ng/mL 30-100 [facility] Comment on above: VITAMIN D STATUS 25( OH)VITAMIN D RANGE (ng/mL) Deficient <20 Insufficient 20 to <30Sufficient 30 to 100Reference: Shabana MF,Paulette NC, Doug RAO, et al. Evaluation,treatment, and prevention of vitamin D deficiency; an Endocrine Society clinical practice guideline. JCEM. 2010; 96(7):1911-30. Estimated GFR () > 60 mL/Min [facility] Comment on above: GFR estimated refere nce range: According to KDOQI guidelines, <60 ml/min/1.73m2 is sufficient to diagnose a patient with chronic kidney disease. Pharmacy Creatinine Clearance (Chem N/A [facility] Platelet mean volume Auto (B ld) [Entitic vol]Ordered By: Gabriel Anderson on 12-21-2021 Platelet mean volume (Bld) [Entitic vol] 9.4 fL 6.3-10.7 [facility] Platelets Auto (Bld) [#/Vol] Ordered By: Gabriel Anderson on 12-21-2021 Platelets (Bld) [#/Vol] 167 10*3/uL 150-450 [facility] Protein [Mass/volume] in Ser um or PlasmaOrdered By: Gabriel Anderson on 12-21-2021 Protein [Mass/Vol] 6.3 g/dL 6.1-7.9 [facility] RBC Auto (Bld) [#/Vol]Ordere d By: Gabriel Anderson on 12-21-2021 RBC (Bld) [#/Vol] 4.68 10*6/uL 3.60-5.00 [facility] Serum or plasma alanine diana otransferase measurement without P-5'-P (enzymatic activiOrdered By: Gabriel Anderson on 12-21-2021 ALT No additional P-5'-P [Catalytic activity/Vol] 14 U/L [facility] Serum or plasma albumin/glob ulin mass ratioOrdered By: Gabriel Anderson on 12-21-2021 Albumin/Globulin [Mass ratio] 1.7 {ratio} [facility] Serum or plasma alkaline rolanda sphatase measurement (enzymatic activity/volume)Ordered By: Gabriel Anderson on 12-21-2021 ALP [Catalytic activity/Vol] 80 U/L 32-92 [facility] Serum or plasma anion gap de terminationOrdered By: Gabriel Anderson on 12-21-2021 Anion gap [Moles/Vol] 14.3 mmol/L 6.0-15.0 [facility] Serum or plasma aspartate am inotransferase measurement (enzymatic activity/volume)Ordered By: Gabriel Anderson on 12-21-2021 AST [Catalytic activity/Vol] 15 U/L 1042 [facility] Serum or plasma calcium sharron urement (mass/volume)Ordered By: Gabriel Anderson on 12-21-2021 Calcium [Mass/Vol] 8.9 mg/dL 8.2-10.2 [facility] Serum or plasma chloride kim surement (moles/volume)Ordered By: Gabriel Anderson on 12-21-2021 Chloride [Moles/Vol] 105 mmol/L 95-114 [facility] Serum or plasma glucose sharron urement (mass/volume)Ordered By: Gabriel Anderson on 12-21-2021 Glucose [Mass/Vol] 96 mg/dL 70-100 [facility] Comment on above: ADA recommended refe rence rangeRandom Glucose Reference Range is dependent on time and content of last meal. Glucose of more than 200 mg/dL in a nonstressed, ambulatory subject supports the diagnosis of Diabetes Mellitus. Serum or plasma high density lipoprotein (HDL) cholesterol measurementOrdered By: Gabriel Anderson on 12-21-2021 Cholesterol in HDL [Mass/Vol] 68 mg/dL 35-85 [facility] Comment on above: HDL CHOL ATP-III CLA SSIFICATION Cardiovascular RiskHDL > or equal to 60 mg/dL LOWHDL < 40 mg/dL HIGH Serum or plasma potassium me asurement (moles/volume)Ordered By: Gabriel Anderson on 12-21-2021 Potassium [Moles/Vol] 3.8 mmol/L 3.5-5.1 [facility] Serum or plasma sodium measu rement (moles/volume)Ordered By: Gabriel Anderson on 12-21-2021 Sodium [Moles/Vol] 136 mmol/L 136-146 [facility] Serum or plasma total biliru bin measurement (mass/volume)Ordered By: Garbiel Anderson on 12-21-2021 Bilirubin [Mass/Vol] 0.5 mg/dL 0.3-1.2 [facility] Serum or plasma total carbon dioxide measurement (moles/volume)Ordered By: Gabriel Anderson on 12-21-2021 CO2 [Moles/Vol] 20.5 mmol/L 22.0-30.0 [facility] Serum or plasma total choles terol/high density lipoprotein (HDL) cholesterol mass ratOrdered By: Gabriel Anderson on 12-21-2021 Cholesterol.total/Dulce sterol in HDL [Mass ratio] 2.9 {ratio} <5.0 [facility] Serum or plasma urea nitroge n measurement (mass/volume)Ordered By: Gabriel Justin on 12-21-2021 Urea nitrogen [Mass/Vol] 7 mg/dL 9-23 [facility] TSH DL <= 0.005 mIU/L QnOrde red By: Gabriel Anderson on 12-21-2021 TSH Qn 1.37 m[IU]/L 0.45-5.33 [facility] Triglyceride [Mass/volume] i n Serum or PlasmaOrdered By: Gabriel Anderson on 12-21-2021 Triglyceride [Mass/Vol] 88 mg/dL 35-149 [facility] Comment on above: TRIG ATP III [...] by Tri Guerrero on 11/23/2021 1103 Normal [facility] [employer] [employer] Operator BUNon 09-11-2021 Urea nitrogen [Mass/Vol] 7.0 mg/dL Normal 7.0-18.0 [facility] Comment on above: Performed By: #### B UN, CREA #### [facility] [address] [place] [address] Dr. Jewels Zhou CBC AUTO DIFFon 09-11-2021 BASO # 0.0 103/ul Normal 0.0-0.1 [facility] Comment on above: Performed By: #### C BC #### [facility] [address] [place] [address] Dr. Jewels Zhou Basophils/100 WBC (Bld) 0.2 % Normal 0.2-2.0 [facility] Comment on above: Performed By: #### C BC #### [facility] [address] [place] [address] Dr. Jewels Zhou EO # 0.0 103/ul Normal 0.0-0.7 [facility] Comment on above: Performed By: #### C BC #### [facility] [address] [place] [address] Dr. Jewels Zhou Eosinophils/100 WBC (Bld) 0.4 % Critically low 0.9-7.0 [facility] Comment on above: Performed By: #### C BC #### [facility] [address] [place] [address] Dr. Jewels Zhou Erythrocyte distribution width (RBC) [Ratio] 13.8 % Normal 11.0-15.0 [facility] Comment on above: Performed By: #### C BC #### [facility] [address] [place] [address] Dr. Jewels Zhou Hematocrit (Bld) [Volume fraction] 35.0 % Critically low 36.0-48.0 [facility] Comment on above: Performed By: #### C BC #### [facility] [address] [place] [address] Dr. Jewels Zhou Hemoglobin (Bld) [Mass/Vol] 11.7 g/dL Critically low 12.0-16.0 [facility] Comment on above: Performed By: #### C BC #### [facility] [address] [place] [address] Dr. Jewels Zhou IG # 0.03 10e3/ul Normal 0.00-0.03 [facility] Comment on above: Performed By: #### C BC #### [facility] [address] [place] [address] Dr. Jewels Zhou IG % 0.3 % Normal 0.0-0.5 [facility] Comment on above: Performed By: #### C BC #### [facility] [address] [place] [address] Dr. Jewels Zhou LYMPH # 2.0 103/ul Normal 1.2-3.8 [facility] Comment on above: Performed By: #### C BC #### [facility] [address] [place] [address] Dr. Jewels Zhou Lymphocytes/100 WBC (Bld) 17.4 % Critically low 20.5-60.0 [facility] Comment on above: Performed By: #### C BC #### [facility] [address] [place] [address] Dr. Jewels Zhou MANUAL DIFF REQ NO Normal [facility] Comment on above: Performed By: #### C BC #### [facility] [address] [place] [address] Dr. Jewels Zhou MCH (RBC) [Entitic mass] 30.1 pg Normal 26.7-34.0 [facility] Comment on above: Performed By: #### C BC #### [facility] [address] [place] [address] Dr. Jewels Zhou MCHC (RBC) [Mass/Vol] 33.4 g/dL Normal 29.9-35.2 [facility] Comment on above: Performed By: #### C BC #### [facility] [address] [address] [address] Jewels Zhou MCV (RBC) [Entitic vol] 90.0 fL Normal 81.0-99.0 [facility] Comment on above: Performed By: #### C BC #### [facility] [address] [address] [address] Jewels Zhou MONO # 0.9 103/ul Critically high 0.3-0.8 [facility] Comment on above: Performed By: #### C BC #### [facility] [address] [place] [address] Dr. Jewels Zhou Monocytes/100 WBC (Bld) 7.7 % Normal 1.7-12.0 [facility] Comment on above: Performed By: #### C BC #### [facility] [address] [place] [address] Dr. Jewels Zhou NEUT # 8.3 103/ul Critically high 1.4-6.5 [facility] Comment on above: Performed By: #### C BC #### [facility] [address] [place] [address] Dr. Jewels Zhou Neutrophils/100 WBC (Bld) 74.0 % Normal 43.0-75.0 [facility] Comment on above: Performed By: #### C BC #### [facility] [address] [place] [address] Dr. Jewels Zhou Platelet mean volume (Bld) [Entitic vol] 10.8 fL Normal 9.5-13.5 [facility] Comment on above: Performed By: #### C BC #### [facility] [address] [place] [address] Dr. Jewels Zhou PLT 218 103/ul Normal 150-450 [facility] Comment on above: Performed By: #### C BC #### [facility] [address] [place] [address] Dr. Jewels Zhou RBC 3.89 106/ul Critically low 4.20-5.40 [facility] Comment on above: Performed By: #### C BC #### [facility] [address] [address] [address] Jewels Zhou WBC 11.2 103/ul Critically high 4.0-11.0 [facility] Comment on above: Performed By: #### C BC #### [facility] [address] [address] [address] Jewels Zhou CREATININEon 09-11-2021 Creatinine [Mass/Vol] 0.82 mg/dL Normal 0.55-1.02 [facility] Comment on above: Performed By: #### B UN, CREA #### [facility] [address] [address] [address] Jewels Zhou EGFR-AF SERBIAN >60 Normal >=60 [facility] Comment on above: Performed By: #### B UN, CREA #### [facility] [address] [place] [address] Dr. Jewels Zhou EGFR-NON AF SERBIAN >60 Normal >=60 [facility] Comment on above: Performed By: #### B UN, CREA #### [facility] [address] [address] [address] Jewels Zhou CBC AUTO DIFFon 09-10-2021 BASO # 0.0 103/ul Normal 0.0-0.1 [facility] Comment on above: Performed By: #### C BC ####[facility] [address] [address]Dr. Jewels Zhou Basophils/100 WBC (Bld) 0.6 % Normal 0.2-2.0 [facility] Comment on above: Performed By: #### C BC ####[facility] [address] [address]DrTino Zhou EO # 0.1 103/ul Normal 0.0-0.7 [facility] Comment on above: Performed By: #### C BC ####[facility] [address] [address]DrTino Zhou Eosinophils/100 WBC (Bld) 1.8 % Normal 0.9-7.0 [facility] Comment on above: Performed By: #### C BC ####[facility] [address] [address]Dr. Jewels Zhou Erythrocyte distribution width (RBC) [Ratio] 13.9 % Normal 11.0-15.0 [facility] Comment on above: Performed By: #### C BC ####[facility] [address] [place], [place] [address]Dr. Jewels Zhou Hematocrit (Bld) [Volume fraction] 42.0 % Normal 36.0-48.0 [facility] Comment on above: Performed By: #### C BC ####[facility] [address] [place], [place] [address]Dr. Jewels Zhou Hemoglobin (Bld) [Mass/Vol] 13.8 g/dL Normal 12.0-16.0 [facility] Comment on above: Performed By: #### C BC ####[facility] [address] [place], [place] [address]Dr. Jewels Zhou IG # 0.01 10e3/ul Normal 0.00-0.03 [facility] Comment on above: Performed By: #### C BC ####[facility] [address] [place], [place] [address]Dr. Jewels Zhou IG % 0.1 % Normal 0.0-0.5 [facility] Comment on above: Performed By: #### C BC ####[facility] [id number] [place], [place] [address]Dr. Jewels Zhou LYMPH # 2.1 103/ul Normal 1.2-3.8 [facility] Comment on above: Performed By: #### C BC ####[facility] [address] [place], [place] [address]Dr. Jewels Zhou Lymphocytes/100 WBC (Bld) 31.1 % Normal 20.5-60.0 [facility] Comment on above: Performed By: #### C BC ####[facility] [address] [place], [place] [address]Dr. Jewels Zhou MANUAL DIFF REQ NO Normal [facility] Comment on above: Performed By: #### C BC ####[facility] [address] [place] [address]Dr. Jewels Zhou MCH (RBC) [Entitic mass] 29.6 pg Normal 26.7-34.0 [facility] Comment on above: Performed By: #### C BC ####[facility] [address] [place], [place] [address]Dr. Jewels Zhou MCHC (RBC) [Mass/Vol] 32.9 g/dL Normal 29.9-35.2 [facility] Comment on above: Performed By: #### C BC ####[facility] [address] [place], [place] [address]Dr. Jewels Zhou MCV (RBC) [Entitic vol] 89.9 fL Normal 81.0-99.0 [facility] Comment on above: Performed By: #### C BC ####[facility] [address] [place], [place] [address]Dr. Jewels Abelardo MONO # 0.5 103/ul Normal 0.3-0.8 [facility] Comment on above: Performed By: #### C BC ####[facility] [address] [place], [place] [address]Dr. Jewels Zhou Monocytes/100 WBC (Bld) 7.7 % Normal 1.7-12.0 [facility] Comment on above: Performed By: #### C BC ####[facility] [address] [place], [place] [address]Dr. Jewels Zhou NEUT # 3.9 103/ul Normal 1.4-6.5 [facility] Comment on above: Performed By: #### C BC ####[facility] [address] [place], [place] [address]Dr. Jewels Abelardo Neutrophils/100 WBC (Bld) 58.7 % Normal 43.0-75.0 [facility] Comment on above: Performed By: #### C BC ####[facility] [address] [place], [place] [address]Dr. Jewels Zhou Platelet mean volume (Bld) [Entitic vol] 10.3 fL Normal 9.5-13.5 [facility] Comment on above: Performed By: #### C BC ####[facility] [address] [place], [place] [address]Mf. Jewels Zhou PLT 234 103/ul Normal 150-450 [facility] Comment on above: Performed By: #### C BC ####[facility] [address] [place], [place] [address]Ud. Jewels Zhou RBC 4.67 106/ul Normal 4.20-5.40 [facility] Comment on above: Performed By: #### C BC ####[facility] [address] [place], [place] [address]Yi. Jewels Zhou WBC 6.7 103/ul Normal 4.0-11.0 [facility] Comment on above: Performed By: #### C BC ####[facility] [address] [place], [place] [address]Jl. Jewels Zhou PREG QUANT HCGon 09-10-2021 HCG QUANT <1 Normal [facility] Comment on above: Performed By: #### P REGQNT ####[facility] [address] [place], [place] [address]Yc. Jewels Zhou HCG RANGE SEE BELOW Normal [facility] Comment on above: Result Comment: 5-50 0-1 WEEK 40-300 1-2 WEEKS 100-1,000 2-3 WEEKS 500-6,000 3-4 WEEKS 5,000-200,000 1-2 MONTHS 10,000-100,000 2-3 MONTHS 3,000-50,000 2ND TRIMESTER 1,000-50,000 3RD TRIMESTER Performed By: #### P REGQNT ####[facility] [address] [place], [place] [address]Zl. Jewels Zhou Covid-19 PCR (CVDTB)on 08-19 SARS-CoV-2 (COVID-19) RNA ALIX+probe Ql (Unsp spec) Not detected Normal NOT DETECTED [facility] Comment on above: Result Comment: This test is not yet approved or cleared by the [place] FDA. When there are no FDA-approved or cleared tests available, and other criteria are met, FDA can make tests available under an emergency access mechanism called an Emergency Use Authorization (EUA). The EUA for this test is supported by the [facility] of Health and Human Service's (HHS's) declaration [...] consistent with SARS-CoV-2. Performed By: #### [facility] #### [facility] [address] [place], [place] [address] Dr. Jewels Zhou TYPE AND SCREENon 09-07-2021 TYPE AND SCREEN Negative Normal [facility] Comment on above: Performed By: #### T NS ####[facility] [address] [place], [place] [address]O[address]. [address] Zhou CT Chest w/o Contraston 05-0 [...] by Corona Hammonds on 07/20/2021 1030 Normal [facility] CBC AUTO DIFFon 07-16-2021 BASO # 0.0 103/ul Normal 0.0-0.1 [facility] Comment on above: Performed By: #### C BC #### [facility] [address] [place] [address] [address] Jewels Zhou Basophils/100 WBC (Bld) 0.4 % Normal 0.2-2.0 [facility] Comment on above: Performed By: #### C BC #### [facility] [address] [place] [address] [address] Jewels Zhou EO # 0.1 103/ul Normal 0.0-0.7 [facility] Comment on above: Performed By: #### C BC #### [facility] [address] [place] [address] [address] Jewels Zhou Eosinophils/100 WBC (Bld) 1.6 % Normal 0.9-7.0 [facility] Comment on above: Performed By: #### C BC #### [facility] [address] [place] [address] [address] Jewels Zhou Erythrocyte distribution width (RBC) [Ratio] 13.7 % Normal 11.0-15.0 [facility] Comment on above: Performed By: #### C BC #### [facility] [address] [place] [address] [address] Jewels Zhou Hematocrit (Bld) [Volume fraction] 41.8 % Normal 36.0-48.0 [facility] Comment on above: Performed By: #### C BC #### [facility] [address] [place] [address] Dr. Jewels Zhou Hemoglobin (Bld) [Mass/Vol] 13.8 g/dL Normal 12.0-16.0 [facility] Comment on above: Performed By: #### C BC #### [facility] [address] [place] [address] Dr. Jewels Zhou IG # 0.01 10e3/ul Normal 0.00-0.03 [facility] Comment on above: Performed By: #### C BC #### [facility] [address] [place] [address] Dr. Jewels Zhou IG % 0.1 % Normal 0.0-0.5 [facility] Comment on above: Performed By: #### C BC #### [facility] [address] [place] [address] Dr. Jewels Zhou LYMPH # 2.1 103/ul Normal 1.2-3.8 [facility] Comment on above: Performed By: #### C BC #### [facility] [address] [place] [address] Dr. Jewels Zhou Lymphocytes/100 WBC (Bld) 30.5 % Normal 20.5-60.0 [facility] Comment on above: Performed By: #### C BC #### [facility] [address] [place] [address] Dr. Jewels Zhou MANUAL DIFF REQ NO Normal [facility] Comment on above: Performed By: #### C BC #### [facility] [address] [place] [address] Dr. Jewels Zhou MCH (RBC) [Entitic mass] 29.8 pg Normal 26.7-34.0 [facility] Comment on above: Performed By: #### C BC #### [facility] [address] [place] [address] Dr. Jewels Zhou MCHC (RBC) [Mass/Vol] 33.0 g/dL Normal 29.9-35.2 [facility] Comment on above: Performed By: #### C BC #### [facility] [address] [place] [address] Dr. Jewels Zhou MCV (RBC) [Entitic vol] 90.3 fL Normal 81.0-99.0 [facility] Comment on above: Performed By: #### C BC #### [facility] [address] [place] [address] Dr. Jewels Zhou MONO # 0.5 103/ul Normal 0.3-0.8 [facility] Comment on above: Performed By: #### C BC #### [facility] [address] [place] [address] Dr. Jewels Zhou Monocytes/100 WBC (Bld) 6.7 % Normal 1.7-12.0 [facility] Comment on above: Performed By: #### C BC #### [facility] [address] [place] [address] Dr. Jewels Zhou NEUT # 4.2 103/ul Normal 1.4-6.5 [facility] Comment on above: Performed By: #### C BC #### [facility] [address] [place] [address] Dr. Jewels Zhou Neutrophils/100 WBC (Bld) 60.7 % Normal 43.0-75.0 [facility] Comment on above: Performed By: #### C BC #### [facility] [address] [place] [address] Dr. Jewels Zhou Platelet mean volume (Bld) [Entitic vol] 10.2 fL Normal 9.5-13.5 [facility] Comment on above: Performed By: #### C BC #### [facility] [address] [place] [address] Dr. Jewels Zhou PLT 207 103/ul Normal 150-450 [facility] Comment on above: Performed By: #### C BC #### [facility] [address] [place] [address] Dr. Jewels Zhou RBC 4.63 106/ul Normal 4.20-5.40 [facility] Comment on above: Performed By: #### C BC #### [facility] [address] [place] [address] Dr. Jewels Zhou WBC 7.0 103/ul Normal 4.0-11.0 [facility] Comment on above: Performed By: #### C BC #### [facility] [address] [place] [address] [address] Jewels Zhou PREG QUANT HCGon 07-16-2021 HCG QUANT <1 Normal [facility] Comment on above: Performed By: #### P REGQNT #### [facility] [address] [place] [address] [address] Jewels Zhou HCG RANGE SEE BELOW Normal [facility] Comment on above: Result Comment: 5-50 0-1 WEEK 40-300 1-2 WEEKS 100-1,000 2-3 WEEKS 500-6,000 3-4 WEEKS 5,000-200,000 1-2 MONTHS 10,000-100,000 2-3 MONTHS 3,000-50,000 2ND TRIMESTER 1,000-50,000 3RD TRIMESTER Performed By: #### P REGQNT #### [facility] [address] [place] [address] Dr. Jewels Zhou Covid-19 PCR (CVDTB)on 06-19 SARS-CoV-2 (COVID-19) RNA ALIX+probe Ql (Unsp spec) Not detected Normal NOT DETECTED [facility] Comment on above: Result Comment: This test is not yet approved or cleared by the [place] FDA. When there are no FDA-approved or cleared tests available, and other criteria are met, FDA can make tests available under an emergency access mechanism called an Emergency Use Authorization (EUA). The EUA for this test is supported by the [place] of Health and Human Service's (HHS's) declaration [...] SARS-CoV-2. Performed By: #### C VDTBH #### [facility] [address] [place] [address] [address] Jewels Zhou XR Hip Complete Right*on XR Hip Complete Right* Refer to concurre nt lumbar spine radiographs dictation. Report reported and signed by Fernando Goyal on 06/04/2021 1203 Normal [facility] XR Spine Lumbar Complete w/F javy AND [place] 06-03-2021 XR Spine Lumbar Complete w/Flex AND [...] by Fernando Goyal on 06/04/2021 1203 Normal [facility] [employer] [facility] US Pelvic Complete w/Transva ginalon 05-27-2021 US [...] by Fernando Goyal on 05/28/2021 1430 Normal [facility] CT Abdomen/Pelvis w/o Contra candy 05-26-2021 CT [...] by Corona Hammonds on 05/26/2021 1206 Normal [facility] Vital Signs Date Time Vital Sign Value Performing Clinician Facility 04-22-2024 09:33-0500 Body mass index (BMI) [Ratio] 32.2 kg/m2 Katia PHILLIP Work Phone: [facility] 04-22-2024 09:33-0500 Body weight 77.29 kg Katia PHILLIP Work Phone: [facility] 04-22-2024 09:33-0500 Diastolic blood pressure 70 mm[Hg] Katia PHILLIP Work Phone: [facility] 04-22-2024 09:33-0500 Systolic blood pressure 114 mm[Hg] Katia PHILLIP Work Phone: [facility] 03-26-2024 13:39-0500 Blood Pressure Location Av REGALADOYumiko [facility] 03-26-2024 13:39-0500 Diastolic blood pressure 78 mm[Hg] Av SABINEL [facility] 03-26-2024 13:39-0500 Heart rate 72 /min Av NILL [facility] 03-26-2024 13:39-0500 Respiratory rate 16 /min Av SABINEL [facility] 03-26-2024 13:39-0500 Systolic blood pressure 118 mm[Hg] Av SABINEL [facility] 03-25-2024 11:20-0500 Body height 154.94 cm [facility] [place] [facility] 03-25-2024 11:20-0500 Body mass index (BMI) [Ratio] 31.5 kg/m2 [facility] 03-25-2024 11:20-0500 Body weight 75.74 kg [facility] [place] [facility] 03-25-2024 11:20-0500 Diastolic blood pressure 87 mm[Hg] [facility] 03-25-2024 11:20-0500 Heart rate 96 /min [facility] [place] [facility] 03-25-2024 11:20-0500 Respiratory rate 18 /min [facility] 03-25-2024 11:20-0500 SaO2% (BldA) [Mass fraction] 99 % [facility] 03-25-2024 11:20-0500 Systolic blood pressure 128 mm[Hg] [facility] 03-25-2024 08:42-0500 Body mass index (BMI) [Ratio] 32.12 kg/m2 Vikash Trina DO Work Phone: [facility] 03-25-2024 08:42-0500 Body weight 77.11 kg Vikash Trina DO Work Phone: [facility] 03-25-2024 08:42-0500 Diastolic blood pressure 74 mm[Hg] Vikash Trina DO Work Phone: [facility] 03-25-2024 08:42-0500 Systolic blood pressure 122 mm[Hg] Vikash Trina DO Work Phone: [facility] 02-14-2024 14:14-0500 Body mass index (BMI) [Ratio] 31.55 kg/m2 Vikash Trina DO Work Phone: [facility] 02-14-2024 14:14-0500 Body weight 75.75 kg Vikash Trina DO Work Phone: [facility] 02-14-2024 14:14-0500 Diastolic blood pressure 72 mm[Hg] Vikash Trina DO Work Phone: [facility] 02-14-2024 14:14-0500 Systolic blood pressure 120 mm[Hg] Vikash Trina DO Work Phone: [facility] 11-21-2023 08:59-0400 Body height 154.94 cm [facility] [place] [facility] 11-21-2023 08:59-0400 Body mass index (BMI) [Ratio] 30.6 kg/m2 [facility] 11-21-2023 08:59-0400 Body weight 73.48 kg [facility] [place] [facility] 11-21-2023 08:59-0400 Diastolic blood pressure 71 mm[Hg] [facility] 11-21-2023 08:59-0400 Heart rate 86 /min [facility] [place] [facility] 11-21-2023 08:59-0400 Respiratory rate 16 /min [facility] 11-21-2023 08:59-0400 SaO2% (BldA) [Mass fraction] 100 % [facility] 11-21-2023 08:59-0400 Systolic blood pressure 110 mm[Hg] [facility] 08-22-2023 08:05-0400 Body height 154.94 cm [facility] [place] [facility] 08-22-2023 08:05-0400 Body mass index (BMI) [Ratio] 30.9 kg/m2 [facility] 08-22-2023 08:05-0400 Body weight 74.38 kg [facility] [place] [facility] 08-22-2023 08:05-0400 Diastolic blood pressure 75 mm[Hg] [facility] 08-22-2023 08:05-0400 Heart rate 80 /min [facility] [place] [facility] 08-22-2023 08:05-0400 Respiratory rate 16 /min [facility] 08-22-2023 08:05-0400 SaO2% (BldA) [Mass fraction] 99 % [facility] 08-22-2023 08:05-0400 Systolic blood pressure 109 mm[Hg] [facility] 03-28-2023 08:30-0500 Body height 154.94 cm Gabriel Callawayhung Other [facility] [employer] Other 03-28-2023 08:30-0500 Body mass index (BMI) [Ratio] 30.8 kg/m2 Gabriel Callawayhung Other [employer] [facility] [employer] Other 03-28-2023 08:30-0500 Body weight 73.94 kg Gabriel Callawayhung Other [employer] Other 03-28-2023 08:30-0500 Diastolic blood pressure 78 mm[Hg] Gabriel Boyerbart Other [employer] Other 03-28-2023 08:30-0500 Respiratory rate 18 /min Gabriel Boyerbart Other [employer] [facility] [employer] Other 03-28-2023 08:30-0500 SaO2% (BldA) [Mass fraction] 99 % Gabriel Anderson Other [employer] Other 03-28-2023 08:30-0500 Systolic blood pressure 118 mm[Hg] Gabriel Anderson Other [employer] Other 01-20-2023 11:30-0400 Body height 154.94 cm Gabriel Anderson Other [employer] Other 01-20-2023 11:30-0400 Body mass index (BMI) [Ratio] 32.87 kg/m2 Gabriel Anderson Other [employer] Other 01-20-2023 11:30-0400 Body weight 78.93 kg Gabriel Anderson Other [employer] Other 01-20-2023 11:30-0400 Diastolic blood pressure 76 mm[Hg] Gabriel Anderson Other [employer] Other 01-20-2023 11:30-0400 Respiratory rate 20 /min Gabriel Anderosn Other [employer] Other 01-20-2023 11:30-0400 SaO2% (BldA) [Mass fraction] 100 % Gabriel Anderson Other [employer] Other 01-20-2023 11:30-0400 Systolic blood pressure 114 mm[Hg] Gabriel Anderson Other [employer] Other 01-10-2023 08:00-0400 Body height 154.94 cm Gabriel Anderson Other [employer] Other 01-10-2023 08:00-0400 Body mass index (BMI) [Ratio] 31.74 kg/m2 Gabriel Anderson Other [employer] Other 01-10-2023 08:00-0400 Body weight 76.2 kg Gabriel Anderson Other [employer] Other 01-10-2023 08:00-0400 Diastolic blood pressure 65 mm[Hg] Gabriel Anderson Other [employer] Other 01-10-2023 08:00-0400 Respiratory rate 16 /min Gabriel Anderson Other [employer] Other 01-10-2023 08:00-0400 SaO2% (BldA) [Mass fraction] 100 % Gabriel Anderson Other [employer] Other 01-10-2023 08:00-0400 Systolic blood pressure 110 mm[Hg] Gabriel Anderson Other [employer] Other 11-01-2022 08:30-0400 Body height 154.94 cm Gabriel Anderson Other [employer] Other 11-01-2022 08:30-0400 Body mass index (BMI) [Ratio] 31.36 kg/m2 Gabriel Anderson Other [employer] Other 11-01-2022 08:30-0400 Body weight 75.3 kg Gabriel Anderson Other [employer] Other 11-01-2022 08:30-0400 Diastolic blood pressure 75 mm[Hg] Gabriel Anderson Other [employer] Other 11-01-2022 08:30-0400 Respiratory rate 18 /min Gabriel Anderson Other [employer] Other 11-01-2022 08:30-0400 SaO2% (BldA) [Mass fraction] 100 % Gabriel Anderson Other [employer] Other 11-01-2022 08:30-0400 Systolic blood pressure 119 mm[Hg] Gabriel Anderson Other [employer] Other 09-02-2022 08:00-0400 Body height 154.94 cm Gabriel Anderson Other [employer] Other 09-02-2022 08:00-0400 Body mass index (BMI) [Ratio] 32.68 kg/m2 Gabriel Anderson Other [employer] Other 09-02-2022 08:00-0400 Body weight 78.47 kg Gabriel Anderson Other [employer] Other 09-02-2022 08:00-0400 Diastolic blood pressure 84 mm[Hg] Gabriel Anderson Other [employer] Other 09-02-2022 08:00-0400 Respiratory rate 18 /min Gabriel Anderson Other [employer] Other 09-02-2022 08:00-0400 SaO2% (BldA) [Mass fraction] 99 % Gabriel Anderson Other [employer] Other 09-02-2022 08:00-0400 Systolic blood pressure 127 mm[Hg] Gabriel Anderson Other [employer] Other 03-02-2022 16:30-0500 Body height 154.94 cm Gabriel Anderson Other [employer] Other 03-02-2022 16:30-0500 Body mass index (BMI) [Ratio] 33.44 kg/m2 Gabriel Anderson Other [employer] Other 03-02-2022 16:30-0500 Body weight 80.29 kg Gabriel Anderson Other [employer] Other 03-02-2022 16:30-0500 Diastolic blood pressure 71 mm[Hg] Gabriel Anderson Other [employer] Other 03-02-2022 16:30-0500 SaO2% (BldA) [Mass fraction] 99 % Gabriel Anderson Other [employer] Other 03-02-2022 16:30-0500 Systolic blood pressure 120 mm[Hg] Gabriel Anderson Other [employer] Other 01-28-2022 12:30-0500 Body height 154.94 cm Gabriel Anderson Other [employer] Other 01-28-2022 12:30-0500 Body mass index (BMI) [Ratio] 33.63 kg/m2 Gabriel Anderson Other [employer] Other 01-28-2022 12:30-0500 Body weight 80.74 kg Gabriel Anderson Other [employer] Other 01-28-2022 12:30-0500 Diastolic blood pressure 68 mm[Hg] Gabriel Anderson Other [employer] Other 01-28-2022 12:30-0500 Respiratory rate 16 /min Gabriel Anderson Other [employer] Other 01-28-2022 12:30-0500 SaO2% (BldA) [Mass fraction] 100 % Gabriel Anderson Other [employer] Other 01-28-2022 12:30-0500 Systolic blood pressure 116 mm[Hg] Gabriel Anderson Other [employer] Other 12-21-2021 11:00-0400 Body height 154.94 cm Michell Maxmond Other [employer] Other 12-21-2021 11:00-0400 Body mass index (BMI) [Ratio] 34.01 kg/m2 Michell Maxmond Other [employer] Other 12-21-2021 11:00-0400 Body temperature 98.6 [degF] Michell Maxmond Other [employer] Other 12-21-2021 11:00-0400 Body weight 81.65 kg Michell Maxmond Other [employer] Other 12-21-2021 11:00-0400 Respiratory rate 18 /min Michell Shannan Other [employer] Other 12-21-2021 11:00-0400 SaO2% (BldA) [Mass fraction] 98 % Michell Campbell Other [employer] Other 11-24-2021 14:30-0400 Body height 154.94 cm Gabriel Anderson Other [employer] Other 11-24-2021 14:30-0400 Body mass index (BMI) [Ratio] 34.38 kg/m2 Gabriel Anderson Other [employer] Other 11-24-2021 14:30-0400 Body weight 82.56 kg Gabriel Anderson Other [employer] Other 11-24-2021 14:30-0400 Diastolic blood pressure 78 mm[Hg] Gabriel Anderson Other [employer] Other 11-24-2021 14:30-0400 Respiratory rate 18 /min Gabriel Anderson Other [employer] Other 11-24-2021 14:30-0400 SaO2% (BldA) [Mass fraction] 99 % Gabriel Anderson Other [employer] Other 11-24-2021 14:30-0400 Systolic blood pressure 124 mm[Hg] Gabriel Anderson Other [employer] Other 10-27-2021 17:00-0400 Body height 154.94 cm Gabriel Anderson Other [employer] Other 10-27-2021 17:00-0400 Body mass index (BMI) [Ratio] 34.57 kg/m2 Gabriel Anderson Other [employer] Other 10-27-2021 17:00-0400 Body weight 83.01 kg Gabriel Anderson Other [employer] Other 10-27-2021 17:00-0400 Diastolic blood pressure 65 mm[Hg] Gabriel Anderson Other [employer] Other 10-27-2021 17:00-0400 Respiratory rate 16 /min Gabriel Anderson Other [employer] Other 10-27-2021 17:00-0400 SaO2% (BldA) [Mass fraction] 100 % Gabriel Anderson Other [employer] Other 10-27-2021 17:00-0400 Systolic blood pressure 108 mm[Hg] Gabriel Anderson Other [employer] Other 09-29-2021 16:00-0400 Body height 154.94 cm Gabriel Anderson Other [employer] Other 09-29-2021 16:00-0400 Body mass index (BMI) [Ratio] 35.71 kg/m2 Gabriel Anderson Other [employer] Other 09-29-2021 16:00-0400 Body weight 85.73 kg Gabriel Anderson Other [employer] Other 09-29-2021 16:00-0400 Diastolic blood pressure 73 mm[Hg] Gabriel Anderson Other [employer] Other 09-29-2021 16:00-0400 Respiratory rate 18 /min Gabriel Anderson Other [employer] Other 09-29-2021 16:00-0400 SaO2% (BldA) [Mass fraction] 100 % Gabriel Anderson Other [employer] Other 09-29-2021 16:00-0400 Systolic blood pressure 111 mm[Hg] Gabriel Anderson Other [employer] Other 07-19-2021 17:00-0400 Body height 154.94 cm Gabriel Anderson Other [employer] Other 07-19-2021 17:00-0400 Body mass index (BMI) [Ratio] 36.27 kg/m2 Gabriel Anderson Other [employer] Other 07-19-2021 17:00-0400 Body weight 87.09 kg Gabriel Anderson Other [employer] Other 07-19-2021 17:00-0400 Diastolic blood pressure 78 mm[Hg] Gabriel Anderson Other [employer] Other 07-19-2021 17:00-0400 Respiratory rate 16 /min Gabriel Anderson Other [employer] Other 07-19-2021 17:00-0400 SaO2% (BldA) [Mass fraction] 100 % Gabriel Anderson Other [employer] Other 07-19-2021 17:00-0400 Systolic blood pressure 122 mm[Hg] Gabriel Anderson Other [employer] Other 06-14-2021 14:45-0400 Body height 154.94 cm Gabriel Anderson Other [employer] Other 06-14-2021 14:45-0400 Body mass index (BMI) [Ratio] 36.09 kg/m2 Gabriel Anderson Other [employer] Other 06-14-2021 14:45-0400 Body temperature 98 [degF] Gabriel Anderson Other [employer] Other 06-14-2021 14:45-0400 Body weight 86.64 kg Gabriel Anderson Other [employer] Other 06-14-2021 14:45-0400 Diastolic blood pressure 79 mm[Hg] Gabriel Anderson Other [employer] Other 06-14-2021 14:45-0400 Respiratory rate 18 /min Gabriel Anderson Other [employer] Other 06-14-2021 14:45-0400 SaO2% (BldA) [Mass fraction] 100 % Gabriel Anderson Other [employer] Other 06-14-2021 14:45-0400 Systolic blood pressure 122 mm[Hg] Gabriel Anderson Other [employer] Other 05-10-2021 10:00-0500 Body height 154.94 cm Gabriel Anderson Other [employer] Other 05-10-2021 10:00-0500 Body mass index (BMI) [Ratio] 35.71 kg/m2 Gabriel Anderson Other [employer] Other 05-10-2021 10:00-0500 Body weight 85.73 kg Gabriel Anderson Other [employer] Other 05-10-2021 10:00-0500 Diastolic blood pressure 84 mm[Hg] Gabriel Anderson Other [employer] Other 05-10-2021 10:00-0500 Respiratory rate 18 /min Gabriel Anderson Other [employer] Other 05-10-2021 10:00-0500 SaO2% (BldA) [Mass fraction] 100 % Gabriel Anderson Other [employer] Other 05-10-2021 10:00-0500 Systolic blood pressure 122 mm[Hg] Gabriel Anderson Other [employer] Other 04-02-2021 09:00-0500 Body height 154.94 cm Gabriel Anderson Other [employer] Other 04-02-2021 09:00-0500 Body mass index (BMI) [Ratio] 35.71 kg/m2 Gabriel Anderson Other [employer] Other 04-02-2021 09:00-0500 Body weight 85.73 kg Gabriel Anderson Other [employer] Other 04-02-2021 09:00-0500 Diastolic blood pressure 79 mm[Hg] Gabriel Anderson Other [employer] Other 04-02-2021 09:00-0500 Respiratory rate 16 /min Gabriel Anderson Other [employer] Other 04-02-2021 09:00-0500 SaO2% (BldA) [Mass fraction] 100 % Gabriel Anderson Other [employer] Other 04-02-2021 09:00-0500 Systolic blood pressure 119 mm[Hg] Gabriel Anderson Other [employer] Other 03-02-2021 09:00-0500 Body height 154.94 cm Gabriel Anderson Other [employer] Other 03-02-2021 09:00-0500 Body mass index (BMI) [Ratio] 36.09 kg/m2 Gabriel Anderson Other [employer] Other 03-02-2021 09:00-0500 Body weight 86.64 kg Gabriel Anderson Other [employer] Other 03-02-2021 09:00-0500 Diastolic blood pressure 85 mm[Hg] Gabriel Anderson Other [employer] Other 03-02-2021 09:00-0500 Respiratory rate 18 /min Gabriel Anderson Other [employer] Other 03-02-2021 09:00-0500 SaO2% (BldA) [Mass fraction] 99 % Gabriel Anderson Other [employer] Other 03-02-2021 09:00-0500 Systolic blood pressure 120 mm[Hg] Gabriel Anderson Other [employer] Other 01-22-2021 11:00-0400 Body height 154.94 cm Gabriel Anderson Other [employer] Other 01-22-2021 11:00-0400 Body mass index (BMI) [Ratio] 36.27 kg/m2 Gabriel Anderson Other [employer] Other 01-22-2021 11:00-0400 Body temperature 98.7 [degF] Gabriel Anderson Other [employer] Other 01-22-2021 11:00-0400 Body weight 87.09 kg Gabriel Anderson Other [employer] Other 01-22-2021 11:00-0400 Diastolic blood pressure 78 mm[Hg] Gabriel Anderson Other [employer] Other 01-22-2021 11:00-0400 Respiratory rate 18 /min Gabriel Anderson Other [employer] Other 01-22-2021 11:00-0400 SaO2% (BldA) [Mass fraction] 100 % Gabriel Anderson Other [employer] Other 01-22-2021 11:00-0400 Systolic blood pressure 121 mm[Hg] Gabriel Anderson Other [employer] Other Encounters Encounter Date Encounter Type Care [...] Start: 04-12-2024 End: 04-12-2024 ambulatory Vikash Trina [facility] Work Phone: Start: 04-12-2024 End: 04-12-2024 Departed Referred Vikash Trina DO Work Phone: [facility] [facility] Start: 03-29-2024 End: 03-29-2024 Clinisync Result Encounter Vikash Trina DO Work Phone: [facility] External Department Unsolicited Start: 03-29-2024 End: 03-29-2024 Clinisync Result Encounter Vikash Trina DO Work Phone: [facility] External Department Unsolicited Start: 03-26-2024 End: 03-26-2024 ambulatory Vikash R TRINA Facility:[facility] Start: 03-26-2024 End: 03-26-2024 Patient encounter procedure Av HERNANDEZ [facility] [place] Start: 03-25-2024 End: 03-25-2024 ambulatory [facility] Work Phone: Start: 03-25-2024 End: 03-25-2024 Patient encounter procedure [facility] Work Phone: Start: 03-25-2024 End: 03-25-2024 Office outpatient visit 15 minutes Vikash Trina DO Work Phone: [facility] Comment on above: Pre-op evaluation; Pelvic pain in female; H/O: hysterectomy Start: 03-25-2024 End: 03-25-2024 Preprocedural examination done Vikash Trina DO Work Phone: [facility] Start: 03-25-2024 End: 03-25-2024 ambulatory VIKASH TRINA [...] minutes Vikash Trina DO Work Phone: [facility] OB Comment on above: Pelvic pain in femal e; H/O: hysterectomy Start: 02-14-2024 End: 02-14-2024 ambulatory VIKASH TRINA Not Available Start: 01-01-2024 Non-patient / Non-visit [facility] Work Phone: Start: 12-29-2023 End: 12-29-2023 Emergency department patient visit GABRIEL ANDERSON Facility:[facility] Start: 12-11-2023 End: 12-11-2023 Patient encounter procedure DO Gabriel Anderson Work Phone: [facility] [place] Work Phone: Start: 12-11-2023 End: 12-11-2023 ambulatory DO Gabriel Anderson Work Phone: [facility] Work Phone: Start: 11-21-2023 End: 11-21-2023 ambulatory [facility] Work Phone: Start: 11-21-2023 End: 11-21-2023 Patient encounter procedure [facility] Work Phone: Start: 08-22-2023 End: 08-22-2023 ambulatory [facility] Work Phone: Start: 08-22-2023 End: 08-22-2023 Encounter for general adult medical examination without abnormal findings [facility] Start: 08-22-2023 End: 08-22-2023 Patient encounter procedure [facility] Work Phone: Start: 07-05-2023 End: 07-05-2023 ambulatory KATIA DAVIDSON Not Available Start: 03-28-2023 End: 03-28-2023 ambulatory Gabriel Anderson Other [employer] Other Start: 03-28-2023 Office outpatient vi sit 25 minutes Gabriel Anderson [facility] Start: 03-14-2023 End: 03-14-2023 ambulatory Gabriel Anderson Other [employer] Other Start: 03-14-2023 Telephone encounter Gabriel Ramesh i [facility] Start: 02-13-2023 End: 02-13-2023 ambulatory Gabriel Anderson Other [employer] Other Start: 02-13-2023 Telephone encounter Gabriel Ramesh i [facility] Start: 01-20-2023 (Procedure) Short Gabriel Anderson [facility] Start: 01-20-2023 End: 01-20-2023 ambulatory Gabriel Anderson Other [employer] Other Start: 01-19-2023 End: 01-19-2023 ambulatory GABRIEL ANDERSON Facility:[facility] Start: 01-10-2023 End: 01-10-2023 ambulatory Gabriel Anderson Other [employer] Other Start: 01-10-2023 Office outpatient vi sit 25 minutes Gabriel Anderson [facility] Start: 01-10-2023 Telephone encounter Gabriel Ramesh i [facility] Start: 01-03-2023 End: 01-03-2023 ambulatory Gabriel Anderson Other [employer] Other Start: 01-03-2023 Encounter by compute r link Gabriel Anderson [facility] Start: 12-19-2022 End: 12-19-2022 ambulatory Gabriel Anderson Other [employer] Other Start: 12-19-2022 Telephone encounter Gabriel Ramesh i [facility] Start: 12-12-2022 End: 12-12-2022 ambulatory Gabriel Anderson Other [employer] Other Start: 12-12-2022 Telephone encounter Gabriel Ramesh i [facility] Start: 11-04-2022 End: 11-04-2022 ambulatory Gabriel Anderson Other [employer] Other Start: 11-04-2022 Encounter by [employer] r link Gabriel Anderson [facility] Start: 11-01-2022 End: 11-01-2022 ambulatory Gabriel Anderson Other [employer] Other Start: 11-01-2022 Office outpatient vi sit 25 minutes Gabriel Anderson [facility] Start: 10-05-2022 End: 10-05-2022 ambulatory Gabriel Anderson Other [employer] Other Start: 10-05-2022 Telephone encounter Gabriel Ramesh i [facility] Start: 09-02-2022 End: 09-02-2022 ambulatory Gabriel Boyermarthajoy Other [employer] Other Start: 09-02-2022 Office outpatient vi sit 15 minutes Gabriel Callawaytayjoy [facility] Start: 06-30-2022 End: 06-30-2022 ambulatory Gabrielbillie Boyermarthajoy Other [employer] Other Start: 06-30-2022 Telephone encounter Gabriel Ramesh i [facility] Start: 06-24-2022 End: 06-25-[address] VIKASH MENA . Facility:[facility] Start: 06-21-2022 End: 06-21-[address] VIKASH MENA . Facility:[facility] Start: 05-26-2022 End: 05-26-2022 ambulatory Gabrielbillie Anderson Other [employer] Other Start: 05-26-2022 Telephone encounter Gabriel Ramesh i [facility] Start: 03-30-2022 End: 03-30-2022 ambulatory Gabriel Anderson Other [employer] Other Start: 03-30-2022 Telephone encounter Gabriel Ramesh i [facility] Start: 03-02-2022 End: 03-02-2022 ambulatory Gabriel Anderson Other [employer] Other Start: 03-02-2022 Office outpatient vi sit 15 minutes Gabriel Boyermarthajoy [facility] Start: 01-28-2022 End: 01-28-2022 ambulatory Gabriel Anderson Other [employer] Other Start: 01-28-2022 Office outpatient vi sit 25 minutes Gabriel Callawayhung [facility] Start: 12-21-2021 Office outpatient vi sit 15 minutes Michell Campbell [facility] Start: 12-21-2021 End: 12-21-2021 ambulatory DO Gabriel Anderson Work Phone: [employer] Other Start: 12-21-2021 End: 12-21-2021 Patient encounter procedure DO Gabriel Anderson Work Phone: [facility] [place] Start: 11-24-2021 End: 11-24-2021 ambulatory Gabriel Callawayhung Other [employer] Other Start: 11-24-2021 Office outpatient vi sit 25 minutes Gabriel Callawayhung [facility] Start: 11-24-2021 Telephone encounter Gabriel Ramesh i [facility] Start: 10-27-2021 End: 10-27-2021 ambulatory Gabriel Callawayhung Other [employer] Other Start: 10-27-2021 Office outpatient vi sit 15 minutes Gabriel Justin [facility] Start: 09-29-2021 End: 09-29-2021 ambulatory Gabriel Callawayhung Other [employer] Other Start: 09-29-2021 Office outpatient vi sit 15 minutes Gabriel Callawayhung [facility] Start: 09-10-2021 Encounter for preprocedural laboratory examination DR VIKASH MENA . [facility] Start: 09-10-2021 End: 09-11-[address] VIKASH MENA . Facility:[facility] Start: 09-07-2021 End: 09-08-[address] VIKASH MENA . Facility:[facility] Start: 09-07-2021 End: 09-08-2021 Encounter for preprocedural laboratory examination DR VIKASH MENA . Facility:[facility] Start: 09-03-2021 Encounter for other preprocedural examination DR VIKASH MENA . [facility] Start: 09-02-2021 End: 09-03-[address] VIKASH MENA . Facility:[facility] Start: 09-02-2021 End: 09-03-2021 Encounter for other preprocedural examination DR VIKASH MENA . Facility:[facility] Start: 07-22-2021 End: 07-22-2021 ambulatory Gabriel Anderson Other [employer] Other Start: 07-22-2021 Encounter by compute r link Gabriel Anderson [facility] Start: 07-19-2021 End: 07-19-2021 ambulatory Gabriel Anderson Other [employer] Other Start: 07-19-2021 Office outpatient vi sit 15 minutes Gabriel Anderson [facility] Start: 07-16-2021 End: 07-16-[address] VIKASH MENA . Facility:[facility] Start: 07-13-2021 End: 07-14-[address] VIKASH MENA . Facility:[facility] Start: 07-05-2021 End: 07-06-[address] VIKASH MENA . Facility:[facility] Start: 06-14-2021 End: 06-14-2021 ambulatory Gabriel Anedrson Other [employer] Other Start: 06-14-2021 Office outpatient vi sit 25 minutes Gabriel Anderson [facility] Start: 05-13-2021 End: 05-13-2021 ambulatory Gabriel Anderson Other [employer] Other Start: 05-13-2021 Encounter by chiki lo Gabriel Anderson [facility] Start: 05-10-2021 End: 05-10-2021 ambulatory Gabriel Anderson Other [employer] Other Start: 05-10-2021 Office outpatient vi sit 25 minutes Gabriel Anderson [facility] Start: 04-09-2021 End: 04-09-2021 ambulatory Gabriel Anderson Other [employer] Other Start: 04-09-2021 Telephone encounter Gabriel Ramesh i [facility] Start: 04-02-2021 End: 04-02-2021 ambulatory Gabriel Anderson Other [employer] Other Start: 04-02-2021 Office outpatient vi sit 15 minutes Gabriel Anderson [facility] Start: 03-16-2021 End: 03-16-2021 ambulatory Gabriel Anderson Other [employer] Other Start: 03-16-2021 Telephone encounter Gabriel Ramesh i [facility] Start: 03-02-2021 End: 03-02-2021 ambulatory Gabriel Anderson Other [employer] Other Start: 03-02-2021 Office outpatient vi sit 15 minutes Gabriel Anderson [facility] Start: 01-22-2021 End: 01-22-2021 ambulatory Gabriel Anderson Other [employer] Other Start: 01-22-2021 Office outpatient vi sit 25 minutes Gabriel Anderson [facility] Start: 01-22-2021 Telephone encounter Gabriel Ramesh i [facility] Start: 01-11-2021 End: 01-11-2021 ambulatory Wilber Singh Jr. Other [employer] Other Start: 01-11-2021 Telephone encounter Wilber [facility] Procedures Date Procedure Procedure Detail [...] procedure 07/08/2024 10:00 AM EDT Office Visit [facility] OB [address] [place] [id number] Katia Davidson PA [address] [place] [address] [facility] Start: 07-04-2024 Screening for malign ant neoplasm of breast Mammogram [facility] Start: 04-22-2024 End: 04-22-2024 Patient encounter procedure 04/22/2024 9:30 AM EST Office Visit [facility] OB [address] [place] [id number] Katia Davidson PA [address] [place] [address] Arrived [facility] Comment on above: Arrived Start: 03-25-2024 End: 03-25-2024 Patient encounter procedure 03/25/2024 8:50 AM EST Consult [facility] OB [address] [place] [id number] Vikash Mena, DO [address] [place] [address] [facility] Start: 03-25-2024 End: 03-25-2024 Professional / ancillary services management 03/25/2024 8:00 AM EST Ancillary Procedure [facility] [address] [place] [id number] [facility] Start: 02-14-2024 End: 02-13-2025 SURESWAB(R) ADVANCED VAGINITIS PLUS, TMA SURESWAB(R) ADVANCED VAGINITIS PLUS, TMA Pathology and Cytology Routine Pelvic pain in female Expected: 02/14/2024 (Approximate), Expires: 02/13/2025 [facility] Work Phone: Comment on above: Expected: 02/14/2024 (Approximate), Expires: 02/13/2025 Start: 02-14-2024 End: 02-13-2025 US for US PELVIS-TRANSVAG IF INDICATED Imaging Routine Pelvic pain in female Expected: 02/14/2024 (Approximate), Expires: 02/13/2025 [facility] Comment on above: Expected: 02/14/2024 (Approximate), Expires: 02/13/2025 Start: 11-19-2023 Influenza vaccination Influenza Vacc ine (#1) [facility] Start: 1975 Screening for malign ant neoplasm of colon [facility] CHLAMYDIA TRACHOMATI S (GENITO/STI) CHLAMYDIA TRACHOMATIS (GENITO/STI) Lab Routine Pelvic pain in female Ordered: 02/14/2024 [facility] Comment on above: Ordered: 02/14/2024 Comprehensive metabo lic 2000 panel - Serum or Plasma [facility] Neisseria gonorrhoea e DNA [Presence] in Unspecified specimen by ALIX with probe detection Neisseria gonorrhea DNA probe, direct Lab Routine Pelvic pain in female Ordered: 02/14/2024 [facility] Comment on above: Ordered: 02/14/2024 [facility] Immunizations Immunization Date Immunization Notes Care Provider Fa cility 07-08-2020 SARS-CoV-2 (COVID-19) mRNA BNT-162b2 [facility] [place] 07-07-2020 Pfizer Purple Cap SARS-CoV-2 Vaccination Vikash Trina DO Work Phone: [facility] 06-17-2020 SARS-CoV-2 (COVID-19) mRNA BNT-162b2 [employer] [facility] [place] NEGATED: Highlighted row has not occurred!03-02-2022 influenza, seasonal, injectable Patient Objection Gabriel Anderson Other [employer] Other NEGATED: Highlighted row has not occurred!01-28-2022 influenza, seasonal, injectable Patient Objection Gabriel Anderson Other [employer] Other Payers Date Payer Category Payer [facility] [id number] 1975 Unknown [id number] 2.16.840.1.147664.3.579.2. 593 1974 Unknown [id number] 2.16.840.1.021991.3.579.2. 593 1974 Unknown [id number] 2.16.840.1.767916.3.579.2. 593 1974 Unknown [id number] 2.16.840.1.180439.3.579.2. 593 1974 Unknown [id number] 2.16.840.1.439976.3.579.2. 593 1974 Unknown [id number] 2.16.840.1.875722.3.579.2. 593 1974 Unknown [id number] 2.16.840.1.428281.3.579.2. 593 1974 Unknown [id number] 2.16.840.1.278798.3.579.2. 593 1974 Unknown [id number] 2.16.840.1.848669.3.579.2. 718 1974 Unknown [id number] 2.16.840.1.253499.3.579.2. 718 1974 Unknown [id number] 2.16.840.1.632729.3.579.2. 727 1974 Unknown [id number] 2.16.840.1.822722.3.579.2. 9 1974 Unknown [id number] 2.16.840.1.445836.3.579.2. 1258 1974 Unknown [id number] 2.16.840.1.366155.3.579.2. 1258 1974 Unknown [id number] 2.16.840.1.304551.3.579.2. 1258 1974 Unknown [id number] 2.16.840.1.284854.3.579.2. 9 1960 [facility] [id number] 2.16.840.1.008893.19 1959 Unknown [id number] 2.16.840.1.414393.19 Private Health Insurance [facility] [id number] Self-pay Self Pay [id number] Social History Date Type Detail Facility Sex Assigned At [employer] Other Start: 07-05-2023 End: 03-25-2024 Sex Assigned At [facility] Start: 1975 Sex Assigned At Female F [facility] Start: 07-27-2016 End: 10-25-2022 Tobacco smoking status LAIS Never smoked tobacco (finding) [facility] Start: 10-25-2022 Tobacco use and exposure Smokeless tobacco non-user [facility] Start: 02-14-2024 End: 04-22-2024 Alcoholic beverage intake Ex-drinker (finding) [facility] Start: 02-14-2024 End: 03-25-2024 Alcoholic beverage intake [facility] Start: 10-24-2022 Alcohol Comment Caffeine intak e: 1-2 cups per day ice tea [facility] Start: 1975 Sex assigned at Not on file [facility] Tobacco smoking status Never [facility] [place] Start: 03-25-2024 End: 04-16-2024 Sex Female (finding) [facility] Functional Status Date Assessment Result Facility 03-26-2024 Functional Status N/A [facility] [place] Clinical Notes 01-22-2021 to 04-22-2024 MARJAN Agrawal [...] HYSTERECTOMY 08/2021 OTHER SURGICAL HISTORY 11/12/2016 mammogram [place] REMOVAL OF FALLOPIAN TUBE Bilateral Bilateral salpingectomy [...] oophrectomy and lysis of adhesions at [facility] with Dr. Mena. Pathology results was reviewed [...] of: MARJAN Agrawal documented in this encounter [facility] 03-26-2024 Note General Surgery Offi ce/Clinic Note [...] fiber and colace as recommended by her propulsion engineer; no change; no N/V; abd operations significant [...] SARS-CoV-2 (COVID-19) mRNA BNT-162b2 vax 06/17/2020 Recorded [facility] Comment on above: Result Comment: Elec [...] for breast cancer noneactive March 25 11:18am [facility] Work Phone: [phone]) 949-307601-06-2025 History of Present illness Narrative* Emily Sanon [...] on 04/12/[address] Mena at [facility]. MEDICATIONS Current Outpatient Medications Medication Instructions Phentermine-Topiramate [...] HYSTERECTOMY 08/2021 OTHER SURGICAL HISTORY 11/12/2016 mammogram [place] REMOVAL OF FALLOPIAN TUBE Bilateral Bilateral salpingectomy [...] nursing note reviewed. Exam conducted with a leadership development manager present. Vitals: Estimated body mass index is [...] reviewed, and patient is to proceed to [facility] OR. Follow Up: Patient is to follow up between 1-2 weeks post operative to assess proper healing and recovery fromprocedure. Documented by Jenae Harrington LPN on behalf of: Vikash Mena DO documented in this encounterCenterpoint Medical [id number] History of Present illness Narrative* Amy Li [...] HYSTERECTOMY 08/2021 OTHER SURGICAL HISTORY 11/12/2016 mammogram [place] REMOVAL OF FALLOPIAN TUBE Bilateral Bilateral salpingectomy [...] nursing note reviewed. Exam conducted with a leadership development manager present. Vitals: Estimated body mass index is [...] of: Vikash Mena DO documented in this encounterCenterpoint Medical [id number] NoteEducation Materials Dermatology Facial Laceration Keep the [...] cannot use soap and water, use hand bed laster. ? Change your bandage. If stitches were [...] Pus or a bad smell. ? Take jbjw-orc-pnetetw and prescription medicines only as told by [...] provider. Document Revised: 06/03/2020 Document Reviewed: 06/03/2020 [employer] Patient Education ? 2023 [facility]* Encounter Date Diagnosis Assessment Notes [...] E55.9) Labs reviewed. Controlled. Continue current care. [employer] Other 12-26-2023 Evaluation note* Encounter Date Diagnosis Assessment Notes Treatment Notes Treatment Clinical Notes Feb, Other obesity due to excess calories (ICD-10 - E66.09) [employer] Other 11-27-2023 Evaluation note* Encounter Date Diagnosis Assessment Notes Treatment Notes Treatment Clinical Notes Jan, Other obesity due to excess calories (ICD-10 - E66.09) [employer] Other 11-03-2023 Evaluation note* Encounter Date Diagnosis Assessment Notes Treatment Notes Treatment Clinical Notes Jan, Trochanteric bursitis of right hip (ICD-10 - M70.61) Patient has opted fo r steroid injection in the office today. She tolerates this well. Further recommendations pending her progress. [employer] Other 10-24-2023 Evaluation note* Encounter Date Diagnosis Assessment Notes Treatment Notes Treatment Clinical Notes Dec, Hypercholesterolemia (ICD-10 - E78.00) Dec, Impaired fasting glu cose (ICD-10 - R73.01) Dec, Vitamin D deficiency (ICD-10 - E55.9) Dec, Screening for metabo lic disorder (ICD-10 - Z13.228) Dec, Screening for cardiovascular condition (ICD-10 - Z13.6) [employer] Other 10-24-2023 Evaluation note* Encounter Date Diagnosis [...] x-rays, will consider steroid injection for bursitis. [employer] Other 10-24-2023 Evaluation note* Encounter Date Diagnosis Assessment Notes Treatment Notes Treatment Clinical Notes Dec, Other obesity due to excess calories (ICD-10 - E66.09) [employer] Other 10-02-2023 Evaluation note* Encounter Date Diagnosis Assessment Notes Treatment Notes Treatment Clinical Notes Dec, Other obesity due to excess calories (ICD-10 - E66.09) [employer] Other 09-25-2023 Evaluation note* Encounter Date Diagnosis Assessment Notes Treatment Notes Treatment Clinical Notes Nov, Other obesity due to excess calories (ICD-10 - E66.09) [employer] Other 08-15-2023 Evaluation note* Encounter Date Diagnosis [...] If no improvement, will consider steroid injection. [employer] Other 06-16-2023 Evaluation note* Encounter Date Diagnosis [...] SEs. Aug, BMI 32.0-32.9,adult (ICD-10 - Z68.32) [employer] Other 04-13-2023 Evaluation note* Encounter Date Diagnosis Assessment Notes Treatment Notes Treatment Clinical Notes Jun, Other obesity due to excess calories (ICD-10 - E66.09) [employer] Other 03-09-2023 Evaluation note* Encounter Date Diagnosis Assessment Notes Treatment Notes Treatment Clinical Notes May, Other obesity due to excess calories (ICD-10 - E66.09) [employer] Other 01-11-2023 Evaluation note* Encounter Date Diagnosis Assessment Notes Treatment Notes Treatment Clinical Notes Mar, Other obesity due to excess calories (ICD-10 - E66.09) [employer] Other 12-14-2022 Evaluation note* Encounter Date Diagnosis [...] BMI 33.0-33.9,adult (ICD-10 - Z68.33) See above. [employer] Other 11-11-2022 Evaluation note* Encounter Date Diagnosis [...] risk, so we will continue to monitor. [employer] Other 10-04-2022 Evaluation note* Encounter Date Diagnosis [...] no improvement in 2 to 3 days. [employer] Other 09-07-2022 Evaluation note* Encounter Date Diagnosis Assessment Notes Treatment Notes Treatment Clinical Notes Nov, Other obesity due to excess calories (ICD-10 - E66.09) [employer] Other 09-07-2022 Evaluation note* Encounter Date Diagnosis [...] Nov, Vitamin D deficiency (ICD-10 - E55.9) [employer] Other 08-10-2022 Evaluation note* Encounter Date Diagnosis [...] BMI 34.0-34.9,adult (ICD-10 - Z68.34) See above. [employer] Other 07-13-2022 Evaluation note* Encounter Date Diagnosis [...] BMI 35.0-35.9,adult (ICD-10 - Z68.35) See above. [employer] Other 06-24-2022 NoteOP Note OPERATION DATE: 09/12/2021 PROCEDURE: Laparoscopic assisted vaginal hysterectomy via vNOTES with colpopexy and cystoscopy. PREOPERATIVE DIAGNOSIS: Menorrhagia, dysmenorrhea, dyspareunia and pelvic pain. POSTOPERATIVE DIAGNOSIS: Menorrhagia, dysmenorrhea, dyspareunia and pelvic pain. ANESTHESIA: General. SURGEON: Vikash Mena D.O. POLICE DETECTIVE: RICHY Dougherty URINE OUTPUT: Yellow and clear. [...] Sponge, lap and instruments counts correct x2. [facility] [place] Signed and Approved by: DR VIKASH MENA . 09/14/2021 22:14:00[facility]06-24-2022 NoteDISCHARGE SUMMARY DISCHARGE DATE: 09/11/2021 PRIMARY DIAGNOSES: [...] pain free and no longer on narcotics. [facility] Signed and Approved by: DR VIKASH MENA . 09/14/2021 02:07:00[facility]06-01-2022 History general Narrative - Reported* Type Description Date Medical History Pleurisy Surgical History hysterectomy 08/2021 [employer] Other 05-02-2022 Evaluation note* Encounter Date Diagnosis [...] of any SEs. Recheck in 4 weeks. [employer] Other 04-29-2022 NoteThe [place], [place] NAME: MOSES ABRAHAM DATE OF : MEDICAL REC#: [id number] DENTAL FLOSS PACKER: [id number] [facility], TRANSADMIT DATE: 07/16/2021 06:02:00 LEGAL WRITING PROFESSOR DATE: 07/16/2021 23:00 DICTATING PHYSICIAN: VIKASH MENA DICTATION DATE: 07/16/2021 08:00 OPERATIVE NOTE OPERATION DATE: 07/16/2021 PROCEDURE: Bilateral laparoscopic salpingectomy PREOPERATIVE DIAGNOSIS: Desire permanent sterilization, pelvic pain, painful defecation. POSTOPERATIVE DIAGNOSIS: Desire permanent sterilization, pelvic pain, painful defecation. ANESTHESIA: General. SURGEON: Vikash Mena D.O. POLICE DETECTIVE: RICHY Quintero URINE OUTPUT: Yellow and clear. [...] Approved by: DR VIKASH MENA . 07/25/2021 12:32:00[facility]03-28-2022 Evaluation note* Encounter Date Diagnosis Assessment Notes [...] of any SEs. Recheck in 4 weeks. [employer] Other 02-24-2022 Evaluation note* Encounter Date Diagnosis Assessment Notes Treatment Notes Treatment Clinical Notes Apr, Other obesity due to excess calories (ICD-10 - E66.09) [employer] Other 02-21-2022 Evaluation note* Encounter Date Diagnosis [...] of any SEs. Recheck in 4 weeks. [employer] Other 01-21-2022 Evaluation note* Encounter Date Diagnosis Assessment Notes Treatment Notes Treatment Clinical Notes Mar, Other obesity due to excess calories (ICD-10 - E66.09) [employer] Other 01-14-2022 Evaluation note* Encounter Date Diagnosis [...] BMI 35.0-35.9,adult (ICD-10 - Z68.35) See above. [employer] Other 12-14-2021 Evaluation note* Encounter Date Diagnosis [...] 36.0-36.9, adult (ICD-10 - Z68.36) See above. [employer] Other 11-05-2021 Evaluation note* Encounter Date Diagnosis Assessment Notes Treatment Notes Treatment Clinical Notes Jan, Obesity (BMI 35.0-39.9 without comorbidity) (ICD-10 - E66.9) [employer] Other Evaluation + Plan note No data available for this section [facility] [place] Evalubxogq noteNortmilabent Other Evaluation noteNo InformationNort [employer] Other Evaluation [employer]No[employer] Other Evaluation noteNo assessment information available [facility] Work Phone: evaluhutof noteNoRightCare Solutions Other Evaluedkut note* Diagnosis Onset Date Resolution Status Hypocalcemia acute Other obesity due to excess calories acute Vitamin D deficiency acute Encounter for wellness examination noneactive [facility] Work Phone: Evaluation note* Diagnosis Onset Date Resolution Status Hypocalcemia acute Insomnia acute Other obesity due to excess calories acute Vitamin D deficiency acute Screening for colon cancer n oneactive Screening for breast cancer noneactive [facility] Work Phone: Evaluation note* Diagnosis Pelvic pain in female Unspecified symptom associated with female genital organs H/O: hysterectomy Acquired absence of both cervix and uterus documented in this encounter [facility] HealthcareEvaluation note* Diagnosis Pre-op evaluation Pelvic pain in female Unspecified symptom associated with female genital organs H/O: hysterectomy Acquired absence of both cervix and uterus documented in this encounter [facility] HealthcareEvaluation note* Diagnosis Postop check Follow-up examination, following unspecified surgery [facility] Other History general Narrative - Reported* Type Description Date Medical History Pleurisy [place] [facility] Other Hisxxyr general Narrative - [facility] Other History general [facility]ative - [facility] Other Hospital Discharge instructions No data available for this section [facility] [place] Progress note No data available for this section [facility] [place] Summary Purpose Family History No Family History [...] section and content) DATE CREATED AUTHOR 11/23/2021 [facility] dical Specialist DATE CREATED AUTHOR AUTHOR'S ORGANIZ ATION 07/03/[address] [facility] pital DATE CREATED AUTHOR AUTHOR'S ORGANIZ ATION 12/31/2023 [facility] DATE CREATED AUTHOR AUTHOR'S ORGANIZ ATION 03/28/2024 [facility] DATE CREATED AUTHOR AUTHOR'S ORGANIZ ATION 04/17/2024 [facility] DATE CREATED AUTHOR AUTHOR'S ORGANIZ ATION 04/23/2024 [facility] dical Specialists EPIC Care Teams [...] December 11, 2023 End: December 11, 2023 Undercutter Operator Relationship Specialty Start Date End Date Chris Hernandez MD [address] [place] [address] PCP - General Family Medicine 07/26/22 Undercutter Operator Relationship Specialty Start Date End Date Chris Hernandez MD [address] [place] [address] PCP - General Family Medicine 07/26/22 Undercutter Operator Relationship Specialty Start Date End Date Chris Hernandez MD [address] [place] [address] PCP - General Family Medicine 07/26/22 Undercutter Operator Relationship Specialty Start Date End Date Chris Hernandez MD [address] [place] [address] PCP - General Family Medicine 07/26/22 Team Status: Inactive Member Role Status Dates Vikash Mena DO Attending Provider Active Start : April 12, 2024 End: April 12, 2024 Undercutter Operator Relationship Specialty Start Date End Date Chris Hernandez MD [address] [place] [address] PCP - General Family Medicine 07/26/22 Undercutter Operator Relationship Specialty Start Date End Date Chris Hernandez MD [address] [place] [address] PCP - General Family Medicine 07/26/22 Goals [...] BE BASED ON THE PRIMARY CLINICAL RECORDS. [id number] [facility]. provides no warranty or guarantee of the accuracy or completeness of information in this document.
[2024-05-15 06:35] VITALS: BP 111/81; PULSE 98; TEMP 36.4; O2SAT 100; BMI 31.1
[2024-05-15] MEDS: 0.9 % SODIUM CHLORIDE 500 ML 50 ML IV (07:07)
[2024-05-15 07:48] VITALS: BP 90/53; PULSE 89; TEMP 36.7; O2SAT 99
[2024-05-15 08:03] VITALS: BP 102/61; PULSE 80; O2SAT 100
[2024-05-15 08:18] VITALS: BP 105/71; PULSE 78; O2SAT 100
== END 2024-05-15 08:22 | disposition home or self-care (01) ==
PROVIDERS: PCP Student in an Organized Health Care Education/Training Program; Visit Provider Surgery
PROC: (CPT 812; principal; 2024-05-15 07:30)
DX: Z12.11 Encounter for screening for malignant neoplasm of colon (principal); R10.31 Right lower quadrant pain; K57.30 Diverticulosis of large intestine without perforation or abscess without bleeding; Z90.710 Acquired absence of both cervix and uterus; E78.5 Hyperlipidemia, unspecified
CPT/HCPCS: 45378; J2704